=== PATIENT | female | born 1970 | race Asian ===

== ENCOUNTER 2017-01-04 07:19 | Observation (INO) | payer BC, OTHER ==
--- NOTE | 2017-01-04 07:54 | PDOC ---
History of Present Illness - General History Source: Patient Exam Limitations: No Limitations - History of Present Illness Initial Comments: 01/04/17 08:01 The patient is a 46-year-old woman, accompanied by family, with a significant past medical history of hypertension and metastatic breast Ca (s.p left lumpectomy and port-a-cath placement) who was sent to the emergency department by her Oncologist, Dr. Rudd, for rapid initiation of chemotherapy and port-a- cath placement today. As per patient, she reports a two day history of a mild intermittent non- productive cough. She denies any associated symptoms of fever, chills, generalized weakness, chest pain, lightheadedness, dizziness, shortness of breath, abdominal pain, nausea, vomiting, diarrhea. Allergies: No Known Drug Allergies. Past Surgical History: Left Lumpectomy. Port-A-Cath Placement. Social History: No tobacco, ETOH and recreational drug use. Primary Care Physician: Dr. Mynor Fischer [phone] Oncologist: Dr. Blaire Diggs [phone] <Esther Carr - Last Filed: 01/04/17 09:29> - General History Source: Patient Exam Limitations: No Limitations <Eveline Scott - Last Filed: 01/05/17 07:16> - General Chief Complaint: Revisit,Radiology Variance Stated Complaint: SENT BY PCP Time Seen by Provider: 01/04/17 07:38 Past History <Esther Carr - Last Filed: 01/04/17 09:29> - Past Medical History Anemia: No Asthma: No Cancer: Yes (LT BREAST) Cardiac Disorders: No CVA: No COPD: No CHF: No Dementia: No Diabetes: Yes GI Disorders: No Disorders: No HTN: Yes Hypercholesterolemia: No Liver Disease: No Seizures: No Thyroid Disease: No - Surgical History Abdominal Surgery: No Appendectomy: No Cardiac Surgery: No Cholecystectomy: No Lung Surgery: No Neurologic Surgery: No Orthopedic Surgery: No - Psycho/Social/Smoking Cessation Hx Anxiety: No Suicidal Ideation: No Smoking History: Never smoked Have you smoked in the past 12 months: No Hx Alcohol Use: No Drug/Substance Use Hx: No Substance Use Type: None Hx Substance Use Treatment: No <Eveline Scott - Last Filed: 01/05/17 07:16> - Past Medical History Allergies/Adverse Reactions: Allergies Allergy/AdvReac Type Severity Reaction Status Date / Time No Known Drug Allergies Allergy Verified 01/04/17 07:33 Home Medications: Ambulatory Orders Atorvastatin Ca [Lipitor] 10 mg PO HS 01/04/17 Glipizide [Glipizide Xl] 2.5 mg PO BID 01/04/17 Losartan Potassium [Cozaar -] 25 mg PO DAILY 01/04/17 Sitagliptin Phosphate [Januvia] 100 mg PO DAILY 01/04/17 Review of Systems - Review of Systems Able to Perform ROS?: Yes Comments:: 01/04/17 08:01 GENERAL/CONSTITUTIONAL: No: fever, chills, weakness, loss of appetite. HEAD, EYES, EARS, NOSE AND THROAT: No: change in vision, ear pain, discharge, sore throat, throat swelling. CARDIOVASCULAR: No: chest pain, lightheadedness, palpitations, syncope RESPIRATORY: Yes: Cough. No: shortness of breath, wheezing, hemoptysis, stridor. GASTROINTESTINAL: No: nausea, vomiting, abdominal cramping, diarrhea, rectal bleeding, constipation. GENITOURINARY: No: dysuria, hematuria, frequency, urgency, flank pain. MUSCULOSKELETAL: No: back pain, neck pain, joint pain, muscle swelling or pain SKIN AND BREASTS: No: lesions, pallor, rash or easy bruising. NEUROLOGIC: No: headache, vertigo, paresthesias, weakness ENDOCRINE: No: unexplained weight gain or loss HEMATOLOGIC/LYMPHATIC: Yes: Metastatic breast Ca. No: anemia, easy bleeding, swelling nodes <Esther Carr - Last Filed: 01/04/17 09:29> *Physical Exam - Vital Signs Last Vital Signs Temp Pulse Resp BP Pulse Ox 98.6 F 101 H 19 121/76 96 01/04/17 07:33 01/04/17 07:33 01/04/17 07:33 01/04/17 07:33 01/04/17 07:33 - Physical Exam Comments: 01/04/17 08:02 GENERAL: The patient is in no acute distress. HEAD: Normal with no signs of trauma. EYES: PERRLA, EOMI, sclera anicteric, conjunctiva clear. ENT: Ears normal, nares patent, oropharynx clear without exudates. Moist mucous membranes. NECK: Normal range of motion, supple without lymphadenopathy, JVD, or masses. CHEST: There is a well healed surgical scar at the right anterior chest. LUNGS: Breath sounds equal, clear to auscultation bilaterally. No wheezes, and no crackles. HEART:Regular rate and rhythm, normal S1 and S2 without murmur, rub or gallop. ABDOMEN: Soft, nontender, normoactive bowel sounds. No guarding, no rebound. EXTREMITIES: Normal range of motion, no edema. No clubbing or cyanosis. No erythema, or tenderness. NEUROLOGICAL: Cranial nerves II through XII grossly intact. Normal speech. No focal neurological deficits. MUSCULOSKELETAL: Back non-tender to palpation, no CVA tenderness SKIN: Warm, Dry, normal turgor, no rashes or lesions noted. <Esther Carr - Last Filed: 01/04/17 09:29> - Vital Signs Last Vital Signs Temp Pulse Resp BP Pulse Ox 98.6 F 101 H 19 121/76 96 01/04/17 07:33 01/04/17 07:33 01/04/17 07:33 01/04/17 07:33 01/04/17 07:33 <Eveline Scott - Last Filed: 01/05/17 07:16> Heart Score/ECG Review #1 ECG reviewed & interpreted by me at: 08:32 General ECG Interpretation: Sinus Rhythm, Normal Rate, Normal Intervals, No acute ischemic changes <Eveline Scott - Last Filed: 01/05/17 07:16> ED Treatment Course - LABORATORY CBC & Chemistry Diagram: 01/04/17 08:04 01/04/17 08:04 - RADIOLOGY Radiograph Interpretation: 01/04/17 09:29 EXAM: RAD/CHEST X-RAY PORTABLE IMPRESSION: Prior study is dated June 27, 2015. There is marked elevation of the right hemidiaphragm with atelectasis at the right base. Left lung field appears clear. Cardiac silhouette is within normal limits. Mediastinum appears slightly prominent which may be due to some rotation <Esther Carr - Last Filed: 01/04/17 09:29> - LABORATORY CBC & Chemistry Diagram: 01/04/17 08:04 01/04/17 08:04 - RADIOLOGY Radiology Studies Ordered: Category Date Time Status CHEST X-RAY PORTABLE* [RAD] Stat Radiology 01/04/17 07:34 Ordered <Eveline Scott - Last Filed: 01/05/17 07:16> Medical Decision Making - Medical Decision Making 01/04/17 08:11 MicroBlogged Hospitalist. Immediate response by Nurse Practitioner, Millie Cox. Case was discussed. Accepts case. <Esther Carr - Last Filed: 01/04/17 09:29> - Medical Decision Making 01/04/17 07:53 A portion of this note was documented by scribe services under my direction. I have reviewed the details of the note, within reason, and agree with the documentation with the following case summary and management plan written by me. Nursing documentation reviewed and incorporated into medical decision making 01/04/17 08:21 This is a 46-year-old female with a history of metastatic breast cancer who was sent to the emergency department to be pretty admitted for Port-A-Cath and rapid initiation of chemotherapy. Currently patient's only complaints are intermittent nonproductive cough. No fever, no chills. No chest or abdominal pain. Exam benign Case reviewed with surgical PA. Patient is to be NPO for Port-A-Cath placement this morning. Dr. Rudd called in this morning to state patient will be initiated on chemotherapy Case reviewed with Dr. Howard. Patient is admitted to the hospitalist service Labs sent <Eveline Scott - Last Filed: 01/05/17 07:16> *DC/Admit/Observation/Transfer - Attestations Scribe Attestion: 01/04/17 08:02 Documentation prepared by Esther Carr, acting as medical dermatologist for Eveline Scott MD. <Esther Carr - Last Filed: 01/04/17 09:29> - Discharge Dispostion Admit: Yes <Eveline Scott - Last Filed: 01/05/17 07:16> Diagnosis at time of Disposition: Breast cancer metastasized to multiple sites Qualifiers: Laterality: unspecified laterality Qualified Code(s): C50.919 - Malignant neoplasm of unspecified site of unspecified female breast - Discharge Dispostion Condition at time of disposition: Stable - Referrals
[2017-01-04 08:16] LABS: BASOPHIL 0.5 % (0-2.0); EOSINOPHIL 11.3 % (0-4.5); MCH 28.5 pg (25.7-33.7); MCHC 33.1 g/dl (32.0-36.0); MEAN PLT VOLUME 6.6 fl (7.5-11.1); NEUTROPHILS 55.9 % (42.8-82.8); PLATELET COUNT 316 K/MM3 (134-434); RDW 14.4 % (11.6-15.6); WHITE BLOOD COUNT 6.1 K/mm3 (4.0-10.0)
[2017-01-04 08:26] LABS: INR 1.12 (0.82-1.09); PROTHROMBIN TIME (PATIENT) 12.4 SEC (9.98-11.88)
[2017-01-04 08:38] LABS: ALBUMIN 3.8 g/dl (3.4-5.0); ALK PHOS 88 U/L (45-117); ANION GAP 9 (8-16); BILIRUBIN,TOTAL 0.6 mg/dL (0.2-1.0); CALCIUM 8.7 mg/dL (8.5-10.1); CO2 28 mmol/L (21-32); CREATININE 0.7 mg/dL (0.55-1.02); GLUCOSE,RANDOM 120 mg/dL (74-106); SGOT/AST 31 U/L (15-37); SGPT/ALT 15 U/L (12-78); TOT PROT 7.3 g/dl (6.4-8.2)
[2017-01-04] MEDS ORDERED: LIDOCAINE HCL 1%, 10 MG/ML (20ML VIAL) ONE (08:38)
[2017-01-04] MEDS ORDERED: HEPARIN NA (PORCINE) 5,000 UNITS/ML 1ML VIAL ONE (08:38)
[2017-01-04] MEDS ORDERED: MIDAZOLAM HCL 2 MG/2 ML SINGLE DOSE VIAL ONE ×2 (09:18→09:22)
[2017-01-04] MEDS ORDERED: ceFAZolin SODIUM 1 GM VIAL ONE (09:19)
[2017-01-04] MEDS ORDERED: ceFAZolin SODIUM 1 GM VIAL IVPB ONE (09:20)
[2017-01-04] MEDS ORDERED: LIDOCAINE HCL 1%, 10 MG/ML (20ML VIAL) IJ ONE ×2 (09:24)
--- NOTE | 2017-01-04 09:29 | HP ---
CHIEF COMPLAINT: Needs chemotherapy PCP: Dr. Lowe Oncologist: Dr. Rudd HISTORY OF PRESENT ILLNESS: This is a 46 year old female with a history of breast ca (dx in [place], then followed here: s/p lumpectomy, chemotherapy, and RTX 2 years ago complicated by ESBL PNA). She subsequently had a normal mammogram in July, and was being evaluated every 3 months. This month, she developed cough and cold symptoms and was noted to have lymphadenopathy on exam. PET scan then revealed widely metastatic disease; biospy confirmed triple negative breast ca. She is here for initiation of gemcitabine and carboplatin. She is s/p port-a-cath insertion today. Recent Travel: None PAST MEDICAL HISTORY: HTN, HLD, NIDDM Social History: Primary language is Malayalam Smoking: Alcohol: Drugs: Family History: Allergies No Known Drug Allergies Allergy (Verified 01/04/17 07:33) HOME MEDICATIONS: Home Medications Medication Instructions Recorded Entecavir 0.5 mg PO DAILY 06/16/15 Omeprazole 40 mg PO DAILY 06/16/15 Ondansetron HCl [Zofran] 8 mg PO BID PRN 07/21/15 Dexamethasone 20 mg PO ASDIR 08/05/15 Amlodipine Besylate 10 mg PO DAILY 08/18/15 REVIEW OF SYSTEMS CONSTITUTIONAL: Absent: fever, chills, diaphoresis, generalized weakness, malaise, loss of appetite, weight change HEENT: Absent: rhinorrhea, nasal congestion, throat pain, throat swelling, difficulty swallowing, mouth swelling, ear pain, eye pain, visual changes CARDIOVASCULAR: Absent: chest pain, syncope, palpitations, irregular heart rate, lightheadedness , peripheral edema RESPIRATORY: Absent: cough, shortness of breath, dyspnea with exertion, orthopnea, wheezing, stridor, hemoptysis GASTROINTESTINAL: Absent: abdominal pain, abdominal distension, nausea, vomiting, diarrhea, constipation, melena, hematochezia GENITOURINARY: Absent: dysuria, frequency, urgency, hesitancy, hematuria, flank pain, genital pain MUSCULOSKELETAL: Absent: myalgia, arthralgia, joint swelling, back pain, neck pain SKIN: Absent: rash, itching, pallor HEMATOLOGIC/IMMUNOLOGIC: Absent: easy bleeding, easy bruising, lymphadenopathy, frequent infections ENDOCRINE: Absent: unexplained weight gain, unexplained weight loss, heat intolerance, cold intolerance NEUROLOGIC: Absent: headache, focal weakness or paresthesias, dizziness, unsteady gait, seizure, mental status changes, bladder or bowel incontinence PSYCHIATRIC: Absent: anxiety, depression, suicidal or homicidal ideation, hallucinations. PHYSICAL EXAMINATION GENERAL: Awake, alert, and fully oriented, in no acute distress. HEAD: Normal with no signs of trauma. EYES: Pupils equal, round and reactive to light, extraocular movements intact, sclera anicteric, conjunctiva clear. No lid lag. EARS, NOSE, THROAT: Ears normal, nares patent, oropharynx clear without exudates. Moist mucous membranes. NECK: Normal range of motion, supple without lymphadenopathy, JVD, or masses. LUNGS: Breath sounds equal, clear to auscultation bilaterally. No wheezes, and no crackles. No accessory muscle use. Right chest port-a-cath dressing clean and dry. HEART: Regular rate and rhythm, normal S1 and S2 without murmur, rub or gallop. ABDOMEN: Soft, nontender, not distended, normoactive bowel sounds, no guarding, no rebound, no masses. No hepatomegaly or splenomegaly. MUSCULOSKELETAL: Normal range of motion at all joints. No bony deformities or tenderness. No CVA tenderness. UPPER EXTREMITIES: 2+ pulses, warm, well-perfused. No cyanosis. No clubbing. Cap refill <2 seconds. No peripheral edema. LOWER EXTREMITIES: 2+ pulses, warm, well-perfused. No calf tenderness. No peripheral edema. NEUROLOGICAL: Cranial nerves II-XII intact. Normal speech. Normal gait. PSYCHIATRIC: Cooperative. Good eye contact. Appropriate mood and affect. SKIN: Warm, dry, normal turgor, no rashes or lesions noted. ASSESSMENT/PLAN: 46 year old female placed in observation for initiation of chemotherapy. Problem List - Problem (1) Breast cancer metastasized to multiple sites Assessment/Plan: -Initiation of gemcitabine and carboplatin -Zofran and compazine as needed for nausea -IVF -Neulasta tomorrow prior to dc Code(s): C50.919 - MALIGNANT NEOPLASM OF UNSP SITE OF UNSPECIFIED FEMALE BREAST Qualifiers: Laterality: unspecified laterality Qualified Code(s): C50.919 - Malignant neoplasm of unspecified site of unspecified female breast (2) Chemotherapy management, encounter for Assessment/Plan: -Oncology following Code(s): Z51.11 - ENCOUNTER FOR ANTINEOPLASTIC CHEMOTHERAPY (3) Encounter for insertion of venous access port Assessment/Plan: -S/p port-a-cath insertion, uneventful Code(s): Z45.2 - ENCOUNTER FOR ADJUSTMENT AND MANAGEMENT OF VAD (4) Hypertension Assessment/Plan: -At goal -Continue home Cozaar Code(s): I10 - ESSENTIAL (PRIMARY) HYPERTENSION (5) Diabetes Assessment/Plan: -Hold oral hypoglycemics while inpatient -ISS -FSACHS -Diabetic diet Code(s): E11.9 - TYPE 2 DIABETES MELLITUS WITHOUT COMPLICATIONS (6) DVT prophylaxis Code(s): SVG1988 - Visit type - Emergency Visit Emergency Visit: Yes ED Registration Date: 01/04/17 Care time: The patient presented to the Emergency Department on the above date and was hospitalized for further evaluation of their emergent condition. - New Patient This patient is new to me today: Yes Date on this admission: 01/12/17 - Critical Care Critical Care patient: No
[2017-01-04] MEDS ORDERED: ONDANSETRON 4 MG/2 ML VIAL IVPB PRN (09:44)
[2017-01-04] MEDS ORDERED: ACETAMINOPHEN 325 MG TABLET (FP) PO PRN (09:44)
[2017-01-04] MEDS ORDERED: SODIUM CHLORIDE 1,000 ML IV SCH ×2 (09:45→20:00)
[2017-01-04] MEDS ORDERED: oxyCODONE HCL 5 MG TABLET PO PRN (09:47)
[2017-01-04] MEDS ORDERED: ASPIRIN 81 MG CHEWABLE TABLETS PO SCH (10:00)
--- NOTE | 2017-01-04 10:08 | OP ---
Operative Note - Note: Operative Date: 01/04/17 Pre-Operative Diagnosis: Breast cancer with mets Operation: Insertion of portacath Post-Operative Diagnosis: Same as Pre-op Surgeon: Kirill Ryan Anesthesia: Fractional Estimated Blood Loss (mls): 10 Operative Report Dictated: Yes
[2017-01-04] MEDS ORDERED: LACTATED RINGERS SOLUTION 1,000 ML IV SCH (10:15)
[2017-01-04] MEDS ORDERED: ONDANSETRON 4 MG/2 ML VIAL IVPUSH PRN (10:15)
[2017-01-04] MEDS ORDERED: ONDANSETRON 4 MG/2 ML VIAL ONE (11:53)
[2017-01-04] MEDS ORDERED: PROCHLORPERAZINE MALEATE 5 MG TABLET PO PRN (12:53)
[2017-01-04] MEDS ORDERED: SODIUM CHLORIDE 250 ML IV ONE ×2 (13:30→15:30)
[2017-01-04] MEDS: LOSARTAN POTASSIUM 25 MG TABLET PO SCH (13:43)
[2017-01-04] MEDS: INSULIN SLIDING SCALE (NOVOLOG) 1 VIAL SQ SCH ×3 (13:44→21:56)
[2017-01-04] MEDS ORDERED: DEXAMETHASONE INJECTION 10 MG, ONDANSETRON INJECTION 12 MG in SODIUM CHLORIDE 100 ML IVPB ONE (14:00)
[2017-01-04 14:25] VITALS: BMI 28.3
[2017-01-04] MEDS ORDERED: GEMCITABINE HCL IV ONE (14:30)
[2017-01-04] MEDS ORDERED: SODIUM CHLORIDE IV ONE (14:30)
[2017-01-04] MEDS ORDERED: CARBOPLATIN IVPB ONE (15:00)
[2017-01-04] MEDS ORDERED: SODIUM CHLORIDE IVPB ONE (15:00)
--- NOTE | 2017-01-04 15:02 | CONSULT ---
Consult - text type - Consultation Consultation Note: The patient is a 46-year-old woman, accompanied by family, with a significant past medical history of DM<hypertension and metastatic breast Ca (s.p left lumpectomy and port-a-cath placement) Cough is improving. She denies any associated symptoms of fever, chills, generalized weakness, chest pain, lightheadedness, dizziness, shortness of breath, abdominal pain, nausea, vomiting, diarrhea. Allergies: No Known Drug Allergies. Past Surgical History: Left Lumpectomy. Port-A-Cath Placement. Social History: No tobacco, ETOH and recreational drug use. - Past Medical History Cancer: Yes (LT BREAST) DM HTN: Yes - Psycho/Social/Smoking Cessation Hx nonsmoker - Past Medical History Allergies/Adverse Reactions: Allergies Allergy/AdvReac Type Severity Reaction Status Date / Time No Known Drug Allergies Allergy Verified 01/04/17 07:33 Home Medications: Ambulatory Orders Entecavir 0.5 mg PO DAILY 06/16/15 Omeprazole 40 mg PO DAILY 06/16/15 Ondansetron HCl [Zofran] 8 mg PO BID PRN 07/21/15 Dexamethasone 20 mg PO ASDIR 08/05/15 Amlodipine Besylate 10 mg PO DAILY 08/18/15 - Vital Signs Last Vital Signs Temp Pulse Resp BP Pulse Ox 98.6 F 101 H 19 121/76 96 01/04/17 07:33 01/04/17 07:33 01/04/17 07:33 01/04/17 07:33 01/04/17 07:33 HEENT: MICHELLE, EOM Intact Oropharynx: No thrush, No mucositis Neck: Supple Nodes: supraclavicular adenopathy Cor: RSR, No murmurs, No gallops Lungs: Clear to P&A Abd: Soft, Normal bowel sounds, No organomegaly Abnormal Lab Results 01/04/17 01/04/17 08:04 08:04 MPV 6.6 L Eosinophils % 11.3 H D Random Glucose 120 H D Current Medications Acetaminophen (Tylenol -) 650 mg PO Q4H PRN PRN Reason: FEVER OR PAIN Atorvastatin Calcium (Lipitor -) 10 mg PO HS JAIR Last Admin: 01/04/17 21:55 Dose: 10 mg Enoxaparin Sodium (Lovenox -) 40 mg SQ DAILY JAIR Sodium Chloride (Normal Saline -) 1,000 mls @ 42 mls/hr IV ASDIR JAIR Last Admin: 01/04/17 20:05 Dose: 42 mls/hr Insulin Aspart (Novolog Vial Sliding Scale -) 1 vial SQ ACHS JAIR PRN Reason: Protocol Last Admin: 01/04/17 21:56 Dose: 6 units Losartan Potassium (Cozaar -) 25 mg PO DAILY JAIR Last Admin: 01/04/17 13:43 Dose: 25 mg Oxycodone HCl (Roxicodone -) 5 mg PO Q6H PRN PRN Reason: PAIN Prochlorperazine Maleate (Compazine -) 10 mg PO Q6H PRN PRN Reason: NAUSEA AND/OR VOMITING Last Admin: 01/04/17 13:41 Dose: 10 mg A/P 46 y/o female with h/o DM, HT, h/o stage IIA triple negative breast cancer in 2014, s/p lumpectomy/dose dense chemotherapy with AC and taxol /RT she now comes in with recurrent metastatic breast cancer with widely metastatic disease / lymphangitic spread to the lung/rt. supraclavicular node, ipsilateral breast recurrence,adrenal mass/rt. femur will check X ray both femurs discuussed side effects of gem/carbo in great detail including flu like symptoms /sepsis/vital organ damage/bleeding she understands risks/benefits and is willing to proceed check X ray both femurs dscussed with family at bed side ID consult --?/ pneumovax. IF indicated will give ads out patient neupogen prior to discharge
--- NOTE | 2017-01-04 16:34 | EKG ---
Test Reason : Blood Pressure : / mmHG Vent. Rate : 094 BPM Atrial Rate : 094 BPM P-R Int : 128 ms QRS Dur : 072 ms QT Int : 362 ms P-R-T Axes : 049 034 017 degrees QTc Int : 452 ms NORMAL SINUS RHYTHM NORMAL ECG WHEN COMPARED WITH ECG OF 16-JUN-2015 19:24, NO SIGNIFICANT CHANGE WAS FOUND Confirmed by MD SAMANTHA, TOSHIA ([id number]) on 01/04/2017 4:33:52 PM Referred By: Confirmed By:TOSHIA SINGH MD
[2017-01-04] MEDS ORDERED: INSULIN (NOVOLOG) ASPART 100 UNITS/ML 10ML VIAL ONE (19:39)
[2017-01-04] MEDS ORDERED: ATORVASTATIN CA 10 MG TABLET (FP) PO SCH (22:00)
[2017-01-05] MEDS: INSULIN SLIDING SCALE (NOVOLOG) 1 VIAL SQ SCH ×3 (06:05→17:28)
[2017-01-05 07:19] LABS: BASOPHIL 0.1 % (0-2.0); MCH 28.5 pg (25.7-33.7); MCHC 33.2 g/dl (32.0-36.0); MEAN CELL VOLUME 85.9 fl (80-96); MEAN PLT VOLUME 7.1 fl (7.5-11.1); NEUTROPHILS 89.5 % (42.8-82.8); PLATELET COUNT 288 K/MM3 (134-434); RDW 14.2 % (11.6-15.6); WHITE BLOOD COUNT 8.4 K/mm3 (4.0-10.0)
[2017-01-05 07:47] LABS: ALK PHOS 71 U/L (45-117); ANION GAP 6 (8-16); BILIRUBIN,TOTAL 0.6 mg/dL (0.2-1.0); CALCIUM 8.6 mg/dL (8.5-10.1); CO2 28 mmol/L (21-32); CREATININE 0.6 mg/dL (0.55-1.02); GLUCOSE,RANDOM 155 mg/dL (74-106); MAGNESIUM 2.3 mg/dL (1.8-2.4); PHOSPHOROUS 2.8 mg/dL (2.5-4.9); SGOT/AST 22 U/L (15-37); SGPT/ALT 12 U/L (12-78); TOT PROT 6.3 g/dl (6.4-8.2)
--- NOTE | 2017-01-05 09:48 | PN ---
Progress Note (short form) - Note Progress Note: Vascular surgery Pt seen and examined. Port site is clean. Using port. No issues. Cont present care. Kirill Ryan DO
[2017-01-05] MEDS ORDERED: ENOXAPARIN NA (PORCINE) 40 MG/0.4 ML DISP.SYRIN SQ SCH (10:00)
[2017-01-05] MEDS ORDERED: PT OWN MED DRAWER 7, Y5N ONE (11:05)
[2017-01-05] MEDS: LOSARTAN POTASSIUM 25 MG TABLET PO SCH (11:20)
[2017-01-05] MEDS ORDERED: INSULIN (NOVOLOG) ASPART 100 UNITS/ML 10ML VIAL ONE (11:27)
--- NOTE | 2017-01-05 11:41 | OP ---
DATE OF OPERATION: 01/04/2017 PREOPERATIVE DIAGNOSIS: Breast cancer with metastasis. POSTOPERATIVE DIAGNOSIS: Breast cancer with metastasis. PROCEDURE: Insertion of Port-A-Cath. SURGEON: Kirill Deluca DO ANESTHESIA: Fractional. BLOOD LOSS: 10 mL. DESCRIPTION OF PROCEDURE: The patient is a 46-year-old female with breast cancer with metastasis who needs initiation of chemotherapy. She came into the ER today for Port-A-Cath insertion. Patient was consented for the procedure, understanding all risks, benefits, and alternatives, then brought into the operating room. Once in the operating suite, patient was laid on the operating table in supine manner, and the area of the right neck and chest was prepped in sterile surgical manner. Under ultrasound guidance, we visualized the right internal jugular vein and 10 mL of 0.5% was injected there. We then took our Micropuncture needle and punctured the right internal jugular vein, and our Micropuncture wire was inserted under fluoroscopy. Micropuncture sheath was then inserted. We then went ahead and went below the clavicle and below the last scar for her Port-A-Cath which she had a couple of years ago and injected 15 mL of lidocaine 1%. We then, using a 15-blade, made a 7-cm incision. Bovie electrocautery was then used to control hemostasis, and we were able to get down through all the subcutaneous tissue using a vein retractor. We were able to create a pocket for our Port-A-Cath. We then went ahead and tunneled our Port-A-Cath up to the puncture site. We then went ahead and placed our breakaway sheath over the guidewire into the vein under fluoroscopy. Inner cannula and guidewire were removed. Catheter was then placed in the sheath and the sheath was broken away. The catheter was placed inside the vein. Prior to placing the catheter into the vein, the catheter was cut to size using fluoroscopy. Once the catheter was placed inside the SVC, it was found to be outside the right atrium. We then took a Xavier needle and used heparinized saline and we were able to draw back on the Port-A-Cath and there was good flow. Heparinized saline was injected and 2000 units of IV heparin was injected. At this point we took 3-0 silk and we attached the catheter to the subcutaneous tissue. We then used 3-0 Vicryl and the subcutaneous tissue was approximated in an interrupted manner, and the skin was closed with 4-0 Biosyn in subcuticular running fashion. One simple stitch was also placed at the puncture site. Area was wet and dried. Two Steri-Strips were placed across the incision of the Port-A-Cath. We then took an access needle and accessed the Port-A-Cath, jay back on the Port-A-Cath, and there was good drawback, and heparinized saline was used to inject into the Port-A-Cath. Tegaderms, 4 x 4's were placed. Patient tolerated the procedure with no complications. Patient transferred to the PACU in stable condition where chest x-ray will be obtained. KIRILL DELUCA DO [id number]
--- NOTE | 2017-01-05 15:32 | PN ---
Progress Note (short form) - Note Progress Note: PAtient seen end examined Feels well Last Vital Signs Temp Pulse Resp BP Pulse Ox 98.2 F 92 H 20 129/76 96 01/05/17 14:40 01/05/17 14:40 01/05/17 14:40 01/05/17 14:40 01/05/17 05:00 HEENT: MICHELLE, EOM Intact Oropharynx: No thrush, No mucositis Neck: Supple Cor: RSR, No murmurs, No gallops Lungs: Clear to P&A Abd: Soft, Normal bowel sounds, No organomegaly Ext:No significant edema Abnormal Lab Results 01/05/17 01/05/17 06:00 06:00 Hgb 10.5 L D Hct 31.7 L MPV 7.1 L Neutrophils % 89.5 H D Lymphocytes % 7.9 L D Monocytes % 2.5 L Anion Gap 6 L Random Glucose 155 H D Total Protein 6.3 L Albumin 3.0 L D Current Medications Acetaminophen (Tylenol -) 650 mg PO Q4H PRN PRN Reason: FEVER OR PAIN Atorvastatin Calcium (Lipitor -) 10 mg PO HS [facility] Last Admin: 01/04/17 21:55 Dose: 10 mg Enoxaparin Sodium (Lovenox -) 40 mg SQ DAILY [facility] Last Admin: 01/05/17 11:20 Dose: 40 mg Entecavir (Baraclude -) 0.5 mg PO DAILY [facility] Sodium Chloride (Normal Saline -) 1,000 mls @ 42 mls/hr IV ASDIR [facility] Last Admin: 01/04/17 20:05 Dose: 42 mls/hr Insulin Aspart (Novolog Vial Sliding Scale -) 1 vial SQ ACHS [facility] PRN Reason: Protocol Last Admin: 01/05/17 11:20 Dose: 4 units Losartan Potassium (Cozaar -) 25 mg PO DAILY [facility] Last Admin: 01/05/17 11:20 Dose: 25 mg Oxycodone HCl (Roxicodone -) 5 mg PO Q6H PRN PRN Reason: PAIN Prochlorperazine Maleate (Compazine -) 10 mg PO Q6H PRN PRN Reason: NAUSEA AND/OR VOMITING Last Admin: 01/04/17 13:41 Dose: 10 mg Tbo-Filgrastim (Granix -) 300 mcg SQ ONCE ONE Stop: 01/05/17 15:25 A/P 46 y/o patient with recurrent, metastatic breast cancer , triple negative On gemzar/carboplatin Tolerating well will restart entecavir d/c fluids XRay both femurs show no e/o lytic lesions d/c home on protonix/compazine/ zofran granix prior to discharge f/u on sat in the office
--- NOTE | 2017-01-05 15:48 | DS ---
Physical Exam: SUBJECTIVE: Patient seen and examined. States she feels well, she has a port a cath placed yesterday for continued chemo infusions as an outpatient. OBJECTIVE: Vital Signs Period Temp Pulse Resp BP Sys/Winter Pulse Ox Last 24 Hr 97.7 F-98.3 F 92-108 16-20 116-155/72-94 96-96 PHYSICAL EXAM GENERAL: The patient is awake, alert, and fully oriented, in no acute distress. HEAD: Normal with no signs of trauma. EYES: PERRL, extraocular movements intact, sclera anicteric, conjunctiva clear. ENT: Ears normal, nares patent, oropharynx clear without exudates, moist mucous membranes. NECK: Trachea midline, full range of motion, supple. LUNGS: Breath sounds equal, clear to auscultation bilaterally HEART: Regular rate and rhythm ABDOMEN: Soft, nontender, nondistended, normoactive bowel sounds, no guarding, no rebound, no hepatosplenomegaly, no masses. EXTREMITIES: 2+ pulses, warm, well-perfused, no edema. NEUROLOGICAL: Normal speech, gait not observed. PSYCH: Normal mood, normal affect. SKIN: Warm, dry, normal turgor, no rashes or lesions noted. LABS Laboratory Results - last 24 hr 01/04/17 01/05/17 01/05/17 21:53 06:00 06:00 WBC 8.4 D RBC 3.70 Hgb 10.5 L D Hct 31.7 L MCV 85.9 MCHC 33.2 RDW 14.2 Plt Count 288 MPV 7.1 L Neutrophils % 89.5 H D Lymphocytes % 7.9 L D Monocytes % 2.5 L Eosinophils % 0.0 D Basophils % 0.1 Sodium 139 Potassium 4.3 Chloride 105 Carbon Dioxide 28 Anion Gap 6 L BUN 14 D Creatinine 0.6 Creat Clearance w eGFR > 60 POC Glucometer 264 Random Glucose 155 H D Calcium 8.6 Phosphorus 2.8 Magnesium 2.3 D Total Bilirubin 0.6 AST 22 D ALT 12 Alkaline Phosphatase 71 Total Protein 6.3 L Albumin 3.0 L D 01/05/17 01/05/17 06:03 11:18 WBC RBC Hgb Hct MCV MCHC RDW Plt Count MPV Neutrophils % Lymphocytes % Monocytes % Eosinophils % Basophils % Sodium Potassium Chloride Carbon Dioxide Anion Gap BUN Creatinine Creat Clearance w eGFR POC Glucometer 178 248 Random Glucose Calcium Phosphorus Magnesium Total Bilirubin AST ALT Alkaline Phosphatase Total Protein Albumin HOSPITAL COURSE: Date of Admission:01/04/17 Date of Discharge: 01/05/17 The patient is a 46-year-old woman with a significant past medical history of hypertension and metastatic breast Ca (s.p left lumpectomy and port-a-cath placement) who was sent to the emergency department by her Oncologist for rapid initiation of chemotherapy and port-a-cath placement today. Hematology/Oncology Assessment/Plan: Malignant neoplasm of the breast/triple negative s/p chemotherapy (gemzar/carboplatin) to continue to receive chemo as outpatient s/p port a cath Will order Protonix, Companzine, Zofran to continue as outpt s/p chemo Cardiology: Hypertension - chronic Assessment/Plan: controlled on current regimen. : UTI - acute Assesment/Plan: Urine cultures with group d strep 10,000-20,000 she is asymptomatic, vitals stable, monitor for now Disposition: To follow with oncology as outpatient for continued chemotherapy. Full Code. Minutes to complete discharge: 45 Discharge Summary Reason For Visit: CARCINOMA OF BREAST METASTIC TO [facility] Current Active Problems Breast cancer metastasized to multiple sites (Acute) Chemotherapy management, encounter for (Acute) DVT prophylaxis (Acute) Encounter for insertion of venous access port (Acute) Hypertension (Acute) Condition: Stable - Instructions Diet, Activity, Other Instructions: Please report any worsening nausea vomiting to your PCP or oncologist. New Prescriptions: Protonix 40mg daily Companzine 10mg q 8 as needed for nausea/vomiting Zofran 8mg q 12 hours as needed for nausea/vomiting Referrals: Aaliyah Lowe MD [Primary Care Provider] - Blaire Diggs MD [Staff Physician] - - Home Medications Comprehensive Discharge Medication List: Ambulatory Orders Atorvastatin Ca [Lipitor] 10 mg PO HS 01/04/17 Glipizide [Glipizide Xl] 2.5 mg PO BID 01/04/17 Losartan Potassium [Cozaar -] 25 mg PO DAILY 01/04/17 Sitagliptin Phosphate [Januvia] 100 mg PO DAILY 01/04/17 This patient is new to me today: Yes Date on this admission: 01/05/17 Emergency Visit: Yes ED Registration Date: 01/04/17 Care time: The patient presented to the Emergency Department on the above date and was hospitalized for further evaluation of their emergent condition. Critical Care patient: No - Discharge Referral Referred to [facility] No
[2017-01-05] MEDS ORDERED: TBO-FILGRASTIM 300 MCG/0.5 ML DISP.SYRINGE SQ ONE (16:00)
[2017-01-05] MEDS ORDERED: ONDANSETRON 4 MG TABLET PO ONE (16:44)
[2017-01-05 17:43] VITALS: BP 138/75; PULSE 97; TEMP 98.4
[2017-01-05 19:09] LABS: URINE APPEARANCE CLEAR; URINE BILIRUBIN NEGATIVE (NEGATIVE); URINE COLOR STRAW; URINE GLUCOSE (UA) NEGATIVE (NEGATIVE); URINE KETONE NEGATIVE (NEGATIVE); URINE LEUK ESTERASE NEGATIVE (NEGATIVE); URINE NITRITE NEGATIVE (NEGATIVE); URINE PROTEIN NEGATIVE (NEGATIVE); URINE UROBILINOGEN NEGATIVE E.U./dl (0.2-1.0)
[2017-01-05 19:12] LABS: URINE BLOOD 1+ (NEGATIVE)
[2017-01-06] MEDS ORDERED: ENTECAVIR 0.5 MG TABLET PO SCH (10:00)
== END 2017-01-05 18:54 | disposition home or self-care (01) ==
LOC: JER 07:19 → INTOOBSV 08:24 → JERBED 08:24 → UNDOADMOB 08:24 → J7W 12:15 → JERBED 12:15 → J7W 17:58
PROVIDERS: ADMIT Internal Medicine; ATTEND Nurse Practitioner Family
PROC: 02H633Z Insertion of Infusion Device into Right Atrium, Percutaneous Approach (ICD-10-PCS; 2017-01-04)
PROC: B214YZZ Fluoroscopy of Right Heart using Other Contrast (ICD-10-PCS; 2017-01-04)
PROC: 0JH60XZ Insertion of Tunneled Vascular Access Device into Chest Subcutaneous Tissue and Fascia, Open Approach (ICD-10-PCS; principal; 2017-01-04 11:30)
DX: C50.919 Malignant neoplasm of unspecified site of unspecified female breast (principal); C78.01 Secondary malignant neoplasm of right lung; C77.0 Secondary and unspecified malignant neoplasm of lymph nodes of head, face and neck; C79.52 Secondary malignant neoplasm of bone marrow; I10 Essential (primary) hypertension; E78.5 Hyperlipidemia, unspecified
CPT/HCPCS: 36415; 71010-TC; 73552-TC-LT; 73552-TC-RT; 76000-TC; 80053; 81003; 81015; 83735; 84100; 84703; 85025; 85610; 86850; 86900; 86901; 87040; 87086; 87186; 93005; 93010; 94760; 96413; 96415; 96417; 99285-25; G0378; J1442; J1644

== ENCOUNTER 2017-01-11 08:36 | Day surgery (SDC) | payer BC, OTHER ==
[~2017-01-11 08:36] MED LIST: DEXAMETHASONE IVPB ONE; GEMCITABINE HCL IV ONE; ONDANSETRON IVPB ONE; SODIUM CHLORIDE 250 ML IV ONE; SODIUM CHLORIDE IV ONE; SODIUM CHLORIDE IVPB ONE
[2017-01-11] MEDS ORDERED: SODIUM CHLORIDE IV ONE (09:00)
[2017-01-11] MEDS ORDERED: CARBOPLATIN IV ONE (09:00)
[2017-01-11] MEDS ORDERED: SODIUM CHLORIDE 250 ML IV ONE (09:30)
[2017-01-11 10:16] LABS: BASOPHIL 0.4 % (0-2.0); EOSINOPHIL 7.6 % (0-4.5); MCH 28.4 pg (25.7-33.7); MCHC 33.5 g/dl (32.0-36.0); MEAN CELL VOLUME 84.8 fl (80-96); MEAN PLT VOLUME 6.5 fl (7.5-11.1); NEUTROPHILS 52.7 % (42.8-82.8); PLATELET COUNT 221 K/MM3 (134-434); RDW 13.9 % (11.6-15.6); WHITE BLOOD COUNT 3.6 K/mm3 (4.0-10.0)
[2017-01-11 10:33] LABS: ALBUMIN 3.7 g/dl (3.4-5.0); ANION GAP 7 (8-16); BILIRUBIN,TOTAL 0.6 mg/dL (0.2-1.0); CALCIUM 9.1 mg/dL (8.5-10.1); CO2 28 mmol/L (21-32); CREATININE 0.7 mg/dL (0.55-1.02); GLUCOSE,RANDOM 161 mg/dL (74-106); MAGNESIUM 2.1 mg/dL (1.8-2.4); SGOT/AST 92 U/L (15-37); SGPT/ALT 107 U/L (12-78); TOT PROT 7.2 g/dl (6.4-8.2)
[2017-01-11 10:36] LABS: ALK PHOS 83 U/L (45-117)
--- NOTE | 2017-01-11 11:19 | PN ---
Progress Note (short form) - Note Progress Note: Patient seen and examined Admitted for chemotherapy Triple negative breast cancer on carboplatinum, gemzar. ROS No headaches, diplopia, epistaxis, dysphagia, chest pains, SOB, dyspnea, palpitations, nausea, emesis, ,dysuria, hematuria, back or bone pains BP-133/87 Pulse--92 RR18 Afebrile HEENT: MICHELLE, EOM Intact Oropharynx: No thrush, No mucositis Neck: Supple Nodes: Without adenopathy Breasts: left breast - s/p surgery Cor: RSR, No murmurs, No gallops Lungs: Clear to P&A Abd: Soft, Normal bowel sounds, No organomegaly Ext:No significant edema Skin: No rashes, Integument intact CBC, BMP 01/11/17 09:50 01/11/17 09:50 Impression: Triple negative breast ca Leukopenia Plan: Carbo/gemzar protocol Ja post therapy.
[2017-01-11] MEDS ORDERED: PORTA CATH FLUSH 10 ML IVPUSH ONE (12:30)
[2017-01-11 14:19] VITALS: BP 124/84; PULSE 87; TEMP 97.8
== END 2017-01-11 14:21 | disposition home or self-care (01) ==
LOC: JONCCHEMO 08:36 → J7W 08:36 → JONCCHEMO 14:21
PROVIDERS: ATTEND Internal Medicine Hematology & Oncology
DX: Z51.11 Encounter for antineoplastic chemotherapy (principal); C50.919 Malignant neoplasm of unspecified site of unspecified female breast
CPT/HCPCS: 36415; 80053; 83735; 84134; 85025; 96361; 96367; 96413; 96415; 96417

== ENCOUNTER 2017-01-12 13:41 | Day surgery (SDC) | payer BC, OTHER ==
[~2017-01-12 13:41] MED LIST changes: -DEXAMETHASONE IVPB ONE; -GEMCITABINE HCL IV ONE; -ONDANSETRON IVPB ONE; -SODIUM CHLORIDE 250 ML IV ONE; -SODIUM CHLORIDE IV ONE; -SODIUM CHLORIDE IVPB ONE; +TBO-FILGRASTIM 480 MCG/0.8 ML DISP.SYRIN SQ ONE
[2017-01-12 14:10] VITALS: BP 126/88; PULSE 95; TEMP 97.3
== END 2017-01-12 14:15 | disposition home or self-care (01) ==
LOC: JONCCHEMO 13:41 → J7W 13:42 → JONCCHEMO 14:15
PROVIDERS: ATTEND Internal Medicine Hematology & Oncology
PROC: 3E013GC Introduction of Other Therapeutic Substance into Subcutaneous Tissue, Percutaneous Approach (ICD-10-PCS; principal; 2017-01-12)
DX: Z12.11 Encounter for screening for malignant neoplasm of colon (principal); C50.919 Malignant neoplasm of unspecified site of unspecified female breast; D72.819 Decreased white blood cell count, unspecified
CPT/HCPCS: 96372; J1442

== ENCOUNTER 2017-01-26 20:53 | Inpatient (IN) | payer BC, OTHER ==
[2017-01-26 21:01] VITALS: BMI 26.2
[2017-01-26 22:02] LABS: MCH 29.1 pg (25.7-33.7); MCHC 33.5 g/dl (32.0-36.0); MEAN CELL VOLUME 86.8 fl (80-96); MEAN PLT VOLUME 6.6 fl (7.5-11.1); PLATELET COUNT 317 K/MM3 (134-434); RDW 14.5 % (11.6-15.6); WHITE BLOOD COUNT 8.4 K/mm3 (4.0-10.0)
[2017-01-26 22:15] LABS: URINE APPEARANCE CLEAR; URINE BILIRUBIN NEGATIVE (NEGATIVE); URINE COLOR COLORLESS; URINE GLUCOSE (UA) NEGATIVE (NEGATIVE); URINE KETONE NEGATIVE (NEGATIVE); URINE LEUK ESTERASE NEGATIVE (NEGATIVE); URINE NITRITE NEGATIVE (NEGATIVE); URINE PROTEIN NEGATIVE (NEGATIVE); URINE UROBILINOGEN NEGATIVE E.U./dl (0.2-1.0)
--- NOTE | 2017-01-26 22:17 | PDOC ---
History of Present Illness - General History Source: Patient Exam Limitations: No Limitations - History of Present Illness Initial Comments: 01/26/17 22:20 The patient is a 46-year-old female BIB family with a significant past medical history of HTN and metastatic breast cancer (s/p left lumpectomy, Port-A-Cath placement), and presents to the emergency department with shortness of breath at 6:30 pm tonight. The patient reports that the shortness of breath is worsened when she is lying down, and she was at rest when it started. She reports an associated non-productive cough. The patient denies chest pain, headache and dizziness. The patient denies fever , chills, nausea, vomit, diarrhea and constipation. The patient denies dysuria, frequency, urgency and hematuria. Allergies: NKDA Past Surgical History: Left lumpectomy, Port-A-Cath placement Social History: No toxic habits. PCP: Dr. Lowe Oncologist: Dr. Rudd <Rae Arshad - Last Filed: 01/26/17 22:20> <Chidi Cortez - Last Filed: 01/27/17 00:23> - General Chief Complaint: Shortness of Breath Stated Complaint: SOB Past History <Rae Arshad - Last Filed: 01/26/17 22:20> - Past Medical History Anemia: No Asthma: No Cancer: Yes (LT BREAST) Cardiac Disorders: No CVA: No COPD: No CHF: No Dementia: No Diabetes: Yes GI Disorders: No Disorders: No HTN: Yes Hypercholesterolemia: No Liver Disease: No Seizures: No Thyroid Disease: No - Surgical History Abdominal Surgery: No Appendectomy: No Cardiac Surgery: No Cholecystectomy: No Lung Surgery: No Neurologic Surgery: No Orthopedic Surgery: No - Psycho/Social/Smoking Cessation Hx Anxiety: No Suicidal Ideation: No Smoking History: Never smoked Have you smoked in the past 12 months: No Hx Alcohol Use: No Drug/Substance Use Hx: No Substance Use Type: None Hx Substance Use Treatment: No <Chidi Cortez - Last Filed: 01/27/17 00:23> - Past Medical History Allergies/Adverse Reactions: Allergies Allergy/AdvReac Type Severity Reaction Status Date / Time No Known Drug Allergies Allergy Verified 01/26/17 21:01 Home Medications: Ambulatory Orders Atorvastatin Ca [Lipitor] 10 mg PO HS 01/04/17 Glipizide [Glipizide Xl] 2.5 mg PO BID 01/04/17 Losartan Potassium [Cozaar -] 25 mg PO DAILY 01/04/17 Sitagliptin Phosphate [Januvia] 100 mg PO DAILY 01/04/17 Aspirin [ASA -] 81 mg PO DAILY tab.chew 01/05/17 Ondansetron [Ondansetron Odt] 8 mg PO Q12H PRN #60 tab.rapdis 01/05/17 Pantoprazole Sodium [Protonix] 40 mg PO DAILY #30 tablet. 01/05/17 Prochlorperazine Maleate [Compazine -] 10 mg PO Q8H PRN #60 tablet 01/05/17 Review of Systems - Review of Systems Able to Perform ROS?: Yes Comments:: 01/26/17 22:20 GENERAL/CONSTITUTIONAL: No fever or chills. No weakness. HEAD, EYES, EARS, NOSE AND THROAT: No change in vision. No ear pain or discharge. No sore throat. CARDIOVASCULAR: (+) Shortness of breath. No chest pain. RESPIRATORY: (+) Cough. No wheezing, or hemoptysis. GASTROINTESTINAL: No nausea, vomiting, diarrhea or constipation. GENITOURINARY: No dysuria, frequency, or change in urination. MUSCULOSKELETAL: No joint or muscle swelling or pain. No neck or back pain. SKIN: No rash NEUROLOGIC: No headache, vertigo, loss of consciousness, or change in strength/ sensation. ENDOCRINE: No increased thirst. No abnormal weight change. HEMATOLOGIC/LYMPHATIC: No anemia, easy bleeding, or history of blood clots. ALLERGIC/IMMUNOLOGIC: No hives or skin allergy. <Rae Arshad - Last Filed: 01/26/17 22:20> *Physical Exam - Vital Signs Last Vital Signs Temp Pulse Resp BP Pulse Ox 98.2 F 114 H 20 145/82 96 01/26/17 20:57 01/26/17 20:57 01/26/17 20:57 01/26/17 20:57 01/26/17 20:57 - Physical Exam Comments: 01/26/17 22:21 GENERAL: Awake, alert, and fully oriented, in no acute distress HEAD: No signs of trauma EYES: PERRLA, EOMI, sclera anicteric, conjunctiva clear ENT: Auricles normal inspection, hearing grossly normal, nares patent, oropharynx clear without exudates. Moist mucosa NECK: Normal ROM, supple, no lymphadenopathy, JVD, or masses LUNGS: (+) Slight decrease on the right base. No wheezes, and no crackles HEART: (+) Slight effusion of the pericardium. No obvious dilation on the right ventricle. No obvious involvement on the left ventricle. Regular rate and rhythm , normal S1 and S2, no murmurs, rubs or gallops ABDOMEN: Soft, nontender, normoactive bowel sounds. No guarding, no rebound. No masses EXTREMITIES: Normal range of motion, no edema. No clubbing or cyanosis. No cords, erythema, or tenderness NEUROLOGICAL: Cranial nerves II through XII grossly intact. Normal speech, normal gait SKIN: Warm, Dry, normal turgor, no rashes or lesions noted. <Rae Arshad - Last Filed: 01/26/17 22:20> - Vital Signs Last Vital Signs Temp Pulse Resp BP Pulse Ox 98.2 F 114 H 20 145/82 96 01/26/17 20:57 01/26/17 20:57 01/26/17 20:57 01/26/17 20:57 01/26/17 20:57 <Chidi Cortez - Last Filed: 01/27/17 00:23> Heart Score/ECG Review - ECG Impressions Comment:: 01/26/17 22:21 Sinus tachycardia 107 bpm. nl axis in coupl. RBBB +LVH +LAtrial hypert. Nonspecific T wave abnormality Without altarnans Without change <Rae Arshad - Last Filed: 01/26/17 22:20> ED Treatment Course - LABORATORY CBC & Chemistry Diagram: 01/26/17 21:50 01/26/17 21:50 - ADDITIONAL ORDERS Additional order review: 01/26/17 21:50 RBC 3.60 MCV 86.8 MCHC 33.5 RDW 14.5 MPV 6.6 L Neutrophils % Y Lymphocytes % Y <Rae Arshad - Last Filed: 01/26/17 22:20> - LABORATORY CBC & Chemistry Diagram: 01/26/17 21:50 01/26/17 21:50 - ADDITIONAL ORDERS Additional order review: 01/26/17 21:50 RBC 3.60 MCV 86.8 MCHC 33.5 RDW 14.5 MPV 6.6 L Neutrophils % Y Lymphocytes % Y - RADIOLOGY Radiology Studies Ordered: Category Date Time Status CHEST CTA [CT] Stat CT Scan 01/26/17 21:27 Ordered Radiograph Interpretation: 01/27/17 00:20 No obvious CTA evidence of PE; there are multiple consolidations likely of the RIGHT lung; there is a small pleural effusion. There is no pneumothorax. <Chidi Cortez - Last Filed: 01/27/17 00:23> Medical Decision Making - Medical Decision Making 01/27/17 00:13 This is a 46yo F with widespread metastatic breast cancer who had been noted to have dyspnea and tachycardia this evening. She appears clinically well and comfortable on NC. Her SpO2 remains over 95 as well. She has a CTA chest with no evidence of PE and there is suggestion of multiple possible consolidation, which is likely superimposed on mets. She is given vancomycin, zosyn; lactate is negative and there is no significant leukocytosis noted. There are no other findings of significance, including negative troponin and reassuring EKG. I have discussed the case with Dr. Rudd and Mynor; will endorse to the hospitalist at this time. <Chidi Cortez - Last Filed: 01/27/17 00:23> *DC/Admit/Observation/Transfer - Attestations Scribe Attestion: 01/26/17 22:21 Documentation prepared by Rae Arshad, acting as medical aide for Chidi Cortez MD. <Rae Arshad - Last Filed: 01/26/17 22:20> - Discharge Dispostion Admit: Yes Decision to Admit order Date/Time: 01/27/17 00:23 - Attestations Physician Attestion: 01/27/17 00:23 I, Dr. Chidi Cortez MD, attest that this document has been prepared under my direction and personally reviewed by me in its entirety. I further attest, that it accurately reflects all work, treatment, procedures and medical decision -making performed by me. <Chidi Cortez - Last Filed: 01/27/17 00:23> Diagnosis at time of Disposition: Pleural effusion, Lung consolidation, Tachycardia Dyspnea Qualifiers: Dyspnea type: shortness of breath Qualified Code(s): R06.02 - Shortness of breath Anemia Qualifiers: Anemia type: other cause Other causes of anemia: antineoplastic chemotherapy Qualified Code(s): D64.81 - Anemia due to antineoplastic chemotherapy - Discharge Dispostion Condition at time of disposition: Guarded - Referrals Referrals: Aaliyah Lowe MD [Primary Care Provider] -
[2017-01-26 22:27] LABS: INR 1.27 (0.82-1.09)
[2017-01-26 22:34] LABS: URINE BLOOD 1+ (NEGATIVE)
[2017-01-26 22:35] LABS: URINE MUCUS RARE; URINE RBC <1 /hpf (0-3); URINE WBC <1 /hpf (3-5)
[2017-01-26 22:39] LABS: ALBUMIN 3.9 g/dl (3.4-5.0); ANION GAP 10 (8-16); BILIRUBIN,TOTAL 0.4 mg/dL (0.2-1.0); CALCIUM 9.1 mg/dL (8.5-10.1); CO2 27 mmol/L (21-32); CREATININE 0.8 mg/dL (0.55-1.02); GLUCOSE,RANDOM 123 mg/dL (74-106); MAGNESIUM 1.8 mg/dL (1.8-2.4); PHOSPHOROUS 3.6 mg/dL (2.5-4.9); SGOT/AST 48 U/L (15-37); SGPT/ALT 33 U/L (12-78); TOT PROT 7.3 g/dl (6.4-8.2)
[2017-01-26 22:40] LABS: ALK PHOS 93 U/L (45-117); TROPONIN I < 0.02 ng/ml (0.00-0.05)
[2017-01-26 22:53] LABS: METAMYELOCYTE 1 % (0-2)
[2017-01-26 22:54] LABS: PLATELET ESTIMATE ADEQUATE (NORMAL)
[2017-01-27] MEDS ORDERED: cefTAZidime PENTAHYDRATE 1 GM/50ML PRE-DOCKED (RESTRICTED TO ID) IVPB ONE (00:06)
[2017-01-27] MEDS ORDERED: VANCOMYCIN 1,000 MG in DEXTROSE 5%-WATER - 250 ML IVPB ONE (00:09)
[2017-01-27] MEDS ORDERED: PIPERACILLIN/TAZOB 3.375 GM/50 ML PRE-DOCKED IVPB ONE ×2 (00:11→06:00)
[2017-01-27] MEDS ORDERED: PIPERACILLIN/TAZOB 3.375 GM 50 ML IVPB ONE (00:15)
--- NOTE | 2017-01-27 00:25 | PN ---
<Scott Hernandezke - Last Filed: 01/27/17 00:40> Teaching Attending Note ATTENDING PHYSICIAN STATEMENT I saw and evaluated the patient. I reviewed the resident's note and discussed the case with the resident. I agree with the resident's findings and plan as documented. SUBJECTIVE: The patient is a 46-year-old female accompanied by family with a significant past medical history of HTN, diabetes, and metastatic triple negative breast cancer (s/p left lumpectomy, Port-A-Cath placement), currently carboplatin/ gemzar , who presented to the emergency department with shortness of breath since 6:30 pm last night with associated non productive cough. The patient reported that her shortness of breath is worsened when she is lying down, and noted she was at rest when it started. She reported an associated non- productive cough. The patient denies chest pain, headache and dizziness. The patient denies fever , chills, nausea, vomit, diarrhea and constipation. The patient denies dysuria, frequency, urgency and hematuria. OBJECTIVE: Vital Signs: Last Vital Signs Temp Pulse Resp BP Pulse Ox 98.2 F 114 H 20 145/82 96 01/26/17 20:57 01/26/17 20:57 01/26/17 20:57 01/26/17 20:57 01/26/17 20:57 Physical Exam: GEN: NAD HEENT: NCAT, PERRL CARD: RRR, S1 S2 RESP: CTAB ABD: NT, BWS x4 EXT: - CCE Labs: CBCD WBC 8.4 K/mm3 (4.0-10.0) D 01/26/17 21:50 RBC 3.60 M/mm3 (3.60-5.2) 01/26/17 21:50 Hgb 10.4 GM/dL (10.7-15.3) L 01/26/17 21:50 Hct 31.2 % (32.4-45.2) L 01/26/17 21:50 MCV 86.8 fl (80-96) 01/26/17 21:50 MCHC 33.5 g/dl (32.0-36.0) 01/26/17 21:50 RDW 14.5 % (11.6-15.6) 01/26/17 21:50 Plt Count 317 K/MM3 (134-434) D 01/26/17 21:50 MPV 6.6 fl (7.5-11.1) L 01/26/17 21:50 CMP Sodium 138 mmol/L (136-145) 01/26/17 21:50 Potassium 4.0 mmol/L (3.5-5.1) 01/26/17 21:50 Chloride 101 mmol/L (98-107) 01/26/17 21:50 Carbon Dioxide 27 mmol/L (21-32) 01/26/17 21:50 Anion Gap 10 (8-16) 01/26/17 21:50 BUN 12 mg/dL (7-18) 01/26/17 21:50 Creatinine 0.8 mg/dL (0.55-1.02) 01/26/17 21:50 Creat Clearance w eGFR > 60 (>60) 01/26/17 21:50 Calcium 9.1 mg/dL (8.5-10.1) 01/26/17 21:50 Total Bilirubin 0.4 mg/dL (0.2-1.0) D 01/26/17 21:50 AST 48 U/L (15-37) H D 01/26/17 21:50 ALT 33 U/L (12-78) D 01/26/17 21:50 Alkaline Phosphatase 93 U/L (45-117) 01/26/17 21:50 Total Protein 7.3 g/dl (6.4-8.2) 01/26/17 21:50 Albumin 3.9 g/dl (3.4-5.0) 01/26/17 21:50 Imagin. ECG IMPRESSION: Sinus tach 107, RBBB, LBH 2. EXAM: CT angiogram of the chest INDICATION: Shortness of breath COMPARISON: none FINDINGS: Moderate mediastinal and bilateral hilar adenopathy is likely secondary to neoplasm and there is a right sided Mediport catheter, which suggests the patient is receiving chemotherapy as well as a left medial chest wall mass extending from the anterior mediastinum into the peripheral soft tissues. There is no PE or dissection. Heart size is normal. The trachea and bronchi are patent. There is a minimal right pleural effusion. No pericardial effusion. Multifocal right lung consolidations indicate atelectasis, pneumonia and/or neoplasm. A small medial left upper lobe nodule is suspicious for metastasis.. No fractures identified. Bilateral adrenal thickening could be metastases or adenomas may be followed up with MRI as clinically warranted. Multiple scattered subcutaneous nodules could represent metastases. IMPRESSION: Evidence of neoplasm, as indicated by mediastinal and hilar adenopathy, left chest wall lesion, multiple subcutaneous nodules and bilateral adrenal masses. Multiple right lung consolidations could be secondary to pneumonia, atelectasis and/or neoplasm. Left upper lobe nodule is suspicious for metastasis. Minimal right pleural effusion. THIS DOCUMENT HAS BEEN ELECTRONICALLY SIGNED Johnathon Reynolds MD ASSESSMENT AND PLAN: 46-year-old female with past medical history of HTN, diabetes, and metastatic breast cancer who presented with shortness of breath. Being admitted for pneumonia 1. Pneumonia- hcap -Continue Vancomycin -Continue Zosyn -Blood Cultures -ID consult -Repeat lactic acid -IVF elza 2. [place] BC -Oncology consult 3. Diabetes -RAISS -Finger sticks Q4 -Diabetic diet 4. HTN -Continue home medications 5. DVT PPX -Lovenox 40 mg QD Admit to med tele. Documentation prepared by Max Hernandez, acting as medical assistant secretary for Dr. Geni Kennedy MD. <Chidi Cortez - Last Filed: 01/27/17 00:48> Teaching Attending Note ATTENDING PHYSICIAN STATEMENT I saw and evaluated the patient. I reviewed the resident's note and discussed the case with the resident. I agree with the resident's findings and plan as documented. SUBJECTIVE: OBJECTIVE: ASSESSMENT AND PLAN: <Geni Kennedy - Last Filed: 01/27/17 01:29> Teaching Attending Note Name of Resident: Marcelino Ryan Physical Exam: Vital Signs Period Temp Pulse Resp BP Sys/Winter Pulse Ox Last 24 Hr 98.2 F 114 20 145/82 96 GEN: No acute distress, AAoX3 HEENT: NCAT, PERRL CARD: Stach S1, S2 RESP: Mildly decreased BS @ bases ABD: BSX4, Non- Tender Ext: - C/C/E Of Note: Last chemo was 01/11
[2017-01-27] MEDS ORDERED: VANCOMYCIN 1 GRAM (PRE-DOCKED) 250 ML IVPB ONE (01:43)
[2017-01-27] MEDS ORDERED: ONDANSETRON *ODT* 4 MG TABLET SL PRN (01:46)
[2017-01-27] MEDS ORDERED: ONDANSETRON 8 MG TABLET (FP) PO PRN (01:52)
--- NOTE | 2017-01-27 01:52 | HP ---
CHIEF COMPLAINT: SOB PCP: Dr. Lowe; Dr. Rudd (oncologist) HISTORY OF PRESENT ILLNESS: 46 y/o F w/PMH of DM, HTN, HLD, Breast Ca (triple negative, s/p L lumpectomy, port-a-cath placement recently) presents to ER with SOB since approximately 6pm this evening. SOB was worse when flat. Denies any CP, SOB, N/V/F/C, light- headedness, palpitations, diarrhea, constipation, dysuria. Pt has a dry cough for the last month. Pt has also had decreased appetite since starting chemo. Currently pt feels better, is able to lay flat again, and only feels like she has minimal SOB. Last chemo January 11. ER course was notable for: (1) Chest CTA, CXR (2) Vanco, Zosyn, Ceftazidime (3) PAST MEDICAL HISTORY: DM, HTN, HLD, Breast Ca (triple negative) PAST SURGICAL HISTORY: L lumpectomy Social History: Smoking: denies Alcohol: denies Drugs: denies Family History: Grandmother: tongue ca; Aunt: Breast Ca Allergies No Known Drug Allergies Allergy (Verified 01/26/17 21:01) HOME MEDICATIONS: Home Medications Medication Instructions Recorded Atorvastatin Ca [Lipitor] 10 mg PO HS 01/04/17 Glipizide [Glipizide Xl] 2.5 mg PO BID 01/04/17 Losartan Potassium [Cozaar -] 25 mg PO DAILY 01/04/17 Sitagliptin Phosphate [Januvia] 100 mg PO DAILY 01/04/17 Aspirin [ASA -] 81 mg PO DAILY tab.chew 01/05/17 Ondansetron [Ondansetron Odt] 8 mg PO Q12H PRN #60 tab.rapdis 01/05/17 Pantoprazole Sodium [Protonix] 40 mg PO DAILY #30 tablet. 01/05/17 Prochlorperazine Maleate 10 mg PO Q8H PRN #60 tablet 01/05/17 [Compazine -] REVIEW OF SYSTEMS CONSTITUTIONAL: Absent: fever, chills, diaphoresis, generalized weakness, malaise, loss of appetite, weight change HEENT: Absent: rhinorrhea, nasal congestion, throat pain, throat swelling, difficulty swallowing, mouth swelling, ear pain, eye pain, visual changes CARDIOVASCULAR: Absent: chest pain, syncope, palpitations, irregular heart rate, lightheadedness , peripheral edema RESPIRATORY: cough, sob Absent: dyspnea with exertion, orthopnea, wheezing, stridor, hemoptysis GASTROINTESTINAL: Absent: abdominal pain, abdominal distension, nausea, vomiting, diarrhea, constipation, melena, hematochezia GENITOURINARY: Absent: dysuria, frequency, urgency, hesitancy, hematuria, flank pain, genital pain MUSCULOSKELETAL: Absent: myalgia, arthralgia, joint swelling, back pain, neck pain SKIN: Absent: rash, itching, pallor HEMATOLOGIC/IMMUNOLOGIC: Absent: easy bleeding, easy bruising, lymphadenopathy, frequent infections ENDOCRINE: Absent: unexplained weight gain, unexplained weight loss, heat intolerance, cold intolerance NEUROLOGIC: Absent: headache, focal weakness or paresthesias, dizziness, unsteady gait, seizure, mental status changes, bladder or bowel incontinence PSYCHIATRIC: Absent: anxiety, depression, suicidal or homicidal ideation, hallucinations. PHYSICAL EXAMINATION GENERAL: Awake, alert, and fully oriented, in no acute distress. HEAD: Normal with no signs of trauma. EYES: extraocular movements intact, sclera anicteric, conjunctiva clear. EARS, NOSE, THROAT: Ears normal, nares patent, oropharynx clear without exudates. Moist mucous membranes. NECK: Normal range of motion. Hard, non-tender supraclavicular lymph node on R. LUNGS: Decreased breath sounds at R base. HEART: Tachycardic, normal S1 and S2 without murmur, rub or gallop. ABDOMEN: Soft, nontender, not distended, normoactive bowel sounds, no guarding, no rebound, no masses. No hepatomegaly or splenomegaly. MUSCULOSKELETAL: Normal range of motion at all joints. No bony deformities or tenderness. No CVA tenderness. LOWER EXTREMITIES: 2+ pulses, warm, well-perfused. No calf tenderness. No peripheral edema. NEUROLOGICAL: Normal speech. Normal gait. PSYCHIATRIC: Cooperative. Good eye contact. Appropriate mood and affect. SKIN: Warm, dry, normal turgor, no rashes or lesions noted, normal capillary refill. Port-a-cath in R chest wall, some redness around access point. CBCD WBC 8.4 K/mm3 (4.0-10.0) D 01/26/17 21:50 RBC 3.60 M/mm3 (3.60-5.2) 01/26/17 21:50 Hgb 10.4 GM/dL (10.7-15.3) L 01/26/17 21:50 Hct 31.2 % (32.4-45.2) L 01/26/17 21:50 MCV 86.8 fl (80-96) 01/26/17 21:50 MCHC 33.5 g/dl (32.0-36.0) 01/26/17 21:50 RDW 14.5 % (11.6-15.6) 01/26/17 21:50 Plt Count 317 K/MM3 (134-434) D 01/26/17 21:50 MPV 6.6 fl (7.5-11.1) L 01/26/17 21:50 CMP Sodium 138 mmol/L (136-145) 01/26/17 21:50 Potassium 4.0 mmol/L (3.5-5.1) 01/26/17 21:50 Chloride 101 mmol/L (98-107) 01/26/17 21:50 Carbon Dioxide 27 mmol/L (21-32) 01/26/17 21:50 Anion Gap 10 (8-16) 01/26/17 21:50 BUN 12 mg/dL (7-18) 01/26/17 21:50 Creatinine 0.8 mg/dL (0.55-1.02) 01/26/17 21:50 Creat Clearance w eGFR > 60 (>60) 01/26/17 21:50 Random Glucose 123 mg/dL (74-106) H D 01/26/17 21:50 Calcium 9.1 mg/dL (8.5-10.1) 01/26/17 21:50 Total Bilirubin 0.4 mg/dL (0.2-1.0) D 01/26/17 21:50 AST 48 U/L (15-37) H D 01/26/17 21:50 ALT 33 U/L (12-78) D 01/26/17 21:50 Alkaline Phosphatase 93 U/L (45-117) 01/26/17 21:50 Total Protein 7.3 g/dl (6.4-8.2) 01/26/17 21:50 Albumin 3.9 g/dl (3.4-5.0) 01/26/17 21:50 CARDIAC ENZYMES Creatine Kinase 85 IU/L (26-192) 01/26/17 21:50 Troponin I < 0.02 ng/ml (0.00-0.05) 01/26/17 21:50 Urine Test Results Urine Color Colorless 01/26/17 22:05 Urine Appearance Clear 01/26/17 22:05 Urine pH 5.0 (5.0-8.0) 01/26/17 22:05 Ur Specific [place] 1.003 (1.001-1.035) 01/26/17 22:05 Urine Protein Negative (NEGATIVE) 01/26/17 22:05 Urine Glucose (UA) Negative (NEGATIVE) 01/26/17 22:05 Urine Ketones Negative (NEGATIVE) 01/26/17 22:05 Urine Blood 1+ (NEGATIVE) H 01/26/17 22:05 Urine Nitrite Negative (NEGATIVE) 01/26/17 22:05 Urine Bilirubin Negative (NEGATIVE) 01/26/17 22:05 Ur Leukocyte Esterase Negative (NEGATIVE) 01/26/17 22:05 Urine RBC <1 /hpf (0-3) 01/26/17 22:05 Urine WBC <1 /hpf (3-5) 01/26/17 22:05 Ur Epithelial Cells Rare /hpf (FEW) 01/26/17 22:05 Urine Mucus Rare 01/26/17 22:05 Imaging: Chest CTA 01/27/17 - Moderate mediastinal and bilateral hilar adenopathy is likely secondary to neoplasm and there is a right sided Mediport catheter, which suggests the patient is receiving chemotherapy as well as a left medial chest wall mass extending from the anterior mediastinum into the peripheral soft tissues. There is no PE or dissection. Heart size is normal. The trachea and bronchi are patent. There is a minimal right pleural effusion. No pericardial effusion. Multifocal right lung consolidations indicate atelectasis , pneumonia and/or neoplasm. A small medial left upper lobe nodule is suspicious for metastasis.. No fractures identified. Bilateral adrenal thickening could be metastases or adenomas may be followed up with MRI as clinically warranted. Multiple scattered subcutaneous nodules could represent metastases. IMPRESSION: Evidence of neoplasm, as indicated by mediastinal and hilar adenopathy, left chest wall lesion, multiple subcutaneous nodules and bilateral adrenal masses. Multiple right lung consolidations could be secondary to pneumonia, atelectasis and/or neoplasm. Left upper lobe nodule is suspicious for metastasis. Minimal right pleural effusion. ASSESSMENT/PLAN: 46 y/o F w/PMH of DM, HTN, HLD, Breast Ca (triple negative, s/p L lumpectomy, port-a-cath placement recently) presents with SOB since earlier this evening. Admitted for pna. -SOB secondary to hcap most likely (was recently hospitalized) -recently had chemo on 01/11/17, may not be mounting WBC count; tachy -received vanco/zosyn/ceftazidime -c/w vanco/zosyn -ID consulted (Dr. Boss) -monitor lactic acid (currently wnl), f/u BCx -Breast Ca -Oncology consulted (Dr. Bedolla) -zofran 8 mg po q12h prn -DM -will hold home meds -ISS, BGMs q4h -HTN -c/w losartan 25 po qd -CAD -c/w ASA 81 mg po qd -HLD -c/w atorvastatin 10 mg po qhs -DVT ppx -lovenox 40mg qd -FEN -NS @ 75 ml/hr -Electrolytes wnl -Diabetic diet -Dispo: -Admit to non-cardiac tele Problem List - Problem (1) Anemia Code(s): D64.9 - ANEMIA, UNSPECIFIED Qualifiers: Anemia type: other cause Other causes of anemia: antineoplastic chemotherapy Qualified Code(s): D64.81 - Anemia due to antineoplastic chemotherapy (2) Dyspnea Code(s): R06.00 - DYSPNEA, UNSPECIFIED Qualifiers: Dyspnea type: shortness of breath Qualified Code(s): R06.02 - Shortness of breath (3) Lung consolidation Code(s): J18.1 - LOBAR PNEUMONIA, UNSPECIFIED ORGANISM (4) Pleural effusion Code(s): J90 - PLEURAL EFFUSION, NOT ELSEWHERE CLASSIFIED (5) Tachycardia Code(s): R00.0 - TACHYCARDIA, UNSPECIFIED (6) Breast cancer metastasized to multiple sites Code(s): C50.919 - MALIGNANT NEOPLASM OF UNSP SITE OF UNSPECIFIED FEMALE BREAST Qualifiers: Laterality: unspecified laterality Qualified Code(s): C50.919 - Malignant neoplasm of unspecified site of unspecified female breast (7) DVT prophylaxis Code(s): LRR6481 - (8) Hypertension Code(s): I10 - ESSENTIAL (PRIMARY) HYPERTENSION Visit type - Emergency Visit Emergency Visit: Yes ED Registration Date: 01/27/17 Care time: The patient presented to the Emergency Department on the above date and was hospitalized for further evaluation of their emergent condition. - New Patient This patient is new to me today: Yes Date on this admission: 01/29/17 - Critical Care Critical Care patient: No
[2017-01-27] MEDS: SODIUM CHLORIDE 1,000 ML IV SCH ×2 (04:19→22:30)
[2017-01-27] MEDS: INSULIN SLIDING SCALE (NOVOLOG) 1 VIAL SQ SCH ×4 (06:23→22:30)
[2017-01-27] MEDS ORDERED: PIPERACILLIN/TAZOB 4.5 GM/100 ML PRE-DOCKED IVPB STA (07:21)
[2017-01-27] MEDS ORDERED: guaiFENesin/D-METHORPHAN HB 10 ML UNIT-DOSE CUPS PO PRN (08:05)
--- NOTE | 2017-01-27 08:05 | PN ---
Progress Note, Physician - Current Medication List Current Medications: Active Medications Aspirin (Asa -) 81 mg PO DAILY [facility] Atorvastatin Calcium (Lipitor -) 10 mg PO HS [facility] Enoxaparin Sodium (Lovenox -) 40 mg SQ DAILY [facility] Sodium Chloride (Normal Saline -) 1,000 mls @ 75 mls/hr IV ASDIR [facility] Last Admin: 01/27/17 04:19 Dose: 75 mls/hr Insulin Aspart (Novolog Vial Sliding Scale -) 1 vial SQ ACHS JAIR PRN Reason: Protocol Last Admin: 01/27/17 06:23 Dose: Not Given Losartan Potassium (Cozaar -) 25 mg PO DAILY [facility] Ondansetron HCl (Zofran -) 8 mg PO Q12H PRN PRN Reason: NAUSEA Pantoprazole Sodium (Protonix -) 40 mg PO DAILY [facility] Piperacillin Sod/Tazobactam Sod (Zosyn 4.5gm Ivpb (Pre-Docked)) 4.5 gm IVPB ONCE STA Stop: 01/27/17 07:22 - Objective Vital Signs: Vital Signs Temperature 98.6 F 01/27/17 06:00 Pulse Rate 100 H 01/27/17 06:00 Respiratory Rate 01/27/17 06:00 Blood Pressure 130/68 01/27/17 06:00 O2 Sat by Pulse Oximetry (%) 96 01/27/17 04:31 Constitutional: Yes: Well Nourished, No Distress, Calm Eyes: Yes: WNL, Conjunctiva Clear HENT: Yes: WNL, Atraumatic, Normocephalic Neck: Yes: WNL, Supple, Trachea Midline Cardiovascular: Yes: WNL, Regular Rate and Rhythm Respiratory: Yes: Diminished (right lower lung zone), Other (chemo-port in place ) Gastrointestinal: Yes: WNL, Normal Bowel Sounds Musculoskeletal: Yes: WNL Extremities: Yes: WNL Edema: No Integumentary: Yes: WNL Neurological: Yes: WNL, Alert, Oriented ...Motor Strength: WNL Psychiatric: Yes: WNL Labs: INR, PTT INR 1.27 (0.82-1.09) H 01/26/17 21:50 Impression/Plan Impression/Plan: 46 y/o F w/PMH of DM, HTN, HLD, Breast Ca (triple negative, s/p L lumpectomy, port-a-cath placement recently) admitted for community acquired pneumonia -RML consolidation seen on CT; follow up radiology reading -given single doses of vanc/zosyn last night -stat dose zosyn now as it has been 8 hours since last dose -follow up ID consult for abx approval -follow up cultures Visit type - Emergency Visit Emergency Visit: Yes ED Registration Date: 01/27/17 Care time: The patient presented to the Emergency Department on the above date and was hospitalized for further evaluation of their emergent condition. - New Patient This patient is new to me today: Yes Date on this admission: 01/27/17 - Critical Care Critical Care patient: No
[2017-01-27 08:08] LABS: MCH 29.3 pg (25.7-33.7); MCHC 33.9 g/dl (32.0-36.0); MEAN CELL VOLUME 86.4 fl (80-96); MEAN PLT VOLUME 6.7 fl (7.5-11.1); PLATELET COUNT 295 K/MM3 (134-434); RDW 14.7 % (11.6-15.6); WHITE BLOOD COUNT 6.1 K/mm3 (4.0-10.0)
[2017-01-27 08:38] LABS: ALBUMIN 3.5 g/dl (3.4-5.0); ANION GAP 10 (8-16); CALCIUM 8.5 mg/dL (8.5-10.1); CO2 27 mmol/L (21-32); GLUCOSE,RANDOM 143 mg/dL (74-106)
[2017-01-27 08:42] LABS: ALK PHOS 78 U/L (45-117); BILIRUBIN,TOTAL 0.5 mg/dL (0.2-1.0); CREATININE 0.6 mg/dL (0.55-1.02); SGOT/AST 40 U/L (15-37); SGPT/ALT 26 U/L (12-78); TOT PROT 6.4 g/dl (6.4-8.2)
--- NOTE | 2017-01-27 09:07 | CONSULT ---
Consult Consult Specialty:: Oncology- hematology Referred by:: Dr. Pond Reason for Consultation:: Triple negative breast ca - s/p lumpectomy, RT , dose dense chemotherapy with adriamycin, cytoxan and taxol. Developed recurrence in ipsilateral breast, adrenals, lung with lymphangitic disease, mediastinum, and supraclavicular nodes. Enters now with SOB and pulmonary infiltrate - History Source History Provided By: Patient, Medical Record Limitations to Obtaining History: Language Barrier - Past Medical History Pulmonary: Yes: Other (lymphangitic disease, mediastinal involvement and chest wall involvement) Hepatobiliary: Yes: Other (on entecavir for liver protection for hepatitis B) Renal/: Yes: UTI ...LMP: 01/11/17 ...: No Endocrine: Yes: Diabetes Mellitus, Other Additional Medical History: Denies TB/Hepatitis/ gout/cardiac/respiratory/liver /renal problems - Alcohol/Substance Use Hx Alcohol Use: No - Smoking History Smoking history: Never smoked Have you smoked in the past 12 months: No - Social History Usual Living Arrangement: With Spouse Home Medications - Allergies Allergies/Adverse Reactions: Allergies Allergy/AdvReac Type Severity Reaction Status Date / Time No Known Drug Allergies Allergy Verified 01/26/17 21:01 - Home Medications Home Medications: Ambulatory Orders Atorvastatin Ca [Lipitor] 10 mg PO HS 01/04/17 Glipizide [Glipizide Xl] 2.5 mg PO BID 01/04/17 Losartan Potassium [Cozaar -] 25 mg PO DAILY 01/04/17 Sitagliptin Phosphate [Januvia] 100 mg PO DAILY 01/04/17 Aspirin [ASA -] 81 mg PO DAILY tab.chew 01/05/17 Ondansetron [Ondansetron Odt] 8 mg PO Q12H PRN #60 tab.rapdis 01/05/17 Pantoprazole Sodium [Protonix] 40 mg PO DAILY #30 tablet. 01/05/17 Prochlorperazine Maleate [Compazine -] 10 mg PO Q8H PRN #60 tablet 01/05/17 Home Medications (free text): entecavir 0.5 mg p.o. daily Family Disease History - Family Disease History Family Disease History: Diabetes: Father, Mother Review of Systems - Review of Systems Constitutional: reports: Loss of Appetite, Malaise, Weakness. denies: Fever Eyes: denies: Blurred Vision, Double Vision HENT: denies: Difficult Swallowing, Throat Pain Neck: reports: Lumps Cardiovascular: reports: Shortness of Breath. denies: Chest Pain Respiratory: reports: SOB, SOB on Exertion. denies: Exercise Intolerance Gastrointestinal: reports: Nausea Genitourinary: denies: Dysuria, Flank Pain, Frequency Breasts: reports: See HPI Musculoskeletal: denies: Back Pain, Extremity Pain Integumentary: denies: Bruising, Eczema, Erythema Neurological: reports: No Symptoms Endocrine: reports: No Symptoms Hematology/Lymphatic: reports: Swollen Glands. denies: Easily Bruised, Excessive Bleeding Psychiatric: reports: No Symptoms Physical Exam Vital Signs: Vital Signs Temperature 98.6 F 01/27/17 06:00 Pulse Rate 100 H 01/27/17 06:00 Respiratory Rate 01/27/17 06:00 Blood Pressure 130/68 01/27/17 06:00 O2 Sat by Pulse Oximetry (%) 96 01/27/17 04:31 Constitutional: Yes: Mild Distress Eyes: Yes: PERRL. No: Diplopia, Ptosis, Sclera Icterus, Tearing, Other HENT: Yes: Atraumatic, Normocephalic. No: Epistaxis, Thrush, Tonsillar Exudate Neck: Yes: Supple, Lymphadenopathy, Other (right supraclavicular node). No: Tenderness Cardiovascular: Yes: Regular Rate and Rhythm, Other (wound dehiscence lateral aspect port). No: Bruit, Murmur Respiratory: Yes: Diminished, Other (decreased breath sounds RLL) Gastrointestinal: Yes: Normal Bowel Sounds, Soft. No: Hepatomegaly, Splenomegaly Renal/: No: CVA Tenderness - Left, CVA Tenderness - Right Breast(s): Yes: Left, Other (scar in the 10:00 to 11:00 axis with thickening and nodularity) Wound/Incision: Yes: Other (lateral aspect of port) Neurological: Yes: WNL ...Motor Strength: WNL Psychiatric: Yes: WNL Labs: CBC, BMP 01/27/17 06:00 01/27/17 06:00 Imaging - Results X-ray: Report Reviewed, Image Reviewed Cat Scan: Report Reviewed, Image Reviewed Problem List - Problems (1) Lung consolidation Assessment/Plan: RLL consolidation with mediastinal adenopathy, PET suggestive of lymphangitic disease. Tumor vs. infectious etiology. For now I.D. and antibiotic therapy. Code(s): J18.1 - LOBAR PNEUMONIA, UNSPECIFIED ORGANISM (2) Breast cancer metastasized to multiple sites Assessment/Plan: Triple negative breast ca --s/p lumpectomy, RT, adriamcycin, cytoxan and taxol in modified dose dense schedule. Now with recurrence in supraclavicular nodes on right, mediastinum, lungs, ipsilateral breast, possible lymphangitic disease, and adrenals. Begun on carboplatinum, gemzar last administered on 01/11. To hold chemotherapy while infection is being addressed. Code(s): C50.919 - MALIGNANT NEOPLASM OF UNSP SITE OF UNSPECIFIED FEMALE BREAST Qualifiers: Laterality: unspecified laterality Qualified Code(s): C50.919 - Malignant neoplasm of unspecified site of unspecified female breast (3) DVT prophylaxis Code(s): GEC1975 - (4) Tachycardia Assessment/Plan: Likely reactive to pulmonary problem. Will need future ECHO if persistent. Code(s): R00.0 - TACHYCARDIA, UNSPECIFIED (5) Diabetes Code(s): E11.9 - TYPE 2 DIABETES MELLITUS WITHOUT COMPLICATIONS (6) Wound dehiscence Assessment/Plan: Lateral port with suture dehiscence. Would get wound team to assess and have Dr. Capellan assess in A>M> In interim local care with cleaning and bacitracin. Code(s): T81.30XA - DISRUPTION OF WOUND, UNSPECIFIED, INITIAL ENCOUNTER (7) Hepatitis Assessment/Plan: Prior hepatitis B exposure. Resume entecavir 0.5 mg daily. Code(s): K75.9 - INFLAMMATORY LIVER DISEASE, UNSPECIFIED
[2017-01-27] MEDS ORDERED: ACETAMINOPHEN 325 MG TABLET (FP) PO PRN (09:14)
[2017-01-27] MEDS: ONDANSETRON 4 MG/2 ML VIAL IVPB PRN (10:35)
[2017-01-27] MEDS: LOSARTAN POTASSIUM 25 MG TABLET PO SCH (11:22)
[2017-01-27] MEDS: PANTOPRAZOLE 40 MG TABLET (FP) PO SCH (11:22)
[2017-01-27] MEDS: ASPIRIN 81 MG CHEWABLE TABLETS PO SCH (11:22)
[2017-01-27] MEDS: ENTECAVIR 0.5 MG TABLET PO SCH (11:23)
[2017-01-27] MEDS: BACITRACIN 30 GM TUBE TOPICAL OINTMENT TP SCH ×2 (11:24→22:30)
[2017-01-27] MEDS: ENOXAPARIN NA (PORCINE) 40 MG/0.4 ML DISP.SYRIN SQ SCH (11:24)
--- NOTE | 2017-01-27 11:33 | EKG ---
Test Reason : Blood Pressure : / mmHG Vent. Rate : 107 BPM Atrial Rate : 107 BPM P-R Int : 114 ms QRS Dur : 072 ms QT Int : 332 ms P-R-T Axes : 037 023 007 degrees QTc Int : 443 ms SINUS TACHYCARDIA OTHERWISE NORMAL ECG WHEN COMPARED WITH ECG OF 04-JAN-2017 07:47, NO SIGNIFICANT CHANGE WAS FOUND Confirmed by MORRIS OCAMPO MD ([id number]) on 01/27/2017 11:33:01 AM Referred By: Confirmed By:MORRIS OCAMPO MD
[2017-01-27] MEDS ORDERED: PIPERACILLIN/TAZOB 4.5 GM/100 ML PRE-DOCKED IVPB ONE (14:00)
[2017-01-27] MEDS ORDERED: VANCOMYCIN 1 GRAM (PRE-DOCKED) 1,000 MG/250 ML BAG IVPB ONE (14:35)
--- NOTE | 2017-01-27 15:18 | PN ---
Progress Note (short form) - Note Progress Note: ID Consult dictated 46 y/o female with widely metastatic breast ca admitted with dyspnea/ dry cough. CT chest metastatic disease/ consolidation Probable post-obstructive pneumonia Possible port infection Possible non-neutropenic sepsis Metastatic breast ca Pending c/s empiric zosyn/ vancomycin
--- NOTE | 2017-01-27 16:20 | CONS ---
DATE OF CONSULTATION: 01/27/2017 The patient is a 46-year-old female with widely metastatic breast cancer evaluated for probable postobstructive pneumonia. She was admitted to the hospital on January 26, 2017, with increasing shortness of breath and nonproductive cough. CT angiogram of the chest was negative for pulmonary embolism. She was, however, noted to have many pulmonary nodules consistent with metastases as well as lung consolidation. Cultures were obtained and she was empirically treated with Zosyn and vancomycin. She was noted to have some bogginess around the port site in the right chest. The port was placed approximately a month ago. She complains of shortness of breath, especially when lying flat; cough, which is not productive of sputum. PAST MEDICAL HISTORY: Positive for infiltrative ductal breast cancer diagnosed in November 2014. She underwent a lumpectomy, radiation therapy, and chemotherapy for triple-negative disease. She has since had a recurrence with evidence of widespread metastases. Past medical history also positive for hypertension and urinary tract infection, ESBL. No known allergies. MEDICATIONS: Zofran, Tylenol, Cozaar, Zosyn, vancomycin, Lovenox, Lipitor, entecavir, Protonix, aspirin. SOCIAL HISTORY: She lives at home with family members. Nonsmoker, nondrinker. LABORATORY DATA: White count 6.1 with 54% neutrophils. Creatinine 0.6. Urinalysis with less than [address] scan of the chest shows multiple pulmonary nodules scattered throughout both lobes, suspicious for metastatic disease; areas of atelectasis within the right middle and lower lobes; extensive confluent lymphadenopathy in the mediastinum and bilateral hilar chains; anterior mediastinal mass. PHYSICAL EXAMINATION: General: She is awake and alert. She is not acute dyspneic or toxic-appearing. Vital Signs: Temperature 97.8, blood pressure 117/78, pulse 99 and regular, respirations 20/min. HEENT: Sclerae anicteric. Port Site: There appears some slight wound dehiscence at the lateral aspect of the surgical wound. No expressible pus or erythema. Heart Sounds: S1, S2. Lungs: Rhonchi bilaterally. Abdomen: Soft and nontender. Extremities: Negative for edema. IMPRESSION: A 46-year-old female with widely metastatic breast cancer admitted with dyspnea and dry cough. CT scan shows metastatic disease and lung consolidation. 1. Probable postobstructive pneumonia. 2. Possible port infection. 3. Possible nonneutropenic sepsis. 4. Metastatic breast cancer. Pending sepsis workup, empiric antibiotic coverage with Zosyn and vancomycin and obtain sputum culture, urine legionella, and pneumococcal antigens. OVERALL PROGNOSIS: Poor. Case discussed with family members present at the time of the examination. Thank you for the kind referral. ANNETTE PRICE M.D. [id number]
[2017-01-27] MEDS: guaiFENesin/CODEINE 10 ML UNIT-DOSE CUPS PO PRN (17:36)
[2017-01-27] MEDS: PIPERACILLIN/TAZOB 3.375 GM 50 ML IVPB SCH (17:37)
[2017-01-27] MEDS: VANCOMYCIN 1 GRAM (PRE-DOCKED) 250 ML IVPB SCH (17:37)
[2017-01-27 18:34] LABS: METAMYELOCYTE 1 % (0-2)
[2017-01-27 18:35] LABS: PLATELET ESTIMATE ADEQUATE (NORMAL)
[2017-01-27] MEDS: ATORVASTATIN CA 10 MG TABLET (FP) PO SCH (22:29)
[2017-01-28] MEDS: SODIUM CHLORIDE 1,000 ML IV SCH (02:31)
[2017-01-28] MEDS: PIPERACILLIN/TAZOB 3.375 GM 50 ML IVPB SCH ×3 (02:35→18:11)
[2017-01-28] MEDS: VANCOMYCIN 1 GRAM (PRE-DOCKED) 250 ML IVPB SCH ×2 (05:30→16:20)
[2017-01-28] MEDS: INSULIN SLIDING SCALE (NOVOLOG) 1 VIAL SQ SCH ×4 (06:08→22:39)
[2017-01-28 07:43] LABS: MCH 28.6 pg (25.7-33.7); MCHC 32.9 g/dl (32.0-36.0); MEAN PLT VOLUME 6.6 fl (7.5-11.1); PLATELET COUNT 316 K/MM3 (134-434); RDW 14.2 % (11.6-15.6)
[2017-01-28] MEDS ORDERED: PT OWN MED DRAWER 7, Y5N ONE (09:16)
[2017-01-28] MEDS: ASPIRIN 81 MG CHEWABLE TABLETS PO SCH (09:30)
[2017-01-28] MEDS: LOSARTAN POTASSIUM 25 MG TABLET PO SCH (09:30)
[2017-01-28] MEDS: PANTOPRAZOLE 40 MG TABLET (FP) PO SCH (09:30)
[2017-01-28] MEDS: BACITRACIN 30 GM TUBE TOPICAL OINTMENT TP SCH ×2 (09:31→22:38)
[2017-01-28] MEDS: ENOXAPARIN NA (PORCINE) 40 MG/0.4 ML DISP.SYRIN SQ SCH (09:31)
[2017-01-28] MEDS: ENTECAVIR 0.5 MG TABLET PO SCH (09:32)
--- NOTE | 2017-01-28 10:09 | PN ---
Physical Exam: SUBJECTIVE: Patient seen and examined, no new complaints, denies fever, chills, sob, chest pain. OBJECTIVE: Vital Signs Period Temp Pulse Resp BP Sys/Winter Pulse Ox Last 24 Hr 98.1 F-98.8 F 88-102 20-20 100-132/61-88 94 GENERAL: The patient is awake, alert, and fully oriented, in no acute distress. HEAD: Normal with no signs of trauma. EYES: PERRL, extraocular movements intact, sclera anicteric, conjunctiva clear. No ptosis. ENT: Ears normal, nares patent, oropharynx clear without exudates, moist mucous membranes. NECK: Trachea midline, full range of motion, supple. LUNGS: decreased Breath sounds equal, clear to auscultation bilaterally, no wheezes, no crackles, no accessory muscle use. HEART: Regular rate and rhythm, S1, S2 without murmur, rub or gallop. ABDOMEN: Soft, nontender, nondistended, normoactive bowel sounds, no guarding, no rebound, no hepatosplenomegaly, no masses. EXTREMITIES: 2+ pulses, warm, well-perfused, no edema. NEUROLOGICAL: Cranial nerves II through XII grossly intact. Normal speech, gait not observed. PSYCH: Normal mood, normal affect. SKIN: Warm, dry, normal turgor, no rashes or lesions noted Laboratory Results - last 24 hr 01/27/17 01/27/17 01/27/17 06:00 11:50 17:25 WBC RBC Hgb Hct MCV MCHC RDW Plt Count MPV Neutrophils % 43.0 D Lymphocytes % 17.0 Monocytes % 25.0 H Eosinophils % 5.0 H D Basophils % 1.0 Band Neutrophils 3.0 Metamyelocytes 1 Myelocytes 5 H D Differential Comment Manual diff done Platelet Estimate Adequate Morphology Comment Slide scanned POC Glucometer 126 133 01/27/17 01/28/17 01/28/17 22:29 05:35 06:07 WBC 5.0 RBC 3.19 L Hgb 9.1 L Hct 27.8 L MCV 87.0 MCHC 32.9 RDW 14.2 Plt Count 316 MPV 6.6 L Neutrophils % Y Lymphocytes % Y Monocytes % Eosinophils % Basophils % Band Neutrophils Metamyelocytes Myelocytes Differential Comment Platelet Estimate Morphology Comment POC Glucometer 110 138 Active Medications Generic Name Dose Route Start Last Admin Trade Name Freq PRN Reason Stop Dose Admin Acetaminophen 650 mg 01/27/17 09:14 Tylenol - PO Q6H PRN FEVER OR PAIN Aspirin 81 mg 01/27/17 10:00 01/28/17 09:30 Asa - PO 81 mg DAILY JAIR Administration Atorvastatin Calcium 10 mg 01/27/17 22:00 01/27/17 22:29 Lipitor - PO 10 mg HS JAIR Administration Bacitracin 1 applic 01/27/17 10:00 01/28/17 09:31 Bacitracin - TP 1 applic BID JAIR Administration Enoxaparin Sodium 40 mg 01/27/17 10:00 01/28/17 09:31 Lovenox - SQ 40 mg DAILY JAIR Administration Entecavir 0.5 mg 01/27/17 10:00 01/28/17 09:32 Baraclude - PO 0.5 mg DAILY JAIR Administration Guaifenesin/Codeine Phosphate 10 ml 01/27/17 14:33 01/27/17 17:36 Robitussin Ac - PO 10 ml Q8H PRN Administration COUGH Piperacillin Sod/Tazobactam Sod 50 mls @ 100 mls/hr 01/27/17 18:00 01/28/17 09: 30 Zosyn 3.375gm Ivpb (Pre-Docked) IVPB 100 mls/hr Q8H-IV JAIR Administration Protocol Vancomycin HCl 250 mls @ 200 mls/hr 01/27/17 16:00 01/28/17 05:30 Vancomycin (Pre-Docked) IVPB 200 mls/hr BID@0400,1600 JAIR Administration Insulin Aspart 1 vial 01/27/17 07:00 01/28/17 06:08 Novolog Vial Sliding Scale - SQ Not Given ACHS JAIR Protocol Losartan Potassium 25 mg 01/27/17 10:00 01/28/17 09:30 Cozaar - PO 25 mg DAILY JAIR Administration Ondansetron HCl 8 mg 01/27/17 09:05 Zofran - PO Q12H PRN NAUSEA Ondansetron HCl 8 mg 01/27/17 09:27 01/27/17 10:35 Zofran Injection IVPB 8 mg Q8H PRN Administration NAUSEA Pantoprazole Sodium 40 mg 01/27/17 10:00 01/28/17 09:30 Protonix - PO 40 mg DAILY JAIR Administration ASSESSMENT/PLAN: This is a 46y female PMHx of HTN , DM with metastatic triple negative breast cancer (s/p left lumpectomy, Port-A-Cath placement), presents with non productivecough and shortness of breath x 1 day. Radiation therapy adriamycin, cytoxn and taxol. Last chemotherapy was January 11. Last chemotherapy was January 11, carboplatinum. gemzar. Patient see's Dr. Bedolla /Blaire. 1. Cough/dyspnea secondary to post obstructive pneumonia vs tumor mahogany -CXR/CT scan reviewed; showing RLL consolidation with with mediastinal adenopathy. -PET scan suggestive of lymphangitic disease -Antibiotic per ID; cont vanc/zosyn -Guaifenesin/Codeine Phosphate -inhaled bronchodilators -incentive spirometry -appreciate pulm 2. Breast CA with mediastinal adenopathy -PET -hold chemo as per HEM/ONC for now 3. Diabetes Mellitus type II: -Insulin SS -monitor BGM 4. Prior hx of hepatitis: -entecavir 0.5mg daily 5. Wound : -Bacitracin FEN: FLuids: po Electrolytes: wnl Diet diabetic VTE prophylaxis: lovenox Disposition: iv antibiotic Visit type - Emergency Visit Emergency Visit: Yes ED Registration Date: 01/27/17 Care time: The patient presented to the Emergency Department on the above date and was hospitalized for further evaluation of their emergent condition. - New Patient This patient is new to me today: Yes Date on this admission: 01/28/17 - Critical Care Critical Care patient: No
[2017-01-28 10:32] LABS: METAMYELOCYTE 1 % (0-2)
[2017-01-28 10:33] LABS: POLYCHROMASIA 1+
--- NOTE | 2017-01-28 10:52 | PN ---
Progress Note, Physician - Current Medication List Current Medications: Active Medications Acetaminophen (Tylenol -) 650 mg PO Q6H PRN PRN Reason: FEVER OR PAIN Aspirin (Asa -) 81 mg PO DAILY [facility] Last Admin: 01/28/17 09:30 Dose: 81 mg Atorvastatin Calcium (Lipitor -) 10 mg PO HS [facility] Last Admin: 01/27/17 22:29 Dose: 10 mg Bacitracin (Bacitracin -) 1 applic TP BID [facility] Last Admin: 01/28/17 09:31 Dose: 1 applic Enoxaparin Sodium (Lovenox -) 40 mg SQ DAILY [facility] Last Admin: 01/28/17 09:31 Dose: 40 mg Entecavir (Baraclude -) 0.5 mg PO DAILY [facility] Last Admin: 01/28/17 09:32 Dose: 0.5 mg Guaifenesin/Codeine Phosphate (Robitussin Ac -) 10 ml PO Q8H PRN PRN Reason: COUGH Last Admin: 01/27/17 17:36 Dose: 10 ml Piperacillin Sod/Tazobactam Sod (Zosyn 3.375gm Ivpb (Pre-Docked)) 50 mls @ 100 mls/hr IVPB Q8H-IV JAIR PRN Reason: Protocol Last Admin: 01/28/17 09:30 Dose: 100 mls/hr Vancomycin HCl (Vancomycin (Pre-Docked)) 250 mls @ 200 mls/hr IVPB BID@0400, 1600 [facility] Last Admin: 01/28/17 05:30 Dose: 200 mls/hr Insulin Aspart (Novolog Vial Sliding Scale -) 1 vial SQ ACHS [facility] PRN Reason: Protocol Last Admin: 01/28/17 06:08 Dose: Not Given Losartan Potassium (Cozaar -) 25 mg PO DAILY [facility] Last Admin: 01/28/17 09:30 Dose: 25 mg Ondansetron HCl (Zofran -) 8 mg PO Q12H PRN PRN Reason: NAUSEA Ondansetron HCl (Zofran Injection) 8 mg IVPB Q8H PRN PRN Reason: NAUSEA Last Admin: 01/27/17 10:35 Dose: 8 mg Pantoprazole Sodium (Protonix -) 40 mg PO DAILY [facility] Last Admin: 01/28/17 09:30 Dose: 40 mg - Objective Vital Signs: Vital Signs Temperature 98.8 F 01/28/17 06:00 Pulse Rate 102 H 01/28/17 06:00 Respiratory Rate 20 01/28/17 06:00 Blood Pressure 127/88 01/28/17 06:00 O2 Sat by Pulse Oximetry (%) 94 L 01/27/17 21:00 Constitutional: Yes: Well Nourished, No Distress, Calm Eyes: Yes: WNL, Conjunctiva Clear HENT: Yes: WNL, Atraumatic, Normocephalic Neck: Yes: WNL, Supple, Trachea Midline Cardiovascular: Yes: WNL, Regular Rate and Rhythm Respiratory: Yes: Diminished (right middle lobe area) Gastrointestinal: Yes: WNL, Normal Bowel Sounds Musculoskeletal: Yes: WNL Extremities: Yes: WNL Edema: No Integumentary: Yes: WNL Neurological: Yes: WNL, Alert, Oriented ...Motor Strength: WNL Psychiatric: Yes: WNL Labs: CBC, BMP 01/28/17 05:35 01/27/17 06:00 INR, PTT INR 1.27 (0.82-1.09) H 01/26/17 21:50 Impression/Plan Impression/Plan: 46 y/o F w/PMH of DM, HTN, HLD, Breast Ca (triple negative, s/p L lumpectomy, port-a-cath placement recently) admitted for community acquired pneumonia -RML consolidation seen on CT -ID consult for abx approval greatly appreciated -cultures negative -cont vanc/zosyn Visit type - Emergency Visit Emergency Visit: Yes ED Registration Date: 01/27/17 Care time: The patient presented to the Emergency Department on the above date and was hospitalized for further evaluation of their emergent condition. - New Patient This patient is new to me today: No - Critical Care Critical Care patient: No
[2017-01-28] MEDS: ONDANSETRON 4 MG TABLET PO PRN (11:54)
[2017-01-28] MEDS: guaiFENesin/CODEINE 10 ML UNIT-DOSE CUPS PO PRN ×2 (11:54→22:38)
--- NOTE | 2017-01-28 11:59 | PN ---
Progress Note, Physician History of Present Illness: Awake, alert Reports dry cough No c/o chest pain/ dyspnea No c/o fever/ chills Breathing comfortably on room air - Current Medication List Current Medications: Active Medications Acetaminophen (Tylenol -) 650 mg PO Q6H PRN PRN Reason: FEVER OR PAIN Aspirin (Asa -) 81 mg PO DAILY [facility] Last Admin: 01/28/17 09:30 Dose: 81 mg Atorvastatin Calcium (Lipitor -) 10 mg PO HS [facility] Last Admin: 01/27/17 22:29 Dose: 10 mg Bacitracin (Bacitracin -) 1 applic TP BID [facility] Last Admin: 01/28/17 09:31 Dose: 1 applic Enoxaparin Sodium (Lovenox -) 40 mg SQ DAILY [facility] Last Admin: 01/28/17 09:31 Dose: 40 mg Entecavir (Baraclude -) 0.5 mg PO DAILY [facility] Last Admin: 01/28/17 09:32 Dose: 0.5 mg Guaifenesin/Codeine Phosphate (Robitussin Ac -) 10 ml PO Q8H PRN PRN Reason: COUGH Last Admin: 01/27/17 17:36 Dose: 10 ml Piperacillin Sod/Tazobactam Sod (Zosyn 3.375gm Ivpb (Pre-Docked)) 50 mls @ 100 mls/hr IVPB Q8H-IV JAIR PRN Reason: Protocol Last Admin: 01/28/17 09:30 Dose: 100 mls/hr Vancomycin HCl (Vancomycin (Pre-Docked)) 250 mls @ 200 mls/hr IVPB BID@0400, 1600 [facility] Last Admin: 01/28/17 05:30 Dose: 200 mls/hr Insulin Aspart (Novolog Vial Sliding Scale -) 1 vial SQ ACHS [facility] PRN Reason: Protocol Last Admin: 01/28/17 06:08 Dose: Not Given Losartan Potassium (Cozaar -) 25 mg PO DAILY [facility] Last Admin: 01/28/17 09:30 Dose: 25 mg Ondansetron HCl (Zofran -) 8 mg PO Q12H PRN PRN Reason: NAUSEA Ondansetron HCl (Zofran Injection) 8 mg IVPB Q8H PRN PRN Reason: NAUSEA Last Admin: 01/27/17 10:35 Dose: 8 mg Pantoprazole Sodium (Protonix -) 40 mg PO DAILY [facility] Last Admin: 01/28/17 09:30 Dose: 40 mg - Objective Vital Signs: Vital Signs Temperature 98.8 F 01/28/17 06:00 Pulse Rate 102 H 01/28/17 06:00 Respiratory Rate 20 01/28/17 06:00 Blood Pressure 127/88 01/28/17 06:00 O2 Sat by Pulse Oximetry (%) 94 L 01/27/17 21:00 Constitutional: Yes: No Distress Eyes: Yes: Conjunctiva Clear Cardiovascular: Yes: Regular Rate and Rhythm, S1, S2 Respiratory: Yes: Rhonchi Gastrointestinal: Yes: Normal Bowel Sounds, Soft. No: Tenderness Edema: No Integumentary: Yes: Other (port site R chest with small area dehiscence no erythema or expressible pus) Labs: CBC, BMP 01/28/17 05:35 01/27/17 06:00 INR, PTT INR 1.27 (0.82-1.09) H 01/26/17 21:50 Assessment/Plan Probable post-obstructive pneumonia Metastatic breast ca Await c/s Continue empiric zosyn/vancomycin
--- NOTE | 2017-01-28 17:39 | PN ---
Progress Note (short form) - Note Progress Note: PULMONARY CONSULTATION DICTATED 01/28/17 IMP DYSPNEA ?ATELECTASIS,?POST-OBSTRUCTIVE PNEUMONIA ? LYMPHANGITIC SPREAD COUGH METASTATIC BREAST CA ANEMIA HTN DM PLAN O2 ANTIBIOTICS A PER ID INHALED BRONCHODILATORS ANTI-TUSSIVES INCENTIVE SPIROMETRY MONITOR H+H CHEMO PER ONCOLOGY DR OSEGUERA Problem List - Problems (1) Anemia Code(s): D64.9 - ANEMIA, UNSPECIFIED Qualifiers: Anemia type: other cause Other causes of anemia: antineoplastic chemotherapy Qualified Code(s): D64.81 - Anemia due to antineoplastic chemotherapy (2) Dyspnea Code(s): R06.00 - DYSPNEA, UNSPECIFIED Qualifiers: Dyspnea type: shortness of breath Qualified Code(s): R06.02 - Shortness of breath (3) Lung consolidation Code(s): J18.1 - LOBAR PNEUMONIA, UNSPECIFIED ORGANISM (4) Pleural effusion Code(s): J90 - PLEURAL EFFUSION, NOT ELSEWHERE CLASSIFIED (5) Breast cancer metastasized to multiple sites Code(s): C50.919 - MALIGNANT NEOPLASM OF UNSP SITE OF UNSPECIFIED FEMALE BREAST Qualifiers: Laterality: unspecified laterality Qualified Code(s): C50.919 - Malignant neoplasm of unspecified site of unspecified female breast (6) DVT prophylaxis Code(s): BYN3608 - (7) Diabetes Code(s): E11.9 - TYPE 2 DIABETES MELLITUS WITHOUT COMPLICATIONS (8) Hypertension Code(s): I10 - ESSENTIAL (PRIMARY) HYPERTENSION
--- NOTE | 2017-01-28 18:24 | PN ---
Progress Note (short form) - Note Progress Note: PAtient seen and examined Feelw better. Still with cough but some improvement Last Vital Signs Temp Pulse Resp BP Pulse Ox 98.5 F 102 H 19 130/95 97 01/28/17 18:00 01/28/17 18:00 01/28/17 18:00 01/28/17 18:00 01/28/17 09:00 Cor: RSR, No murmurs, No gallops Lungs: Clear to P&A Abd: Soft, Normal bowel sounds, No organomegaly Ext:No significant edema Skin: No rashes, Integument intact Abnormal Lab Results 01/27/17 01/28/17 01/28/17 06:00 05:35 14:30 RBC 3.19 L Hgb 9.1 L Hct 27.8 L MPV 6.6 L Neutrophils % 32.0 L D Monocytes % 25.0 H 21.0 H Eosinophils % 5.0 H D Myelocytes 5 H D Vancomycin Trough 16.663 H* Current Medications Acetaminophen (Tylenol -) 650 mg PO Q6H PRN PRN Reason: FEVER OR PAIN Aspirin (Asa -) 81 mg PO DAILY [facility] Last Admin: 01/28/17 09:30 Dose: 81 mg Atorvastatin Calcium (Lipitor -) 10 mg PO HS [facility] Last Admin: 01/27/17 22:29 Dose: 10 mg Bacitracin (Bacitracin -) 1 applic TP BID [facility] Last Admin: 01/28/17 09:31 Dose: 1 applic Enoxaparin Sodium (Lovenox -) 40 mg SQ DAILY [facility] Last Admin: 01/28/17 09:31 Dose: 40 mg Entecavir (Baraclude -) 0.5 mg PO DAILY [facility] Last Admin: 01/28/17 09:32 Dose: 0.5 mg Guaifenesin/Codeine Phosphate (Robitussin Ac -) 10 ml PO Q8H PRN PRN Reason: COUGH Last Admin: 01/28/17 11:54 Dose: 10 ml Piperacillin Sod/Tazobactam Sod (Zosyn 3.375gm Ivpb (Pre-Docked)) 50 mls @ 100 mls/hr IVPB Q8H-IV JAIR PRN Reason: Protocol Last Admin: 01/28/17 18:11 Dose: 100 mls/hr Vancomycin HCl (Vancomycin (Pre-Docked)) 250 mls @ 200 mls/hr IVPB BID@0400, 1600 [facility] Last Admin: 01/28/17 16:20 Dose: 200 mls/hr Sodium Chloride (Normal Saline -) 250 mls @ 500 mls/hr IV ONCE ONE Stop: 01/29/17 08:29 Dexamethasone Sodium Phosphate 10 mg/ Ondansetron HCl 12 mg/Sodium Chloride 107 mls @ 214 mls/hr IVPB ONCE ONE Stop: 01/29/17 08:29 Gemcitabine HCl 1,000 mg/Gemcitabine HCl 560 mg/ Sodium Chloride 250 mls @ 500 mls/hr IV ONCE ONE Stop: 01/29/17 08:59 Carboplatin 230 mg/ Sodium (Chloride) 273 mls @ 273 mls/hr IV ONCE ONE Stop: 01/29/17 09:59 Sodium Chloride (Normal Saline -) 250 mls @ 500 mls/hr IV ONCE ONE Stop: 01/29/17 10:29 Insulin Aspart (Novolog Vial Sliding Scale -) 1 vial SQ ACHS JAIR PRN Reason: Protocol Last Admin: 01/28/17 18:04 Dose: Not Given Losartan Potassium (Cozaar -) 25 mg PO DAILY [facility] Last Admin: 01/28/17 09:30 Dose: 25 mg Ondansetron HCl (Zofran -) 8 mg PO Q12H PRN PRN Reason: NAUSEA Last Admin: 01/28/17 11:54 Dose: 8 mg Ondansetron HCl (Zofran Injection) 8 mg IVPB Q8H PRN PRN Reason: NAUSEA Last Admin: 01/27/17 10:35 Dose: 8 mg Pantoprazole Sodium (Protonix -) 40 mg PO DAILY [facility] Last Admin: 01/28/17 09:30 Dose: 40 mg A/P 46 y/o patient with metastatic breast cancer, due for C2 gem/carbo , comes in with shortness of breath PAtient with multiple lung nodules, RML atelectasis Started on empiric vanco/zosyn Cultures negative Discussed with ID team Plan on C2 gem/carbo in am gentle hydration Port blood cx neg. Skin break down over port--bacitracin
[2017-01-28] MEDS ORDERED: INSULIN (NOVOLOG) ASPART 100 UNITS/ML 10ML VIAL ONE (21:41)
[2017-01-28] MEDS: ATORVASTATIN CA 10 MG TABLET (FP) PO SCH (22:39)
[2017-01-29] MEDS: PIPERACILLIN/TAZOB 3.375 GM 50 ML IVPB SCH (01:52)
[2017-01-29] MEDS: VANCOMYCIN 1 GRAM (PRE-DOCKED) 250 ML IVPB SCH (03:03)
[2017-01-29] MEDS: INSULIN SLIDING SCALE (NOVOLOG) 1 VIAL SQ SCH ×4 (06:38→23:32)
[2017-01-29] MEDS ORDERED: SODIUM CHLORIDE 250 ML IV ONE ×2 (08:00→10:00)
[2017-01-29] MEDS ORDERED: DEXAMETHASONE INJECTION 10 MG, ONDANSETRON INJECTION 12 MG in SODIUM CHLORIDE 100 ML IVPB ONE (08:00)
[2017-01-29 08:21] LABS: CALCIUM 8.7 mg/dL (8.5-10.1); CREATININE 1.3 mg/dL (0.55-1.02)
[2017-01-29] MEDS ORDERED: GEMCITABINE HCL IV ONE (08:30)
[2017-01-29] MEDS ORDERED: SODIUM CHLORIDE IV ONE ×2 (08:30→09:00)
[2017-01-29 08:33] LABS: MCH 29.1 pg (25.7-33.7); MCHC 33.5 g/dl (32.0-36.0); MEAN CELL VOLUME 86.7 fl (80-96); MEAN PLT VOLUME 6.8 fl (7.5-11.1); PLATELET COUNT 360 K/MM3 (134-434); RDW 14.7 % (11.6-15.6); WHITE BLOOD COUNT 5.2 K/mm3 (4.0-10.0)
[2017-01-29] MEDS ORDERED: SODIUM CHLORIDE 1,000 ML IV SCH (09:00)
[2017-01-29] MEDS ORDERED: CARBOPLATIN IV ONE (09:00)
[2017-01-29] MEDS ORDERED: PT OWN MED DRAWER 7, Y5N ONE (09:57)
[2017-01-29] MEDS ORDERED: PIPERACILLIN/TAZOB 2.25 GM 50 ML IVPB ONE (10:00)
[2017-01-29] MEDS: ASPIRIN 81 MG CHEWABLE TABLETS PO SCH (10:41)
[2017-01-29] MEDS: PANTOPRAZOLE 40 MG TABLET (FP) PO SCH (10:41)
[2017-01-29] MEDS: ENOXAPARIN NA (PORCINE) 40 MG/0.4 ML DISP.SYRIN SQ SCH (10:41)
[2017-01-29] MEDS: ENTECAVIR 0.5 MG TABLET PO SCH (10:42)
[2017-01-29 12:53] LABS: URINE CREATININE < 13.0 mg/dL
[2017-01-29 13:00] LABS: METAMYELOCYTE 2 % (0-2); PLATELET ESTIMATE ADEQUATE (NORMAL)
--- NOTE | 2017-01-29 13:07 | PN ---
Progress Note, Physician History of Present Illness: Awake, alert No acute distress No c/o chest pain/ dyspnea No c/o cough/ sputum No fever/ chills Afebrile WBC 5.7 Vanco trough noted - Current Medication List Current Medications: Active Medications Acetaminophen (Tylenol -) 650 mg PO Q6H PRN PRN Reason: FEVER OR PAIN Aspirin (Asa -) 81 mg PO DAILY [facility] Last Admin: 01/29/17 10:41 Dose: 81 mg Atorvastatin Calcium (Lipitor -) 10 mg PO HS [facility] Last Admin: 01/28/17 22:39 Dose: 10 mg Bacitracin (Bacitracin -) 1 applic TP BID [facility] Last Admin: 01/28/17 22:38 Dose: 1 applic Enoxaparin Sodium (Lovenox -) 40 mg SQ DAILY [facility] Last Admin: 01/29/17 10:41 Dose: 40 mg Entecavir (Baraclude -) 0.5 mg PO DAILY [facility] Last Admin: 01/29/17 10:42 Dose: 0.5 mg Guaifenesin/Codeine Phosphate (Robitussin Ac -) 10 ml PO Q8H PRN PRN Reason: COUGH Last Admin: 01/28/17 22:38 Dose: 10 ml Piperacillin Sod/Tazobactam Sod (Zosyn 2.25gm Ivpb (Pre-Docked)) 50 mls @ 100 mls/hr IVPB BID [facility] PRN Reason: Protocol Sodium Chloride (Normal Saline -) 1,000 mls @ 100 mls/hr IV ASDIR [facility] Insulin Aspart (Novolog Vial Sliding Scale -) 1 vial SQ ACHS [facility] PRN Reason: Protocol Last Admin: 01/29/17 12:09 Dose: Not Given Ondansetron HCl (Zofran -) 8 mg PO Q12H PRN PRN Reason: NAUSEA Last Admin: 01/28/17 11:54 Dose: 8 mg Ondansetron HCl (Zofran Injection) 8 mg IVPB Q8H PRN PRN Reason: NAUSEA Last Admin: 01/27/17 10:35 Dose: 8 mg Pantoprazole Sodium (Protonix -) 40 mg PO DAILY [facility] Last Admin: 01/29/17 10:41 Dose: 40 mg - Objective Vital Signs: Vital Signs Temperature 97.4 F L 01/29/17 10:00 Pulse Rate 95 H 01/29/17 10:00 Respiratory Rate 18 01/29/17 10:00 Blood Pressure 134/87 01/29/17 10:00 O2 Sat by Pulse Oximetry (%) 95 01/29/17 09:00 Constitutional: Yes: No Distress Cardiovascular: Yes: Regular Rate and Rhythm, S1, S2 Respiratory: Yes: Rhonchi Gastrointestinal: Yes: Normal Bowel Sounds, Soft. No: Tenderness Integumentary: Yes: Other (port site no erythema + small surgical wound dehiscence) Labs: CBC, BMP 01/29/17 06:00 01/29/17 06:00 INR, PTT INR 1.27 (0.82-1.09) H 01/26/17 21:50 Assessment/Plan Probable post-obstructive pneumonia Possible atelectasis v. lymphangitic tumor spread Metastatic breast ca Blood c/s (-) Continue empiric zosyn D/C vancomycin
--- NOTE | 2017-01-29 14:19 | CONSULT ---
Consult - text type - Consultation Consultation Note: Renal Consult for JENNA This is a 46 year old woman with PMhx of Breast Ca s/p lumpectomy and chemo, Hypertension who presented with SOB and admitted for PNA and developed JENNA with BUN/Cr of 5/1.3. BUN/Cr trend as follows: Laboratory Tests 01/26/17 01/27/17 01/29/17 21:50 06:00 06:00 BUN 12 9 D 5 L D Creatinine 0.8 0.6 D 1.3 H D Pt denies any change in urine output. Denies any flank pain, hematuria, or dark urine. S/p contrast exposure on admission (CTA). No NSIAD given. Pt has been on Vanco and Zosyn. Currently getting Enevavir. Denies any chest or abd pain. No N/ V/D. SOB is improved. PMhx: as above Allergies; NKDA Family Hx: NC Social Hx: No T/A/D ROS: as per HPI, all other pertinent ros negative Home Meds: Home Medications Medication Instructions Recorded Atorvastatin Ca [Lipitor] 10 mg PO HS 01/04/17 Glipizide [Glipizide Xl] 2.5 mg PO BID 01/04/17 Losartan Potassium [Cozaar -] 25 mg PO DAILY 01/04/17 Sitagliptin Phosphate [Januvia] 100 mg PO DAILY 01/04/17 Aspirin [ASA -] 81 mg PO DAILY tab.chew 01/05/17 Ondansetron [Ondansetron Odt] 8 mg PO Q12H PRN #60 tab.rapdis 01/05/17 Pantoprazole Sodium [Protonix] 40 mg PO DAILY #30 tablet. 01/05/17 Prochlorperazine Maleate 10 mg PO Q8H PRN #60 tablet 01/05/17 [Compazine -] Vital Signs Temperature 98.1 F 01/29/17 13:41 Pulse Rate 102 H 01/29/17 13:41 Respiratory Rate 20 01/29/17 13:41 Blood Pressure 139/66 01/29/17 13:41 O2 Sat by Pulse Oximetry (%) 95 01/29/17 09:00 Intake & Output 01/26/17 01/27/17 01/28/17 01/29/17 23:59 23:59 23:59 23:59 Intake Total 1350 1930 1000 Balance 1350 1930 1000 Weight 134 lb 134 lb Gen: NAD, awake and alert HEENT: NC/AT, MMM, No JVD CVS: RRR, No M/R Lungs: Dec BS throughout the lung newman, no rales Abd: soft NT/ND Ext: No edema, clubbing or cyanosis : no bladder distension Neuro: No focal defects CBC, BMP 01/29/17 06:00 01/29/17 06:00 Laboratory Tests 01/26/17 01/29/17 22:05 10:15 Urine Protein Negative Urine Blood 1+ H U Random Total Protein < 5 L Urine Creatinine < 13.0 Current Medications Acetaminophen (Tylenol -) 650 mg PO Q6H PRN PRN Reason: FEVER OR PAIN Aspirin (Asa -) 81 mg PO DAILY [facility] Last Admin: 01/29/17 10:41 Dose: 81 mg Atorvastatin Calcium (Lipitor -) 10 mg PO HS [facility] Last Admin: 01/28/17 22:39 Dose: 10 mg Bacitracin (Bacitracin -) 1 applic TP BID [facility] Last Admin: 01/28/17 22:38 Dose: 1 applic Enoxaparin Sodium (Lovenox -) 40 mg SQ DAILY [facility] Last Admin: 01/29/17 10:41 Dose: 40 mg Entecavir (Baraclude -) 0.5 mg PO DAILY [facility] Last Admin: 01/29/17 10:42 Dose: 0.5 mg Guaifenesin/Codeine Phosphate (Robitussin Ac -) 10 ml PO Q8H PRN PRN Reason: COUGH Last Admin: 01/28/17 22:38 Dose: 10 ml Piperacillin Sod/Tazobactam Sod (Zosyn 2.25gm Ivpb (Pre-Docked)) 50 mls @ 100 mls/hr IVPB BID [facility] PRN Reason: Protocol Sodium Chloride (Normal Saline -) 1,000 mls @ 100 mls/hr IV ASDIR [facility] Insulin Aspart (Novolog Vial Sliding Scale -) 1 vial SQ ACHS [facility] PRN Reason: Protocol Last Admin: 01/29/17 12:09 Dose: Not Given Ondansetron HCl (Zofran -) 8 mg PO Q12H PRN PRN Reason: NAUSEA Last Admin: 01/28/17 11:54 Dose: 8 mg Ondansetron HCl (Zofran Injection) 8 mg IVPB Q8H PRN PRN Reason: NAUSEA Last Admin: 01/27/17 10:35 Dose: 8 mg Pantoprazole Sodium (Protonix -) 40 mg PO DAILY [facility] Last Admin: 01/29/17 10:41 Dose: 40 mg A/P 46 year old woman with PMhx of Breast Ca s/p lumpectomy and chemo, Hypertension who presented with SOB and admitted for PNA and developed JENNA with BUN/Cr of 5/ 1.3 #Acute Renal Failure Differential includes ATN from contrast nephropathy + ARB vs AIN vs. pre-renal azotemia in setting of PNA Check Urine for FeNa, UPCR, Urine Eios Renal US to access kidney size and structure D/c Losartan Agree with trial of isotonic saline STrict I and O Dose all med for Cr Cl less then 40 Avoid SEBASTIÁN/ARB, NSAIDs, further IV contrast at this time #Pneumonia Continue Abx as per ID Dose Vanco by levels #Breast Ca Management as per Oncology #Hypertension Monitor BP off Losartan If BP elevated can try trial of Amldopine Goal BP < 140/90 Thank you Will follow Abdi Van DO
--- NOTE | 2017-01-29 14:42 | CONS ---
DATE OF CONSULTATION: 01/28/2017 REFERRING PHYSICIAN: The patient is a 46-year-old female, past medical history of advanced metastatic breast carcinoma initially diagnosed in 2014, treated with RT, chemotherapy, and left lumpectomy. History of pneumonia and her first course of chemotherapy, diabetes mellitus, hypertension, nonsmoker. Admitted to [facility], [place] secondary to increasing shortness of breath and nonproductive cough. Patient on admission had a CTA of the chest which revealed consolidation in the right lung field as well as pulmonary nodules as well as extensive mediastinal adenopathy and a chest wall mass in the left upper lobe of the chest. Patient was admitted. On admission, she was felt to have possible pneumonia. She was placed on empiric Zosyn and vancomycin. Patient states that her cough started approximately 2 months ago. She states an increase in severity when lying down as well as when going out in colder temperatures. She denies any bronchospasm, denies any chest pain, nausea, vomiting, diaphoresis. Denies any fevers or chills. PAST MEDICAL HISTORY: 1. Again includes metastatic breast carcinoma, infiltrating ductal breast CA diagnosed in November 2014 status post lumpectomy, radiation and chemotherapy with triple-negative disease with extensive metastases. 2. Diabetes. 3. Hypertension. REVIEW OF SYSTEMS: Positive for dyspnea. Positive cough. No chest pain. No palpitations. No fevers, weight loss, night sweats. No hemoptysis. CURRENT MEDICATIONS: Include Zofran, Decadron, Tylenol, Cozaar, piperacillin, vancomycin, bacitracin, Lovenox, carboplatin, gemcitabine, codeine, insulin, Baraclude, aspirin, and Protonix. PHYSICAL EXAMINATION: General: The patient is a well-developed, well-nourished female. Awake, alert , in no acute distress. Vital signs: She is afebrile. Blood pressure is 130/87, O2 saturation is 97% on room air, respiratory rate is 20. HEENT: Exam is normocephalic, atraumatic. Neck: Supple. Heart: Regular with S1, S2. Chest: Clear. Abdomen: Soft. Bowel sounds positive. Extremities: No cyanosis or edema. LABORATORIES: WBC is 5, hemoglobin 9.1, hematocrit 27.8 with a platelet count of 316,000. INR is 1.27. BUN is 9, creatinine 0.6. Chest CT again reveals no evidence of PE with atelectasis right middle or lower lobe, small right pleural effusion, extensive mediastinal hilar adenopathy, multiple subcutaneous nodules, bilateral adrenal masses, and multiple pulmonary nodules and there is an area of chest wall invasion in the left upper chest. anterior mediastinal mass extending into the chest wall . IMPRESSION: 1. Advanced metastatic breast carcinoma. 2. Dyspnea secondary to possible atelectasis. Cannot exclude possible post-obstructive pneumonia. Rule out possible lymphangitic spread. 3. Hypertension. 4. Diabetes. 5. Anemia. PLAN: Inhaled bronchodilators, supplemental O2. Monitor hemoglobin and hematocrit. Antibiotics as per Infectious Disease. Antitussives. KELLY OSEGUERA M.D. [id number] MTDD
--- NOTE | 2017-01-29 14:42 | PN ---
Addendum entered and electronically signed by Minnie Sanz RES 01/29/17 15 :24: JENNA: urine studies pending; kidney US pending; IV hydration; hold chemotherapy Original Note: Physical Exam: SUBJECTIVE: Patient seen and examined, still with cough, no sputum production, afebrile. Rise in Cr this am. No new complaints. Denies fay,sob,cp,abdominal pain ,, dysuria. OBJECTIVE: Vital Signs Period Temp Pulse Resp BP Sys/Winter Pulse Ox Last 24 Hr 97.4 F-98.8 F 93-107 18-20 118-139/66-95 95-96 GENERAL: The patient is awake, alert, and fully oriented, in no acute distress. LUNGS: Breath sounds equal, clear to auscultation bilaterally, no wheezes, no crackles, no accessory muscle use. HEART: Regular rate and rhythm, S1, S2 without murmur, rub or gallop. ABDOMEN: Soft, nontender, nondistended, normoactive bowel sounds, no guarding, no rebound, no hepatosplenomegaly, no masses. EXTREMITIES: 2+ pulses, warm, well-perfused, no edema. NEUROLOGICAL: Cranial nerves II through XII grossly intact. Normal speech, gait not observed. PSYCH: Normal mood, normal affect. SKIN: Warm, dry, normal turgor, no rashes or lesions noted Laboratory Results - last 24 hr 01/28/17 01/28/17 01/28/17 14:30 15:55 22:37 WBC RBC Hgb Hct MCV MCHC RDW Plt Count MPV Neutrophils % Lymphocytes % Monocytes % Eosinophils % Metamyelocytes Myelocytes Differential Comment Platelet Estimate Sodium Potassium Chloride Carbon Dioxide Anion Gap BUN Creatinine POC Glucometer 172 129 Random Glucose Calcium U Random Total Protein Urine Creatinine Vancomycin Trough 16.663 H* 01/29/17 01/29/17 01/29/17 06:00 06:00 06:38 WBC 5.2 RBC 3.38 L Hgb 9.8 L Hct 29.3 L MCV 86.7 MCHC 33.5 RDW 14.7 Plt Count 360 MPV 6.8 L Neutrophils % 29.0 L Lymphocytes % 29.0 D Monocytes % 34.0 H Eosinophils % 3.0 Metamyelocytes 2 D Myelocytes 3 H D Differential Comment Manual diff done Platelet Estimate Adequate Sodium 143 Potassium 3.8 Chloride 108 H Carbon Dioxide 25 Anion Gap 10 BUN 5 L D Creatinine 1.3 H D POC Glucometer 122 Random Glucose 135 H Calcium 8.7 U Random Total Protein Urine Creatinine Vancomycin Trough 01/29/17 01/29/17 01/29/17 10:15 10:15 10:15 WBC RBC Hgb Hct MCV MCHC RDW Plt Count MPV Neutrophils % Lymphocytes % Monocytes % Eosinophils % Metamyelocytes Myelocytes Differential Comment Platelet Estimate Sodium Potassium Chloride Carbon Dioxide Anion Gap BUN Creatinine POC Glucometer Random Glucose Calcium U Random Total Protein Cancelled < 5 L Urine Creatinine < 13.0 Cancelled Vancomycin Trough 01/29/17 12:03 WBC RBC Hgb Hct MCV MCHC RDW Plt Count MPV Neutrophils % Lymphocytes % Monocytes % Eosinophils % Metamyelocytes Myelocytes Differential Comment Platelet Estimate Sodium Potassium Chloride Carbon Dioxide Anion Gap BUN Creatinine POC Glucometer 132 Random Glucose Calcium U Random Total Protein Urine Creatinine Vancomycin Trough Active Medications Generic Name Dose Route Start Last Admin Trade Name Freq PRN Reason Stop Dose Admin Acetaminophen 650 mg 01/27/17 09:14 Tylenol - PO Q6H PRN FEVER OR PAIN Aspirin 81 mg 01/27/17 10:00 01/29/17 10:41 Asa - PO 81 mg DAILY JAIR Administration Atorvastatin Calcium 10 mg 01/27/17 22:00 01/28/17 22:39 Lipitor - PO 10 mg HS JAIR Administration Bacitracin 1 applic 01/27/17 10:00 01/28/17 22:38 Bacitracin - TP 1 applic BID JAIR Administration Enoxaparin Sodium 40 mg 01/27/17 10:00 01/29/17 10:41 Lovenox - SQ 40 mg DAILY JAIR Administration Entecavir 0.5 mg 01/27/17 10:00 01/29/17 10:42 Baraclude - PO 0.5 mg DAILY JAIR Administration Guaifenesin/Codeine Phosphate 10 ml 01/27/17 14:33 01/28/17 22:38 Robitussin Ac - PO 10 ml Q8H PRN Administration COUGH Piperacillin Sod/Tazobactam Sod 50 mls @ 100 mls/hr 01/29/17 22:00 Zosyn 2.25gm Ivpb (Pre-Docked) IVPB BID [facility] Protocol Sodium Chloride 1,000 mls @ 100 mls/hr 01/29/17 09:00 Normal Saline - IV ASDIR JAIR Insulin Aspart 1 vial 01/27/17 07:00 01/29/17 12:09 Novolog Vial Sliding Scale - SQ Not Given ACHS [facility] Protocol Ondansetron HCl 8 mg 01/27/17 09:05 01/28/17 11:54 Zofran - PO 8 mg Q12H PRN Administration NAUSEA Ondansetron HCl 8 mg 01/27/17 09:27 01/27/17 10:35 Zofran Injection IVPB 8 mg Q8H PRN Administration NAUSEA Pantoprazole Sodium 40 mg 01/27/17 10:00 01/29/17 10:41 Protonix - PO 40 mg DAILY [facility] Administration ASSESSMENT/PLAN: This is a 46y female PMHx of HTN , DM with metastatic triple negative breast cancer (s/p left lumpectomy, Port-A-Cath placement), presents with non productivecough and shortness of breath x 1 day. Radiation therapy adriamycin, cytoxn and taxol. Last chemotherapy was January 11. Last chemotherapy was January 11, carboplatinum. gemzar. Patient see's Dr. Bedolla /Blaire. 1. Cough/dyspnea secondary to post obstructive pneumonia vs tumor mahogany: -CXR/CT scan reviewed; showing RLL consolidation with with mediastinal adenopathy -port culture negative; d/c vancomycin today; continue zosyn (day 3) -Guaifenesin prn cough -incentive spirometry -appreciate pulm 2. Breast CA with mediastinal adenopathy -PET -hold chemo carbo/gem for now due to elevated Cr; discussed with Dr. Bedolla and pharmacy; this mixture is good for 48hrs; if Cr decreased with hydration, can give 3. Diabetes Mellitus type II: -Insulin SS -monitor BGM 4. Prior hx of hepatitis: -entecavir 0.5mg daily 5. Wound : -Bacitracin FEN: FLuids: po Electrolytes: wnl Diet diabetic VTE prophylaxis: lovenox Disposition: iv antibiotic Problem List - Problems (1) Anemia Code(s): D64.9 - ANEMIA, UNSPECIFIED Qualifiers: Anemia type: other cause Other causes of anemia: antineoplastic chemotherapy Qualified Code(s): D64.81 - Anemia due to antineoplastic chemotherapy (2) Dyspnea Code(s): R06.00 - DYSPNEA, UNSPECIFIED Qualifiers: Dyspnea type: shortness of breath Qualified Code(s): R06.02 - Shortness of breath (3) Lung consolidation Code(s): J18.1 - LOBAR PNEUMONIA, UNSPECIFIED ORGANISM (4) Tachycardia Code(s): R00.0 - TACHYCARDIA, UNSPECIFIED (5) Wound dehiscence Code(s): T81.30XA - DISRUPTION OF WOUND, UNSPECIFIED, INITIAL ENCOUNTER (6) Breast cancer metastasized to multiple sites Code(s): C50.919 - MALIGNANT NEOPLASM OF UNSP SITE OF UNSPECIFIED FEMALE BREAST Qualifiers: Laterality: unspecified laterality Qualified Code(s): C50.919 - Malignant neoplasm of unspecified site of unspecified female breast Visit type - Emergency Visit Emergency Visit: Yes ED Registration Date: 01/27/17 Care time: The patient presented to the Emergency Department on the above date and was hospitalized for further evaluation of their emergent condition. - New Patient This patient is new to me today: No - Critical Care Critical Care patient: No
--- NOTE | 2017-01-29 15:41 | PN ---
Teaching Attending Note Name of Resident: Minnie Sanz ATTENDING PHYSICIAN STATEMENT I saw and evaluated the patient. I reviewed the resident's note and discussed the case with the resident. I agree with the resident's findings and plan as documented. SUBJECTIVE:continues to have non-productive cough but states its improved since admission. unaware if she is urinating less. denies CP, SOB,fever, chills, N/V/C /D, hematuria, urinary frequency, dysuria OBJECTIVE: Last Vital Signs Temp Pulse Resp BP Pulse Ox 98.1 F 102 H 20 139/66 95 01/29/17 13:41 01/29/17 13:41 01/29/17 13:41 01/29/17 13:41 01/29/17 09:00 General NAD CV S1 S2 RRR no murmur/rub/gallop Lungs CTA B/L no wheeznig/rales/rhonchi Extremities no pedal edema ASSESSMENT AND PLAN: 46yo F with PMH DM, HTN, and recently diagnosed breast ca s/p lumpectomy and chemo presented to the ER and was admitted for further evaluation of their emergent condition 1. HCAP- RML infilatrate. was on Vanco/Zosyn but vanco d/c today by ID. will cont to monitor. afebrile and no leukocytosis but may not mount white count due to immunocompromised 2. JENNA- dehydration (tachycardia with insenible fluid losses from infection) vs contrast induced. with the former being less likely. check urine lytes, renal u/ s. fluid challenge. Nephro consulted. agree with holding ARB at this time. avoid nephrotoxic agents. monitor UOP 3. HTN- controlled. monitor now that losartan is being held. 4. DM- controlled. iss, hold oral agents 5. breast ca- plan was for chemo today. would hold at this time in setting of jenna. oncology on board 6. DVT ppx- lovenox
[2017-01-29] MEDS: BACITRACIN 30 GM TUBE TOPICAL OINTMENT TP SCH ×2 (15:44→23:31)
--- NOTE | 2017-01-29 16:41 | PN ---
Progress Note (short form) - Note Progress Note: Patient seen and examined. No specific complaints. No significant SOB or dyspnea. No chest pains. Increase in creatinine--?? contrast , ?? decreased intake /??other Chemotherapy being held Last Vital Signs Temp Pulse Resp BP Pulse Ox 98.1 F 102 H 20 139/66 95 01/29/17 13:41 01/29/17 13:41 01/29/17 13:41 01/29/17 13:41 01/29/17 09:00 HEENT: MICHELLE, EOM Intact Oropharynx: No thrush, No mucositis Neck: Supple Nodes: right sc node -mildly tender Cor: RSR, No murmurs, No gallops Lungs: scattered rales Abd: Soft, Normal bowel sounds, No organomegaly Ext:No significant edema Skin: No rashes, Integument intact CBC, BMP 01/29/17 06:00 Abnormal Lab Results 01/29/17 01/29/17 01/29/17 06:00 06:00 10:15 RBC 3.38 L Hgb 9.8 L Hct 29.3 L MPV 6.8 L Neutrophils % 29.0 L Monocytes % 34.0 H Myelocytes 3 H D Chloride 108 H BUN 5 L D Creatinine 1.3 H D Random Glucose 135 H U Random Total Protein < 5 L Current Medications Generic Name Dose Route Start Last Admin Trade Name Freq PRN Reason Stop Dose Admin Acetaminophen 650 mg 01/27/17 09:14 Tylenol - PO Q6H PRN FEVER OR PAIN Aspirin 81 mg 01/27/17 10:00 01/29/17 10:41 Asa - PO 81 mg DAILY JAIR Administration Atorvastatin Calcium 10 mg 01/27/17 22:00 01/28/17 22:39 Lipitor - PO 10 mg HS JAIR Administration Bacitracin 1 applic 01/27/17 10:00 01/29/17 15:44 Bacitracin - TP 1 applic BID JAIR Administration Enoxaparin Sodium 40 mg 01/27/17 10:00 01/29/17 10:41 Lovenox - SQ 40 mg DAILY JAIR Administration Entecavir 0.5 mg 01/27/17 10:00 01/29/17 10:42 Baraclude - PO 0.5 mg DAILY JAIR Administration Guaifenesin/Codeine Phosphate 10 ml 01/27/17 14:33 01/28/17 22:38 Robitussin Ac - PO 10 ml Q8H PRN Administration COUGH Piperacillin Sod/Tazobactam Sod 50 mls @ 100 mls/hr 01/29/17 22:00 Zosyn 2.25gm Ivpb (Pre-Docked) IVPB BID [facility] Protocol Sodium Chloride 1,000 mls @ 100 mls/hr 01/29/17 09:00 01/29/17 10:00 Normal Saline - IV 100 mls/hr ASDIR JAIR Administration Insulin Aspart 1 vial 01/27/17 07:00 01/29/17 12:09 Novolog Vial Sliding Scale - SQ Not Given ACHS [facility] Protocol Ondansetron HCl 8 mg 01/27/17 09:05 01/28/17 11:54 Zofran - PO 8 mg Q12H PRN Administration NAUSEA Ondansetron HCl 8 mg 01/27/17 09:27 01/27/17 10:35 Zofran Injection IVPB 8 mg Q8H PRN Administration NAUSEA Pantoprazole Sodium 40 mg 01/27/17 10:00 01/29/17 10:41 Protonix - PO 40 mg DAILY JAIR Administration Impression: Metastatic breast ca-lung, judy, skeletal mets, Triple negative breast ca s/p 2 cycles of Carbo/ gemzar Due for next cycle, but being held in view of azotemia. Anemia secondary to chemotherapy Pneumonia- vancomycin -d/brandie zosyn continuing. Plan: Reassess in A.M. Monitor chemistries. Hopefully for chemotherapy in A.M. Problem List - Problems (1) Lung consolidation Code(s): J18.1 - LOBAR PNEUMONIA, UNSPECIFIED ORGANISM (2) Breast cancer metastasized to multiple sites Code(s): C50.919 - MALIGNANT NEOPLASM OF UNSP SITE OF UNSPECIFIED FEMALE BREAST Qualifiers: Laterality: unspecified laterality Qualified Code(s): C50.919 - Malignant neoplasm of unspecified site of unspecified female breast (3) DVT prophylaxis Code(s): ODL7606 - (4) Tachycardia Code(s): R00.0 - TACHYCARDIA, UNSPECIFIED (5) Diabetes Code(s): E11.9 - TYPE 2 DIABETES MELLITUS WITHOUT COMPLICATIONS (6) Wound dehiscence Code(s): T81.30XA - DISRUPTION OF WOUND, UNSPECIFIED, INITIAL ENCOUNTER (7) Hepatitis Code(s): K75.9 - INFLAMMATORY LIVER DISEASE, UNSPECIFIED
[2017-01-29 17:04] LABS: ALBUMIN 3.4 g/dl (3.4-5.0); BILIRUBIN,TOTAL 0.6 mg/dL (0.2-1.0); CALCIUM 8.4 mg/dL (8.5-10.1); CREATININE 1.5 mg/dL (0.55-1.02); TOT PROT 6.7 g/dl (6.4-8.2)
[2017-01-29] MEDS: SODIUM CHLORIDE 1,000 ML IV SCH (21:00)
[2017-01-29] MEDS: ATORVASTATIN CA 10 MG TABLET (FP) PO SCH (23:31)
[2017-01-29] MEDS: guaiFENesin/CODEINE 10 ML UNIT-DOSE CUPS PO PRN (23:32)
[2017-01-30] MEDS: SODIUM CHLORIDE 1,000 ML IV SCH (05:47)
[2017-01-30] MEDS: INSULIN SLIDING SCALE (NOVOLOG) 1 VIAL SQ SCH ×4 (06:01→21:14)
[2017-01-30] MEDS ORDERED: PIPERACILLIN/TAZOB 2.25 GM/50 ML PRE-DOCKED BAG IVPB ONE (08:15)
[2017-01-30 08:22] LABS: MAGNESIUM 1.9 mg/dL (1.8-2.4); PHOSPHOROUS 3.3 mg/dL (2.5-4.9)
[2017-01-30] MEDS ORDERED: PT OWN MED DRAWER 7, Y5N ONE (09:37)
[2017-01-30] MEDS: BACITRACIN 30 GM TUBE TOPICAL OINTMENT TP SCH ×2 (10:00→21:13)
[2017-01-30 10:23] LABS: MCH 28.9 pg (25.7-33.7); MCHC 33.2 g/dl (32.0-36.0); MEAN CELL VOLUME 87.1 fl (80-96); MEAN PLT VOLUME 6.6 fl (7.5-11.1); PLATELET COUNT 318 K/MM3 (134-434); RDW 14.7 % (11.6-15.6); WHITE BLOOD COUNT 4.5 K/mm3 (4.0-10.0)
[2017-01-30] MEDS: PANTOPRAZOLE 40 MG TABLET (FP) PO SCH (10:27)
[2017-01-30] MEDS: ENTECAVIR 0.5 MG TABLET PO SCH (10:27)
[2017-01-30] MEDS: ASPIRIN 81 MG CHEWABLE TABLETS PO SCH (10:27)
[2017-01-30] MEDS: ENOXAPARIN NA (PORCINE) 40 MG/0.4 ML DISP.SYRIN SQ SCH (10:35)
[2017-01-30] MEDS: ONDANSETRON 4 MG TABLET PO PRN (11:40)
[2017-01-30 11:58] LABS: ALBUMIN 3.1 g/dl (3.4-5.0); CALCIUM 8.3 mg/dL (8.5-10.1)
[2017-01-30 12:00] LABS: BILIRUBIN,TOTAL 0.5 mg/dL (0.2-1.0); CREATININE 1.3 mg/dL (0.55-1.02); TOT PROT 6.3 g/dl (6.4-8.2)
--- NOTE | 2017-01-30 12:03 | PN ---
Progress Note, Physician History of Present Illness: Seated in bed No c/o chest pain/ dyspnea Occasional dry cough + loose stool yesterday - Current Medication List Current Medications: Active Medications Acetaminophen (Tylenol -) 650 mg PO Q6H PRN PRN Reason: FEVER OR PAIN Aspirin (Asa -) 81 mg PO DAILY [facility] Last Admin: 01/30/17 10:27 Dose: 81 mg Atorvastatin Calcium (Lipitor -) 10 mg PO HS [facility] Last Admin: 01/29/17 23:31 Dose: 10 mg Bacitracin (Bacitracin -) 1 applic TP BID [facility] Last Admin: 01/30/17 10:00 Dose: 1 applic Enoxaparin Sodium (Lovenox -) 40 mg SQ DAILY [facility] Last Admin: 01/30/17 10:35 Dose: 40 mg Entecavir (Baraclude -) 0.5 mg PO DAILY [facility] Last Admin: 01/30/17 10:27 Dose: 0.5 mg Guaifenesin/Codeine Phosphate (Robitussin Ac -) 10 ml PO Q8H PRN PRN Reason: COUGH Last Admin: 01/29/17 23:32 Dose: 10 ml Piperacillin Sod/Tazobactam Sod (Zosyn 2.25gm Ivpb (Pre-Docked)) 50 mls @ 100 mls/hr IVPB BID [facility] PRN Reason: Protocol Sodium Chloride (Normal Saline -) 1,000 mls @ 125 mls/hr IV ASDIR [facility] Last Admin: 01/30/17 05:47 Dose: 125 mls/hr Insulin Aspart (Novolog Vial Sliding Scale -) 1 vial SQ ACHS [facility] PRN Reason: Protocol Last Admin: 01/30/17 11:38 Dose: Not Given Ondansetron HCl (Zofran -) 8 mg PO Q12H PRN PRN Reason: NAUSEA Last Admin: 01/30/17 11:40 Dose: 8 mg Ondansetron HCl (Zofran Injection) 8 mg IVPB Q8H PRN PRN Reason: NAUSEA Last Admin: 01/27/17 10:35 Dose: 8 mg Pantoprazole Sodium (Protonix -) 40 mg PO DAILY [facility] Last Admin: 01/30/17 10:27 Dose: 40 mg - Objective Vital Signs: Vital Signs Temperature 98.2 F 01/30/17 06:00 Pulse Rate 97 H 01/30/17 06:00 Respiratory Rate 18 03/22/17 06:00 Blood Pressure 140/88 01/30/17 06:00 O2 Sat by Pulse Oximetry (%) 95 01/29/17 20:17 Constitutional: Yes: No Distress Eyes: Yes: Conjunctiva Clear Cardiovascular: Yes: Regular Rate and Rhythm, S1, S2 Respiratory: Yes: Diminished Gastrointestinal: Yes: Normal Bowel Sounds, Soft. No: Tenderness Labs: CBC, BMP 01/30/17 07:15 01/30/17 07:15 INR, PTT INR 1.27 (0.82-1.09) H 01/26/17 21:50 Assessment/Plan Probable post-obstructive pneumonia Possible atelectasis v. lymphangitic tumor spread Metastatic breast ca Blood c/s (-) Continue empiric zosyn
[2017-01-30 12:54] LABS: METAMYELOCYTE 2 % (0-2); OVALOCYTES FEW; POLYCHROMASIA 1+; TEAR DROP CELLS FEW
[2017-01-30 13:42] LABS: URINE APPEARANCE CLEAR; URINE BILIRUBIN NEGATIVE (NEGATIVE); URINE COLOR COLORLESS; URINE GLUCOSE (UA) NEGATIVE (NEGATIVE); URINE KETONE NEGATIVE (NEGATIVE); URINE LEUK ESTERASE NEGATIVE (NEGATIVE); URINE NITRITE NEGATIVE (NEGATIVE); URINE PROTEIN NEGATIVE (NEGATIVE); URINE UROBILINOGEN NEGATIVE E.U./dl (0.2-1.0)
[2017-01-30] MEDS: SODIUM BICARBONATE 650 MG TABLET PO SCH (13:53)
[2017-01-30] MEDS: SODIUM CHLORIDE 0.45% 1,000 ML IV SCH (13:53)
[2017-01-30] MEDS: amLODIPine BESYLATE 10 MG TABLET (FP) PO SCH (13:53)
[2017-01-30 14:46] LABS: URINE BLOOD 1+ (NEGATIVE)
[2017-01-30 14:52] LABS: URINE MUCUS RARE; URINE RBC 1 /hpf (0-3); URINE WBC <1 /hpf (3-5)
--- NOTE | 2017-01-30 15:01 | PN ---
Progress Note (short form) - Note Progress Note: PAtient seen and examined Feels well. right neck swelling Last Vital Signs Temp Pulse Resp BP Pulse Ox 98 F 99 H 20 152/102 97 01/30/17 13:47 01/30/17 13:47 01/30/17 13:47 01/30/17 13:47 01/30/17 09:00 Cor: RSR, No murmurs, No gallops Lungs: Clear to P&A Abd: Soft, Normal bowel sounds, No organomegaly Ext:No significant edema Abnormal Lab Results 01/29/17 01/30/17 01/30/17 14:10 06:00 07:15 RBC 2.88 L Hgb 8.3 L D Hct 25.1 L MPV 6.6 L Neutrophils % 35.0 L D Monocytes % 29.0 H Nucleated RBCs 1 H Potassium 3.4 L Chloride 109 H 112 H Carbon Dioxide 20 L 19 L BUN 6 L Creatinine 1.5 H 1.3 H Random Glucose 157 H 116 H D Calcium 8.4 L 8.3 L AST Total Protein 6.3 L Albumin 3.1 L Urine Blood 01/30/17 01/30/17 13:00 14:10 RBC Hgb Hct MPV Neutrophils % Monocytes % Nucleated RBCs Potassium 3.4 L Chloride 109 H Carbon Dioxide BUN 6 L Creatinine 1.3 H Random Glucose 165 H D Calcium AST 40 H Total Protein Albumin Urine Blood 1+ H Home Medication List Medication Instructions Recorded Confirmed Type Atorvastatin Ca [Lipitor] 10 mg PO HS 01/04/17 01/04/17 History Glipizide [Glipizide Xl] 2.5 mg PO BID 01/04/17 01/04/17 History Losartan Potassium [Cozaar -] 25 mg PO DAILY 01/04/17 01/04/17 History Sitagliptin Phosphate [Januvia] 100 mg PO DAILY 01/04/17 01/04/17 History Active Medications Generic Name Dose Route Start Last Admin Trade Name Freq PRN Reason Stop Dose Admin Acetaminophen 650 mg 01/27/17 09:14 Tylenol - PO Q6H PRN FEVER OR PAIN Amlodipine Besylate 10 mg 01/30/17 13:15 01/30/17 13:53 Norvasc - PO 10 mg DAILY JAIR Administration Aspirin 81 mg 01/27/17 10:00 01/30/17 10:27 Asa - PO 81 mg DAILY JAIR Administration Atorvastatin Calcium 10 mg 01/27/17 22:00 01/29/17 23:31 Lipitor - PO 10 mg HS JAIR Administration Bacitracin 1 applic 01/27/17 10:00 01/30/17 10:00 Bacitracin - TP 1 applic BID JAIR Administration Enoxaparin Sodium 40 mg 01/27/17 10:00 01/30/17 10:35 Lovenox - SQ 40 mg DAILY JAIR Administration Entecavir 0.5 mg 01/27/17 10:00 01/30/17 10:27 Baraclude - PO 0.5 mg DAILY JAIR Administration Guaifenesin/Codeine Phosphate 10 ml 01/27/17 14:33 01/29/17 23:32 Robitussin Ac - PO 10 ml Q8H PRN Administration COUGH Sodium Chloride 1,000 mls @ 60 mls/hr 01/30/17 13:15 01/30/17 13:53 1/2 Normal Saline IV 60 mls/hr ASDIR JAIR Administration Insulin Aspart 1 vial 01/27/17 07:00 01/30/17 11:38 Novolog Vial Sliding Scale - SQ Not Given ACHS [facility] Protocol Ondansetron HCl 8 mg 01/27/17 09:05 01/30/17 11:40 Zofran - PO 8 mg Q12H PRN Administration NAUSEA Ondansetron HCl 8 mg 01/27/17 09:27 01/27/17 10:35 Zofran Injection IVPB 8 mg Q8H PRN Administration NAUSEA Pantoprazole Sodium 40 mg 01/27/17 10:00 01/30/17 10:27 Protonix - PO 40 mg DAILY [facility] Administration Piperacillin Sod/Tazobactam Sod 3.375 gm 01/30/17 18:00 Zosyn 3.375gm Ivpb (Pre-Docked) IVPB Q8H-IV JAIR Sodium Bicarbonate 650 mg 01/30/17 13:00 01/30/17 13:53 Sodium Bicarbonate - PO 650 mg DAILY JAIR Administration A/P 46 y/o patient with metastatic breast cancer, due for C2 gem/carbo , comes in with shortness of breath PAtient with multiple lung nodules, RML atelectasis Started on empiric vanco/zosyn with improvement Cultures negative Developed renal failure --post contrast Creatinine stabilized to consider C2 gem/carbo when creatinine improves further diarrhea --check stool for c. diff discussed with at bed side
--- NOTE | 2017-01-30 15:02 | PN ---
Progress Note (short form) - Note Progress Note: Renal followup for JENNA Pt seen and examined at the bedside no acute complaints no sob or chest pain cough is improving and non-productive good urine output Vital Signs Temperature 98 F 01/30/17 13:47 Pulse Rate 99 H 01/30/17 13:47 Respiratory Rate 20 01/30/17 13:47 Blood Pressure 152/102 01/30/17 13:47 O2 Sat by Pulse Oximetry (%) 97 01/30/17 09:00 Gen: NAD, awake and alert CVS: RRR, No M/R Lungs: Dec BS Abd: soft NT/ND Ext: No edema, clubbing or cyanosis CBC, BMP 01/30/17 07:15 Laboratory Tests 01/30/17 06:00 Sodium 144 Potassium 3.6 Chloride 112 H Carbon Dioxide 19 L Anion Gap 13 BUN 6 L Creatinine 1.3 H Creat Clearance w eGFR 43.72 Calcium 8.3 L Albumin 3.1 L Current Medications Acetaminophen (Tylenol -) 650 mg PO Q6H PRN PRN Reason: FEVER OR PAIN Amlodipine Besylate (Norvasc -) 10 mg PO DAILY [facility] Last Admin: 01/30/17 13:53 Dose: 10 mg Aspirin (Asa -) 81 mg PO DAILY [facility] Last Admin: 01/30/17 10:27 Dose: 81 mg Atorvastatin Calcium (Lipitor -) 10 mg PO HS [facility] Last Admin: 01/29/17 23:31 Dose: 10 mg Bacitracin (Bacitracin -) 1 applic TP BID [facility] Last Admin: 01/30/17 10:00 Dose: 1 applic Enoxaparin Sodium (Lovenox -) 40 mg SQ DAILY [facility] Last Admin: 01/30/17 10:35 Dose: 40 mg Entecavir (Baraclude -) 0.5 mg PO DAILY [facility] Last Admin: 01/30/17 10:27 Dose: 0.5 mg Guaifenesin/Codeine Phosphate (Robitussin Ac -) 10 ml PO Q8H PRN PRN Reason: COUGH Last Admin: 01/29/17 23:32 Dose: 10 ml Sodium Chloride (1/2 Normal Saline) 1,000 mls @ 60 mls/hr IV ASDIR [facility] Last Admin: 01/30/17 13:53 Dose: 60 mls/hr Insulin Aspart (Novolog Vial Sliding Scale -) 1 vial SQ ACHS [facility] PRN Reason: Protocol Last Admin: 01/30/17 11:38 Dose: Not Given Ondansetron HCl (Zofran -) 8 mg PO Q12H PRN PRN Reason: NAUSEA Last Admin: 01/30/17 11:40 Dose: 8 mg Ondansetron HCl (Zofran Injection) 8 mg IVPB Q8H PRN PRN Reason: NAUSEA Last Admin: 01/27/17 10:35 Dose: 8 mg Pantoprazole Sodium (Protonix -) 40 mg PO DAILY [facility] Last Admin: 01/30/17 10:27 Dose: 40 mg Piperacillin Sod/Tazobactam Sod (Zosyn 3.375gm Ivpb (Pre-Docked)) 3.375 gm IVPB Q8H-IV JAIR Sodium Bicarbonate (Sodium Bicarbonate -) 650 mg PO DAILY [facility] Last Admin: 01/30/17 13:53 Dose: 650 mg A/P 46 year old woman with PMhx of Breast Ca s/p lumpectomy and chemo, Hypertension who presented with SOB and admitted for PNA and developed JENNA with BUN/Cr of 5/ 1.3 #Acute Renal Failure Differential includes ATN from contrast nephropathy + ARB vs AIN vs. pre-renal azotemia in setting of PNA Urine studies showed FeNa of 1.6 which is indeterminate, UA showed no Protein and NO WBC so less likely AIN Change IVF to 1/2 NS as pt is hypertensive Continue to hold ARB for now #Pneumonia Continue Abx as per ID Dose Vanco by levels #Breast Ca Management as per Oncology holding chemo for now as per oncology #Hypertension BP is above goal off Losartan Change IVF to 1/2 NS Start Amlodipine 10mg Daily can resume ARB once renal function improves to baseline Abdi Van DO
[2017-01-30 15:16] LABS: ALBUMIN 3.4 g/dl (3.4-5.0); CALCIUM 8.5 mg/dL (8.5-10.1); CREATININE 1.3 mg/dL (0.55-1.02)
[2017-01-30 15:17] LABS: BILIRUBIN,TOTAL 0.7 mg/dL (0.2-1.0); TOT PROT 6.9 g/dl (6.4-8.2)
--- NOTE | 2017-01-30 17:24 | PN ---
Physical Exam: SUBJECTIVE: Patient seen and examined still, still with elevated Cr. 1.3. + diarrhea , no fever, chills. OBJECTIVE: Vital Signs Period Temp Pulse Resp BP Sys/Winter Pulse Ox Last 24 Hr 97.3 F-99.2 F 97-101 18-20 138-152/80-102 95-97 GENERAL: The patient is awake, alert, and fully oriented, in no acute distress. HEAD: Normal with no signs of trauma. EYES: PERRL, extraocular movements intact, sclera anicteric, conjunctiva clear. No ptosis. ENT: Ears normal, nares patent, oropharynx clear without exudates, moist mucous membranes. NECK: Trachea midline, full range of motion, supple. LUNGS: Breath sounds equal, clear to auscultation bilaterally, no wheezes, no crackles, no accessory muscle use. HEART: Regular rate and rhythm, S1, S2 without murmur, rub or gallop. ABDOMEN: Soft, nontender, nondistended, normoactive bowel sounds, no guarding, no rebound, no hepatosplenomegaly, no masses. EXTREMITIES: 2+ pulses, warm, well-perfused, no edema. NEUROLOGICAL: Cranial nerves II through XII grossly intact. Normal speech, gait not observed. PSYCH: Normal mood, normal affect. SKIN: Warm, dry, normal turgor, no rashes or lesions noted, rigth anterior chest [id number] open wound from chemo prt, clean dry intact Laboratory Results - last 24 hr 01/29/17 01/29/17 01/29/17 16:51 20:30 20:30 WBC RBC Hgb Hct MCV MCHC RDW Plt Count MPV Neutrophils % Lymphocytes % Monocytes % Eosinophils % Metamyelocytes Myelocytes Nucleated RBCs Polychromasia Macrocytosis Tear Drop Cells Ovalocytes Morphology Comment Sodium Potassium Chloride Carbon Dioxide Anion Gap BUN Creatinine Creat Clearance w eGFR POC Glucometer 166 Random Glucose Calcium Phosphorus Magnesium Total Bilirubin AST ALT Alkaline Phosphatase Total Protein Albumin Urine Color Urine Appearance Urine pH Ur Specific [place] Urine Protein Urine Glucose (UA) Urine Ketones Urine Blood Urine Nitrite Urine Bilirubin Urine Urobilinogen Ur Leukocyte Esterase Urine RBC Urine WBC Ur Epithelial Cells Urine Mucus Ur Random Sodium 33 Urine Creatinine 21.2 01/30/17 01/30/17 01/30/17 05:43 06:00 07:15 WBC 4.5 RBC 2.88 L Hgb 8.3 L D Hct 25.1 L MCV 87.1 MCHC 33.2 RDW 14.7 Plt Count 318 MPV 6.6 L Neutrophils % 35.0 L D Lymphocytes % 30.0 Monocytes % 29.0 H Eosinophils % 2.0 Metamyelocytes 2 Myelocytes 2 D Nucleated RBCs 1 H Polychromasia 1+ Macrocytosis 1+ Tear Drop Cells Few Ovalocytes Few Morphology Comment Slide scanned Sodium 144 Potassium 3.6 Chloride 112 H Carbon Dioxide 19 L Anion Gap 13 BUN 6 L Creatinine 1.3 H Creat Clearance w eGFR 43.72 POC Glucometer 119 Random Glucose 116 H D Calcium 8.3 L Phosphorus 3.3 Magnesium 1.9 Total Bilirubin 0.5 AST 36 ALT 20 Alkaline Phosphatase 62 Total Protein 6.3 L Albumin 3.1 L Urine Color Urine Appearance Urine pH Ur Specific [place] Urine Protein Urine Glucose (UA) Urine Ketones Urine Blood Urine Nitrite Urine Bilirubin Urine Urobilinogen Ur Leukocyte Esterase Urine RBC Urine WBC Ur Epithelial Cells Urine Mucus Ur Random Sodium Urine Creatinine 01/30/17 01/30/17 01/30/17 07:15 11:34 13:00 WBC RBC Hgb Hct MCV MCHC RDW Plt Count MPV Neutrophils % Lymphocytes % Monocytes % Eosinophils % Metamyelocytes Myelocytes Nucleated RBCs Polychromasia Macrocytosis Tear Drop Cells Ovalocytes Morphology Comment Sodium Cancelled Potassium Cancelled Chloride Cancelled Carbon Dioxide Cancelled Anion Gap Cancelled BUN Cancelled Creatinine Cancelled Creat Clearance w eGFR Cancelled POC Glucometer 128 Random Glucose Cancelled Calcium Cancelled Phosphorus Magnesium Total Bilirubin Cancelled AST Cancelled ALT Cancelled Alkaline Phosphatase Cancelled Total Protein Cancelled Albumin Cancelled Urine Color Colorless Urine Appearance Clear Urine pH 5.0 Ur Specific [place] 1.006 Urine Protein Negative Urine Glucose (UA) Negative Urine Ketones Negative Urine Blood 1+ H Urine Nitrite Negative Urine Bilirubin Negative Urine Urobilinogen Negative Ur Leukocyte Esterase Negative Urine RBC 1 Urine WBC <1 Ur Epithelial Cells Rare Urine Mucus Rare Ur Random Sodium Urine Creatinine 01/30/17 14:10 WBC RBC Hgb Hct MCV MCHC RDW Plt Count MPV Neutrophils % Lymphocytes % Monocytes % Eosinophils % Metamyelocytes Myelocytes Nucleated RBCs Polychromasia Macrocytosis Tear Drop Cells Ovalocytes Morphology Comment Sodium 143 Potassium 3.4 L Chloride 109 H Carbon Dioxide 22 Anion Gap 12 BUN 6 L Creatinine 1.3 H Creat Clearance w eGFR 43.72 POC Glucometer Random Glucose 165 H D Calcium 8.5 Phosphorus Magnesium Total Bilirubin 0.7 D AST 40 H ALT 21 Alkaline Phosphatase 67 Total Protein 6.9 Albumin 3.4 Urine Color Urine Appearance Urine pH Ur Specific [place] Urine Protein Urine Glucose (UA) Urine Ketones Urine Blood Urine Nitrite Urine Bilirubin Urine Urobilinogen Ur Leukocyte Esterase Urine RBC Urine WBC Ur Epithelial Cells Urine Mucus Ur Random Sodium Urine Creatinine Active Medications Generic Name Dose Route Start Last Admin Trade Name Freq PRN Reason Stop Dose Admin Acetaminophen 650 mg 01/27/17 09:14 Tylenol - PO Q6H PRN FEVER OR PAIN Amlodipine Besylate 10 mg 01/30/17 13:15 01/30/17 13:53 Norvasc - PO 10 mg DAILY JAIR Administration Aspirin 81 mg 01/27/17 10:00 01/30/17 10:27 Asa - PO 81 mg DAILY JAIR Administration Atorvastatin Calcium 10 mg 01/27/17 22:00 01/29/17 23:31 Lipitor - PO 10 mg HS JAIR Administration Bacitracin 1 applic 01/27/17 10:00 01/30/17 10:00 Bacitracin - TP 1 applic BID JAIR Administration Enoxaparin Sodium 40 mg 01/27/17 10:00 01/30/17 10:35 Lovenox - SQ 40 mg DAILY JAIR Administration Entecavir 0.5 mg 01/27/17 10:00 01/30/17 10:27 Baraclude - PO 0.5 mg DAILY JAIR Administration Guaifenesin/Codeine Phosphate 10 ml 01/27/17 14:33 01/29/17 23:32 Robitussin Ac - PO 10 ml Q8H PRN Administration COUGH Sodium Chloride 1,000 mls @ 60 mls/hr 01/30/17 13:15 01/30/17 13:53 1/2 Normal Saline IV 60 mls/hr ASDIR JAIR Administration Insulin Aspart 1 vial 01/27/17 07:00 01/30/17 17:10 Novolog Vial Sliding Scale - SQ Not Given ACHS [facility] Protocol Ondansetron HCl 8 mg 01/27/17 09:05 01/30/17 11:40 Zofran - PO 8 mg Q12H PRN Administration NAUSEA Ondansetron HCl 8 mg 01/27/17 09:27 01/27/17 10:35 Zofran Injection IVPB 8 mg Q8H PRN Administration NAUSEA Pantoprazole Sodium 40 mg 01/27/17 10:00 01/30/17 10:27 Protonix - PO 40 mg DAILY JAIR Administration Piperacillin Sod/Tazobactam Sod 3.375 gm 01/30/17 18:00 Zosyn 3.375gm Ivpb (Pre-Docked) IVPB Q8H-IV JAIR Sodium Bicarbonate 650 mg 01/30/17 13:00 01/30/17 13:53 Sodium Bicarbonate - PO 650 mg DAILY JAIR Administration ASSESSMENT/PLAN: This is a 46y female PMHx of HTN , DM with metastatic triple negative breast cancer (s/p left lumpectomy, Port-A-Cath placement), presents with non productivecough and shortness of breath x 1 day. Radiation therapy adriamycin, cytoxn and taxol. Last chemotherapy was January 11. Last chemotherapy was January 11, carboplatinum. gemzar. Patient see's Dr. Bedolla /Bla[place]. 1. Cough/dyspnea secondary to post obstructive pneumonia vs tumor mahogany: -CXR/CT scan reviewed; showing RLL consolidation with with mediastinal adenopathy -port culture negative; d/c vancomycin today; continue zosyn (day 3) -Guaifenesin prn cough -incentive spirometry -appreciate pulm 2. Breast CA with mediastinal adenopathy -PET -hold chemo carbo/gem for now due to elevated Cr; discussed with Dr. Bedolla and pharmacy; this mixture is good for 48hrs; if Cr decreased with hydration, can give 3. Diabetes Mellitus type II: -Insulin SS -monitor BGM 4. Prior hx of hepatitis: -entecavir 0.5mg daily 5. Wound :clean -Bacitracin 6.JENNA secondary to IV contrast: -gentle hydration; trend cr FEN: FLuids: 1/2NS Electrolytes: wnl Diet diabetic VTE prophylaxis: lovenox Disposition: iv antibiotic Problem List - Problems (1) Anemia Code(s): D64.9 - ANEMIA, UNSPECIFIED Qualifiers: Anemia type: other cause Other causes of anemia: antineoplastic chemotherapy Qualified Code(s): D64.81 - Anemia due to antineoplastic chemotherapy (2) Dyspnea Code(s): R06.00 - DYSPNEA, UNSPECIFIED Qualifiers: Dyspnea type: shortness of breath Qualified Code(s): R06.02 - Shortness of breath (3) Lung consolidation Code(s): J18.1 - LOBAR PNEUMONIA, UNSPECIFIED ORGANISM (4) Tachycardia Code(s): R00.0 - TACHYCARDIA, UNSPECIFIED (5) Wound dehiscence Code(s): T81.30XA - DISRUPTION OF WOUND, UNSPECIFIED, INITIAL ENCOUNTER (6) Breast cancer metastasized to multiple sites Code(s): C50.919 - MALIGNANT NEOPLASM OF UNSP SITE OF UNSPECIFIED FEMALE BREAST Qualifiers: Laterality: unspecified laterality Qualified Code(s): C50.919 - Malignant neoplasm of unspecified site of unspecified female breast Visit type - Emergency Visit Emergency Visit: Yes ED Registration Date: 01/27/17 Care time: The patient presented to the Emergency Department on the above date and was hospitalized for further evaluation of their emergent condition. - New Patient This patient is new to me today: No - Critical Care Critical Care patient: No
[2017-01-30] MEDS: PIPERACILLIN/TAZOB 3.375 GM/50 ML PRE-DOCKED IVPB SCH (17:29)
[2017-01-30] MEDS ORDERED: POTASSIUM CHLORIDE 40 MEQ/30 ML UNIT DOSE CUP PO ONE (18:00)
--- NOTE | 2017-01-30 18:31 | PN ---
Teaching Attending Note Name of Resident: Minnie Sanz ATTENDING PHYSICIAN STATEMENT I saw and evaluated the patient. I reviewed the resident's note and discussed the case with the resident. I agree with the resident's findings and plan as documented. SUBJECTIVE:c/o loose stools that started yesterday. continues to have non productive cough. denies CP, SOB, fever, chills OBJECTIVE: Last Vital Signs Temp Pulse Resp BP Pulse Ox 98 F 99 H 20 152/102 97 01/30/17 13:47 01/30/17 13:47 01/30/17 13:47 01/30/17 13:47 01/30/17 09:00 General NAD Lungs CTA B/L no wheeznig/rales/rhonchi abdomen soft NT/ND ASSESSMENT AND PLAN: 46yo F with PMH DM, HTN, and recently diagnosed breast ca s/p lumpectomy and chemo presented to the ER and was admitted for further evaluation of their emergent condition 1. HCAP- RML infilatrate. on Zosyn which is dosed for CxCl. day 4. ID on board. 2. JENNA- ATN vs medication induced. now stable and trending down. renal u/s shows mild hydronephrosis, UA done showing no infection, no hematuria and no symptoms. no sign of infection dehydration (tachycardia with insenible fluid losses from infection) vs contrast induced. with the former being less likely. check urine lytes, renal u/s. fluid challenge. Nephro consulted. agree with holding ARB at this time. avoid nephrotoxic agents. monitor UOP 3. HTN- uncontrolled. started on norvasc. will re-start losartan once kidney function improves 4. DM- controlled. iss, hold oral agents 5. breast ca-continue to hold chemo. oncology on board 6. DVT ppx- lovenox
[2017-01-30] MEDS ORDERED: INSULIN (NOVOLOG) ASPART 100 UNITS/ML 10ML VIAL ONE (21:00)
[2017-01-30] MEDS: ATORVASTATIN CA 10 MG TABLET (FP) PO SCH (21:14)
[2017-01-30] MEDS: ONDANSETRON 4 MG/2 ML VIAL IVPB PRN (21:17)
[2017-01-30] MEDS ORDERED: PIPERACILLIN/TAZOB 2.25 GM 50 ML IVPB SCH (22:00)
[2017-01-30] MEDS: guaiFENesin/CODEINE 10 ML UNIT-DOSE CUPS PO PRN (23:12)
[2017-01-31] MEDS: PIPERACILLIN/TAZOB 3.375 GM/50 ML PRE-DOCKED IVPB SCH ×3 (01:18→18:55)
[2017-01-31] MEDS: INSULIN SLIDING SCALE (NOVOLOG) 1 VIAL SQ SCH ×4 (06:24→22:10)
[2017-01-31] MEDS: SODIUM CHLORIDE 0.45% 1,000 ML IV SCH ×3 (06:37→22:07)
[2017-01-31 07:20] LABS: MCH 28.9 pg (25.7-33.7); MCHC 33.4 g/dl (32.0-36.0); MEAN CELL VOLUME 86.5 fl (80-96); MEAN PLT VOLUME 6.4 fl (7.5-11.1); PLATELET COUNT 345 K/MM3 (134-434); WHITE BLOOD COUNT 6.9 K/mm3 (4.0-10.0)
[2017-01-31 07:45] LABS: ALBUMIN 3.1 g/dl (3.4-5.0); BILIRUBIN,TOTAL 0.7 mg/dL (0.2-1.0); CALCIUM 8.5 mg/dL (8.5-10.1); CREATININE 1.3 mg/dL (0.55-1.02); MAGNESIUM 1.9 mg/dL (1.8-2.4); PHOSPHOROUS 3.1 mg/dL (2.5-4.9); TOT PROT 6.2 g/dl (6.4-8.2)
[2017-01-31] MEDS ORDERED: PT OWN MED DRAWER 7, Y5N ONE ×2 (09:26→18:16)
[2017-01-31] MEDS: PANTOPRAZOLE 40 MG TABLET (FP) PO SCH (09:34)
[2017-01-31] MEDS: ENOXAPARIN NA (PORCINE) 40 MG/0.4 ML DISP.SYRIN SQ SCH (09:34)
[2017-01-31] MEDS: amLODIPine BESYLATE 10 MG TABLET (FP) PO SCH (09:34)
[2017-01-31] MEDS: ASPIRIN 81 MG CHEWABLE TABLETS PO SCH (09:34)
[2017-01-31] MEDS: SODIUM BICARBONATE 650 MG TABLET PO SCH (09:34)
[2017-01-31] MEDS: ENTECAVIR 0.5 MG TABLET PO SCH (09:34)
[2017-01-31 09:44] LABS: PLATELET ESTIMATE ADEQUATE (NORMAL)
[2017-01-31] MEDS: ONDANSETRON 4 MG TABLET PO PRN (09:55)
[2017-01-31] MEDS: BACITRACIN 30 GM TUBE TOPICAL OINTMENT TP SCH ×2 (10:50→22:09)
[2017-01-31] MEDS ORDERED: INSULIN (NOVOLOG) ASPART 100 UNITS/ML 10ML VIAL ONE (11:09)
--- NOTE | 2017-01-31 12:22 | PN ---
Progress Note (short form) - Note Progress Note: Renal followup for JENNA Pt seen and examined at the bedside has Nausea and vomiting x 2 yesterday and diarrhea x 1 no chest pain or sob no abd pain or cramping unable to tolerate food yesterday Vital Signs Temperature 98.1 F 01/31/17 06:00 Pulse Rate 105 H 01/31/17 06:00 Respiratory Rate 20 01/31/17 06:00 Blood Pressure 149/92 01/31/17 06:00 O2 Sat by Pulse Oximetry (%) 96 01/30/17 20:35 Gen: NAD, awake and alert CVS: RRR, No M/R Lungs: Dec BS Abd: soft NT/ND Ext: No edema, clubbing or cyanosis CBC, BMP 01/31/17 06:00 01/31/17 06:00 Current Medications Acetaminophen (Tylenol -) 650 mg PO Q6H PRN PRN Reason: FEVER OR PAIN Last Admin: 01/31/17 09:32 Dose: 650 mg Amlodipine Besylate (Norvasc -) 10 mg PO DAILY [facility] Last Admin: 01/31/17 09:34 Dose: 10 mg Aspirin (Asa -) 81 mg PO DAILY [facility] Last Admin: 01/31/17 09:34 Dose: 81 mg Atorvastatin Calcium (Lipitor -) 10 mg PO HS [facility] Last Admin: 01/30/17 21:14 Dose: 10 mg Bacitracin (Bacitracin -) 1 applic TP BID [facility] Last Admin: 01/30/17 21:13 Dose: 1 applic Enoxaparin Sodium (Lovenox -) 40 mg SQ DAILY [facility] Last Admin: 01/31/17 09:34 Dose: 40 mg Entecavir (Baraclude -) 0.5 mg PO DAILY [facility] Last Admin: 01/31/17 09:34 Dose: 0.5 mg Guaifenesin/Codeine Phosphate (Robitussin Ac -) 10 ml PO Q8H PRN PRN Reason: COUGH Last Admin: 01/30/17 23:12 Dose: 10 ml Sodium Chloride (1/2 Normal Saline) 1,000 mls @ 60 mls/hr IV ASDIR [facility] Last Admin: 01/31/17 06:37 Dose: 60 mls/hr Insulin Aspart (Novolog Vial Sliding Scale -) 1 vial SQ ACHS [facility] PRN Reason: Protocol Last Admin: 01/31/17 11:42 Dose: 4 unit Ondansetron HCl (Zofran -) 8 mg PO Q12H PRN PRN Reason: NAUSEA Last Admin: 01/31/17 09:55 Dose: 8 mg Ondansetron HCl (Zofran Injection) 8 mg IVPB Q8H PRN PRN Reason: NAUSEA Last Admin: 01/30/17 21:17 Dose: 8 mg Pantoprazole Sodium (Protonix -) 40 mg PO DAILY JAIR Last Admin: 01/31/17 09:34 Dose: 40 mg Piperacillin Sod/Tazobactam Sod (Zosyn 3.375gm Ivpb (Pre-Docked)) 3.375 gm IVPB Q8H-IV JAIR Last Admin: 01/31/17 09:32 Dose: 3.375 gm Sodium Bicarbonate (Sodium Bicarbonate -) 650 mg PO DAILY JAIR Last Admin: 01/31/17 09:34 Dose: 650 mg A/P 46 year old woman with PMhx of Breast Ca s/p lumpectomy and chemo, Hypertension who presented with SOB and admitted for PNA and developed JENNA with BUN/Cr of 5/ 1.3 #Acute Renal Failure secondary to contrast nephropathy +/- normotensive ATN with ARB Renal US showed mild right hydronephrosis, ? significance of hydro as pt does not have stones or discrete mass given pt has normal kidney function on presentation this is less likely to contribute to JENNA if renal function does not improve to baseline can consider Renal Scan with Lasix to determine if hydronephrosis is functional Continue hypotonic IVF for now as pt has N/V Trend BUN/Cr continue Sodium Bicarb #Nausea/Vomiting Etiology? continue Zofran IV Abdi Van DO
--- NOTE | 2017-01-31 12:49 | PN ---
Progress Note (short form) - Note Progress Note: PAtient seen and examined HAd nausea/vomiting/diarrhea Last Vital Signs Temp Pulse Resp BP Pulse Ox 98.4 F 103 H 20 151/97 96 01/31/17 10:00 01/31/17 10:00 01/31/17 10:00 01/31/17 10:00 01/30/17 20:35 Cor: RSR, No murmurs, No gallops Lungs: Clear to P&A Abd: Soft, Normal bowel sounds, No organomegaly Ext:No significant edema Abnormal Lab Results 01/30/17 01/30/17 01/30/17 07:15 13:00 14:10 RBC Hgb Hct MPV Neutrophils % 35.0 L D Monocytes % 29.0 H Nucleated RBCs 1 H Potassium 3.4 L Chloride 109 H BUN 6 L Creatinine 1.3 H Random Glucose 165 H D AST 40 H Total Protein Albumin Urine Blood 1+ H 01/31/17 01/31/17 06:00 06:00 RBC 2.94 L Hgb 8.5 L Hct 25.4 L MPV 6.4 L Neutrophils % Monocytes % 12.0 H Nucleated RBCs Potassium Chloride 108 H BUN 6 L Creatinine 1.3 H Random Glucose 144 H AST Total Protein 6.2 L Albumin 3.1 L Urine Blood Active Medications Generic Name Dose Route Start Last Admin Trade Name Freq PRN Reason Stop Dose Admin Acetaminophen 650 mg 01/27/17 09:14 01/31/17 09:32 Tylenol - PO 650 mg Q6H PRN Administration FEVER OR PAIN Amlodipine Besylate 10 mg 01/30/17 13:15 01/31/17 09:34 Norvasc - PO 10 mg DAILY JAIR Administration Aspirin 81 mg 01/27/17 10:00 01/31/17 09:34 Asa - PO 81 mg DAILY JAIR Administration Atorvastatin Calcium 10 mg 01/27/17 22:00 01/30/17 21:14 Lipitor - PO 10 mg HS JAIR Administration Bacitracin 1 applic 01/27/17 10:00 01/30/17 21:13 Bacitracin - TP 1 applic BID JAIR Administration Enoxaparin Sodium 40 mg 01/27/17 10:00 01/31/17 09:34 Lovenox - SQ 40 mg DAILY JAIR Administration Entecavir 0.5 mg 01/27/17 10:00 01/31/17 09:34 Baraclude - PO 0.5 mg DAILY JAIR Administration Guaifenesin/Codeine Phosphate 10 ml 01/27/17 14:33 01/30/17 23:12 Robitussin Ac - PO 10 ml Q8H PRN Administration COUGH Sodium Chloride 1,000 mls @ 60 mls/hr 01/30/17 13:15 01/31/17 06:37 1/2 Normal Saline IV 60 mls/hr ASDIR JAIR Administration Insulin Aspart 1 vial 01/27/17 07:00 01/31/17 11:42 Novolog Vial Sliding Scale - SQ 4 unit ACHS JAIR Administration Protocol Ondansetron HCl 8 mg 01/27/17 09:05 01/31/17 09:55 Zofran - PO 8 mg Q12H PRN Administration NAUSEA Ondansetron HCl 8 mg 01/27/17 09:27 01/30/17 21:17 Zofran Injection IVPB 8 mg Q8H PRN Administration NAUSEA Pantoprazole Sodium 40 mg 01/27/17 10:00 01/31/17 09:34 Protonix - PO 40 mg DAILY JAIR Administration Piperacillin Sod/Tazobactam Sod 3.375 gm 01/30/17 18:00 01/31/17 09:32 Zosyn 3.375gm Ivpb (Pre-Docked) IVPB 3.375 gm Q8H-IV JAIR Administration Sodium Bicarbonate 650 mg 01/30/17 13:00 01/31/17 09:34 Sodium Bicarbonate - PO 650 mg DAILY JAIR Administration A/P 46 y/o patient with metastatic breast cancer, due for C2 gem/carbo , comes in with shortness of breath PAtient with multiple lung nodules, RML atelectasis Started on empiric vanco/zosyn with improvement Cultures negative Developed renal failure --post contrast Creatinine stabilized to consider C2 gem tomorrow hold carbo until creatinine improves further diarrhea -- f/u stool for c. diff nausea --due to glucerna
--- NOTE | 2017-01-31 14:35 | PN ---
Physical Exam: SUBJECTIVE: Patient seen and examined, nausea and vomiting last night, patient related to glucerna. 1x diarrhea. Does admits to black stool at times. Denies chest pain, shortness of breath, dysuria. Cough improved. OBJECTIVE: Vital Signs Period Temp Pulse Resp BP Sys/Winter Pulse Ox Last 24 Hr 97.8 F-99.2 F 95-113 18-20 138-152/80-98 96-97 GENERAL: The patient is awake, alert, and fully oriented, in no acute distress. HEAD: Normal with no signs of trauma. EYES: PERRL, extraocular movements intact, sclera anicteric, conjunctiva clear. No ptosis. ENT: Ears normal, nares patent, oropharynx clear without exudates, moist mucous membranes. NECK: Trachea midline, full range of motion, supple. LUNGS: decreased breath sounds equal, clear to auscultation bilaterally, no wheezes, no crackles, no accessory muscle use. HEART: Regular rate and rhythm, S1, S2 without murmur, rub or gallop. ABDOMEN: Soft, nontender, nondistended, normoactive bowel sounds, no guarding, no rebound, no hepatosplenomegaly, no masses. EXTREMITIES: 2+ pulses, warm, well-perfused, no edema. NEUROLOGICAL: Cranial nerves II through XII grossly intact. Normal speech, gait not observed. PSYCH: Normal mood, normal affect. SKIN: Warm, dry, normal turgor, chemo prt right chest wound, clean dry. Laboratory Results - last 24 hr 01/30/17 01/30/17 01/30/17 13:00 14:10 17:09 WBC RBC Hgb Hct MCV MCHC RDW Plt Count MPV Neutrophils % Lymphocytes % Monocytes % Eosinophils % Basophils % Band Neutrophils Myelocytes Differential Comment Platelet Estimate Sodium 143 Potassium 3.4 L Chloride 109 H Carbon Dioxide 22 Anion Gap 12 BUN 6 L Creatinine 1.3 H Creat Clearance w eGFR 43.72 POC Glucometer 113 Random Glucose 165 H D Calcium 8.5 Phosphorus Magnesium Total Bilirubin 0.7 D AST 40 H ALT 21 Alkaline Phosphatase 67 Total Protein 6.9 Albumin 3.4 Urine Color Colorless Urine Appearance Clear Urine pH 5.0 Ur Specific Motley 1.006 Urine Protein Negative Urine Glucose (UA) Negative Urine Ketones Negative Urine Blood 1+ H Urine Nitrite Negative Urine Bilirubin Negative Urine Urobilinogen Negative Ur Leukocyte Esterase Negative Urine RBC 1 Urine WBC <1 Ur Epithelial Cells Rare Urine Mucus Rare 01/30/17 01/31/17 01/31/17 20:52 06:00 06:00 WBC 6.9 D RBC 2.94 L Hgb 8.5 L Hct 25.4 L MCV 86.5 MCHC 33.4 RDW 15.0 Plt Count 345 MPV 6.4 L Neutrophils % 65.0 D Lymphocytes % 18.0 D Monocytes % 12.0 H Eosinophils % 2.0 Basophils % 1.0 Band Neutrophils 1.0 D Myelocytes 1 D Differential Comment Manual diff done Platelet Estimate Adequate Sodium 141 Potassium 3.7 Chloride 108 H Carbon Dioxide 23 Anion Gap 10 BUN 6 L Creatinine 1.3 H Creat Clearance w eGFR 43.72 POC Glucometer 165 Random Glucose 144 H Calcium 8.5 Phosphorus 3.1 Magnesium 1.9 Total Bilirubin 0.7 AST 35 ALT 16 D Alkaline Phosphatase 58 Total Protein 6.2 L Albumin 3.1 L Urine Color Urine Appearance Urine pH Ur Specific Mot[place] Urine Protein Urine Glucose (UA) Urine Ketones Urine Blood Urine Nitrite Urine Bilirubin Urine Urobilinogen Ur Leukocyte Esterase Urine RBC Urine WBC Ur Epithelial Cells Urine Mucus 01/31/17 06:04 WBC RBC Hgb Hct MCV MCHC RDW Plt Count MPV Neutrophils % Lymphocytes % Monocytes % Eosinophils % Basophils % Band Neutrophils Myelocytes Differential Comment Platelet Estimate Sodium Potassium Chloride Carbon Dioxide Anion Gap BUN Creatinine Creat Clearance w eGFR POC Glucometer 147 Random Glucose Calcium Phosphorus Magnesium Total Bilirubin AST ALT Alkaline Phosphatase Total Protein Albumin Urine Color Urine Appearance Urine pH Ur Specific [place] Urine Protein Urine Glucose (UA) Urine Ketones Urine Blood Urine Nitrite Urine Bilirubin Urine Urobilinogen Ur Leukocyte Esterase Urine RBC Urine WBC Ur Epithelial Cells Urine Mucus Active Medications Generic Name Dose Route Start Last Admin Trade Name Arthurq PRN Reason Stop Dose Admin Acetaminophen 650 mg 01/27/17 09:14 01/31/17 09:32 Tylenol - PO 650 mg Q6H PRN Administration FEVER OR PAIN Amlodipine Besylate 10 mg 01/30/17 13:15 01/31/17 09:34 Norvasc - PO 10 mg DAILY JAIR Administration Aspirin 81 mg 01/27/17 10:00 01/31/17 09:34 Asa - PO 81 mg DAILY JAIR Administration Atorvastatin Calcium 10 mg 01/27/17 22:00 01/30/17 21:14 Lipitor - PO 10 mg HS JAIR Administration Bacitracin 1 applic 01/27/17 10:00 01/31/17 10:50 Bacitracin - TP 1 applic BID JAIR Administration Enoxaparin Sodium 40 mg 01/27/17 10:00 01/31/17 09:34 Lovenox - SQ 40 mg DAILY JAIR Administration Entecavir 0.5 mg 01/27/17 10:00 01/31/17 09:34 Baraclude - PO 0.5 mg DAILY JAIR Administration Guaifenesin/Codeine Phosphate 10 ml 01/27/17 14:33 01/30/17 23:12 Robitussin Ac - PO 10 ml Q8H PRN Administration COUGH Sodium Chloride 1,000 mls @ 60 mls/hr 01/30/17 13:15 01/31/17 06:37 1/2 Normal Saline IV 60 mls/hr ASDIR JAIR Administration Insulin Aspart 1 vial 01/27/17 07:00 01/31/17 11:42 Novolog Vial Sliding Scale - SQ 4 unit ACHS JAIR Administration Protocol Ondansetron HCl 8 mg 01/27/17 09:05 01/31/17 09:55 Zofran - PO 8 mg Q12H PRN Administration NAUSEA Ondansetron HCl 8 mg 01/27/17 09:27 01/30/17 21:17 Zofran Injection IVPB 8 mg Q8H PRN Administration NAUSEA Pantoprazole Sodium 40 mg 01/27/17 10:00 01/31/17 09:34 Protonix - PO 40 mg DAILY JAIR Administration Piperacillin Sod/Tazobactam Sod 3.375 gm 01/30/17 18:00 01/31/17 09:32 Zosyn 3.375gm Ivpb (Pre-Docked) IVPB 3.375 gm Q8H-IV JAIR Administration Sodium Bicarbonate 650 mg 01/30/17 13:00 01/31/17 09:34 Sodium Bicarbonate - PO 650 mg DAILY JAIR Administration ASSESSMENT/PLAN: This is a 46y female PMHx of HTN , DM with metastatic triple negative breast cancer (s/p left lumpectomy, Port-A-Cath placement), presents with non productivecough and shortness of breath x 1 day. Radiation therapy adriamycin, cytoxn and taxol. Last chemotherapy was January 11. Last chemotherapy was January 11, carboplatinum. gemzar. Due for next chem; held due to elevated Cr s/p IV contrast. 1. Cough/dyspnea secondary to post obstructive pneumonia vs tumor mahogany: -CXR/CT scan reviewed; showing RLL consolidation with with mediastinal adenopathy -port culture negative; continue zosyn (day 4) -Guaifenesin prn cough -incentive spirometry -appreciate pulm 2. Breast CA with mediastinal adenopathy -PET -chemo held due to elevated Cr; as per heme/onc; may be able to give gem due to no nephrotoxicity 3. Diabetes Mellitus type II: -Insulin SS -monitor BGM 4. Prior hx of hepatitis: -entecavir 0.5mg daily 5. Wound : -Bacitracin 6. JENNA secondary to IV contrast -Cr stable 1.3; may take 7 days to normalize; -gentle hydration 1/2 NS 60mls/hr to prevent further nephrotoxic injury from dehydration FEN: FLuids: 1/2 NS Electrolytes: wnl Diet diabetic VTE prophylaxis: lovenox Disposition: iv antibiotic/chemo Problem List - Problems (1) Anemia Code(s): D64.9 - ANEMIA, UNSPECIFIED Qualifiers: Anemia type: other cause Other causes of anemia: antineoplastic chemotherapy Qualified Code(s): D64.81 - Anemia due to antineoplastic chemotherapy (2) Dyspnea Code(s): R06.00 - DYSPNEA, UNSPECIFIED Qualifiers: Dyspnea type: shortness of breath Qualified Code(s): R06.02 - Shortness of breath (3) Lung consolidation Code(s): J18.1 - LOBAR PNEUMONIA, UNSPECIFIED ORGANISM (4) Tachycardia Code(s): R00.0 - TACHYCARDIA, UNSPECIFIED (5) Wound dehiscence Code(s): T81.30XA - DISRUPTION OF WOUND, UNSPECIFIED, INITIAL ENCOUNTER (6) Breast cancer metastasized to multiple sites Code(s): C50.919 - MALIGNANT NEOPLASM OF UNSP SITE OF UNSPECIFIED FEMALE BREAST Qualifiers: Laterality: unspecified laterality Qualified Code(s): C50.919 - Malignant neoplasm of unspecified site of unspecified female breast (7) JENNA (acute kidney injury) Code(s): N17.9 - ACUTE KIDNEY FAILURE, UNSPECIFIED Visit type - Emergency Visit Emergency Visit: Yes ED Registration Date: 01/27/17 Care time: The patient presented to the Emergency Department on the above date and was hospitalized for further evaluation of their emergent condition. - New Patient This patient is new to me today: No - Critical Care Critical Care patient: No
--- NOTE | 2017-01-31 15:34 | PN ---
Progress Note, Physician History of Present Illness: Occasional dry cough No c/o dyspnea/ chest pain No fever/chills reports one loose BM earlier today - Current Medication List Current Medications: Active Medications Acetaminophen (Tylenol -) 650 mg PO Q6H PRN PRN Reason: FEVER OR PAIN Last Admin: 01/31/17 09:32 Dose: 650 mg Amlodipine Besylate (Norvasc -) 10 mg PO DAILY [facility] Last Admin: 01/31/17 09:34 Dose: 10 mg Aspirin (Asa -) 81 mg PO DAILY [facility] Last Admin: 01/31/17 09:34 Dose: 81 mg Atorvastatin Calcium (Lipitor -) 10 mg PO HS [facility] Last Admin: 01/30/17 21:14 Dose: 10 mg Bacitracin (Bacitracin -) 1 applic TP BID [facility] Last Admin: 01/31/17 10:50 Dose: 1 applic Enoxaparin Sodium (Lovenox -) 40 mg SQ DAILY [facility] Last Admin: 01/31/17 09:34 Dose: 40 mg Entecavir (Baraclude -) 0.5 mg PO DAILY [facility] Last Admin: 01/31/17 09:34 Dose: 0.5 mg Guaifenesin/Codeine Phosphate (Robitussin Ac -) 10 ml PO Q8H PRN PRN Reason: COUGH Last Admin: 01/30/17 23:12 Dose: 10 ml Sodium Chloride (1/2 Normal Saline) 1,000 mls @ 60 mls/hr IV ASDIR [facility] Last Admin: 01/31/17 06:37 Dose: 60 mls/hr Insulin Aspart (Novolog Vial Sliding Scale -) 1 vial SQ ACHS [facility] PRN Reason: Protocol Last Admin: 01/31/17 11:42 Dose: 4 unit Ondansetron HCl (Zofran -) 8 mg PO Q12H PRN PRN Reason: NAUSEA Last Admin: 01/31/17 09:55 Dose: 8 mg Ondansetron HCl (Zofran Injection) 8 mg IVPB Q8H PRN PRN Reason: NAUSEA Last Admin: 01/30/17 21:17 Dose: 8 mg Pantoprazole Sodium (Protonix -) 40 mg PO DAILY [facility] Last Admin: 01/31/17 09:34 Dose: 40 mg Piperacillin Sod/Tazobactam Sod (Zosyn 3.375gm Ivpb (Pre-Docked)) 3.375 gm IVPB Q8H-IV JAIR Last Admin: 01/31/17 09:32 Dose: 3.375 gm Sodium Bicarbonate (Sodium Bicarbonate -) 650 mg PO DAILY JAIR Last Admin: 01/31/17 09:34 Dose: 650 mg - Objective Vital Signs: Vital Signs Temperature 97.8 F 01/31/17 13:59 Pulse Rate 113 H 01/31/17 13:59 Respiratory Rate 20 01/31/17 13:59 Blood Pressure 149/96 01/31/17 13:59 O2 Sat by Pulse Oximetry (%) 97 01/31/17 09:00 Constitutional: Yes: No Distress Cardiovascular: Yes: Regular Rate and Rhythm, S1, S2 Respiratory: Yes: Diminished Gastrointestinal: Yes: Normal Bowel Sounds, Soft. No: Tenderness Edema: No Labs: CBC, BMP 01/31/17 06:00 01/31/17 06:00 INR, PTT INR 1.27 (0.82-1.09) H 01/26/17 21:50 Assessment/Plan Probable post-obstructive pneumonia Possible atelectasis v. lymphangitic tumor spread Metastatic breast ca Possible antibiotic-induced diarrhea Continue empiric zosyn Check stool C difficile
--- NOTE | 2017-01-31 17:37 | PN ---
Teaching Attending Note Name of Resident: Minnie Sanz ATTENDING PHYSICIAN STATEMENT I saw and evaluated the patient. I reviewed the resident's note and discussed the case with the resident. I agree with the resident's findings and plan as documented. SUBJECTIVE:vomiting x2 this morning, 1 episode of loose stool negative for BRBPR or melena. able to tolerate diet. good UOP. denies CP, SOB,fever, chills, N/V/C/D OBJECTIVE: Last Vital Signs Temp Pulse Resp BP Pulse Ox 97.8 F 113 H 20 149/96 97 01/31/17 13:59 01/31/17 13:59 01/31/17 13:59 01/31/17 13:59 01/31/17 09:00 General NAD Lungs CTA B/L no wheeznig/rales/rhonchi abdomen soft NT/ND ASSESSMENT AND PLAN: 46yo F with PMH DM, HTN, and recently diagnosed breast ca s/p lumpectomy and chemo presented to the ER and was admitted for further evaluation of their emergent condition 1. HCAP- RML infilatrate. on Zosyn which is dosed for CxCl. day 5. ID on board. 2. Diarrhea- possible antibiotic induced. cdiff negative. afebrile no leukocytosis. will start lactobacillus. monitor. 3. JENNA- ATN vs medication induced. now stablized. on hypotonic IVF due to nausea and diarrhea. will leave for now. on bicarb. Nephro consulted. agree with holding ARB at this time. avoid nephrotoxic agents. monitor UOP 4. Acute normocytic anemia- no acute bleeding. never had colonoscopy. check iron studies. repeat CBC in evening. txn for hgb <7 5. HTN- improved. cont norvasc. switch to losartan once renal function improves 6. DM- controlled. iss, hold oral agents 7. breast ca-possible chemo tomorrow. 8. DVT ppx- hold lovenox in setting of acute anemia
[2017-01-31 18:06] LABS: MCH 29.5 pg (25.7-33.7); MCHC 34.4 g/dl (32.0-36.0); MEAN CELL VOLUME 85.5 fl (80-96); MEAN PLT VOLUME 6.6 fl (7.5-11.1); PLATELET COUNT 433 K/MM3 (134-434); RDW 15.3 % (11.6-15.6)
[2017-01-31] MEDS: LACTOBACILLUS ACIDOPHILUS 1 EACH TAB (FP) PO SCH (18:26)
[2017-01-31] MEDS: ONDANSETRON 4 MG/2 ML VIAL IVPB PRN (18:38)
[2017-01-31] MEDS: ATORVASTATIN CA 10 MG TABLET (FP) PO SCH (22:05)
[2017-01-31] MEDS: guaiFENesin/CODEINE 10 ML UNIT-DOSE CUPS PO PRN (22:06)
[2017-02-01] MEDS: PIPERACILLIN/TAZOB 3.375 GM/50 ML PRE-DOCKED IVPB SCH ×2 (01:10→11:05)
[2017-02-01] MEDS: INSULIN SLIDING SCALE (NOVOLOG) 1 VIAL SQ SCH ×4 (06:21→21:15)
[2017-02-01 06:49] LABS: MCHC 33.8 g/dl (32.0-36.0); MEAN CELL VOLUME 85.7 fl (80-96); MEAN PLT VOLUME 6.4 fl (7.5-11.1); PLATELET COUNT 376 K/MM3 (134-434); RDW 15.3 % (11.6-15.6); WHITE BLOOD COUNT 8.8 K/mm3 (4.0-10.0)
[2017-02-01 06:58] LABS: ALBUMIN 3.2 g/dl (3.4-5.0); CALCIUM 8.5 mg/dL (8.5-10.1); CREATININE 1.2 mg/dL (0.55-1.02); MAGNESIUM 1.9 mg/dL (1.8-2.4); PHOSPHOROUS 3.4 mg/dL (2.5-4.9)
[2017-02-01 06:59] LABS: TOT PROT 6.6 g/dl (6.4-8.2)
[2017-02-01 09:53] LABS: HYPOCHROMIA 1+; METAMYELOCYTE 1 % (0-2); MICROCYTOSIS 1+; PLATELET ESTIMATE ADEQUATE (NORMAL); POLYCHROMASIA 1+
[2017-02-01] MEDS: BACITRACIN 30 GM TUBE TOPICAL OINTMENT TP SCH ×2 (10:00→21:10)
[2017-02-01] MEDS: guaiFENesin/CODEINE 10 ML UNIT-DOSE CUPS PO PRN ×2 (11:04→21:10)
[2017-02-01] MEDS: LACTOBACILLUS ACIDOPHILUS 1 EACH TAB (FP) PO SCH (11:05)
[2017-02-01] MEDS: ENTECAVIR 0.5 MG TABLET PO SCH (11:05)
[2017-02-01] MEDS: PANTOPRAZOLE 40 MG TABLET (FP) PO SCH (11:05)
[2017-02-01] MEDS: amLODIPine BESYLATE 10 MG TABLET (FP) PO SCH (11:05)
[2017-02-01] MEDS: SODIUM BICARBONATE 650 MG TABLET PO SCH (11:05)
[2017-02-01] MEDS: ASPIRIN 81 MG CHEWABLE TABLETS PO SCH (11:05)
[2017-02-01] MEDS: ONDANSETRON 4 MG/2 ML VIAL IVPB PRN (11:14)
--- NOTE | 2017-02-01 11:35 | PN ---
Progress Note (short form) - Note Progress Note: Consult dictated Metastatic breast CA PNA HTN Recent ARF, taken off losartan Sinus tach in setting PNA, diarrhea REC: Start Toprol XL for HTN and tachycardia Echo to rule out pericardial effusion and assess right sided pressure Abx as per ID/
[2017-02-01] MEDS: METOPROLOL SUCCINATE 25 MG TAB.SR.24H (FP) PO SCH (12:00)
--- NOTE | 2017-02-01 12:06 | PN ---
Progress Note (short form) - Note Progress Note: PAtient seen and examined No specific complaints Some cough Last Vital Signs Temp Pulse Resp BP Pulse Ox 98.4 F 118 H 18 150/96 97 02/01/17 09:38 02/01/17 09:38 02/01/17 09:38 02/01/17 09:38 01/31/17 20:42 Cor: RSR, No murmurs, No gallops Lungs: Clear to P&A Abd: Soft, Normal bowel sounds, No organomegaly Ext:No significant edema Abnormal Lab Results 01/31/17 02/01/17 02/01/17 17:00 05:00 05:00 RBC 3.09 L 3.13 L Hgb 9.1 L 9.1 L Hct 26.4 L 26.8 L MPV 6.6 L 6.4 L Monocytes % 11.0 H Eosinophils % 6.0 H D Creatinine 1.2 H Random Glucose 133 H AST 42 H Albumin 3.2 L Active Medications Generic Name Dose Route Start Last Admin Trade Name Freq PRN Reason Stop Dose Admin Acetaminophen 650 mg 01/27/17 09:14 01/31/17 09:32 Tylenol - PO 650 mg Q6H PRN Administration FEVER OR PAIN Amlodipine Besylate 10 mg 01/30/17 13:15 02/01/17 11:05 Norvasc - PO 10 mg DAILY JAIR Administration Aspirin 81 mg 01/27/17 10:00 02/01/17 11:05 Asa - PO 81 mg DAILY JAIR Administration Atorvastatin Calcium 10 mg 01/27/17 22:00 01/31/17 22:05 Lipitor - PO 10 mg HS JAIR Administration Bacitracin 1 applic 01/27/17 10:00 01/31/17 22:09 Bacitracin - TP 1 applic BID JAIR Administration Entecavir 0.5 mg 01/27/17 10:00 02/01/17 11:05 Baraclude - PO 0.5 mg DAILY JAIR Administration Guaifenesin/Codeine Phosphate 10 ml 01/27/17 14:33 02/01/17 11:04 Robitussin Ac - PO 10 ml Q8H PRN Administration COUGH Sodium Chloride 1,000 mls @ 60 mls/hr 01/30/17 13:15 01/31/17 22:07 1/2 Normal Saline IV 60 mls/hr ASDIR JAIR Administration Insulin Aspart 1 vial 01/27/17 07:00 02/01/17 06:21 Novolog Vial Sliding Scale - SQ Not Given ACHS [facility] Protocol Lactobacillus Acidophilus 1 tab 01/31/17 17:30 02/01/17 11:05 Bacid - PO 1 tab DAILY JAIR Administration Metoprolol Succinate 25 mg 02/01/17 12:00 Toprol Xl - PO DAILY JAIR Ondansetron HCl 8 mg 01/27/17 09:27 02/01/17 11:14 Zofran Injection IVPB 8 mg Q8H PRN Administration NAUSEA Pantoprazole Sodium 40 mg 01/27/17 10:00 02/01/17 11:05 Protonix - PO 40 mg DAILY JAIR Administration Piperacillin Sod/Tazobactam Sod 3.375 gm 01/30/17 18:00 02/01/17 11:05 Zosyn 3.375gm Ivpb (Pre-Docked) IVPB 3.375 gm Q8H-IV JAIR Administration Sodium Bicarbonate 650 mg 01/30/17 13:00 02/01/17 11:05 Sodium Bicarbonate - PO 650 mg DAILY JARI Administration A/P 46 y/o patient with metastatic breast cancer, due for C2 gem/carbo , comes in with shortness of breath PAtient with multiple lung nodules, RML atelectasis Started on empiric vanco/zosyn with improvement Cultures negative Developed renal failure --post contrast Creatinine stabilized will schedule C2 gemzar today. Cr cl --66ml/min. diarrhea -- resolved. c.diff neg. discussed with patient/family
[2017-02-01] MEDS ORDERED: DEXAMETHASONE INJECTION 12 MG, ONDANSETRON INJECTION 8 MG in SODIUM CHLORIDE 100 ML IVPB ONE (13:00)
--- NOTE | 2017-02-01 13:13 | PN ---
Teaching Attending Note Name of Resident: Minnie Sanz ATTENDING PHYSICIAN STATEMENT I saw and evaluated the patient. I reviewed the resident's note and discussed the case with the resident. I agree with the resident's findings and plan as documented. SUBJECTIVE:clinically improved. 1 loose BM in the evening. continues to have non productive cough. denies Cp, SOB, fever, chills, N/V/C/D OBJECTIVE: Last Vital Signs Temp Pulse Resp BP Pulse Ox 98.4 F 118 H 18 150/96 97 02/01/17 09:38 02/01/17 09:38 02/01/17 09:38 02/01/17 09:38 01/31/17 20:42 General NAD Lungs CTA B/L no wheeznig/rales/rhonchi abdomen soft NT/ND ASSESSMENT AND PLAN: 46yo F with PMH DM, HTN, and recently diagnosed breast ca s/p lumpectomy and chemo presented to the ER and was admitted for further evaluation of their emergent condition 1. HCAP- RML infilatrate. on Zosyn day6. speak with ID about duration. ID on board. 2. Diarrhea- possible antibiotic induced. cdiff negative. afebrile no leukocytosis. will start lactobacillus. improved 3. JENNA- ATN vs medication induced. slowly trending down. will d/c IVF. avoid nephrotoxic agents. monitor UOP 4. Acute normocytic anemia- no acute bleeding. Hgb stable. will start iron supplementation. txn for hgb <7 5. HTN- improved but above goal. will re-start losartan tomorrow pending improved kidney function. 6. DM- controlled. iss, hold oral agents 7. breast ca-will receive chemo dose today. symptomatic support 8. DVT ppx- hold lovenox in setting of acute anemia 9. d/c planning tomorrow if continues to improve
--- NOTE | 2017-02-01 13:14 | PN ---
Progress Note (short form) - Note Progress Note: Renal followup for JENNA Pt seen and examined at the bedside continues to have some nausea no sob or chest pain for chemo today good urine output on IVF Vital Signs Temperature 98.4 F 02/01/17 09:38 Pulse Rate 118 H 02/01/17 09:38 Respiratory Rate 18 02/01/17 09:38 Blood Pressure 150/96 02/01/17 09:38 O2 Sat by Pulse Oximetry (%) 97 01/31/17 20:42 Intake & Output 01/29/17 01/30/17 01/31/17 02/01/17 23:59 23:59 23:59 23:59 Intake Total 1000 2200 1250 1010 Output Total 400 2500 2250 700 Balance 600 -300 -1000 310 Weight 136 lb Gen: NAD, awake and alert CVS: RRR, No M/R Lungs: Dec BS Abd: soft NT/ND Ext: No edema, clubbing or cyanosis CBC, BMP 02/01/17 05:00 02/01/17 05:00 Current Medications Acetaminophen (Tylenol -) 650 mg PO Q6H PRN PRN Reason: FEVER OR PAIN Last Admin: 01/31/17 09:32 Dose: 650 mg Amlodipine Besylate (Norvasc -) 10 mg PO DAILY [facility] Last Admin: 02/01/17 11:05 Dose: 10 mg Aspirin (Asa -) 81 mg PO DAILY [facility] Last Admin: 02/01/17 11:05 Dose: 81 mg Atorvastatin Calcium (Lipitor -) 10 mg PO HS [facility] Last Admin: 01/31/17 22:05 Dose: 10 mg Bacitracin (Bacitracin -) 1 applic TP BID [facility] Last Admin: 01/31/17 22:09 Dose: 1 applic Entecavir (Baraclude -) 0.5 mg PO DAILY [facility] Last Admin: 02/01/17 11:05 Dose: 0.5 mg Guaifenesin/Codeine Phosphate (Robitussin Ac -) 10 ml PO Q8H PRN PRN Reason: COUGH Last Admin: 02/01/17 11:04 Dose: 10 ml Sodium Chloride (1/2 Normal Saline) 1,000 mls @ 60 mls/hr IV ASDIR [facility] Last Admin: 01/31/17 22:07 Dose: 60 mls/hr Dexamethasone Sodium Phosphate 12 mg/ Ondansetron HCl 8 mg/Sodium Chloride 107 mls @ 214 mls/hr IVPB ONCE ONE Stop: 02/01/17 13:29 Gemcitabine HCl 1,500 mg/ (Sodium Chloride) 250 mls @ 500 mls/hr IV ONCE ONE Stop: 02/01/17 13:59 Insulin Aspart (Novolog Vial Sliding Scale -) 1 vial SQ ACHS JAIR PRN Reason: Protocol Last Admin: 02/01/17 06:21 Dose: Not Given Lactobacillus Acidophilus (Bacid -) 1 tab PO DAILY [facility] Last Admin: 02/01/17 11:05 Dose: 1 tab Metoprolol Succinate (Toprol Xl -) 25 mg PO DAILY [facility] Ondansetron HCl (Zofran Injection) 8 mg IVPB Q8H PRN PRN Reason: NAUSEA Last Admin: 02/01/17 11:14 Dose: 8 mg Pantoprazole Sodium (Protonix -) 40 mg PO DAILY [facility] Last Admin: 02/01/17 11:05 Dose: 40 mg Piperacillin Sod/Tazobactam Sod (Zosyn 3.375gm Ivpb (Pre-Docked)) 3.375 gm IVPB Q8H-IV [facility] Last Admin: 02/01/17 11:05 Dose: 3.375 gm Sodium Bicarbonate (Sodium Bicarbonate -) 650 mg PO DAILY [facility] Last Admin: 02/01/17 11:05 Dose: 650 mg A/P 46 year old woman with PMhx of Breast Ca s/p lumpectomy and chemo, Hypertension who presented with SOB and admitted for PNA and developed JENNA with BUN/Cr of 5/ 1.3 #Acute Renal Failure secondary to contrast nephropathy +/- normotensive ATN with ARB Renal function slowly improving good urine output continue to tend BUN/Cr daily avoid nsaids, karina/arb repeat Renal US/Renal scan as outpatient for assessment of hydronephrosis #Metastatic breast Ca continue management per oncology #Hypertension Continue Amlodpine Metoprolol added as per Cardiology Abdi Van DO
[2017-02-01] MEDS ORDERED: GEMCITABINE HCL IV ONE (13:30)
[2017-02-01] MEDS ORDERED: SODIUM CHLORIDE IV ONE (13:30)
--- NOTE | 2017-02-01 13:31 | CONS ---
DATE OF CONSULTATION: 02/01/2017 REQUESTING PHYSICIAN: Dr. Rudd REASON FOR CONSULTATION: Hypertension and sinus tachycardia. HISTORY: The patient is a 46-year-old female with metastatic breast cancer, diabetes, and hypertension admitted since the 26 of January with pneumonia, diarrhea, developed acute renal insufficiency after IV contrast and was taken off her usual losartan dose. She was noted to be persistently hypertensive with some sinus tachycardia, and we were consulted for assistance with choice of agent to replace losartan. The patient denies palpitations or chest pain. She is chronically short of breath over the last week to 2 weeks worse recently with this pneumonia. He denies lower extremity edema. PAST MEDICAL HISTORY: Includes metastatic breast cancer, diabetes, hypertension. ALLERGIES: She has no known drug allergies. MEDICATIONS: Include Tylenol 650 q.6 p.r.n., amlodipine 10 mg daily, aspirin 81 mg daily, atorvastatin 10 mg daily, Robitussin-AC p.r.n., insulin sliding scale, Toprol XL 25 daily started today, Zofran p.r.n., Protonix 40 daily, Zosyn. FAMILY HISTORY: Noncontributory. SOCIAL HISTORY: Nonsmoker. PHYSICAL EXAMINATION: Vital Signs: Temperature 98.4, pulse 118, blood pressure 150/96, O2 saturation 97 on room air. HEENT: Anicteric. Heart: S1, S2 regular. No murmurs. Chest: Decreased breath sounds on the right. Abdomen: Soft and nontender. Extremities: No edema. DIAGNOSTIC DATA: CTA chest performed on January 26, 2017 showed no evidence of PE , atelectasis/infiltrate right middle and lower lobe with small right pleural effusion, multiple pulmonary nodules suspicious for metastatic disease with extensive mediastinal and bilateral hilar adenopathy as well as multiple subcutaneous nodules also suspicious for metastatic disease and bilateral adrenal masses also suspicious for metastatic disease. Her EKG showed sinus tachycardia with incomplete right bundle branch block. LABORATORIES: White count 8.8, hematocrit 26.8, platelets 376, INR 1.27. Sodium 142, potassium 3.6, creatinine 1.2. Toxicity showed vancomycin trough of 16.6. ASSESSMENT: 1. Metastatic breast cancer. 2. Pneumonia. 3. Acute renal injury. 4. Hypertension. 5. Sinus tachycardia in the setting of pneumonia and diarrhea. PLAN: 1. Start Toprol XL 25 mg daily for both hypertension and sinus tachycardia. 2. Echocardiogram to rule out pericardial effusion and assess pulmonary pressures. 3. CTA chest on this admission was negative for pulmonary embolism. Thank you for the consultation. ANNETTE LOWRY M.D. [id number] MTDD
[2017-02-01] MEDS: SODIUM CHLORIDE 0.45% 1,000 ML IV SCH (13:50)
--- NOTE | 2017-02-01 14:00 | PN ---
Addendum entered and electronically signed by Minnie Sanz RES 02/01/17 14 :11: Echo results: small pericardial effusion < 1cm; LVSF normal; right ventricle normal; mild tricuspid regurgitations; too little to assess for RVSP -recommended f/u echo in 48 to 72 hrs as per cardio Original Note: Physical Exam: SUBJECTIVE: Patient seen and examined on episode of diarrhea last night, color black. Still with cough. Denies chest pain, sob, palpations, leg swelling, fever , chills, n, v OBJECTIVE: Vital Signs Period Temp Pulse Resp BP Sys/Winter Pulse Ox Last 24 Hr 97.8 F-99.2 F 110-118 18-20 131-150/87-98 97 GENERAL: The patient is awake, alert, and fully oriented, in no acute distress. HEAD: Normal with no signs of trauma. NECK: Trachea midline, full range of motion, supple. LUNGS: Breath sounds b/l, clear to auscultation bilaterally, no wheezes, no crackles, no accessory muscle use. HEART: tchycardic and regular rhythm, S1, S2 without murmur, rub or gallop. ABDOMEN: Soft, nontender, nondistended, normoactive bowel sounds, no guarding, no rebound, no hepatosplenomegaly, no masses. EXTREMITIES: 2+ pulses, warm, well-perfused, no edema. NEUROLOGICAL: Cranial nerves II through XII grossly intact. Normal speech, gait not observed. PSYCH: Normal mood, normal affect. SKIN: Warm, dry, normal turgor, no rashes or; anterior right chest wall with 1x1cm incision from chemo port; clean dry intact. Laboratory Results - last 24 hr 01/31/17 01/31/17 01/31/17 11:37 16:47 17:00 WBC 8.0 RBC 3.09 L Hgb 9.1 L Hct 26.4 L MCV 85.5 MCHC 34.4 RDW 15.3 Plt Count 433 D MPV 6.6 L Neutrophils % Lymphocytes % Monocytes % Eosinophils % Band Neutrophils Metamyelocytes Myelocytes Platelet Estimate Platelet Comment Polychromasia Hypochromic-Microcytic Microcytosis Sodium Potassium Chloride Carbon Dioxide Anion Gap BUN Creatinine Creat Clearance w eGFR POC Glucometer 202 129 Random Glucose Calcium Phosphorus Magnesium Total Bilirubin AST ALT Alkaline Phosphatase Total Protein Albumin 0302/01/17 02/01/17 22:05 05:00 05:00 WBC 8.8 RBC 3.13 L Hgb 9.1 L Hct 26.8 L MCV 85.7 MCHC 33.8 RDW 15.3 Plt Count 376 MPV 6.4 L Neutrophils % 68.0 Lymphocytes % 11.0 D Monocytes % 11.0 H Eosinophils % 6.0 H D Band Neutrophils 2.0 D Metamyelocytes 1 D Myelocytes 1 Platelet Estimate Adequate Platelet Comment No clumping noted Polychromasia 1+ Hypochromic-Microcytic 1+ Microcytosis 1+ Sodium 142 Potassium 3.6 Chloride 105 Carbon Dioxide 23 Anion Gap 14 BUN 7 Creatinine 1.2 H Creat Clearance w eGFR 47.95 POC Glucometer 131 Random Glucose 133 H Calcium 8.5 Phosphorus 3.4 Magnesium 1.9 Total Bilirubin 1.0 D AST 42 H ALT 14 Alkaline Phosphatase 65 Total Protein 6.6 Albumin 3.2 L 02/01/17 06:21 WBC RBC Hgb Hct MCV MCHC RDW Plt Count MPV Neutrophils % Lymphocytes % Monocytes % Eosinophils % Band Neutrophils Metamyelocytes Myelocytes Platelet Estimate Platelet Comment Polychromasia Hypochromic-Microcytic Microcytosis Sodium Potassium Chloride Carbon Dioxide Anion Gap BUN Creatinine Creat Clearance w eGFR POC Glucometer 142 Random Glucose Calcium Phosphorus Magnesium Total Bilirubin AST ALT Alkaline Phosphatase Total Protein Albumin Active Medications Generic Name Dose Route Start Last Admin Trade Name Freq PRN Reason Stop Dose Admin Acetaminophen 650 mg 01/27/17 09:14 01/31/17 09:32 Tylenol - PO 650 mg Q6H PRN Administration FEVER OR PAIN Amlodipine Besylate 10 mg 01/30/17 13:15 02/01/17 11:05 Norvasc - PO 10 mg DAILY JAIR Administration Aspirin 81 mg 01/27/17 10:00 02/01/17 11:05 Asa - PO 81 mg DAILY JAIR Administration Atorvastatin Calcium 10 mg 01/27/17 22:00 01/31/17 22:05 Lipitor - PO 10 mg HS AJIR Administration Bacitracin 1 applic 01/27/17 10:00 01/31/17 22:09 Bacitracin - TP 1 applic BID JAIR Administration Entecavir 0.5 mg 01/27/17 10:00 02/01/17 11:05 Baraclude - PO 0.5 mg DAILY JAIR Administration Guaifenesin/Codeine Phosphate 10 ml 01/27/17 14:33 02/01/17 11:04 Robitussin Ac - PO 10 ml Q8H PRN Administration COUGH Sodium Chloride 1,000 mls @ 60 mls/hr 01/30/17 13:15 01/31/17 22:07 1/2 Normal Saline IV 60 mls/hr ASDIR JAIR Administration Gemcitabine HCl 1,500 mg/ 250 mls @ 500 mls/hr 02/01/17 13:30 Sodium Chloride IV 02/01/17 13:59 ONCE ONE Insulin Aspart 1 vial 01/27/17 07:00 02/01/17 06:21 Novolog Vial Sliding Scale - SQ Not Given ACHS JAIR Protocol Lactobacillus Acidophilus 1 tab 01/31/17 17:30 02/01/17 11:05 Bacid - PO 1 tab DAILY JAIR Administration Metoprolol Succinate 25 mg 02/01/17 12:00 Toprol Xl - PO DAILY JAIR Ondansetron HCl 8 mg 01/27/17 09:27 02/01/17 11:14 Zofran Injection IVPB 8 mg Q8H PRN Administration NAUSEA Pantoprazole Sodium 40 mg 01/27/17 10:00 02/01/17 11:05 Protonix - PO 40 mg DAILY JAIR Administration Piperacillin Sod/Tazobactam Sod 3.375 gm 01/30/17 18:00 02/01/17 11:05 Zosyn 3.375gm Ivpb (Pre-Docked) IVPB 3.375 gm Q8H-IV JAIR Administration Sodium Bicarbonate 650 mg 01/30/17 13:00 02/01/17 11:05 Sodium Bicarbonate - PO 650 mg DAILY JAIR Administration ASSESSMENT/PLAN: This is a 46y female PMHx of HTN , DM with metastatic triple negative breast cancer (s/p left lumpectomy, Port-A-Cath placement), presented with non productive cough and shortness of breath x 1 day. Radiation therapy adriamycin, cytoxn and taxol. Last chemotherapy was January 11, carboplatinum. gemzar. Due for next chem; held due to elevated Cr s/p IV contrast. # Cough/dyspnea secondary to post obstructive pneumonia vs tumor mahogany: -CXR/CT scan reviewed; showing RLL consolidation with with mediastinal adenopathy -port culture negative; continue zosyn (day 6) -Guaifenesin prn cough -incentive spirometry -appreciate pulm #Tachycardia and hypertension s/p being taking off her bp medications duet o renal injury: -HR tmax 118; BP systolic max 150 -seen by cardio; rec toprolol xl 25mg po daily #Breast CA with mediastinal adenopathy -PET -chemo held due to elevated Cr; -start gemzar today dut to improved renal function; CrCl 66/mls/min; hold carboplatinum for now #Diabetes Mellitus type II: -Insulin SS 4 Units total given yesterday -monitor BGM #Prior hx of hepatitis: -entecavir 0.5mg daily #Wound :clean intact; no puss -Bacitracin #JENNA secondary to IV contrast: improving -Cr 1.3->1.2 today may take 7 days to normalize; -gentle hydration 1/2 NS 60mls/hr to prevent further nephrotoxic injury from dehydration FEN: FLuids: po in take due not want to overload Electrolytes: wnl Diet diabetic VTE prophylaxis: lovenox Disposition: iv antibiotic/chemo Problem List - Problems (1) Anemia Code(s): D64.9 - ANEMIA, UNSPECIFIED Qualifiers: Anemia type: other cause Other causes of anemia: antineoplastic chemotherapy Qualified Code(s): D64.81 - Anemia due to antineoplastic chemotherapy (2) Dyspnea Code(s): R06.00 - DYSPNEA, UNSPECIFIED Qualifiers: Dyspnea type: shortness of breath Qualified Code(s): R06.02 - Shortness of breath (3) Lung consolidation Code(s): J18.1 - LOBAR PNEUMONIA, UNSPECIFIED ORGANISM (4) Tachycardia Code(s): R00.0 - TACHYCARDIA, UNSPECIFIED (5) Wound dehiscence Code(s): T81.30XA - DISRUPTION OF WOUND, UNSPECIFIED, INITIAL ENCOUNTER (6) Breast cancer metastasized to multiple sites Code(s): C50.919 - MALIGNANT NEOPLASM OF UNSP SITE OF UNSPECIFIED FEMALE BREAST Qualifiers: Laterality: unspecified laterality Qualified Code(s): C50.919 - Malignant neoplasm of unspecified site of unspecified female breast (7) JENNA (acute kidney injury) Code(s): N17.9 - ACUTE KIDNEY FAILURE, UNSPECIFIED Visit type - Emergency Visit Emergency Visit: Yes ED Registration Date: 01/27/17 Care time: The patient presented to the Emergency Department on the above date and was hospitalized for further evaluation of their emergent condition. - New Patient This patient is new to me today: No - Critical Care Critical Care patient: No
--- NOTE | 2017-02-01 16:13 | PN ---
Progress Note, Physician History of Present Illness: No c/o dyspnea Occasional dry cough No fever No diarrhea today - Current Medication List Current Medications: Active Medications Acetaminophen (Tylenol -) 650 mg PO Q6H PRN PRN Reason: FEVER OR PAIN Last Admin: 01/31/17 09:32 Dose: 650 mg Amlodipine Besylate (Norvasc -) 10 mg PO DAILY [facility] Last Admin: 02/01/17 11:05 Dose: 10 mg Aspirin (Asa -) 81 mg PO DAILY [facility] Last Admin: 02/01/17 11:05 Dose: 81 mg Atorvastatin Calcium (Lipitor -) 10 mg PO HS [facility] Last Admin: 01/31/17 22:05 Dose: 10 mg Bacitracin (Bacitracin -) 1 applic TP BID [facility] Last Admin: 02/01/17 10:00 Dose: 1 applic Enoxaparin Sodium (Lovenox -) 40 mg SQ DAILY [facility] Entecavir (Baraclude -) 0.5 mg PO DAILY [facility] Last Admin: 02/01/17 11:05 Dose: 0.5 mg Insulin Aspart (Novolog Vial Sliding Scale -) 1 vial SQ ACHS [facility] PRN Reason: Protocol Last Admin: 02/01/17 12:00 Dose: 4 unit Lactobacillus Acidophilus (Bacid -) 1 tab PO DAILY [facility] Last Admin: 02/01/17 11:05 Dose: 1 tab Metoprolol Succinate (Toprol Xl -) 25 mg PO DAILY [facility] Last Admin: 02/01/17 12:00 Dose: 25 mg Ondansetron HCl (Zofran Injection) 8 mg IVPB Q8H PRN PRN Reason: NAUSEA Last Admin: 02/01/17 11:14 Dose: 8 mg Pantoprazole Sodium (Protonix -) 40 mg PO DAILY [facility] Last Admin: 02/01/17 11:05 Dose: 40 mg Piperacillin Sod/Tazobactam Sod (Zosyn 3.375gm Ivpb (Pre-Docked)) 3.375 gm IVPB Q8H-IV [facility] Last Admin: 02/01/17 11:05 Dose: 3.375 gm Sodium Bicarbonate (Sodium Bicarbonate -) 650 mg PO DAILY [facility] Last Admin: 02/01/17 11:05 Dose: 650 mg - Objective Vital Signs: Vital Signs Temperature 98.0 F 02/01/17 14:21 Pulse Rate 119 H 02/01/17 14:21 Respiratory Rate 20 02/01/17 14:21 Blood Pressure 126/78 02/01/17 14:21 O2 Sat by Pulse Oximetry (%) 97 02/01/17 09:00 Constitutional: Yes: No Distress Eyes: Yes: Conjunctiva Clear Cardiovascular: Yes: Regular Rate and Rhythm, S1, S2 Respiratory: Yes: Diminished Gastrointestinal: Yes: Normal Bowel Sounds, Soft. No: Tenderness Edema: No Labs: CBC, BMP 02/01/17 05:00 02/01/17 05:00 INR, PTT INR 1.27 (0.82-1.09) H 01/26/17 21:50 Assessment/Plan Probable post-obstructive pneumonia Possible atelectasis v. lymphangitic tumor spread Metastatic breast ca Possible antibiotic-induced diarrhea D/C zosyn Start ceftin 500mg po bid
[2017-02-01] MEDS: ATORVASTATIN CA 10 MG TABLET (FP) PO SCH (21:10)
[2017-02-01] MEDS: CEFUROXIME AXETIL 500 MG TABLET PO SCH (21:10)
[2017-02-02 06:06] LABS: SERUM IRON 28 ug/dL (27-159); TOTAL IRON BINDING CAPACITY 235 ug/dL (250-450); UIBC 207 ug/dL (131-425)
[2017-02-02] MEDS: INSULIN SLIDING SCALE (NOVOLOG) 1 VIAL SQ SCH ×2 (06:41→11:04)
[2017-02-02 07:10] LABS: MCH 28.3 pg (25.7-33.7); MEAN CELL VOLUME 85.7 fl (80-96); MEAN PLT VOLUME 6.4 fl (7.5-11.1); PLATELET COUNT 401 K/MM3 (134-434); RDW 15.5 % (11.6-15.6)
[2017-02-02 07:36] LABS: ALBUMIN 3.2 g/dl (3.4-5.0); BILIRUBIN,TOTAL 0.8 mg/dL (0.2-1.0); CALCIUM 8.5 mg/dL (8.5-10.1); CREATININE 1.2 mg/dL (0.55-1.02); MAGNESIUM 2.1 mg/dL (1.8-2.4); PHOSPHOROUS 3.7 mg/dL (2.5-4.9); TOT PROT 6.9 g/dl (6.4-8.2)
[2017-02-02 08:01] LABS: WHITE BLOOD COUNT 10.6 K/mm3 (4.0-10.0)
[2017-02-02] MEDS ORDERED: PT OWN MED DRAWER 7, Y5N ONE (09:15)
[2017-02-02] MEDS: METOPROLOL SUCCINATE 25 MG TAB.SR.24H (FP) PO SCH (09:31)
[2017-02-02] MEDS: PANTOPRAZOLE 40 MG TABLET (FP) PO SCH (09:31)
[2017-02-02] MEDS: guaiFENesin/CODEINE 10 ML UNIT-DOSE CUPS PO PRN (09:31)
[2017-02-02] MEDS: ASPIRIN 81 MG CHEWABLE TABLETS PO SCH (09:31)
[2017-02-02] MEDS: amLODIPine BESYLATE 10 MG TABLET (FP) PO SCH (09:32)
[2017-02-02] MEDS: LACTOBACILLUS ACIDOPHILUS 1 EACH TAB (FP) PO SCH (09:32)
[2017-02-02] MEDS: SODIUM BICARBONATE 650 MG TABLET PO SCH (09:32)
[2017-02-02] MEDS: ENTECAVIR 0.5 MG TABLET PO SCH (09:32)
[2017-02-02] MEDS: CEFUROXIME AXETIL 500 MG TABLET PO SCH (09:32)
[2017-02-02] MEDS ORDERED: ENOXAPARIN NA (PORCINE) 40 MG/0.4 ML DISP.SYRIN SQ SCH (10:00)
[2017-02-02] MEDS: BACITRACIN 30 GM TUBE TOPICAL OINTMENT TP SCH (10:54)
--- NOTE | 2017-02-02 10:55 | PN ---
Progress Note, Physician History of Present Illness: Awake, alert No complaints No c/o chest pain/ dyspnea/ cough No diarrhea Afebrile - Current Medication List Current Medications: Active Medications Acetaminophen (Tylenol -) 650 mg PO Q6H PRN PRN Reason: FEVER OR PAIN Last Admin: 01/31/17 09:32 Dose: 650 mg Amlodipine Besylate (Norvasc -) 10 mg PO DAILY [facility] Last Admin: 02/02/17 09:32 Dose: 10 mg Aspirin (Asa -) 81 mg PO DAILY [facility] Last Admin: 02/02/17 09:31 Dose: 81 mg Atorvastatin Calcium (Lipitor -) 10 mg PO HS [facility] Last Admin: 02/01/17 21:10 Dose: 10 mg Bacitracin (Bacitracin -) 1 applic TP BID [facility] Last Admin: 02/01/17 21:10 Dose: 1 applic Cefuroxime Axetil (Ceftin -) 500 mg PO BID [facility] Last Admin: 02/02/17 09:32 Dose: 500 mg Enoxaparin Sodium (Lovenox -) 40 mg SQ DAILY [facility] Last Admin: 02/02/17 09:32 Dose: 40 mg Entecavir (Baraclude -) 0.5 mg PO DAILY [facility] Last Admin: 02/02/17 09:32 Dose: 0.5 mg Guaifenesin/Codeine Phosphate (Robitussin Ac -) 10 ml PO Q8H PRN Last Admin: 02/02/17 09:31 Dose: 10 ml Insulin Aspart (Novolog Vial Sliding Scale -) 1 vial SQ ACHS [facility] PRN Reason: Protocol Last Admin: 02/02/17 06:41 Dose: 2 unit Lactobacillus Acidophilus (Bacid -) 1 tab PO DAILY [facility] Last Admin: 02/02/17 09:32 Dose: 1 tab Metoprolol Succinate (Toprol Xl -) 25 mg PO DAILY [facility] Last Admin: 02/02/17 09:31 Dose: 25 mg Ondansetron HCl (Zofran Injection) 8 mg IVPB Q8H PRN PRN Reason: NAUSEA Last Admin: 02/01/17 11:14 Dose: 8 mg Pantoprazole Sodium (Protonix -) 40 mg PO DAILY [facility] Last Admin: 02/02/17 09:31 Dose: 40 mg Sodium Bicarbonate (Sodium Bicarbonate -) 650 mg PO DAILY [facility] Last Admin: 02/02/17 09:32 Dose: 650 mg - Objective Vital Signs: Vital Signs Temperature 97.8 F 02/02/17 09:00 Pulse Rate 104 H 02/02/17 10:29 Respiratory Rate 20 02/02/17 09:00 Blood Pressure 132/86 02/02/17 09:00 O2 Sat by Pulse Oximetry (%) 94 L 02/02/17 10:29 Constitutional: Yes: No Distress Eyes: Yes: Conjunctiva Clear Cardiovascular: Yes: Regular Rate and Rhythm, S1, S2 Respiratory: Yes: Diminished Gastrointestinal: Yes: Normal Bowel Sounds, Soft. No: Tenderness Edema: No Labs: CBC, BMP 02/02/17 06:00 02/02/17 06:00 INR, PTT INR 1.27 (0.82-1.09) H 01/26/17 21:50 Assessment/Plan Probable post-obstructive pneumonia Possible atelectasis v. lymphangitic tumor spread Metastatic breast ca Possible antibiotic-induced diarrhea Continue ceftin 500mg po bid x 3d
--- NOTE | 2017-02-02 12:55 | PN ---
Progress Note (short form) - Note Progress Note: Renal followup for JENNA Pt seen and examined at the bedside no further Nausea no sob or chest pain off IVF Vital Signs Temperature 97.8 F 02/02/17 09:00 Pulse Rate 104 H 02/02/17 10:29 Respiratory Rate 20 02/02/17 09:00 Blood Pressure 132/86 02/02/17 09:00 O2 Sat by Pulse Oximetry (%) 94 L 02/02/17 10:29 Intake & Output 01/30/17 01/31/17 02/01/17 02/02/17 23:59 23:59 23:59 23:59 Intake Total 2200 1250 2197 Output Total 2500 2250 900 Balance -300 -1000 1297 Weight 136 lb 135 lb 2 oz Gen: NAD, awake and alert CVS: RRR, No M/R Lungs: Dec BS Abd: soft NT/ND Ext: No edema, clubbing or cyanosis CBC, BMP 02/02/17 06:00 02/02/17 06:00 Laboratory Tests 01/31/17 02/02/17 06:00 06:00 Calcium 8.5 8.5 Phosphorus 3.1 3.7 Magnesium 1.9 2.1 Albumin 3.2 L Current Medications Acetaminophen (Tylenol -) 650 mg PO Q6H PRN PRN Reason: FEVER OR PAIN Last Admin: 01/31/17 09:32 Dose: 650 mg Amlodipine Besylate (Norvasc -) 10 mg PO DAILY [facility] Last Admin: 02/02/17 09:32 Dose: 10 mg Aspirin (Asa -) 81 mg PO DAILY [facility] Last Admin: 02/02/17 09:31 Dose: 81 mg Atorvastatin Calcium (Lipitor -) 10 mg PO HS [facility] Last Admin: 02/01/17 21:10 Dose: 10 mg Bacitracin (Bacitracin -) 1 applic TP BID [facility] Last Admin: 02/02/17 10:54 Dose: Not Given Cefuroxime Axetil (Ceftin -) 500 mg PO BID [facility] Last Admin: 02/02/17 09:32 Dose: 500 mg Enoxaparin Sodium (Lovenox -) 40 mg SQ DAILY [facility] Last Admin: 02/02/17 09:32 Dose: 40 mg Entecavir (Baraclude -) 0.5 mg PO DAILY [facility] Last Admin: 02/02/17 09:32 Dose: 0.5 mg Guaifenesin/Codeine Phosphate (Robitussin Ac -) 10 ml PO Q8H PRN Last Admin: 02/02/17 09:31 Dose: 10 ml Sodium Chloride (Normal Saline -) 500 mls @ 125 mls/hr IV ASDIR ONE Stop: 02/02/17 17:59 Dexamethasone Sodium Phosphate 10 mg/ Ondansetron HCl 8 mg/Sodium Chloride 105 mls @ 210 mls/hr IVPB ONCE ONE Stop: 02/02/17 14:29 Carboplatin 150 mg/ Sodium (Chloride) 265 mls @ 530 mls/hr IV ONCE ONE Stop: 02/02/17 14:29 Insulin Aspart (Novolog Vial Sliding Scale -) 1 vial SQ ACHS JAIR PRN Reason: Protocol Last Admin: 02/02/17 11:04 Dose: 2 unit Lactobacillus Acidophilus (Bacid -) 1 tab PO DAILY [facility] Last Admin: 02/02/17 09:32 Dose: 1 tab Metoprolol Succinate (Toprol Xl -) 25 mg PO DAILY [facility] Last Admin: 02/02/17 09:31 Dose: 25 mg Ondansetron HCl (Zofran Injection) 8 mg IVPB Q8H PRN PRN Reason: NAUSEA Last Admin: 02/01/17 11:14 Dose: 8 mg Pantoprazole Sodium (Protonix -) 40 mg PO DAILY [facility] Last Admin: 02/02/17 09:31 Dose: 40 mg Sodium Bicarbonate (Sodium Bicarbonate -) 650 mg PO DAILY [facility] Last Admin: 02/02/17 09:32 Dose: 650 mg A/P 46 year old woman with PMhx of Breast Ca s/p lumpectomy and chemo, Hypertension who presented with SOB and admitted for PNA and developed JENNA with BUN/Cr of 5/ 1.3 #Acute Renal Failure secondary to contrast nephropathy +/- normotensive ATN with ARB Cr stable at 1.2 continue to trend daily avoid nsaids, karina/arb off fluids tolerating good diet #Metastatic breast Ca for Chemo as per Oncology Pre-hydration as needed #Hypertension BP improved Abdi Van DO
--- NOTE | 2017-02-02 13:26 | PN ---
Progress Note (short form) - Note Progress Note: PAtient seen and examined No specific complaints did ok Last Vital Signs Temp Pulse Resp BP Pulse Ox 97.8 F 104 H 20 132/86 94 L 02/02/17 09:00 02/02/17 10:29 02/02/17 09:00 02/02/17 09:00 02/02/17 10:29 Cor: RSR, No murmurs, No gallops Lungs: decreased Lt. base Abd: Soft, Normal bowel sounds, No organomegaly Ext:1+ edema Abnormal Lab Results 02/01/17 02/01/17 02/02/17 05:00 05:00 06:00 WBC 10.6 H RBC 3.26 L Hgb 9.2 L Hct 27.9 L MPV 6.4 L Retic Count Creatinine Random Glucose TIBC 235 L Iron Saturation 12 L Ferritin 497.873 H AST LD Total Albumin 02/02/17 02/02/17 06:00 06:00 WBC RBC Hgb Hct MPV Retic Count 4.15 H Creatinine 1.2 H Random Glucose 170 H D TIBC Iron Saturation Ferritin AST 47 H LD Total 755 H Albumin 3.2 L Active Medications Generic Name Dose Route Start Last Admin Trade Name Freq PRN Reason Stop Dose Admin Acetaminophen 650 mg 01/27/17 09:14 01/31/17 09:32 Tylenol - PO 650 mg Q6H PRN Administration FEVER OR PAIN Amlodipine Besylate 10 mg 01/30/17 13:15 02/02/17 09:32 Norvasc - PO 10 mg DAILY JAIR Administration Aspirin 81 mg 01/27/17 10:00 02/02/17 09:31 Asa - PO 81 mg DAILY JAIR Administration Atorvastatin Calcium 10 mg 01/27/17 22:00 02/01/17 21:10 Lipitor - PO 10 mg HS JAIR Administration Bacitracin 1 applic 01/27/17 10:00 02/02/17 10:54 Bacitracin - TP Not Given BID [facility] Cefuroxime Axetil 500 mg 02/01/17 22:00 02/02/17 09:32 Ceftin - PO 500 mg BID JAIR Administration Enoxaparin Sodium 40 mg 02/02/17 10:00 02/02/17 09:32 Lovenox - SQ 40 mg DAILY JAIR Administration Entecavir 0.5 mg 01/27/17 10:00 02/02/17 09:32 Baraclude - PO 0.5 mg DAILY JAIR Administration Guaifenesin/Codeine Phosphate 10 ml 02/01/17 19:55 02/02/17 09:31 Robitussin Ac - PO 10 ml Q8H PRN Administration Sodium Chloride 500 mls @ 125 mls/hr 02/02/17 14:00 Normal Saline - IV 02/02/17 17:59 ASDIR ONE Dexamethasone Sodium Phosphate 105 mls @ 210 mls/hr 02/02/17 14:00 10 mg/ Ondansetron HCl 8 mg/ IVPB 02/02/17 14:29 Sodium Chloride ONCE ONE Carboplatin 150 mg/ Sodium 265 mls @ 530 mls/hr 02/02/17 14:00 Chloride IV 02/02/17 14:29 ONCE ONE Insulin Aspart 1 vial 01/27/17 07:00 02/02/17 11:04 Novolog Vial Sliding Scale - SQ 2 unit ACHS JAIR Administration Protocol Lactobacillus Acidophilus 1 tab 01/31/17 17:30 02/02/17 09:32 Bacid - PO 1 tab DAILY JAIR Administration Metoprolol Succinate 25 mg 02/01/17 12:00 02/02/17 09:31 Toprol Xl - PO 25 mg DAILY JAIR Administration Ondansetron HCl 8 mg 01/27/17 09:27 02/01/17 11:14 Zofran Injection IVPB 8 mg Q8H PRN Administration NAUSEA Pantoprazole Sodium 40 mg 01/27/17 10:00 02/02/17 09:31 Protonix - PO 40 mg DAILY JAIR Administration Sodium Bicarbonate 650 mg 01/30/17 13:00 02/02/17 09:32 Sodium Bicarbonate - PO 650 mg DAILY JAIR Administration A/P 46 y/o patient with metastatic breast cancer, due for C2 gem/carbo , comes in with shortness of breath PAtient with multiple lung nodules, RML atelectasis Started on empiric vanco/zosyn with improvement. Now switched to ceftin Cultures negative Developed renal failure --post contrast Creatinine stabilized Got C2 gemzar yesterday. will schedule carbo today. Cr stabilized. Cr cl --66ml/min. diarrhea -- resolved. c.diff neg. discussed with patient/family called in scripts for metoprolol/amlodipine/ceftin/bacid/zofran to take baraclude every other day to f/u saturday for CBC check
[2017-02-02] MEDS: ONDANSETRON 4 MG/2 ML VIAL IVPB PRN (13:53)
[2017-02-02] MEDS ORDERED: CARBOPLATIN IV ONE (14:00)
[2017-02-02] MEDS ORDERED: SODIUM CHLORIDE IV ONE (14:00)
[2017-02-02] MEDS ORDERED: DEXAMETHASONE INJECTION 10 MG, ONDANSETRON INJECTION 8 MG in SODIUM CHLORIDE 100 ML IVPB ONE (14:00)
[2017-02-02] MEDS ORDERED: SODIUM CHLORIDE 500 ML IV ONE (14:00)
--- NOTE | 2017-02-02 14:36 | PN ---
Progress Note (short form) - Note Progress Note: currently asymptomatic. states cough has resolved. denies Cp, SOB, fever, chills , palpitaitons, N/V/C/D Pt requesting to go home and follow up with echo on Saturday. Current Medications Generic Name Dose Route Start Last Admin Trade Name Freq PRN Reason Stop Dose Admin Acetaminophen 650 mg 01/27/17 09:14 01/31/17 09:32 Tylenol - PO 650 mg Q6H PRN Administration FEVER OR PAIN Amlodipine Besylate 10 mg 01/30/17 13:15 02/02/17 09:32 Norvasc - PO 10 mg DAILY JAIR Administration Aspirin 81 mg 01/27/17 10:00 02/02/17 09:31 Asa - PO 81 mg DAILY JAIR Administration Atorvastatin Calcium 10 mg 01/27/17 22:00 02/01/17 21:10 Lipitor - PO 10 mg HS JAIR Administration Bacitracin 1 applic 01/27/17 10:00 02/02/17 10:54 Bacitracin - TP Not Given BID JAIR Cefuroxime Axetil 500 mg 02/01/17 22:00 02/02/17 09:32 Ceftin - PO 500 mg BID JAIR Administration Enoxaparin Sodium 40 mg 02/02/17 10:00 02/02/17 09:32 Lovenox - SQ 40 mg DAILY JAIR Administration Entecavir 0.5 mg 01/27/17 10:00 02/02/17 09:32 Baraclude - PO 0.5 mg DAILY JAIR Administration Guaifenesin/Codeine Phosphate 10 ml 02/01/17 19:55 02/02/17 09:31 Robitussin Ac - PO 10 ml Q8H PRN Administration Sodium Chloride 500 mls @ 125 mls/hr 02/02/17 14:00 Normal Saline - IV 02/02/17 17:59 ASDIR ONE Dexamethasone Sodium Phosphate 105 mls @ 210 mls/hr 02/02/17 14:00 10 mg/ Ondansetron HCl 8 mg/ IVPB 02/02/17 14:29 Sodium Chloride ONCE ONE Carboplatin 150 mg/ Sodium 265 mls @ 530 mls/hr 02/02/17 14:00 Chloride IV 02/02/17 14:29 ONCE ONE Insulin Aspart 1 vial 01/27/17 07:00 02/02/17 11:04 Novolog Vial Sliding Scale - SQ 2 unit ACHS JAIR Administration Protocol Lactobacillus Acidophilus 1 tab 01/31/17 17:30 02/02/17 09:32 Bacid - PO 1 tab DAILY JAIR Administration Metoprolol Succinate 25 mg 02/01/17 12:00 02/02/17 09:31 Toprol Xl - PO 25 mg DAILY JAIR Administration Ondansetron HCl 8 mg 01/27/17 09:27 02/02/17 13:53 Zofran Injection IVPB 8 mg Q8H PRN Administration NAUSEA Pantoprazole Sodium 40 mg 01/27/17 10:00 02/02/17 09:31 Protonix - PO 40 mg DAILY JAIR Administration Sodium Bicarbonate 650 mg 01/30/17 13:00 02/02/17 09:32 Sodium Bicarbonate - PO 650 mg DAILY JAIR Administration Last Vital Signs Temp Pulse Resp BP Pulse Ox 97.7 F 93 H 20 129/77 94 L 02/02/17 13:29 02/02/17 13:29 02/02/17 13:29 02/02/17 13:29 02/02/17 10:29 General NAD Lungs CTA B/L no wheeznig/rales/rhonchi abdomen soft NT/ND CBCD WBC 10.6 K/mm3 (4.0-10.0) H 02/02/17 06:00 RBC 3.26 M/mm3 (3.60-5.2) L 02/02/17 06:00 Hgb 9.2 GM/dL (10.7-15.3) L 02/02/17 06:00 Hct 27.9 % (32.4-45.2) L 02/02/17 06:00 MCV 85.7 fl (80-96) 02/02/17 06:00 MCHC 33.0 g/dl (32.0-36.0) 02/02/17 06:00 RDW 15.5 % (11.6-15.6) 02/02/17 06:00 Plt Count 401 K/MM3 (134-434) 02/02/17 06:00 MPV 6.4 fl (7.5-11.1) L 02/02/17 06:00 CMP Sodium 140 mmol/L (136-145) 02/02/17 06:00 Potassium 3.8 mmol/L (3.5-5.1) 02/02/17 06:00 Chloride 104 mmol/L (98-107) 02/02/17 06:00 Carbon Dioxide 25 mmol/L (21-32) 02/02/17 06:00 Anion Gap 11 (8-16) 02/02/17 06:00 BUN 15 mg/dL (7-18) D 02/02/17 06:00 Creatinine 1.2 mg/dL (0.55-1.02) H 02/02/17 06:00 Creat Clearance w eGFR 47.95 (>60) 02/02/17 06:00 Calcium 8.5 mg/dL (8.5-10.1) 02/02/17 06:00 Total Bilirubin 0.8 mg/dL (0.2-1.0) 02/02/17 06:00 AST 47 U/L (15-37) H 02/02/17 06:00 ALT 14 U/L (12-78) 02/02/17 06:00 Alkaline Phosphatase 66 U/L (45-117) 02/02/17 06:00 Total Protein 6.9 g/dl (6.4-8.2) 02/02/17 06:00 Albumin 3.2 g/dl (3.4-5.0) L 02/02/17 06:00 ASSESSMENT AND PLAN: 46yo F with PMH DM, HTN, and recently diagnosed breast ca s/p lumpectomy and chemo presented to the ER and was admitted for further evaluation of their emergent condition 1. HCAP- RML infilatrate. on Zosyn day6 and switched to ceftin today for additional 3 days. 2. Diarrhea- possible antibiotic induced. cdiff negative. afebrile no leukocytosis. cont lactobacillus while on abx. improved 3. JENNA- ATN vs medication induced. stable. will need to have kidney function repeated on Saturday/Saturday. avoid nephrotoxic agents. monitor UOP 4. Acute normocytic anemia- no acute bleeding. Hgb stable. will start iron supplementation. txn for hgb <7 5. HTN- improved. also started on toprol XL. echo done showing small pericardial effusion. cardio recommending repeat in 72Hours. pt persistent about returning home today. multiple attempts to contact cardio to requesting about repeating on saturday as outpatient given pt is hemodynamically stable. pt appears to be compliant and will follow up on saturday for repeat echo. recommend to re-start losartain when kidney function resolved. 6. DM- controlled. iss, hold oral agents 7. breast ca-will receive chemo dose today. symptomatic support 8. DVT ppx- lovenox 9. d/c home to follow up on saturday for repeat echo Visit type - Emergency Visit Emergency Visit: Yes ED Registration Date: 01/27/17 Care time: The patient presented to the Emergency Department on the above date and was hospitalized for further evaluation of their emergent condition. - New Patient This patient is new to me today: No - Critical Care Critical Care patient: No - Discharge Referral Referred to [facility] Med P.C.: No
[2017-02-02 17:19] VITALS: BP 122/73; PULSE 98; TEMP 97.8
--- NOTE | 2017-02-04 20:51 | DS ---
Physical Exam: SUBJECTIVE: Patient seen and examined, afebrile, still with cough, non productive, no N,V,D. Denies sob, chest pain, palpations. Wanting to go home. OBJECTIVE:No acute issues; antibiotic day 6 zosyn PHYSICAL EXAM GENERAL: The patient is awake, alert, and fully oriented, in no acute distress. HEAD: Normal with no signs of trauma. EYES: PERRL, extraocular movements intact, sclera anicteric, conjunctiva clear. ENT: Ears normal, nares patent, oropharynx clear without exudates, moist mucous membranes. NECK: Trachea midline, full range of motion, supple. LUNGS: Breath sounds equal, clear to auscultation bilaterally, no wheezes, no crackles, no accessory muscle use. HEART: Regular rate and rhythm, S1, S2 without murmur, rub or gallop. ABDOMEN: Soft, nontender, nondistended, normoactive bowel sounds, no guarding, no rebound, no hepatosplenomegaly, no masses. EXTREMITIES: 2+ pulses, warm, well-perfused, no edema. NEUROLOGICAL: Cranial nerves II through XII grossly intact. Normal speech, gait not observed. PSYCH: Normal mood, normal affect. SKIN: Warm, dry, normal turgor, no rashes or lesions noted. Right chest anterior mid clavicular region, wound dehiscence from chemo port, clean dry no signs of infections LABS CBC, BMP 02/02/17 06:00 02/02/17 06:00 Echo results: small pericardial effusion < 1cm; LVSF normal; right ventricle normal; mild tricuspid regurgitations; too little to assess for RVSP -recommended f/u echo in 48 to 72 hrs as per cardio HOSPITAL COURSE: Date of Admission:01/27/17 Date of Discharge: 02/04/17 This is a 46 year old woman with a past medical history of DM, HTN with metastatic triple negative breast cancer (s/p left lumpectomy, Port-A-Cath placement), presented with non productive cough and shortness of breath x 1 day. Radiation therapy adriamycin, cytoxn and taxol. Chemotherapy, carboplatinum, gemzar. Admitted for cough secondary to post obstructive pneumonia vs tumor mahogany. CXR/CT scan showing RLL consolidation with with mediastinal adenopathy. She was placed on zosyn x 6 days, sent home on ceftin for an additional 3 days. Cultures negative. During stay patient had multipkle episodes of diarrhea, c.diff negative. Improved with lactobacillus and time. She also had episode of acute kidney injury, most likely related to IV contrast induced nephropathy. Cr level did improve steadily. Chemotherapy gemzar was held due to its nephrotoxicity, carboplatinum was renal dosed vor CrCl of 66. Blood sugars were controlled. Patient had some episodes of tachycardia and hypertension, this was mostly related to holding her bp medication due to nephrotoxicity. She was seen by cardiology, started on toprol xl. Echo did show some minor <1cm pericardal effusion, should be followed up as outpatient for clearance of fluid with repeat echo. Minutes to complete discharge: 35 Discharge Summary Reason For Visit: LUNG CONSOLIDATION, ANEMIA,DYSPNEA Condition: Guarded - Instructions Diet, Activity, Other Instructions: Take antibiotics for an additional 2 days. (stop on Saturday) Stop taking lactobacillus once you complete the antibiotics You need to have a repeat echo done on Saturday to evaluate the fluid that is seen around your heart. It is very important that this is done. Follow up with your primary care doctor this week. You will need to have your kidney function checked. once it is normalized discuss with your doctor about re -starting your losartan. During this time hold it and take norvasc to control your blood pressure. Your iron levels were low and started on iron supplements. you will also need your iron studies to be repeated in 3 month. Follow up with your oncology on Saturday for your schedule chemotherapy. If your symptoms worsen return to the ER. Referrals: Aaliyah Lowe MD [Primary Care Provider] - Blaire Diggs MD [Staff Physician] - Disposition: HOME - Home Medications Comprehensive Discharge Medication List: Ambulatory Orders Atorvastatin Ca [Lipitor] 10 mg PO HS 01/04/17 Glipizide [Glipizide Xl] 2.5 mg PO BID 01/04/17 Sitagliptin Phosphate [Januvia] 100 mg PO DAILY 01/04/17 Aspirin [ASA -] 81 mg PO DAILY tab.chew 01/05/17 Ondansetron [Zofran *Odt*] 8 mg PO Q12H PRN #60 tab.rapdis 01/05/17 Pantoprazole Sodium [Protonix] 40 mg PO DAILY #30 tablet. 01/05/17 Prochlorperazine Maleate [Compazine -] 10 mg PO Q8H PRN #60 tablet 01/05/17 Amlodipine Besylate [Norvasc -] 10 mg PO DAILY tablet 02/02/17 Cefuroxime Axetil [Ceftin -] 500 mg PO BID #5 tablet 02/02/17 Echocardiogram 1 ea NR ONCE #1 02/02/17 Entecavir [Baraclude -] 0.5 mg PO Q48H #0 tablet 02/02/17 Ferrous Sulfate [Feosol] 325 mg PO BID #60 tablet 02/02/17 Lactobacillus Acidophilus [Bacid -] 1 tab PO DAILY tab 02/02/17 Metoprolol Succinate [Toprol XL -] 25 mg PO DAILY 02/02/17 Problem List - Problems (1) Anemia Code(s): D64.9 - ANEMIA, UNSPECIFIED Qualifiers: Anemia type: other cause Other causes of anemia: antineoplastic chemotherapy Qualified Code(s): D64.81 - Anemia due to antineoplastic chemotherapy (2) Dyspnea Code(s): R06.00 - DYSPNEA, UNSPECIFIED Qualifiers: Dyspnea type: shortness of breath Qualified Code(s): R06.02 - Shortness of breath (3) Lung consolidation Code(s): J18.1 - LOBAR PNEUMONIA, UNSPECIFIED ORGANISM (4) Tachycardia Code(s): R00.0 - TACHYCARDIA, UNSPECIFIED (5) Wound dehiscence Code(s): T81.30XA - DISRUPTION OF WOUND, UNSPECIFIED, INITIAL ENCOUNTER (6) Breast cancer metastasized to multiple sites Code(s): C50.919 - MALIGNANT NEOPLASM OF UNSP SITE OF UNSPECIFIED FEMALE BREAST Qualifiers: Laterality: unspecified laterality Qualified Code(s): C50.919 - Malignant neoplasm of unspecified site of unspecified female breast (7) JENNA (acute kidney injury) Code(s): N17.9 - ACUTE KIDNEY FAILURE, UNSPECIFIED This patient is new to me today: No Emergency Visit: Yes ED Registration Date: 01/27/17 Care time: The patient presented to the Emergency Department on the above date and was hospitalized for further evaluation of their emergent condition. Critical Care patient: No - Discharge Referral Referred to [facility] Med P.C.: No
== END 2017-02-02 17:30 | disposition home or self-care (01) | DRG 194 ==
LOC: JER 20:53 → JERBED 01-27 00:24 → J4W 01-27 03:43 → J7W 01-28 18:55
PROVIDERS: ADMIT Internal Medicine; ATTEND Internal Medicine
DX: J18.9 Pneumonia, unspecified organism (principal); J90 Pleural effusion, not elsewhere classified; C78.1 Secondary malignant neoplasm of mediastinum; C78.00 Secondary malignant neoplasm of unspecified lung; C79.70 Secondary malignant neoplasm of unspecified adrenal gland; C79.89 Secondary malignant neoplasm of other specified sites; T81.30XA Disruption of wound, unspecified, initial encounter; N17.9 Acute kidney failure, unspecified; N13.30 Unspecified hydronephrosis; I31.3 Pericardial effusion (noninflammatory); Y95 Nosocomial condition; I10 Essential (primary) hypertension; E11.9 Type 2 diabetes mellitus without complications; C50.912 Malignant neoplasm of unspecified site of left female breast; R59.0 Localized enlarged lymph nodes; E78.5 Hyperlipidemia, unspecified; I25.10 Atherosclerotic heart disease of native coronary artery without angina pectoris; R00.0 Tachycardia, unspecified; K75.9 Inflammatory liver disease, unspecified; Y83.8 Other surgical procedures as the cause of abnormal reaction of the patient, or of later complication, without mention of misadventure at the time of the procedure; D64.9 Anemia, unspecified; E86.0 Dehydration; D64.81 Anemia due to antineoplastic chemotherapy; T45.1X5A Adverse effect of antineoplastic and immunosuppressive drugs, initial encounter; R19.7 Diarrhea, unspecified; T50.8X5A Adverse effect of diagnostic agents, initial encounter; R11.2 Nausea with vomiting, unspecified; N14.1 Nephropathy induced by other drugs, medicaments and biological substances
CPT/HCPCS: 36415; 71010-TC; 71275-TC; 76775-TC; 80048; 80053; 81003; 81015; 82550; 82570; 82728; 83010; 83540; 83550; 83605; 83615; 83690; 83735; 83880; 84100; 84156; 84300; 84484; 84703; 85025; 85027; 85044; 85610; 86850; 86880; 86900; 86901; 87040; 87324; 87449; 93005; 93010; 93306-TC; 94010; 94761; 96413; 99283-25; G0480; J8540

== ENCOUNTER 2017-02-12 07:07 | Day surgery (SDC) | payer BC, OTHER ==
[~2017-02-12 07:07] MED LIST changes: +DEXAMETHASONE INJECTION 12 MG, ONDANSETRON INJECTION 8 MG in SODIUM CHLORIDE 100 ML IVPB ONE; +GEMCITABINE HCL IV ONE; +SODIUM CHLORIDE IV ONE; -TBO-FILGRASTIM 480 MCG/0.8 ML DISP.SYRIN SQ ONE
[2017-02-12] MEDS ORDERED: PALONOSETRON HCL 0.25 MG in SODIUM CHLORIDE 50 ML IVPB ONE (08:00)
[2017-02-12] MEDS ORDERED: SODIUM CHLORIDE 250 ML IV ONE (08:00)
[2017-02-12] MEDS ORDERED: DEXAMETHASONE INJECTION 10 MG in SODIUM CHLORIDE 50 ML IVPB ONE (08:00)
[2017-02-12] MEDS ORDERED: SODIUM CHLORIDE IV ONE ×2 (08:30→09:00)
[2017-02-12] MEDS ORDERED: GEMCITABINE HCL IV ONE (08:30)
[2017-02-12] MEDS ORDERED: CARBOPLATIN IV ONE (09:00)
[2017-02-12 10:05] LABS: MCH 28.9 pg (25.7-33.7); MCHC 34.3 g/dl (32.0-36.0); MEAN CELL VOLUME 84.1 fl (80-96); MEAN PLT VOLUME 7.5 fl (7.5-11.1); PLATELET COUNT 193 K/MM3 (134-434); RDW 16.6 % (11.6-15.6); WHITE BLOOD COUNT 7.3 K/mm3 (4.0-10.0)
[2017-02-12 10:58] LABS: ANISOCYTOSIS 1+; METAMYELOCYTE 1 % (0-2); PLATELET ESTIMATE ADEQUATE (NORMAL)
[2017-02-12 12:18] LABS: ALBUMIN 3.6 g/dl (3.4-5.0); BILIRUBIN,DIRECT 0.2 mg/dL (0.0-0.2); BILIRUBIN,TOTAL 0.9 mg/dL (0.2-1.0); CALCIUM 9.3 mg/dL (8.5-10.1); CREATININE 1.1 mg/dL (0.55-1.02); TOT PROT 7.3 g/dl (6.4-8.2)
[2017-02-12] MEDS ORDERED: SODIUM CHLORIDE 500 ML IV ONE (13:30)
[2017-02-12] MEDS ORDERED: SODIUM CHLORIDE IVPB ONE (14:00)
[2017-02-12] MEDS ORDERED: CARBOPLATIN IVPB ONE (14:00)
[2017-02-12] MEDS ORDERED: guaiFENesin/D-METHORPHAN HB 10 ML UNIT-DOSE CUPS PO PRN (14:13)
[2017-02-12 18:27] VITALS: TEMP 97.7
[2017-02-12] MEDS ORDERED: PORTA CATH FLUSH 10 ML IVPUSH ONE (18:27)
[2017-02-12 19:03] VITALS: BP 127/75; PULSE 110
== END 2017-02-12 19:19 | disposition home or self-care (01) ==
LOC: JONCCHEMO 07:07 → J7W 11:03 → JONCCHEMO 19:19
PROVIDERS: ATTEND Internal Medicine Hematology & Oncology
PROC: 3E04305 Introduction of Other Antineoplastic into Central Vein, Percutaneous Approach (ICD-10-PCS; principal; 2017-02-12)
PROC: 3E033GC Introduction of Other Therapeutic Substance into Peripheral Vein, Percutaneous Approach (ICD-10-PCS; 2017-02-12)
PROC: 3E0337Z Introduction of Electrolytic and Water Balance Substance into Peripheral Vein, Percutaneous Approach (ICD-10-PCS; 2017-02-12)
DX: Z51.11 Encounter for antineoplastic chemotherapy (principal); C50.312 Malignant neoplasm of lower-inner quadrant of left female breast; C78.00 Secondary malignant neoplasm of unspecified lung
CPT/HCPCS: 96361; 96367; 96375; 96413; 96417; J1100; J1200; J2469; J7030; J9045; J9201; 36415; 70490-TC; 71250-TC; 78306-TC; 80048; 80053; 80076; 85025; 96360; A9503

== ENCOUNTER 2017-02-15 13:18 | Inpatient (IN) | payer BC ==
[2017-02-15 13:52] VITALS: BMI 25.9
--- NOTE | 2017-02-15 15:01 | PDOC ---
History of Present Illness - General History Source: Patient, Family, Old Records Exam Limitations: No Limitations - History of Present Illness Initial Comments: 02/15/17 17:19 The patient is a 46 year old female, accompanied by family, with a past medical history HTN and metastatic breast cancer (s/p left lumpectomy, Port-A-Cath placement), who presents to the Emergency Department for further evaluation of shortness of breath and weakness since yesterday. The patient notes that her shortness of breath is exacerbated when lying down. The patient was treated for cancer and was in complete in remission 2 years ago. In December her cancer came back (triple negative) and has not been responding to chemotherapy. The patient noted that she recently finished her 4th(of 12) 2 week chemotherapy cycles each by a week of rest. The patient reported associated cough. <Max Hernandez - Last Filed: 02/15/17 17:19> <Hugh Han - Last Filed: 02/15/17 18:00> - General Chief Complaint: Shortness of Breath Stated Complaint: SHORTNESS OF BREATH Time Seen by Provider: 02/15/17 14:15 Past History <Max Hernandez - Last Filed: 02/15/17 17:19> - Past Medical History Anemia: No Asthma: No Cancer: Yes (LT BREAST) Cardiac Disorders: No CVA: No COPD: No CHF: No Dementia: No Diabetes: Yes GI Disorders: No Disorders: No HTN: Yes Hypercholesterolemia: No Liver Disease: No Seizures: No Thyroid Disease: No - Surgical History Abdominal Surgery: No Appendectomy: No Cardiac Surgery: No Cholecystectomy: No Lung Surgery: No Neurologic Surgery: No Orthopedic Surgery: No - Psycho/Social/Smoking Cessation Hx Anxiety: No Suicidal Ideation: No Smoking History: Never smoked Have you smoked in the past 12 months: No Hx Alcohol Use: No Drug/Substance Use Hx: No Substance Use Type: None Hx Substance Use Treatment: No <Hugh Han - Last Filed: 02/15/17 18:00> - Past Medical History Allergies/Adverse Reactions: Allergies Allergy/AdvReac Type Severity Reaction Status Date / Time No Known Drug Allergies Allergy Verified 01/26/17 21:01 Home Medications: Ambulatory Orders Atorvastatin Ca [Lipitor] 10 mg PO HS 01/04/17 Glipizide [Glipizide Xl] 2.5 mg PO BID 01/04/17 Sitagliptin Phosphate [Januvia] 100 mg PO DAILY 01/04/17 Aspirin [ASA -] 81 mg PO DAILY tab.chew 01/05/17 Ondansetron [Zofran *Odt*] 8 mg PO Q12H PRN #60 tab.rapdis 01/05/17 Pantoprazole Sodium [Protonix] 40 mg PO DAILY #30 tablet. 01/05/17 Prochlorperazine Maleate [Compazine -] 10 mg PO Q8H PRN #60 tablet 01/05/17 Amlodipine Besylate [Norvasc -] 10 mg PO DAILY tablet 02/02/17 Cefuroxime Axetil [Ceftin -] 500 mg PO BID #5 tablet 02/02/17 Echocardiogram 1 ea NR ONCE #1 02/02/17 Entecavir [Baraclude -] 0.5 mg PO Q48H #0 tablet 02/02/17 Ferrous Sulfate [Feosol] 325 mg PO BID #60 tablet 02/02/17 Lactobacillus Acidophilus [Bacid -] 1 tab PO DAILY tab 02/02/17 Metoprolol Succinate [Toprol XL -] 25 mg PO DAILY 02/02/17 Review of Systems - Review of Systems Able to Perform ROS?: Yes Comments:: 02/15/17 17:19 GENERAL/CONSTITUTIONAL: No fever or chills. No weakness. HEAD, EYES, EARS, NOSE AND THROAT: No change in vision. No ear pain or discharge. No sore throat. CARDIOVASCULAR: Yes Shortness of breath No chest pain. RESPIRATORY: Yes cough. No wheezing, or hemoptysis. GASTROINTESTINAL: No nausea, vomiting, diarrhea or constipation. GENITOURINARY: No dysuria, frequency, or change in urination. MUSCULOSKELETAL: No joint or muscle swelling or pain. No neck or back pain. SKIN: No rash NEUROLOGIC: No headache, vertigo, loss of consciousness, or change in strength/ sensation. ENDOCRINE: No increased thirst. No abnormal weight change. HEMATOLOGIC/LYMPHATIC: No anemia, easy bleeding, or history of blood clots. ALLERGIC/IMMUNOLOGIC: No hives or skin allergy. <Max Hernandez - Last Filed: 02/15/17 17:19> *Physical Exam - Vital Signs Last Vital Signs Temp Pulse Resp BP Pulse Ox 98.0 F 117 H 22 128/81 93 L 02/15/17 13:49 02/15/17 13:49 02/15/17 13:49 02/15/17 13:49 02/15/17 13:49 - Physical Exam Comments: 02/15/17 17:19 GENERAL: Awake, alert, and fully oriented, in no acute distress HEAD: No signs of trauma EYES: PERRLA, EOMI, sclera anicteric, conjunctiva clear ENT: Auricles normal inspection, hearing grossly normal, nares patent, oropharynx clear without exudates. Moist mucosa NECK: Normal ROM, supple, no lymphadenopathy, JVD, or masses LUNGS: Breath sounds equal, clear to auscultation bilaterally. No wheezes, and no crackles HEART: Regular rate and rhythm, normal S1 and S2, no murmurs, rubs or gallops ABDOMEN: Soft, nontender, normoactive bowel sounds. No guarding, no rebound. No masses EXTREMITIES: Normal range of motion, no edema. No clubbing or cyanosis. No cords, erythema, or tenderness NEUROLOGICAL: Cranial nerves II through XII grossly intact. Normal speech, normal gait SKIN: Warm, Dry, normal turgor, no rashes or lesions noted. <Max Hernandez - Last Filed: 02/15/17 17:19> - Vital Signs Last Vital Signs Temp Pulse Resp BP Pulse Ox 98.0 F 117 H 22 128/81 93 L 02/15/17 13:49 02/15/17 13:49 02/15/17 13:49 02/15/17 13:49 02/15/17 13:49 <Hugh Han - Last Filed: 02/15/17 18:00> Heart Score/ECG Review - ECG Impressions Comment:: 02/15/17 16:28 Sinus tachycardia. Nonspecific T wave abnormality. Abnormal ECG. <Max Hernandez - Last Filed: 02/15/17 17:19> ED Treatment Course - LABORATORY CBC & Chemistry Diagram: 02/15/17 16:02 02/15/17 16:02 - ADDITIONAL ORDERS Additional order review: 02/15/17 16:02 RBC 3.35 L MCV 84.8 MCHC 33.0 RDW 16.7 H MPV 6.9 L Neutrophils % Y Lymphocytes % Y <Max Hernandez - Last Filed: 02/15/17 17:19> - LABORATORY CBC & Chemistry Diagram: 02/15/17 16:02 02/15/17 16:02 <Hugh Han - Last Filed: 02/15/17 18:00> *DC/Admit/Observation/Transfer - Attestations Scribe Attestion: 02/15/17 17:20 Documentation prepared by Max Hernandez, acting as biomedical engineering internship for Hugh Han DO. <Max Hernandez - Last Filed: 02/15/17 17:19> - Discharge Dispostion Admit: Yes - Attestations Physician Attestion: 02/15/17 14:59 I, Dr. Hugh Han, attest that this document has been prepared under my direction and personally reviewed by me in its entirety. I further attest, that it accurately reflects all work, treatment, procedures and medical decision -making performed by me. <Hugh Han - Last Filed: 02/15/17 18:00> Diagnosis at time of Disposition: Dehydration, Air hunger, Hypoxia Breast cancer metastasized to multiple sites Qualifiers: Laterality: left Qualified Code(s): C50.912 - Malignant neoplasm of unspecified site of left female breast - Discharge Dispostion Condition at time of disposition: Improved - Referrals
[2017-02-15 16:13] LABS: MEAN CELL VOLUME 84.8 fl (80-96); MEAN PLT VOLUME 6.9 fl (7.5-11.1); PLATELET COUNT 276 K/MM3 (134-434); RDW 16.7 % (11.6-15.6); WHITE BLOOD COUNT 28.4 K/mm3 (4.0-10.0)
[2017-02-15 16:26] LABS: INR 1.23 (0.82-1.09); PROTHROMBIN TIME (PATIENT) 13.6 SEC (9.98-11.88)
[2017-02-15 16:40] LABS: ALLENS TEST POSITIVE; ART PUNCT SITE RIGHT RADIAL; ARTERIAL BLD GAS O2 SATURATION 96.6 % (90-98.9); ARTERIAL BLOOD GAS BASE EXCESS -0.1 meq/l (-2-2); ARTERIAL BLOOD GAS HCO3 23.3 meq/L (22-26); LPM/O2% 3L; PT. ON O2? YES; TYPE OF O2 NASAL
[2017-02-15 16:43] LABS: ARTERIAL BLOOD GAS pH 7.44 (7.35-7.45)
[2017-02-15 16:44] LABS: METHEMOGLOBIN 1.6 % (0.4-1.5)
[2017-02-15 16:53] LABS: ALBUMIN 3.5 g/dl (3.4-5.0); BILIRUBIN,TOTAL 0.7 mg/dL (0.2-1.0); CALCIUM 8.8 mg/dL (8.5-10.1); COCKROFT - GAULT 55.5305; CREATININE 1.1 mg/dL (0.55-1.02); TOT PROT 6.9 g/dl (6.4-8.2)
--- NOTE | 2017-02-15 18:32 | PN ---
Teaching Attending Note Name of Resident: Tae Caraballo ATTENDING PHYSICIAN STATEMENT I saw and evaluated the patient. I reviewed the resident's note and discussed the case with the resident. I agree with the resident's findings and plan as documented. SUBJECTIVE:46yo F c/o sudden onset of SOB that started this AM. assoc with non- productive cough. no fever, chills, night sweats, N/V/C/D. received chemo 3 days ago and neupogen yesterday OBJECTIVE: Last Vital Signs Temp Pulse Resp BP Pulse Ox 98.1 F 120 H 20 132/88 100 02/15/17 17:58 02/15/17 17:58 02/15/17 17:58 02/15/17 17:58 02/15/17 17:58 General NAD CV S1 S2 RRR no murmur/rub/gallop Lungs poor air entry, no wheezing or rales extremities no pedal edema ASSESSMENT AND PLAN: 46yo F with PMH HTN and metastatic breast ca s/p lumpectomy on chemo presented to the ER and was admitted for further evaluation of their emergent condition 1. Acute hypoxic respiratory failure- concern for progression of malignancy vs PE. will obtain CXR pending on that will consider CTA. give dose of lovenox now to protect as high risk for PE given cancer hx. currently saturating 94% on 3L. recently treated for PNA. completed course of abx at home. luekocytosis likely due to neupogen given yesterday. check influenza. had small peicardial effusion on last admission which echo was repeated and showed stable. pt is hemodynamically stable and shows no sign of tamponade. robitussin AC prn, nebs prn. supplemental oxygen to mantain spO2 >90% 2. HTN- controlled. cont home management 3. metastatic breast ca- likely progressing at this time. chemo per oncology 4. dvtppx- lovenox
--- NOTE | 2017-02-15 19:19 | HP ---
CHIEF COMPLAINT: Shortness of breath PCP: Dr Lowe HISTORY OF PRESENT ILLNESS: 46 year old female with PMH of DM, HTN, HLD, Breast Ca (triple negative, s/p L lumpectomy, port-a-cath) presents to the ED complaining of shortness of breath. The symptoms started this morning and has been worsening. The patient was at rest the dyspnea started. SOB increase when laying flat. Pt get more dyspneic on exertion. Pt also has a non productive cough, fatigue, nausea. Pt deneis fever, chills, dizziness, chest pain, palpitation, leg swelling, leg pain, dysuria, diarrhea, constipation. Patient just received chemotherapy on Saturday, cycle of 12 cycles. ER course was notable for: (1) CBC, CMP CMP, Blood culture, urine culture Recent Travel: none PAST MEDICAL HISTORY: DM, HTN, HLD, Breast Ca, Anemia, PAST SURGICAL HISTORY: s/p L lumpectomy, port-a-cath Social History: Smoking:none Alcohol:none Drugs: none Family History: Grandmother: tongue ca; Aunt: Breast Ca Allergies No Known Drug Allergies Allergy (Verified 01/26/17 21:01) HOME MEDICATIONS: Home Medications Medication Instructions Recorded Atorvastatin Ca [Lipitor] 10 mg PO HS 01/04/17 Glipizide [Glipizide Xl] 2.5 mg PO BID 01/04/17 Sitagliptin Phosphate [Januvia] 100 mg PO DAILY 01/04/17 Aspirin [ASA -] 81 mg PO DAILY tab.chew 01/05/17 Ondansetron [Zofran *Odt*] 8 mg PO Q12H PRN #60 tab.rapdis 01/05/17 Pantoprazole Sodium [Protonix] 40 mg PO DAILY #30 tablet. 01/05/17 Prochlorperazine Maleate 10 mg PO Q8H PRN #60 tablet 01/05/17 [Compazine -] Amlodipine Besylate [Norvasc -] 10 mg PO DAILY tablet 02/02/17 Cefuroxime Axetil [Ceftin -] 500 mg PO BID #5 tablet 02/02/17 Echocardiogram 1 ea NR ONCE #1 02/02/17 Entecavir [Baraclude -] 0.5 mg PO Q48H #0 tablet 03/25/17 Ferrous Sulfate [Feosol] 325 mg PO BID #60 tablet 02/02/17 Lactobacillus Acidophilus [Bacid -] 1 tab PO DAILY tab 02/02/17 Metoprolol Succinate [Toprol XL -] 25 mg PO DAILY 02/02/17 REVIEW OF SYSTEMS CONSTITUTIONAL: generalized weakness, malaise, loss of appetite, Absent: fever, chills, diaphoresis, weight change HEENT: Absent: rhinorrhea, nasal congestion, throat pain, throat swelling, difficulty swallowing, mouth swelling, ear pain, eye pain, visual changes CARDIOVASCULAR: Absent: chest pain, syncope, palpitations, irregular heart rate, lightheadedness , peripheral edema RESPIRATORY: cough, shortness of breath, dyspnea with exertion, orthopnea Absent: wheezing, stridor, hemoptysis GASTROINTESTINAL: Absent: abdominal pain, abdominal distension, nausea, vomiting, diarrhea, constipation, melena, hematochezia GENITOURINARY: Absent: dysuria, frequency, urgency, hesitancy, hematuria, flank pain, genital pain MUSCULOSKELETAL: Absent: myalgia, arthralgia, joint swelling, back pain, neck pain SKIN: Absent: rash, itching, pallor HEMATOLOGIC/IMMUNOLOGIC: Absent: easy bleeding, easy bruising, lymphadenopathy, frequent infections ENDOCRINE: Absent: unexplained weight gain, unexplained weight loss, heat intolerance, cold intolerance NEUROLOGIC: Absent: headache, focal weakness or paresthesias, dizziness, unsteady gait, seizure, mental status changes, bladder or bowel incontinence PSYCHIATRIC: Absent: anxiety, depression, suicidal or homicidal ideation, hallucinations. PHYSICAL EXAMINATION Vital Signs - 24 hr 02/15/17 17:58 Temperature 98.1 F Pulse Rate [ 120 H Right Radial] Respiratory 20 Rate Blood Pressure 132/88 [Right Arm] O2 Sat by Pulse 100 Oximetry (%) GENERAL: Awake, alert, and fully oriented, in no mild distress. HEAD: Normal with no signs of trauma. EYES: Pupils equal, round and reactive to light, extraocular movements intact, sclera anicteric, conjunctiva clear. No lid lag. EARS, NOSE, THROAT: Ears normal, nares patent, oropharynx clear without exudates. Moist mucous membranes. NECK: Normal range of motion, supple without lymphadenopathy, JVD, or masses. LUNGS: Right lung with diminished sound and poor air entry. left lower lung rales. No wheezes. No accessory muscle use. HEART: Regular rate and rhythm, normal S1 and S2 without murmur, rub or gallop. ABDOMEN: Soft, nontender, not distended, normoactive bowel sounds, no guarding, no rebound, no masses. No hepatomegaly or splenomegaly. MUSCULOSKELETAL: Normal range of motion at all joints. No bony deformities or tenderness. No CVA tenderness. UPPER EXTREMITIES: 2+ pulses, warm, well-perfused. No cyanosis. No clubbing. No peripheral edema. LOWER EXTREMITIES: 2+ pulses, warm, well-perfused. No calf tenderness. No peripheral edema. NEUROLOGICAL: Cranial nerves II-XII intact. Normal speech. gait not observed PSYCHIATRIC: Cooperative. Good eye contact. Appropriate mood and affect. SKIN: Warm, dry, normal turgor, no rashes or lesions noted, normal capillary refill. ASSESSMENT/PLAN: 6 year old female with PMH of DM, HTN, HLD, Breast Ca s/p chemotherapy on 02/12/17 , with recent admission for pneumonia presents to the ED complaining of shortness of breath and non productive cough. Acute hypoxic respiratory failure r/o Progression of cancer, PNA, Bronchitis, URI, less likely PE, Cardiac tamponade Per last CT chest on 02/12/17, Pt has b/l mediastinum lymphadenopathy, collapse of right lower and middle lobe, right effusion and pericardial effusion. Subcutaneous nodes Pt has cough, sob, leukocytosis CXR Rapid Influenza A/B Sputum culture Robutussin AC Duoneb PRN Will consider need for antibiotic if new infiltrates on CXR Will consider Need for CTA to r/o PE recent echo with pericardial effusion, no muffled heart sounds, no JVD, no s/s of cardiac tamponade Breast cancer Zofran PRN Consult Hem/Onc Dr Rudd Diabetes BGM AC HS novolog sliding scale hold home meds HTN resume antihypertensives CAD ASA HPLD lipitor Anemia Iron supplement DVT prophylaxis : lovenox 40mg SQ daily FEN Fluid: none Electroytes: no abnormalities Nutrition: Diabetic diet Disposition: admission to [facility] [place] Visit type - Emergency Visit Emergency Visit: Yes ED Registration Date: 02/15/17 Care time: The patient presented to the Emergency Department on the above date and was hospitalized for further evaluation of their emergent condition. - New Patient This patient is new to me today: Yes Date on this admission: 02/15/17 - Critical Care Critical Care patient: No
--- NOTE | 2017-02-15 19:59 | CONSULT ---
Consult - text type - Consultation Consultation Note: The patient is a 46 year old female, accompanied by family, with a past medical history HTN and metastatic breast cancer, triple negative, who presents to the Emergency Department for further evaluation of shortness of breath and weakness since yesterday. The patient notes that her shortness of breath is exacerbated when lying down. The patient was treated for cancer and was in complete in remission 2 years ago. C/o cough/SOB - Past Medical History Cancer: Yes (LT BREAST) Diabetes: Yes HTN: Yes Smoking History: Never smoked Allergies/Adverse Reactions: Allergies Allergy/AdvReac Type Severity Reaction Status Date / Time No Known Drug Allergies Allergy Verified 01/26/17 21:01 Home Medications: Ambulatory Orders Atorvastatin Ca [Lipitor] 10 mg PO HS 01/04/17 Glipizide [Glipizide Xl] 2.5 mg PO BID 01/04/17 Sitagliptin Phosphate [Januvia] 100 mg PO DAILY 01/04/17 Aspirin [ASA -] 81 mg PO DAILY tab.chew 01/05/17 Ondansetron [Zofran *Odt*] 8 mg PO Q12H PRN #60 tab.rapdis 01/05/17 Pantoprazole Sodium [Protonix] 40 mg PO DAILY #30 tablet. 01/05/17 Prochlorperazine Maleate [Compazine -] 10 mg PO Q8H PRN #60 tablet 01/05/17 Amlodipine Besylate [Norvasc -] 10 mg PO DAILY tablet 02/02/17 Cefuroxime Axetil [Ceftin -] 500 mg PO BID #5 tablet 02/02/17 Echocardiogram 1 ea NR ONCE #1 02/02/17 Entecavir [Baraclude -] 0.5 mg PO Q48H #0 tablet 02/02/17 Ferrous Sulfate [Feosol] 325 mg PO BID #60 tablet 02/02/17 Lactobacillus Acidophilus [Bacid -] 1 tab PO DAILY tab 02/02/17 Metoprolol Succinate [Toprol XL -] 25 mg PO DAILY 02/02/17 Current Medications Generic Name Dose Route Start Last Admin Trade Name Freq PRN Reason Stop Dose Admin Albuterol/Ipratropium 1 amp 02/15/17 19:39 Duoneb - NEB Q4H PRN SHORTNESS OF BREATH Amlodipine Besylate 10 mg 02/16/17 10:00 Norvasc - PO DAILY [facility] Aspirin 81 mg 02/16/17 10:00 Asa - PO DAILY [facility] Atorvastatin Calcium 10 mg 02/15/17 22:00 Lipitor - PO HS [facility] Enoxaparin Sodium 40 mg 02/16/17 10:00 Lovenox - SQ DAILY [facility] Entecavir 0.5 mg 02/15/17 18:30 Baraclude - PO Q2D@1000 [facility] Ferrous Sulfate 325 mg 02/15/17 22:00 Feosol - PO BID [facility] Guaifenesin/Codeine Phosphate 5 ml 02/15/17 18:44 Robitussin Ac - PO Q6H PRN COUGH Zoledronic Acid 3.3 mg/ Sodium 104.125 mls @ 100 mls/hr 02/15/17 19:52 Chloride IVPB 02/15/17 20:54 ONCE ONE Insulin Aspart 1 vial 02/15/17 22:00 Novolog Vial Sliding Scale - SQ ACHS [facility] Protocol Lactobacillus Acidophilus 1 tab 02/16/17 10:00 Bacid - PO DAILY [facility] Metoprolol Succinate 25 mg 02/16/17 10:00 Toprol Xl - PO DAILY [facility] Ondansetron HCl 4 mg 02/15/17 18:45 Zofran Injection IVPB Q4H PRN NAUSEA AND/OR VOMITING Pantoprazole Sodium 40 mg 02/16/17 10:00 Protonix - PO DAILY [facility] *Physical Exam Last Vital Signs Temp Pulse Resp BP Pulse Ox 98.8 F 110 H 20 134/90 98 02/15/17 18:30 02/15/17 18:30 02/15/17 18:30 02/15/17 18:30 02/15/17 18:30 HEENT: MICHELLE, EOM Intact Cor: RSR, No murmurs, No gallops Lungs: Clear to P&A Abd: Soft, Normal bowel sounds, No organomegaly Ext:No significant edema Abnormal Lab Results 02/15/17 02/15/17 02/15/17 16:02 16:02 16:02 WBC 28.4 H D RBC 3.35 L Hgb 9.4 L D Hct 28.4 L RDW 16.7 H MPV 6.9 L INR 1.23 H ABG pO2 at Pt Temp ABG O2 Content Methemoglobin Creatinine 1.1 H Random Glucose 133 H D AST 53 H 02/15/17 02/15/17 16:35 16:35 WBC RBC Hgb Hct RDW MPV INR ABG pO2 at Pt Temp 111.0 H ABG O2 Content 11.9 L Methemoglobin 1.6 H Creatinine Random Glucose AST A/P 46 y/o patient with metastatic triple negative breast cance [id number] gem/carbo, comes in with progressive disease, cough, SOB Home O2 eval Will arrange for Home O2 and nebulizer zometa for bone mets will need change in therapy --? moe as out patient
[2017-02-15] MEDS: FERROUS SO4 325 MG TABLET (FP) PO SCH (21:55)
[2017-02-15] MEDS: ATORVASTATIN CA 10 MG TABLET (FP) PO SCH (21:55)
[2017-02-15] MEDS: guaiFENesin/CODEINE 5 ML UNIT-DOSE CUPS PO PRN (21:55)
[2017-02-15] MEDS: INSULIN SLIDING SCALE (NOVOLOG) 1 VIAL SQ SCH (21:56)
[2017-02-15] MEDS ORDERED: ZOLEDRONIC ACID 3.5 MG in SODIUM CHLORIDE 100 ML IVPB ONE (22:00)
[2017-02-15] MEDS ORDERED: PATIENT'S OWN MEDICATION (NON-FORMULARY) (Ferrous Sulfate [Feosol] 325 MG) PO SCH (22:00)
[2017-02-15] MEDS: ALBUTEROL SO4 2.5/IPRATROPIUM 0.5 INH SOL 3 ML VIAL.NEB. NEB PRN (22:03)
[2017-02-15] MEDS: SODIUM CHLORIDE 1,000 ML IV SCH (23:35)
[2017-02-15] MEDS: ENTECAVIR 0.5 MG TABLET PO SCH (23:36)
[2017-02-15 23:47] LABS: URINE APPEARANCE CLEAR; URINE BILIRUBIN NEGATIVE (NEGATIVE); URINE COLOR LTYELLOW; URINE GLUCOSE (UA) NEGATIVE (NEGATIVE); URINE KETONE NEGATIVE (NEGATIVE); URINE LEUK ESTERASE NEGATIVE (NEGATIVE); URINE NITRITE NEGATIVE (NEGATIVE); URINE PROTEIN NEGATIVE (NEGATIVE); URINE UROBILINOGEN NEGATIVE E.U./dl (0.2-1.0)
[2017-02-15 23:52] LABS: URINE BLOOD 1+ (NEGATIVE)
[2017-02-15 23:53] LABS: URINE BACTERIA FEW /hpf (NONE SEEN); URINE MUCUS RARE; URINE RBC 3 /hpf (0-3); URINE WBC 8 /hpf (3-5)
[2017-02-16 00:12] LABS: ANISOCYTOSIS 1+; HYPOCHROMIA 1+; PLATELET COMMENT2 NO CLOTTING DETECTED; PLATELET ESTIMATE ADEQUATE (NORMAL)
[2017-02-16] MEDS: guaiFENesin/CODEINE 5 ML UNIT-DOSE CUPS PO PRN ×3 (06:58→23:07)
[2017-02-16] MEDS: INSULIN SLIDING SCALE (NOVOLOG) 1 VIAL SQ SCH ×4 (07:01→21:45)
[2017-02-16] MEDS: ALBUTEROL SO4 2.5/IPRATROPIUM 0.5 INH SOL 3 ML VIAL.NEB. NEB PRN ×2 (07:42→21:51)
[2017-02-16 08:02] LABS: MCH 27.8 pg (25.7-33.7); MCHC 32.9 g/dl (32.0-36.0); MEAN CELL VOLUME 84.6 fl (80-96); MEAN PLT VOLUME 6.9 fl (7.5-11.1); PLATELET COUNT 289 K/MM3 (134-434); RDW 16.5 % (11.6-15.6); WHITE BLOOD COUNT 19.8 K/mm3 (4.0-10.0)
[2017-02-16] MEDS: ONDANSETRON 4 MG/2 ML VIAL IVPB PRN ×2 (08:12→20:06)
[2017-02-16 08:28] LABS: CALCIUM 8.5 mg/dL (8.5-10.1); COCKROFT - GAULT 67.8725; CREATININE 0.9 mg/dL (0.55-1.02)
--- NOTE | 2017-02-16 10:15 | PN ---
Progress Note (short form) - Note Progress Note: states breathing has improved with oxygen. very dyspnic without the oxygen. denies CP, cough, hemoptysis, N/V/C/D Current Medications Generic Name Dose Route Start Last Admin Trade Name Freq PRN Reason Stop Dose Admin Albuterol/Ipratropium 1 amp 02/15/17 19:39 02/16/17 07:42 Duoneb - NEB 1 amp Q4H PRN Administration SHORTNESS OF BREATH Amlodipine Besylate 10 mg 02/16/17 10:00 Norvasc - PO DAILY [facility] Aspirin 81 mg 02/16/17 10:00 Asa - PO DAILY [facility] Atorvastatin Calcium 10 mg 02/15/17 22:00 02/15/17 21:55 Lipitor - PO 10 mg HS [facility] Administration Enoxaparin Sodium 40 mg 02/16/17 10:00 Lovenox - SQ DAILY [facility] Entecavir 0.5 mg 02/15/17 18:30 02/15/17 23:36 Baraclude - PO 0.5 mg Q2D@1000 [facility] Administration Ferrous Sulfate 325 mg 02/15/17 22:00 02/15/17 21:55 Feosol - PO 325 mg BID [facility] Administration Guaifenesin/Codeine Phosphate 5 ml 02/15/17 18:44 02/16/17 06:58 Robitussin Ac - PO 5 ml Q6H PRN Administration COUGH Sodium Chloride 1,000 mls @ 42 mls/hr 02/15/17 20:15 02/15/17 23:35 Normal Saline - IV 42 mls/hr ASDIR JAIR Administration Insulin Aspart 1 vial 02/15/17 22:00 02/16/17 07:01 Novolog Vial Sliding Scale - SQ Not Given ACHS [facility] Protocol Lactobacillus Acidophilus 1 tab 02/16/17 10:00 Bacid - PO DAILY [facility] Metoprolol Succinate 25 mg 02/16/17 10:00 Toprol Xl - PO DAILY [facility] Ondansetron HCl 4 mg 02/15/17 18:45 02/16/17 08:12 Zofran Injection IVPB 4 mg Q4H PRN Administration NAUSEA AND/OR VOMITING Pantoprazole Sodium 40 mg 02/16/17 10:00 Protonix - PO DAILY [facility] Last Vital Signs Temp Pulse Resp BP Pulse Ox 98.6 F 103 H 18 125/70 97 02/16/17 06:00 02/16/17 06:00 02/16/17 06:00 02/16/17 06:00 02/15/17 22:04 General NAD CV S1 S2 RRR no murmur/rub/gallop Lungs decreased breath sounds R base no wheezing. improved air entry extremities no pedal edema CBCD WBC 19.8 K/mm3 (4.0-10.0) H D 02/16/17 06:00 RBC 3.18 M/mm3 (3.60-5.2) L 02/16/17 06:00 Hgb 8.8 GM/dL (10.7-15.3) L 02/16/17 06:00 Hct 26.9 % (32.4-45.2) L 02/16/17 06:00 MCV 84.6 fl (80-96) 02/16/17 06:00 MCHC 32.9 g/dl (32.0-36.0) 02/16/17 06:00 RDW 16.5 % (11.6-15.6) H 02/16/17 06:00 Plt Count 289 K/MM3 (134-434) 02/16/17 06:00 MPV 6.9 fl (7.5-11.1) L 02/16/17 06:00 CMP Sodium 139 mmol/L (136-145) 02/16/17 06:00 Potassium 3.5 mmol/L (3.5-5.1) 02/16/17 06:00 Chloride 100 mmol/L (98-107) 02/16/17 06:00 Carbon Dioxide 27 mmol/L (21-32) 02/16/17 06:00 Anion Gap 12 (8-16) 02/16/17 06:00 BUN 12 mg/dL (7-18) 02/16/17 06:00 Creatinine 0.9 mg/dL (0.55-1.02) 02/16/17 06:00 Creat Clearance w eGFR 53.01 (>60) 02/15/17 16:02 Calcium 8.5 mg/dL (8.5-10.1) 02/16/17 06:00 Total Bilirubin 0.7 mg/dL (0.2-1.0) D 02/15/17 16:02 AST 53 U/L (15-37) H 02/15/17 16:02 ALT 26 U/L (12-78) 02/15/17 16:02 Alkaline Phosphatase 109 U/L (45-117) 02/15/17 16:02 Total Protein 6.9 g/dl (6.4-8.2) 02/15/17 16:02 Albumin 3.5 g/dl (3.4-5.0) 02/15/17 16:02 ASSESSMENT AND PLAN: 46yo F with PMH HTN and metastatic breast ca s/p lumpectomy on chemo presented to the ER and was admitted for further evaluation of their emergent condition 1. Acute hypoxic respiratory failure- clinically improved. CXR with R pleural effusion and possible infiltrate, will have ID comment on abx should be given in light of immunocompromised state. CTA to r/o PE. lasix 40mg IVP x1 for effusion, will need to consider therapeutic thoracentsis if remains SOB, will need home O2, desaturated to 87% on exertion requiring 2L NC to obtain spO2 >90% . robitussin AC prn, nebs prn. 2. JENNA- dehydration. resolved 3. Normocytic iron def anemia- Hgb stable. baseline Hgb 9.1. no signs of bleeding. will monitor 4. HTN- controlled. cont home management 5. metastatic breast ca- likely progressing at this time. chemo per oncology 6. dvt ppx- lovenox Visit type - Emergency Visit Emergency Visit: Yes ED Registration Date: 02/15/17 Care time: The patient presented to the Emergency Department on the above date and was hospitalized for further evaluation of their emergent condition. - New Patient This patient is new to me today: No - Critical Care Critical Care patient: No - Discharge Referral Referred to [facility] No
[2017-02-16] MEDS: ASPIRIN 81 MG CHEWABLE TABLETS PO SCH (10:36)
[2017-02-16] MEDS: FERROUS SO4 325 MG TABLET (FP) PO SCH ×2 (10:36→21:44)
[2017-02-16] MEDS: ENOXAPARIN NA (PORCINE) 40 MG/0.4 ML DISP.SYRIN SQ SCH (10:36)
[2017-02-16] MEDS: LACTOBACILLUS ACIDOPHILUS 1 EACH TAB (FP) PO SCH (10:36)
[2017-02-16] MEDS: METOPROLOL SUCCINATE 25 MG TAB.SR.24H (FP) PO SCH (10:37)
[2017-02-16] MEDS: PANTOPRAZOLE 40 MG TABLET (FP) PO SCH (10:37)
[2017-02-16] MEDS: amLODIPine BESYLATE 10 MG TABLET (FP) PO SCH (10:37)
[2017-02-16] MEDS ORDERED: FUROSEMIDE 40 MG/4 ML INJECTABLE VIAL IVPB ONE (11:00)
--- NOTE | 2017-02-16 12:11 | PN ---
Progress Note (short form) - Note Progress Note: ID Consult dictated Dyspnea secondary to extensive metastatic disease to lung and RML/RLL atelectasis Agree with repeat CT to R/O PE/ Worsening effusion Pt afebrile; Elevated WBC likey from Neupogen Observe off antibiotics
--- NOTE | 2017-02-16 12:37 | CONS ---
DATE OF CONSULTATION: DATE OF DICTATION: 02/16/2017 HISTORY OF PRESENT ILLNESS: The patient is a 46-year-old female with a history of widely metastatic breast cancer evaluated for leukocytosis. Please refer to my consultation note dated January 27, 2017. The patient presents with worsening dyspnea especially when lying flat. She was noted to have an elevated white blood cell count. Patient has widely metastatic breast CA with lung involvement. She has pulmonary metastases with right middle lobe and right lower lobe collapse likely secondary to atelectasis. In addition, she has a right pleural effusion. She denies any significant cough, sputum production. No complaints of fever or chills. She has no chest pain at the present time. Patient received chemotherapy approximately 4 days ago and had received Neupogen 2 days ago. PAST MEDICAL HISTORY: As above, significant for widely metastatic breast cancer. PAST SURGICAL HISTORY: Status post lumpectomy and port insertion. ALLERGIES: No known allergies. LABORATORY DATA: White count presently 19.8, hematocrit 26.9, platelet count 289. Creatinine 0.9. CT scan of the chest performed 4 days ago showed bilateral hilar and mediastinal adenopathy, superior mediastinal soft tissue mass eroding into the sternum, lung metastases with collapse of the right middle lobe and right lower lobe, right pleural effusion. PHYSICAL EXAMINATION: General: She is awake and alert. She is slightly short of breath at rest on nasal cannula. Vital signs: Temperature 98.6, blood pressure 125/70, pulse 103 and regular, respirations 18 per minute. HEENT: Sclerae anicteric. Port site no erythema or tenderness. Heart: Heart sounds S1, S2. Lungs: Diminished breath sounds bilaterally Abdomen: Soft and nontender. Extremities: Negative for edema. IMPRESSION: Dyspnea secondary to extensive metastatic disease to the lung and right middle lobe/right lower lobe atelectasis. Agree with repeating the CT scan to rule out pulmonary embolism or worsening effusion. Patient is afebrile. White blood cell count elevation likely secondary to Neupogen. Observe off antibiotic therapy. I would consider diagnostic/therapeutic thoracentesis if pleural fluid pleural effusion enlarged. Will follow. Thank you for the kind referral. ANNETTE PRICE M.D. ROBE/[id number]
--- NOTE | 2017-02-16 16:22 | EKG ---
Test Reason : Blood Pressure : / mmHG Vent. Rate : 116 BPM Atrial Rate : 116 BPM P-R Int : 130 ms QRS Dur : 072 ms QT Int : 324 ms P-R-T Axes : 033 027 027 degrees QTc Int : 450 ms SINUS TACHYCARDIA NONSPECIFIC T WAVE ABNORMALITY ABNORMAL ECG WHEN COMPARED WITH ECG OF 26-JAN-2017 21:41, NO SIGNIFICANT CHANGE WAS FOUND Confirmed by BRENNAN PATEL MD ([id number]) on 02/16/2017 4:21:42 PM Referred By: Confirmed By:BRENNAN PATEL MD
[2017-02-16] MEDS: SODIUM CHLORIDE 1,000 ML IV SCH (21:44)
[2017-02-16] MEDS: ATORVASTATIN CA 10 MG TABLET (FP) PO SCH (21:44)
[2017-02-17] MEDS: SODIUM CHLORIDE 1,000 ML IV SCH ×2 (04:01→21:28)
[2017-02-17] MEDS: INSULIN SLIDING SCALE (NOVOLOG) 1 VIAL SQ SCH ×4 (06:06→21:27)
[2017-02-17] MEDS: ONDANSETRON 4 MG/2 ML VIAL IVPB PRN (06:48)
[2017-02-17] MEDS: ALBUTEROL SO4 2.5/IPRATROPIUM 0.5 INH SOL 3 ML VIAL.NEB. NEB PRN ×3 (07:28→22:30)
[2017-02-17 07:45] LABS: BASOPHIL 0.3 % (0-2.0); EOSINOPHIL 0.2 % (0-4.5); MCH 28.6 pg (25.7-33.7); MCHC 33.9 g/dl (32.0-36.0); MEAN CELL VOLUME 84.5 fl (80-96); MEAN PLT VOLUME 6.9 fl (7.5-11.1); NEUTROPHILS 90.6 % (42.8-82.8); PLATELET COUNT 250 K/MM3 (134-434); RDW 16.6 % (11.6-15.6); WHITE BLOOD COUNT 6.3 K/mm3 (4.0-10.0)
[2017-02-17 08:08] LABS: CALCIUM 7.4 mg/dL (8.5-10.1); MAGNESIUM 1.6 mg/dL (1.8-2.4)
[2017-02-17 08:09] LABS: COCKROFT - GAULT 61.081
[2017-02-17] MEDS: ENOXAPARIN NA (PORCINE) 40 MG/0.4 ML DISP.SYRIN SQ SCH (10:33)
[2017-02-17] MEDS: guaiFENesin/CODEINE 5 ML UNIT-DOSE CUPS PO PRN ×2 (10:33→17:47)
[2017-02-17] MEDS ORDERED: PT OWN MED DRAWER 7, Y5N ONE (10:58)
--- NOTE | 2017-02-17 11:16 | PN ---
Progress Note (short form) - Note Progress Note: Hematology/Oncology Folow-up Note S: says her SOB is a little improved since admission. She is able to walk to the bathroom and the nurses station without SOB, She cannot lay down flat however and has to sleep propped up with 2-3 pillows. Last Vital Signs Temp Pulse Resp BP Pulse Ox 99 F 115 H 20 116/65 100 02/17/17 05:45 02/17/17 05:45 02/17/17 05:45 02/17/17 05:45 02/16/17 21:00 Physical exam aoX3, pleasant decreased breath sounds over right lung, left lung sounds wnl, S1S2 wnl soft abdomen No c/c/e CBC, BMP 02/17/17 06:00 02/17/17 06:00 Current Medications Generic Name Dose Route Start Last Admin Trade Name Freq PRN Reason Stop Dose Admin Albuterol/Ipratropium 1 amp 02/15/17 19:39 02/17/17 07:28 Duoneb - NEB 1 amp Q4H PRN Administration SHORTNESS OF BREATH Amlodipine Besylate 10 mg 02/16/17 10:00 02/16/17 10:37 Norvasc - PO 10 mg DAILY [facility] Administration Aspirin 81 mg 02/16/17 10:00 02/16/17 10:36 Asa - PO 81 mg DAILY [facility] Administration Atorvastatin Calcium 10 mg 02/15/17 22:00 02/16/17 21:44 Lipitor - PO 10 mg HS [facility] Administration Enoxaparin Sodium 40 mg 02/16/17 10:00 02/17/17 10:33 Lovenox - SQ 40 mg DAILY [facility] Administration Entecavir 0.5 mg 02/15/17 18:30 02/15/17 23:36 Baraclude - PO 0.5 mg Q2D@1000 [facility] Administration Ferrous Sulfate 325 mg 02/15/17 22:00 02/16/17 21:44 Feosol - PO 325 mg BID [facility] Administration Guaifenesin/Codeine Phosphate 5 ml 02/15/17 18:44 02/17/17 10:33 Robitussin Ac - PO 5 ml Q6H PRN Administration COUGH Sodium Chloride 1,000 mls @ 42 mls/hr 02/15/17 20:15 02/17/17 04:01 Normal Saline - IV 42 mls/hr ASDIR [facility] Administration Insulin Aspart 1 vial 02/15/17 22:00 02/17/17 06:06 Novolog Vial Sliding Scale - SQ Not Given ACHS [facility] Protocol Lactobacillus Acidophilus 1 tab 02/16/17 10:00 02/16/17 10:36 Bacid - PO 1 tab DAILY [facility] Administration Metoprolol Succinate 25 mg 02/16/17 10:00 02/16/17 10:37 Toprol Xl - PO 25 mg DAILY [facility] Administration Ondansetron HCl 4 mg 02/15/17 18:45 02/17/17 06:48 Zofran Injection IVPB 4 mg Q4H PRN Administration NAUSEA AND/OR VOMITING Pantoprazole Sodium 40 mg 02/16/17 10:00 02/16/17 10:37 Protonix - PO 40 mg DAILY [facility] Administration A/P : 46 y/o female with metastatic triple negative breast cancer s/p gem/carbo and now with progressive disease and SOB. -Chest x ray performed during this admission shows persistent right pleural effusion with infiltrate and atelectasis, recommend USG of the lungs to see if effusion can be tapped prior to d/c -she is awaiting home O2 set-up -will follow-up outpatient to discuss and initiate different chemotherapy, possibly navelbine -added metaclopramide prn for persistent nausea despite Zofran
[2017-02-17] MEDS ORDERED: METOPROLOL SUCCINATE 25 MG TAB.SR.24H (FP) PO ONE (11:43)
--- NOTE | 2017-02-17 11:43 | PN ---
Progress Note (short form) - Note Progress Note: dsypnea on exertion. denies CP, cough, hemoptysis, N/V/C/D Current Medications Generic Name Dose Route Start Last Admin Trade Name Freq PRN Reason Stop Dose Admin Albuterol/Ipratropium 1 amp 02/15/17 19:39 02/17/17 07:28 Duoneb - NEB 1 amp Q4H PRN Administration SHORTNESS OF BREATH Amlodipine Besylate 10 mg 02/16/17 10:00 02/16/17 10:37 Norvasc - PO 10 mg DAILY JAIR Administration Aspirin 81 mg 02/16/17 10:00 02/16/17 10:36 Asa - PO 81 mg DAILY JAIR Administration Atorvastatin Calcium 10 mg 02/15/17 22:00 02/16/17 21:44 Lipitor - PO 10 mg HS JAIR Administration Enoxaparin Sodium 40 mg 02/16/17 10:00 02/17/17 10:33 Lovenox - SQ 40 mg DAILY JAIR Administration Entecavir 0.5 mg 02/15/17 18:30 02/15/17 23:36 Baraclude - PO 0.5 mg Q2D@1000 JAIR Administration Ferrous Sulfate 325 mg 02/15/17 22:00 02/16/17 21:44 Feosol - PO 325 mg BID JAIR Administration Guaifenesin/Codeine Phosphate 5 ml 02/15/17 18:44 02/17/17 10:33 Robitussin Ac - PO 5 ml Q6H PRN Administration COUGH Sodium Chloride 1,000 mls @ 42 mls/hr 02/15/17 20:15 02/17/17 04:01 Normal Saline - IV 42 mls/hr ASDIR JAIR Administration Insulin Aspart 1 vial 02/15/17 22:00 02/17/17 06:06 Novolog Vial Sliding Scale - SQ Not Given ACHS JAIR Protocol Lactobacillus Acidophilus 1 tab 02/16/17 10:00 02/16/17 10:36 Bacid - PO 1 tab DAILY JAIR Administration Metoclopramide HCl 10 mg 02/17/17 11:22 Reglan - PO TIDAC PRN NAUSEA AND/OR VOMITING Metoprolol Succinate 25 mg 02/16/17 10:00 02/16/17 10:37 Toprol Xl - PO 25 mg DAILY JAIR Administration Ondansetron HCl 4 mg 02/15/17 18:45 02/17/17 06:48 Zofran Injection IVPB 4 mg Q4H PRN Administration NAUSEA AND/OR VOMITING Pantoprazole Sodium 40 mg 02/16/17 10:00 02/16/17 10:37 Protonix - PO 40 mg DAILY JAIR Administration Last Vital Signs Temp Pulse Resp BP Pulse Ox 99 F 115 H 20 116/65 100 02/17/17 05:45 02/17/17 05:45 02/17/17 05:45 02/17/17 05:45 02/16/17 21:00 General NAD CV S1 S2 RRR no murmur/rub/gallop Lungs decreased breath sounds R base no wheezing. improved air entry extremities no pedal edema CBCD WBC 6.3 K/mm3 (4.0-10.0) D 02/17/17 06:00 RBC 2.97 M/mm3 (3.60-5.2) L 02/17/17 06:00 Hgb 8.5 GM/dL (10.7-15.3) L 02/17/17 06:00 Hct 25.1 % (32.4-45.2) L 02/17/17 06:00 MCV 84.5 fl (80-96) 02/17/17 06:00 MCHC 33.9 g/dl (32.0-36.0) 02/17/17 06:00 RDW 16.6 % (11.6-15.6) H 02/17/17 06:00 Plt Count 250 K/MM3 (134-434) 02/17/17 06:00 MPV 6.9 fl (7.5-11.1) L 02/17/17 06:00 CMP Sodium 136 mmol/L (136-145) 02/17/17 06:00 Potassium 3.3 mmol/L (3.5-5.1) L 02/17/17 06:00 Chloride 95 mmol/L (98-107) L 02/17/17 06:00 Carbon Dioxide 29 mmol/L (21-32) 02/17/17 06:00 Anion Gap 12 (8-16) 02/17/17 06:00 BUN 9 mg/dL (7-18) D 02/17/17 06:00 Creatinine 1.0 mg/dL (0.55-1.02) 02/17/17 06:00 Creat Clearance w eGFR 53.01 (>60) 02/15/17 16:02 Calcium 7.4 mg/dL (8.5-10.1) L 02/17/17 06:00 Total Bilirubin 0.7 mg/dL (0.2-1.0) D 02/15/17 16:02 AST 53 U/L (15-37) H 02/15/17 16:02 ALT 26 U/L (12-78) 02/15/17 16:02 Alkaline Phosphatase 109 U/L (45-117) 02/15/17 16:02 Total Protein 6.9 g/dl (6.4-8.2) 02/15/17 16:02 Albumin 3.5 g/dl (3.4-5.0) 02/15/17 16:02 ASSESSMENT AND PLAN: 46yo F with PMH HTN and metastatic breast ca s/p lumpectomy on chemo presented to the ER and was admitted for further evaluation of their emergent condition 1. Acute hypoxic respiratory failure-Tm 100.4 unable to do CTA as oncology does not want have pt receiving contrast due to contrast induced nephropathy in the past. considered empirically treating however as we have alternate reason for hypoxia will not at this time. saturating 94% at rest. will give additional lasix 40mg IVP. repeat CXR in AM if effusion persists will consider therapeutic thoracentesis. ABx on hold per ID. will require home O2. robitussin AC prn, nebs prn. 2. JENNA- dehydration. resolved 3. Sinus tachycardia- evaluated by cardio last admission and started on metoprolol, will titrate up. 4. Normocytic iron def anemia- Hgb stable. baseline Hgb 9.1. no signs of bleeding. will monitor 5. HTN- controlled. cont home management 6. metastatic breast ca- likely progressing at this time. chemo per oncology 7. dvt ppx- lovenox Visit type - Emergency Visit Emergency Visit: Yes ED Registration Date: 02/15/17 Care time: The patient presented to the Emergency Department on the above date and was hospitalized for further evaluation of their emergent condition. - New Patient This patient is new to me today: No - Critical Care Critical Care patient: No - Discharge Referral Referred to [facility] Med P.C[facility] No
[2017-02-17] MEDS ORDERED: FUROSEMIDE 40 MG/4 ML INJECTABLE VIAL IVPB ONE (11:44)
[2017-02-17] MEDS: METOCLOPRAMIDE HCL 10 MG TABLET (FP) PO PRN ×2 (11:52→17:48)
[2017-02-17] MEDS ORDERED: INSULIN (NOVOLOG) ASPART 100 UNITS/ML 10ML VIAL ONE ×2 (12:02→21:19)
[2017-02-17] MEDS: METOPROLOL SUCCINATE 25 MG TAB.SR.24H (FP) PO SCH (12:07)
[2017-02-17] MEDS: PANTOPRAZOLE 40 MG TABLET (FP) PO SCH (12:08)
[2017-02-17] MEDS: amLODIPine BESYLATE 10 MG TABLET (FP) PO SCH (12:08)
[2017-02-17] MEDS: LACTOBACILLUS ACIDOPHILUS 1 EACH TAB (FP) PO SCH (12:08)
[2017-02-17] MEDS: FERROUS SO4 325 MG TABLET (FP) PO SCH ×2 (12:08→21:27)
[2017-02-17] MEDS: ASPIRIN 81 MG CHEWABLE TABLETS PO SCH (12:08)
[2017-02-17] MEDS: ENTECAVIR 0.5 MG TABLET PO SCH (12:08)
[2017-02-17] MEDS: ATORVASTATIN CA 10 MG TABLET (FP) PO SCH (21:27)
[2017-02-18] MEDS: SODIUM CHLORIDE 1,000 ML IV SCH (03:55)
[2017-02-18] MEDS: guaiFENesin/CODEINE 5 ML UNIT-DOSE CUPS PO PRN ×2 (03:55→23:18)
[2017-02-18] MEDS: INSULIN SLIDING SCALE (NOVOLOG) 1 VIAL SQ SCH ×4 (06:06→22:12)
[2017-02-18] MEDS: ASPIRIN 81 MG CHEWABLE TABLETS PO SCH (10:18)
[2017-02-18] MEDS: FERROUS SO4 325 MG TABLET (FP) PO SCH ×2 (10:18→22:05)
[2017-02-18] MEDS: ENOXAPARIN NA (PORCINE) 40 MG/0.4 ML DISP.SYRIN SQ SCH (10:18)
[2017-02-18] MEDS: amLODIPine BESYLATE 10 MG TABLET (FP) PO SCH (10:18)
[2017-02-18] MEDS: PANTOPRAZOLE 40 MG TABLET (FP) PO SCH (10:18)
[2017-02-18] MEDS: LACTOBACILLUS ACIDOPHILUS 1 EACH TAB (FP) PO SCH (10:18)
[2017-02-18] MEDS: METOPROLOL SUCCINATE 50 MG TAB.SR.24H (FP) PO SCH (10:18)
--- NOTE | 2017-02-18 11:26 | PN ---
Physical Exam: SUBJECTIVE: Patient seen and examined Pt si awake, alert and oriented Pt is stable on 2 liter nasal cannula no s/s of acute distress NO cough no fever or chills Mild nausea but no vomiting OBJECTIVE: Vital Signs Period Temp Pulse Resp BP Sys/Winter Pulse Ox Last 24 Hr 98.4 F-99.9 F 107-127 18-20 111-127/60-76 100 GENERAL: Awake, alert, and fully oriented, in no mild distress. HEAD: Normal with no signs of trauma.. LUNGS: Right lung with diminished sound and poor air entry. No wheezes. No accessory muscle use. HEART: Regular rate and rhythm, normal S1 and S2 without murmur, rub or gallop. ABDOMEN: Soft, nontender, not distended, normoactive bowel sounds, no guarding, no rebound, no masses. No hepatomegaly or splenomegaly. MUSCULOSKELETAL: Normal range of motion at all joints. No bony deformities or tenderness. No CVA tenderness. UPPER EXTREMITIES: 2+ pulses, warm, well-perfused. No cyanosis. No clubbing. No peripheral edema. LOWER EXTREMITIES: 2+ pulses, warm, well-perfused. No calf tenderness. No peripheral edema. NEUROLOGICAL: Normal speech. walk slowly otherwise normal gait PSYCHIATRIC: Cooperative. Good eye contact. Appropriate mood and affect. SKIN: Warm, dry, normal turgor, no rashes or lesions noted, normal capillary refill. Laboratory Results - last 24 hr 02/17/17 02/17/17 02/17/17 11:22 17:26 21:24 POC Glucometer 184 175 143 02/18/17 06:04 POC Glucometer 121 Active Medications Generic Name Dose Route Start Last Admin Trade Name Freq PRN Reason Stop Dose Admin Albuterol/Ipratropium 1 amp 02/15/17 19:39 02/17/17 22:30 Duoneb - NEB 1 amp Q4H PRN Administration SHORTNESS OF BREATH Amlodipine Besylate 10 mg 02/16/17 10:00 02/18/17 10:18 Norvasc - PO 10 mg DAILY JAIR Administration Aspirin 81 mg 02/16/17 10:00 02/18/17 10:18 Asa - PO 81 mg DAILY JAIR Administration Atorvastatin Calcium 10 mg 02/15/17 22:00 02/17/17 21:27 Lipitor - PO 10 mg HS JAIR Administration Enoxaparin Sodium 40 mg 02/16/17 10:00 02/18/17 10:18 Lovenox - SQ 40 mg DAILY JAIR Administration Entecavir 0.5 mg 02/15/17 18:30 02/17/17 12:08 Baraclude - PO 0.5 mg Q2D@1000 JAIR Administration Ferrous Sulfate 325 mg 02/15/17 22:00 02/18/17 10:18 Feosol - PO 325 mg BID JAIR Administration Guaifenesin/Codeine Phosphate 5 ml 02/15/17 18:44 02/18/17 03:55 Robitussin Ac - PO 5 ml Q6H PRN Administration COUGH Sodium Chloride 1,000 mls @ 42 mls/hr 02/15/17 20:15 02/18/17 03:55 Normal Saline - IV 42 mls/hr ASDIR JAIR Administration Insulin Aspart 1 vial 02/15/17 22:00 02/18/17 06:06 Novolog Vial Sliding Scale - SQ Not Given ACHS [facility] Protocol Lactobacillus Acidophilus 1 tab 02/16/17 10:00 02/18/17 10:18 Bacid - PO 1 tab DAILY JAIR Administration Magnesium Sulfate 2 gm 02/18/17 11:25 Magnesium Sulfate IVPB 02/18/17 11:26 ONCE ONE Metoclopramide HCl 10 mg 02/17/17 11:22 02/17/17 17:48 Reglan - PO 10 mg TIDAC PRN Administration NAUSEA AND/OR VOMITING Metoprolol Succinate 50 mg 02/17/17 11:44 02/18/17 10:18 Toprol Xl - PO 50 mg DAILY JAIR Administration Ondansetron HCl 4 mg 02/15/17 18:45 02/17/17 06:48 Zofran Injection IVPB 4 mg Q4H PRN Administration NAUSEA AND/OR VOMITING Pantoprazole Sodium 40 mg 02/16/17 10:00 02/18/17 10:18 Protonix - PO 40 mg DAILY JAIR Administration Potassium Chloride 40 meq 02/18/17 11:25 Potassium Chloride Oral Liquid PO 02/18/17 11:26 ONCE ONE ASSESSMENT/PLAN:
[2017-02-18] MEDS ORDERED: POTASSIUM CHLORIDE ORAL LIQUID 20 MEQ/15 ML PO ONE (11:40)
[2017-02-18] MEDS ORDERED: MAGNESIUM SULF 50% (8.12 MEQ/2 ML-1 GM VIAL) IVPB ONE (12:00)
--- NOTE | 2017-02-18 12:23 | PN ---
Teaching Attending Note Name of Resident: Tae Caraballo ATTENDING PHYSICIAN STATEMENT I saw and evaluated the patient. I reviewed the resident's note and discussed the case with the resident. I agree with the resident's findings and plan as documented. SUBJECTIVE:currently asymptomatic. states dyspnea has improved while wearing oxygen.denies CP,SOB,fever, chills, cough OBJECTIVE: Last Vital Signs Temp Pulse Resp BP Pulse Ox 98.6 F 108 H 20 127/76 100 02/18/17 05:52 02/18/17 05:52 02/18/17 02:02 02/18/17 05:52 02/17/17 21:00 General NAD Lungs decreased breath sounds R base. improved airation in the apices ASSESSMENT AND PLAN: 46yo F with PMH HTN and metastatic breast ca s/p lumpectomy on chemo presented to the ER and was admitted for further evaluation of their emergent condition 1. Acute hypoxic respiratory failure-afebrile. repeat CXR shows persistent R pleural effusion, no infiltrate. pt would likely benefit from therapeutic thoracentesis. however given pt improved clinically appearance will have thoracenetesis done as outpatient. notified Dr Prerin. instruct pt to hold aspirin and call IR department to schedule for saturday (needs 5 days off asa). will set up home O2. 2. JENNA- dehydration. resolved 3. Sinus tachycardia- improved. on metoprolol 75mg. 4. Normocytic iron def anemia- Hgb stable. baseline Hgb 9.1. no signs of bleeding. will monitor 5. HTN- controlled. cont home management 6. metastatic breast ca- likely progressing at this time. chemo per oncology 7. dvt ppx- lovenox 8. d/c home on home O2. will need to f/u with IR for therapeutic thoracentesis.
--- NOTE | 2017-02-18 14:28 | DS ---
[id number]YQGDqIFGVQSXwP7PeUSHTHBVQINKGSE7JZ QFWjBFUKe0mUOIJyRsXG NPCbLOiXRBGsUdqdoeRYWiDM2tLqNtsNRgxBA3NSKvNoskJbzP2SxLUqzbhJg7xXi5HriGA9/ RUe5SZD7lZZ64MTPeIzLnVTCiINApzYSEkD1D3RvC5RlDpKBGuWSC4TVH9BwSPhk4HKQgTKk/ mTa8JQQHLJGcKLEAYa2L0b4ZhBWUDkNvslX4Gq0qBW6trNEZ3ocUMxKP4GPBPSUYcrsqUtLNYWuoXGYB ByDtkepuiauAUHMBaMzxrIDxN4b /ZPBhQTiSR6iL4U24nE/JtSLlwaVVQOsVSdJxcdFwGz3iTWHPeSsgmKBcJjMkKLXLrUZDqg0/ 0A6mKU74X8lVChz2Qy5ACy0fg+KHSbMX8td7I6HIMe2jPMAS0tOHSQ8X7m+eR7/ E43JR65aYMrjwPINM8fFRk2QH5ZXlA8UKUXIGllvFmALXIQmCD6sMqPTN4WqzmZ2AjQRr7FGeiksiYtQ aoqjoe7jMHJ1dylNBjNuRMyCo /NjY392hhadXZbeluKgWqM9ZuhIDAU4nmrxg5LXLxekzzzDobsTQUrT2O1W1JnjOuIzlc8qwP6FIxGe+ Dc1w2TxF7MZHVL6rw95fDMTBmR706tabrBYJFj3rhLf/ ZurjdatlVXj7HsI6Lh8821gsAxxWdSU88iAufIeelEJ2lAjGEH55ADc82zttUB5uOpf+WIeJQ/ BGqmBSoPOyR/ZMjQX04jb9IcJnd0mr5YX+8Pe5SvyXIrpbPKwK/ a9zOLZ16susgPxqrKvGQcgWvCY4lcy6aa8VP8HwCleyOCAJxAj208iuuGZyuA/Lstjw+ 3iV9KqFS8fHlBjV/QAuZhDiGbPDDxnZCF9t3cMVY403rRr+2B5+L5HUGetDQTsSj/ yEv93dNs1gjZh7OUbxgOKogV6uwF+hyhIOT7t+D4X66ibqeNCE7JP5q8qbwCkWBc+ iWeN0vHvQO6VgqkRr/CbgOQdZAi/g5wawYq6Vun34JmLF3Zu1zAdsaAxtdmMcAPZwln7/ OrxMJMJchRSCT/49tG8Yvp0acvDA9IIEqecab6yiHZYmzOVPkmPAVCgjHzCYroWbaxuJQ6n/26BEo/ oy1Up1KrQfrwz2wuyu2O/hMSt/NRe4eCFFTSMsZZiScUoSV 02/19/17 19:00 Acute drop in Hgb Hgb 7.4 Transfuse one unit PRBC tonight Disposition: Discharge in morning Addendum entered and electronically signed by Tae Caraballo RES 02/19/17 11: 51: Pt failed her Pre and Post yesterday, therefore pt requires home O2. Pt was discharged yesterday but was unable to leave because they were unable to deliver her home oxygen. NO s/s of acute distress this morning Vital Signs Period Temp Pulse Resp BP Sys/Winter Pulse Ox Last 24 Hr 98.1 F-99.5 F 104-120 20-20 105-121/60-79 93-99 CBC, BMP 02/19/17 08:30 02/19/17 08:30 Drop in Hgb, WBC and Platelets Likely due to hemodilution Patient has been receiving IV fluid throughout the admission Stop Iv fluid Repeat CBC Hypokalemia Kcl 2.9 Will order 40Meq IV KCl once repeat BMP Hypocalcemia Ca 6.7, Albumin 3 Calcium corrected 7.5 1gm calcium gluconate IV repeat BMP, Mg Disposition: DC home in PM once electrolytes has been repleted . Original Note: Physical Exam: SUBJECTIVE: Patient seen and examined Pt is doing well No s/s of acute distress Pt is on room air with shortness of breath Pt is still weak but much better than when she was admitted OBJECTIVE: Vital Signs Period Temp Pulse Resp BP Sys/Winter Pulse Ox Last 24 Hr 98.2 F-99.9 F 107-127 18-20 113-127/71-76 100 PHYSICAL EXAM GENERAL: Awake, alert, and fully oriented, in no mild distress. HEAD: Normal with no signs of trauma.. LUNGS: Right mid and lower lung with diminished sound and poor air entry. No wheezes. No accessory muscle use. HEART: Regular rate and rhythm, normal S1 and S2 without murmur, rub or gallop. ABDOMEN: Soft, nontender, not distended, normoactive bowel sounds, no guarding, no rebound, no masses. No hepatomegaly or splenomegaly. MUSCULOSKELETAL: Normal range of motion at all joints. No bony deformities or tenderness. No CVA tenderness. UPPER EXTREMITIES: 2+ pulses, warm, well-perfused. No cyanosis. No clubbing. No peripheral edema. LOWER EXTREMITIES: 2+ pulses, warm, well-perfused. No calf tenderness. No peripheral edema. NEUROLOGICAL: Normal speech. walk slowly otherwise normal gait PSYCHIATRIC: Cooperative. Good eye contact. Appropriate mood and affect. SKIN: Warm, dry, normal turgor, no rashes or lesions noted, normal capillary refill. LABS Laboratory Results - last 24 hr 02/17/17 02/17/17 02/18/17 17:26 21:24 06:04 POC Glucometer 175 143 121 02/18/17 11:34 POC Glucometer 250 CBC, BMP 02/17/17 06:00 02/17/17 06:00 HOSPITAL COURSE: Date of Admission:02/15/17 46 year old female with PMH of DM, HTN, HLD, Breast Ca (triple negative, s/p L lumpectomy, port-a-cath) presents to the ED complaining of shortness of breath. The symptoms started this morning and has been worsening. The patient was at rest the dyspnea started. SOB increase when laying flat. Pt get more dyspneic on exertion. Pt also has a non productive cough, fatigue, nausea. Pt deneis fever, chills, dizziness, chest pain, palpitation, leg swelling, leg pain, dysuria, diarrhea, constipation. Patient just received chemotherapy on Saturday, 4th cycle of 12 cycles. ER course was notable for: (1) CBC, CMP, Blood culture, urine culture Pt is a 46 year old female with PMH as above and recent admission for pneumonia last month who received chemotherapy on 02/12/17 (with neupogen) who presented to the ED with Shortness of breath and on productive cough, leukocytosis. CXR was ordered which showed right pleural effusion. Pt was treated with oxygen, bronchodilators, antitussives, diuretics. Pt improved clinically but upon upon repeat pleural effusion persisted. Thoracentesis was considered but due to the patient being stable in no acute distress and pt being on aspirin, Dr Smith elected to do the procedure as outpatient instead. Pt is to call Dr Smith to set up appointment for thoracentesis for Saturday. Pt is to hold aspirin in the meantime. Pt will be discharged with a nebulizer and a wheelchair. Pt will did well on the Pre and Post with O2 sat above 92% at rest and ambulation on room, Pt walked 150ft, therefore does not qualify for home oxygen. However patient still has medical necessity for home oxygen. Patient has been tachycardia throughout the admission, pt metoprolol was increased from 25mg to 50mg Po daily. Blood pressure has been controlled throughout the admission, so no changes. Pt was hypokalemic potassium IV was given to replete potassium. Patient will need outpatient potassium cmp from her PCP/Hem/Onc. Pt blood sugar has been controlled during this admission. Pt is to resume Januvia and Glipizide upon discharge. PT has h/o CAD but will hold the aspirin until thoracentesis on 02/25/2017. Pt is to resume Lipitor. Pt has metastatic breast cancer and is to follow up with Dr Rudd within 5 days. Pt has microcytic anemia and is on iron supplement Feosol 325 mg PO BID. Pt is follow up with primary care physician Dr Lowe within 1 week. Date of Discharge: 02/18/17 Minutes to complete discharge: 45 <Tae Caraballo - Last Filed: 02/18/17 17:20> Physical Exam: pt re-assessed for home O2 and qualified on exertion. spO2 86% requiring 2L NC to mantain spO2 >90%. discharge delayed till following day so that home o2 could be set up for pt. family aware and agree with plan <AnitaMeggan - Last Filed: 02/24/17 09:37> Discharge Summary Reason For Visit: CARCINOMA OF BREAST METASTATIC TO MULTIPLE SITES Current Active Problems Air hunger (Acute) Dehydration (Acute) Hypoxia (Acute) Breast cancer metastasized to multiple sites (Chronic) - Home Medications Comprehensive Discharge Medication List: Ambulatory Orders Atorvastatin Ca [Lipitor] 10 mg PO HS 01/04/17 Glipizide [Glipizide Xl] 2.5 mg PO BID 01/04/17 Sitagliptin Phosphate [Januvia] 100 mg PO DAILY 01/04/17 Aspirin [ASA -] 81 mg PO DAILY tab.chew 01/05/17 Ondansetron [Zofran *Odt*] 8 mg PO Q12H PRN #60 tab.rapdis 01/05/17 Pantoprazole Sodium [Protonix] 40 mg PO DAILY #30 tablet.dr 01/05/17 Prochlorperazine Maleate [Compazine -] 10 mg PO Q8H PRN #60 tablet 01/05/17 Amlodipine Besylate [Norvasc -] 10 mg PO DAILY tablet 02/02/17 Cefuroxime Axetil [Ceftin -] 500 mg PO BID #5 tablet 02/02/17 Echocardiogram 1 ea NR ONCE #1 02/02/17 Entecavir [Baraclude -] 0.5 mg PO Q48H #0 tablet 02/02/17 Ferrous Sulfate [Feosol] 325 mg PO BID #60 tablet 02/02/17 Lactobacillus Acidophilus [Bacid -] 1 tab PO DAILY tab 02/02/17 Metoprolol Succinate [Toprol XL -] 25 mg PO DAILY 02/02/17 <Tae Caraballo - Last Filed: 02/18/17 17:20> Current Active Problems Air hunger (Acute) Dehydration (Acute) Hypoxia (Acute) Breast cancer metastasized to multiple sites (Chronic) - Home Medications Comprehensive Discharge Medication List: Ambulatory Orders Atorvastatin Ca [Lipitor] 10 mg PO HS 01/04/17 Glipizide [Glipizide Xl] 2.5 mg PO BID 01/04/17 Sitagliptin Phosphate [Januvia] 100 mg PO DAILY 01/04/17 Ondansetron [Zofran *Odt*] 8 mg PO Q12H PRN #60 tab.rapdis 01/05/17 Pantoprazole Sodium [Protonix] 40 mg PO DAILY #30 tablet. 01/05/17 Prochlorperazine Maleate [Compazine -] 10 mg PO Q8H PRN #60 tablet 01/05/17 Amlodipine Besylate [Norvasc -] 10 mg PO DAILY tablet 02/02/17 Entecavir [Baraclude -] 0.5 mg PO Q48H #0 tablet 02/02/17 Ferrous Sulfate [Feosol] 325 mg PO BID #60 tablet 02/02/17 Lactobacillus Acidophilus [Bacid -] 1 tab PO DAILY tab 02/02/17 Albuterol 2.5/Ipratropium 0.5 [Duoneb -] 1 amp NEB Q4H PRN #32 amp MDD 4 Docusate Sodium [Colace -] 100 mg PO BID #60 capsule 02/18/17 Guaifenesin AC [Robitussin AC -] 5 ml PO Q6H PRN #1 bottle MDD 4 02/18/17 Metoprolol Succinate [Toprol XL -] 50 mg PO DAILY #30 tab 02/18/17 Calcium Carbonate - 650 mg PO BID #28 tablet 02/19/17 Potassium Chloride [K-Dur -] 40 meq PO DAILY #28 tablet.er 02/19/17 <Meggan Howard - Last Filed: 02/24/17 09:37> Condition: Improved - Instructions Diet, Activity, Other Instructions: Discharge Home Resume Home diet resume home medication Start Colace Stool Softner 1 tablet twice per day Start taking calcium carbonate 1 table twice per day Start taking Potassium 1 tablet daily Will need to check blood as outpatient at your primary care physician office or at your strain technician/oncologist physician Follow up with Dr Rudd within 3-5 days Follow up with Primary care Physician within 1 week Follow up with Dr Smith On Saturday February 25, 2017 for a thoracentesis. Hold Aspirin prior to the throacentesis, may resume after the procedure You will discharge with a prescription for nebulizer, a prescription for a wheelchair and a prescription for oxygen which you can use as needed for shortness of breath and to keep you oxygen saturation at 90% or above. Referrals: Aaliyah Lowe MD [Primary Care Provider] - El Capellan MD [Staff Physician] - Blaire Diggs MD [Staff Physician] - Disposition: HOME This patient is new to me today: Yes Date on this admission: 02/18/17 Emergency Visit: Yes ED Registration Date: 02/15/17 Care time: The patient presented to the Emergency Department on the above date and was hospitalized for further evaluation of their emergent condition. Critical Care patient: No - Discharge Referral Referred to [facility] Med [facility] No <Tae Caraballo - Last Filed: 02/18/17 17:20>
[2017-02-18] MEDS: KCL 10 MEQ IVPB 100 ML IVPB SCH ×2 (15:44→16:56)
[2017-02-18] MEDS: ALBUTEROL SO4 2.5/IPRATROPIUM 0.5 INH SOL 3 ML VIAL.NEB. NEB PRN ×2 (19:39→23:28)
[2017-02-18] MEDS: ATORVASTATIN CA 10 MG TABLET (FP) PO SCH (22:05)
--- NOTE | 2017-02-18 22:11 | PN ---
Progress Note (short form) - Note Progress Note: PAtient seen and examined c/o fatigue/weakness AFVSS Cor: RSR, No murmurs, No gallops Lungs: decreased rt. lung Abd: Soft, Normal bowel sounds, No organomegaly Ext:No significant edema Skin: No rashes, Integument intact Labs reviewed Meds reviewed A/P 46 y/o patient with metastatic breast cancer -/-/- progressive disease on gem/carbo admitted with shortness of breath discussed with IR--will need to be off ASA prior to thoracentesis. stop asa will need home O2 discussed with primary team
[2017-02-19] MEDS: INSULIN SLIDING SCALE (NOVOLOG) 1 VIAL SQ SCH ×4 (06:11→22:18)
[2017-02-19] MEDS: guaiFENesin/CODEINE 5 ML UNIT-DOSE CUPS PO PRN ×3 (06:11→23:41)
[2017-02-19] MEDS ORDERED: INSULIN (NOVOLOG) ASPART 100 UNITS/ML 10ML VIAL ONE ×2 (06:29→18:56)
[2017-02-19] MEDS: ALBUTEROL SO4 2.5/IPRATROPIUM 0.5 INH SOL 3 ML VIAL.NEB. NEB PRN ×2 (07:09→11:16)
[2017-02-19] MEDS ORDERED: ZOLEDRONIC ACID 4 MG in SODIUM CHLORIDE 100 ML IVPB ONE (08:00)
[2017-02-19 09:11] LABS: MCH 27.8 pg (25.7-33.7); MCHC 33.4 g/dl (32.0-36.0); MEAN CELL VOLUME 83.3 fl (80-96); MEAN PLT VOLUME 6.2 fl (7.5-11.1); PLATELET COUNT 187 K/MM3 (134-434); RDW 15.8 % (11.6-15.6); WHITE BLOOD COUNT 2.4 K/mm3 (4.0-10.0)
[2017-02-19] MEDS ORDERED: PT OWN MED DRAWER 7, Y5N ONE (09:28)
[2017-02-19] MEDS: METOPROLOL SUCCINATE 50 MG TAB.SR.24H (FP) PO SCH (09:30)
[2017-02-19] MEDS: ENTECAVIR 0.5 MG TABLET PO SCH (09:30)
[2017-02-19] MEDS: amLODIPine BESYLATE 10 MG TABLET (FP) PO SCH (09:31)
[2017-02-19] MEDS: FERROUS SO4 325 MG TABLET (FP) PO SCH ×2 (09:31→22:17)
[2017-02-19] MEDS: ENOXAPARIN NA (PORCINE) 40 MG/0.4 ML DISP.SYRIN SQ SCH (09:31)
[2017-02-19] MEDS: LACTOBACILLUS ACIDOPHILUS 1 EACH TAB (FP) PO SCH (09:31)
[2017-02-19] MEDS: PANTOPRAZOLE 40 MG TABLET (FP) PO SCH (09:31)
[2017-02-19 09:32] LABS: ANION GAP 14 (8-16); BILIRUBIN,TOTAL 0.8 mg/dL (0.2-1.0); CO2 25 mmol/L (21-32); COCKROFT - GAULT 76.3555; CREATININE 0.8 mg/dL (0.55-1.02); GLUCOSE,RANDOM 148 mg/dL (74-106); SGOT/AST 75 U/L (15-37); SGPT/ALT 32 U/L (12-78); TOT PROT 6.4 g/dl (6.4-8.2)
[2017-02-19 09:33] LABS: ALK PHOS 85 U/L (45-117)
[2017-02-19 10:43] LABS: METAMYELOCYTE 1 % (0-2); PLATELET ESTIMATE ADEQUATE (NORMAL)
[2017-02-19 11:07] LABS: CALCIUM 6.7 mg/dL (8.5-10.1)
[2017-02-19] MEDS ORDERED: CALCIUM GLUCONATE 10% - 1,000 MG/10 ML VIAL IVPB ONE (12:00)
[2017-02-19] MEDS: KCL 10 MEQ IVPB 100 ML IVPB SCH ×6 (12:34→23:40)
[2017-02-19 13:02] LABS: MAGNESIUM 2.4 mg/dL (1.8-2.4)
--- NOTE | 2017-02-19 16:05 | PN ---
Teaching Attending Note Name of Resident: Tae Caraballo ATTENDING PHYSICIAN STATEMENT I saw and evaluated the patient. I reviewed the resident's note and discussed the case with the resident. I agree with the resident's findings and plan as documented. SUBJECTIVE: OBJECTIVE: Last Vital Signs Temp Pulse Resp BP Pulse Ox 97.5 F L 113 H 20 117/79 99 02/19/17 15:29 02/19/17 15:29 02/19/17 15:29 02/19/17 15:29 02/19/17 09:00 ASSESSMENT AND PLAN: 46yo F with PMH HTN and metastatic breast ca s/p lumpectomy on chemo presented to the ER and was admitted for further evaluation of their emergent condition 1. Acute hypoxic respiratory failure-afebrile. repeat CXR shows persistent R pleural effusion, no infiltrate. pt would likely benefit from therapeutic thoracentesis. however given pt improved clinically appearance will have thoracenetesis done as outpatient. notified Dr Perrin. instruct pt to hold aspirin and call IR department to schedule for saturday (needs 5 days off asa). will set up home O2. 2. JENNA- dehydration. resolved 3. Sinus tachycardia- improved. on metoprolol 75mg. 4. Normocytic iron def anemia- Hgb stable. baseline Hgb 9.1. no signs of bleeding. will monitor 5. HTN- controlled. cont home management 6. metastatic breast ca- likely progressing at this time. chemo per oncology 7. dvt ppx- lovenox 8. d/c home on home O2. will need to f/u with IR for therapeutic thoracentesis.
[2017-02-19 19:33] LABS: MCH 27.8 pg (25.7-33.7); MCHC 33.1 g/dl (32.0-36.0); MEAN CELL VOLUME 83.9 fl (80-96); MEAN PLT VOLUME 6.2 fl (7.5-11.1); PLATELET COUNT 183 K/MM3 (134-434); WHITE BLOOD COUNT 3.5 K/mm3 (4.0-10.0)
--- NOTE | 2017-02-19 19:44 | PN ---
Progress Note (short form) - Note Progress Note: Patient seen and examined Counts seem to be declining Will give granix Patient is anxious for home discharge and will follow up as out patient Last Vital Signs Temp Pulse Resp BP Pulse Ox 97.3 F L 108 H 20 112/74 99 02/19/17 18:00 02/19/17 18:00 02/19/17 18:00 02/19/17 18:00 02/19/17 09:00 HEENT: MICHELLE, EOM Intact Oropharynx: No thrush, No mucositis Cor: RSR, No murmurs, No gallops Lungs: decreased breath sounds bilaterally Abd: Soft, Normal bowel sounds, No organomegaly Ext:No significant edema Skin: No rashes, Integument intact Current Medications Generic Name Dose Route Start Last Admin Trade Name Freq PRN Reason Stop Dose Admin Albuterol/Ipratropium 1 amp 02/15/17 19:39 02/19/17 11:16 Duoneb - NEB 1 amp Q4H PRN Administration SHORTNESS OF BREATH Amlodipine Besylate 10 mg 02/16/17 10:00 02/19/17 09:31 Norvasc - PO 10 mg DAILY JAIR Administration Atorvastatin Calcium 10 mg 02/15/17 22:00 02/18/17 22:05 Lipitor - PO 10 mg HS JAIR Administration Enoxaparin Sodium 40 mg 02/16/17 10:00 02/19/17 09:31 Lovenox - SQ 40 mg DAILY JAIR Administration Entecavir 0.5 mg 02/15/17 18:30 02/19/17 09:30 Baraclude - PO 0.5 mg Q2D@1000 JAIR Administration Ferrous Sulfate 325 mg 02/15/17 22:00 02/19/17 09:31 Feosol - PO 325 mg BID JAIR Administration Guaifenesin/Codeine Phosphate 5 ml 02/18/17 22:34 02/19/17 15:43 Robitussin Ac - PO 5 ml Q6H PRN Administration Insulin Aspart 1 vial 02/15/17 22:00 02/19/17 18:35 Novolog Vial Sliding Scale - SQ 2 unit ACHS JAIR Administration Protocol Lactobacillus Acidophilus 1 tab 02/16/17 10:00 02/19/17 09:31 Bacid - PO 1 tab DAILY JAIR Administration Metoclopramide HCl 10 mg 02/17/17 11:22 02/17/17 17:48 Reglan - PO 10 mg TIDAC PRN Administration NAUSEA AND/OR VOMITING Metoprolol Succinate 50 mg 02/17/17 11:44 02/19/17 09:30 Toprol Xl - PO 50 mg DAILY JAIR Administration Ondansetron HCl 4 mg 02/15/17 18:45 02/17/17 06:48 Zofran Injection IVPB 4 mg Q4H PRN Administration NAUSEA AND/OR VOMITING Pantoprazole Sodium 40 mg 02/16/17 10:00 02/19/17 09:31 Protonix - PO 40 mg DAILY JAIR Administration Senna 2 tab 02/19/17 22:00 Senna - PO HS JAIR Impression: Triple negative breast ca S/p chemotherapy with carboplatinum and gemzar. Will need monitoring of CBC and out patient thoracentesis Will give granix prior to discharge.
[2017-02-19] MEDS ORDERED: TBO-FILGRASTIM 480 MCG/0.8 ML DISP.SYRIN SQ ONE (20:00)
[2017-02-19 20:02] LABS: CALCIUM 7.1 mg/dL (8.5-10.1); COCKROFT - GAULT 76.3555; CREATININE 0.8 mg/dL (0.55-1.02)
[2017-02-19] MEDS ORDERED: SENNOSIDES 8.6MG TABLET (FP) PO SCH (22:00)
[2017-02-19] MEDS: ATORVASTATIN CA 10 MG TABLET (FP) PO SCH (22:17)
[2017-02-20] MEDS: INSULIN SLIDING SCALE (NOVOLOG) 1 VIAL SQ SCH ×2 (06:33→12:08)
[2017-02-20] MEDS: ALBUTEROL SO4 2.5/IPRATROPIUM 0.5 INH SOL 3 ML VIAL.NEB. NEB PRN (06:35)
[2017-02-20 08:53] LABS: MCH 28.5 pg (25.7-33.7); MCHC 33.7 g/dl (32.0-36.0); MEAN CELL VOLUME 84.5 fl (80-96); MEAN PLT VOLUME 6.5 fl (7.5-11.1); PLATELET COUNT 170 K/MM3 (134-434); RDW 15.5 % (11.6-15.6); WHITE BLOOD COUNT 19.4 K/mm3 (4.0-10.0)
[2017-02-20 09:06] LABS: ALBUMIN 3.3 g/dl (3.4-5.0); ANION GAP 13 (8-16); CALCIUM 7.3 mg/dL (8.5-10.1); CO2 26 mmol/L (21-32); GLUCOSE,RANDOM 119 mg/dL (74-106); SGOT/AST 118 U/L (15-37); SGPT/ALT 47 U/L (12-78); TOT PROT 6.8 g/dl (6.4-8.2)
[2017-02-20 09:09] LABS: ALK PHOS 103 U/L (45-117); COCKROFT - GAULT 76.3555; CREATININE 0.8 mg/dL (0.55-1.02)
[2017-02-20] MEDS: guaiFENesin/CODEINE 5 ML UNIT-DOSE CUPS PO PRN (10:13)
[2017-02-20] MEDS: amLODIPine BESYLATE 10 MG TABLET (FP) PO SCH (10:14)
[2017-02-20] MEDS: METOPROLOL SUCCINATE 50 MG TAB.SR.24H (FP) PO SCH (10:14)
[2017-02-20] MEDS: LACTOBACILLUS ACIDOPHILUS 1 EACH TAB (FP) PO SCH (10:14)
[2017-02-20] MEDS: PANTOPRAZOLE 40 MG TABLET (FP) PO SCH (10:14)
[2017-02-20] MEDS: FERROUS SO4 325 MG TABLET (FP) PO SCH (10:14)
[2017-02-20] MEDS: ENOXAPARIN NA (PORCINE) 40 MG/0.4 ML DISP.SYRIN SQ SCH (10:15)
[2017-02-20 11:57] VITALS: BP 124/75; PULSE 116; TEMP 98.6
--- NOTE | 2017-02-20 15:01 | PN ---
Teaching Attending Note Name of Resident: Tae Caraballo ATTENDING PHYSICIAN STATEMENT I saw and evaluated the patient. I reviewed the resident's note and discussed the case with the resident. I agree with the resident's findings and plan as documented. SUBJECTIVE: OBJECTIVE: Vital Signs Period Temp Pulse Resp BP Sys/Winter Pulse Ox Last 24 Hr 97.3 F-98.6 F 99-116 20-20 102-124/57-79 95-98 ASSESSMENT AND PLAN:
== END 2017-02-20 13:28 | disposition home or self-care (01) | DRG 186 ==
LOC: JER 13:18 → JERBED 17:14 → OBSVTOIN 18:10 → J7W 18:22
PROVIDERS: ADMIT Internal Medicine; ATTEND Internal Medicine
PROC: 3E0F7GC Introduction of Other Therapeutic Substance into Respiratory Tract, Via Natural or Artificial Opening (ICD-10-PCS; 2017-02-15)
PROC: 30233N1 Transfusion of Nonautologous Red Blood Cells into Peripheral Vein, Percutaneous Approach (ICD-10-PCS; principal; 2017-02-20)
DX: J90 Pleural effusion, not elsewhere classified (principal); J96.01 Acute respiratory failure with hypoxia; C78.00 Secondary malignant neoplasm of unspecified lung; J98.11 Atelectasis; I31.3 Pericardial effusion (noninflammatory); N17.9 Acute kidney failure, unspecified; C50.912 Malignant neoplasm of unspecified site of left female breast; E86.0 Dehydration; I10 Essential (primary) hypertension; E11.9 Type 2 diabetes mellitus without complications; E78.5 Hyperlipidemia, unspecified; R00.0 Tachycardia, unspecified; D50.8 Other iron deficiency anemias
CPT/HCPCS: 36415; 36430; 36600; 71010-TC; 71020-TC; 80048; 80053; 81003; 81015; 82375; 82803; 83050; 83735; 85025; 85027; 85610; 86850; 86900; 86901; 86922; 87040; 87086; 87186; 87254; 87804; 93005; 93010; 94640; 94761; 97116-GP; 97162-PG; 99284-25; G0378; J1442; J3489; P9038; P9058

== ENCOUNTER 2017-02-26 12:12 | Day surgery (SDC) | payer BC ==
[2017-02-22 11:16] VITALS: BMI 26.3
[2017-02-26 15:11] VITALS: TEMP 98.2
[2017-02-26] MEDS ORDERED: oxyCODONE HCL 5 MG TABLET ONE (15:13)
[2017-02-26] MEDS ORDERED: ACETAMINOPHEN 325 MG TABLET (FP) ONE (15:14)
[2017-02-26 16:43] LABS: PLEURAL FLUID APPEARANCE CLEAR
[2017-02-26 16:44] LABS: PLEURAL FLUID COLOR XANTHO
[2017-02-26 16:49] LABS: GLUCOSE,PLEURAL FLUID 161.718; TOTAL PROTEIN,PLEURAL FLUID 3.934
[2017-02-26 17:34] VITALS: BP 130/96; PULSE 124
[2017-02-26 20:27] LABS: PLEURAL FLUID LYMPHOCYTES 25 %; PLEURAL FLUID NEUTROPHIL 13 %
[2017-02-27 04:45] LABS: PLEURAL FLUID SOURCE PLEURAL FLUID
--- NOTE | 2017-03-01 13:40 | PATH ---
Cytology Non-Gynecological Report Patient Name: TEJ BARRERA [facility]. Rec. #: [id number] /Age/Gender: 1970 (Age: 46) / F Account: [id number] Location: RADIOLOGY Taken: 02/26/2017 Received: 02/27/2017 Reported: 03/01/2017 Physicians: Yaneth Jiménez M.D. Specimen(s) Received A: RIGHT PLEURAL FLUID IN 50% ALCOHOL B: RIGHT PLEURAL FLUID FRESH Clinical History Metastatic breast cancer, pleural effusion Final Diagnosis A,B. PLEURAL FLUID, RIGHT, THORACENTESIS: SATISFACTORY FOR EVALUATION. POSITIVE FOR MALIGNANT CELLS. INVOLVEMENT BY POORLY DIFFERENTIATED ADENOCARCINOMA, CONSISTENT WITH MAMMARY ORIGIN (SEE COMMENT). Comment: Immunohistochemical stains performed and interpreted at [facility] on cell block B shows the following: the cells in the effusion are positive for CK7 immunostain, focally weakly reactive for BerEP4/LUIS immunostain and are negative for ER, KS, CK20 and TTF1 immunostains. Additional immunohistochemical stains performed on cell block B at [place], [place] ([id number]) and interpreted at [facility] show the cells in the effusion are strongly positive for MOC31 immunostain, focally positive for FAB-3 immunostain and are negative for Mammaglobin, GCDFP15, and Her2 immunostains; calretinin and WT1 highlight mesothelial cells. The cytomorphologic findings and the immunoprofile are consistent with involvement by adenocarcinoma of mammary origin. Results of Estrogen Receptor (ER) and Progesterone Receptor (KS) studies performed on cell block B at [facility] are as follows: ER (clone [id number] mouse monoclonal antibody by [employer]): 0% nuclear staining (Negative). KS (clone16 mouse monoclonal antibody by [employer]): 0% nuclear staining (Negative). Result of Her2 (IHC) performed on cell block B at [place], [place] ([id number]) is as follows: Her2 IHC (EP3 from [employer], formerly known as [id number], using [employer] Polymer Refine detection kit): 1+ (Negative) Positive and negative controls (internal if applicable) show appropriate results. Formalin fixation and cold ischemic times are within current ASCO/CAP recommendations for ER, KS and Her2 testing. Her2 IHC testing is not ASCO/CAP approved for cytology specimens; results should be interpreted with caution. Electronically Signed Satya Weeks M.D. Gross Description A. Received is a 50 cc of yellow fluid in 50% alcohol. One cytofunnel slide and one cell block are made. B. Received is 1000 cc of yellow fluid fresh. One cytofunnel slide and one cell block are made.
== END 2017-02-26 17:15 | disposition home or self-care (01) ==
LOC: JRADIR 12:12
PROVIDERS: ATTEND Internal Medicine Hematology & Oncology
PROC: 0W993ZZ Drainage of Right Pleural Cavity, Percutaneous Approach (ICD-10-PCS; principal; 2017-02-26)
PROC: BB4BZZZ Ultrasonography of Pleura (ICD-10-PCS; 2017-02-26)
DX: J90 Pleural effusion, not elsewhere classified (principal); C50.919 Malignant neoplasm of unspecified site of unspecified female breast
CPT/HCPCS: 71010-TC; 76942; 82042; 82150; 82945; 83615; 84157; 84478; 87070; 87075; 87102; 87116; 87205; 87206; 87210; 88108; 88305-TC; 88341-TC; 88342-TC; 89051

== ENCOUNTER 2017-02-28 07:12 | Day surgery (SDC) | payer BC ==
[2017-02-28] MEDS ORDERED: ONDANSETRON INJECTION 8 MG in SODIUM CHLORIDE 50 ML IVPB ONE (14:00)
[2017-02-28] MEDS ORDERED: SODIUM CHLORIDE 250 ML IV ONE (14:00)
[2017-02-28] MEDS ORDERED: DEXAMETHASONE INJECTION 8 MG in SODIUM CHLORIDE 50 ML IVPB ONE (14:00)
[2017-02-28 14:15] LABS: ANION GAP 15 (8-16); CALCIUM 8.9 mg/dL (8.5-10.1); CO2 22 mmol/L (21-32); COCKROFT - GAULT 75.65; CREATININE 0.8 mg/dL (0.55-1.02); GLUCOSE,RANDOM 181 mg/dL (74-106)
[2017-02-28] MEDS ORDERED: ALBUTEROL SO4 0.083% IH SOL 2.5 MG/3 ML VIAL.NEB. NEB PRN (14:19)
[2017-02-28 14:26] LABS: MCH 28.8 pg (25.7-33.7); MCHC 33.5 g/dl (32.0-36.0); MEAN PLT VOLUME 7.4 fl (7.5-11.1); PLATELET COUNT 237 K/MM3 (134-434); RDW 16.8 % (11.6-15.6); WHITE BLOOD COUNT 9.6 K/mm3 (4.0-10.0)
[2017-02-28 14:29] LABS: PLATELET ESTIMATE ADEQUATE (NORMAL)
[2017-02-28] MEDS ORDERED: guaiFENesin/D-METHORPHAN HB 10 ML UNIT-DOSE CUPS PO SCH (14:30)
[2017-02-28] MEDS ORDERED: SODIUM CHLORIDE 1,000 ML IV ONE (14:30)
[2017-02-28 15:01] LABS: ALBUMIN 2.9 g/dl (3.4-5.0); ALK PHOS 117 U/L (45-117); BILIRUBIN,TOTAL 0.9 mg/dL (0.2-1.0); SGOT/AST 94 U/L (15-37); SGPT/ALT 33 U/L (12-78); TOT PROT 7.1 g/dl (6.4-8.2)
[2017-02-28] MEDS ORDERED: [UNRECOGNIZED DRUG - OTHER] IV ONE (15:15)
[2017-02-28] MEDS ORDERED: SODIUM CHLORIDE 500 ML IV ONE (15:15)
[2017-02-28 18:28] VITALS: BP 118/74; PULSE 124; TEMP 98.3
== END 2017-02-28 18:49 | disposition home or self-care (01) ==
LOC: JONCCHEMO 07:12 → J7W 13:42 → JONCCHEMO 18:49
PROVIDERS: ATTEND Internal Medicine Hematology & Oncology
PROC: 3E033GC Introduction of Other Therapeutic Substance into Peripheral Vein, Percutaneous Approach (ICD-10-PCS; principal; 2017-02-28)
PROC: 3E0337Z Introduction of Electrolytic and Water Balance Substance into Peripheral Vein, Percutaneous Approach (ICD-10-PCS; 2017-02-28)
PROC: 3E0F7GC Introduction of Other Therapeutic Substance into Respiratory Tract, Via Natural or Artificial Opening (ICD-10-PCS; 2017-02-28)
DX: C50.011 Malignant neoplasm of nipple and areola, right female breast (principal); C78.00 Secondary malignant neoplasm of unspecified lung; D70.1 Agranulocytosis secondary to cancer chemotherapy
CPT/HCPCS: 94640; 96361; 96374; 96375; J1100; J2405; J7030; 36415; 71010-TC; 80053; 83735; 85027; 96360; 96367; J9179

== ENCOUNTER 2017-03-06 14:30 | Inpatient (IN) | payer BC ==
[2017-03-06 14:39] VITALS: BMI 26.3
--- NOTE | 2017-03-06 14:51 | PDOC ---
History of Present Illness - General Chief Complaint: Shortness of Breath Stated Complaint: Shortness of Breath Time Seen by Provider: 03/06/17 14:44 History Source: Patient, Family Exam Limitations: No Limitations - History of Present Illness Initial Comments: 03/06/17 15:18 46-year-old female with history of metastatic breast CA initially diagnosed 2 years ago, status post surgery/chemotherapy/radiation now with recurrence on chemotherapy, also with hypertension/diabetes/high cholesterol, known lung metastasis complicated by pleural effusion requiring thoracentesis last week by interventional radiology, now brought in by family with acute worsening of her shortness of breath since yesterday. Tachypneic at rest, barely able to exert herself, no fevers or chills, some right-sided lung congestion. Bilateral leg swelling worse over the last 4-5 days, but new to her. Started new chemotherapy regimen last week, no history of DVT or PE. Past History - Past Medical History Allergies/Adverse Reactions: Allergies Allergy/AdvReac Type Severity Reaction Status Date / Time No Known Drug Allergies Allergy Verified 03/06/17 14:36 Home Medications: Ambulatory Orders Ondansetron [Zofran *Odt*] 8 mg PO Q12H PRN #60 tab.rapdis 01/05/17 Pantoprazole Sodium [Protonix] 40 mg PO DAILY #30 tablet. 01/05/17 Prochlorperazine Maleate [Compazine -] 10 mg PO Q8H PRN #60 tablet 01/05/17 Amlodipine Besylate [Norvasc -] 10 mg PO DAILY tablet 02/02/17 Entecavir [Baraclude -] 0.5 mg PO Q48H #0 tablet 02/02/17 Ferrous Sulfate [Feosol] 325 mg PO BID #60 tablet 02/02/17 Lactobacillus Acidophilus [Bacid -] 1 tab PO DAILY tab 02/02/17 Albuterol 2.5/Ipratropium 0.5 [Duoneb -] 1 amp NEB Q4H PRN #32 amp MDD 4 Docusate Sodium [Colace -] 100 mg PO BID #60 capsule 02/18/17 Guaifenesin AC [Robitussin AC -] 5 ml PO Q6H PRN #1 bottle MDD 4 02/18/17 Metoprolol Succinate [Toprol XL -] 50 mg PO DAILY #30 tab 02/18/17 Calcium Carbonate - 650 mg PO BID #28 tablet 02/19/17 Potassium Chloride [K-Dur -] 40 meq PO DAILY #28 tablet.er 02/19/17 Anemia: No Asthma: No Cancer: Yes (LT BREAST) Cardiac Disorders: No CVA: No COPD: No CHF: No Dementia: No Diabetes: Yes GI Disorders: No Disorders: No HTN: Yes Hypercholesterolemia: No Liver Disease: No Seizures: No Thyroid Disease: No - Surgical History Abdominal Surgery: No Appendectomy: No Cardiac Surgery: No Cholecystectomy: No Lung Surgery: No Neurologic Surgery: No Orthopedic Surgery: No - Psycho/Social/Smoking Cessation Hx Anxiety: No Suicidal Ideation: No Smoking History: Never smoked Have you smoked in the past 12 months: No Information on smoking cessation initiated: No Hx Alcohol Use: No Drug/Substance Use Hx: No Substance Use Type: None Hx Substance Use Treatment: No Review of Systems - Review of Systems Constitutional: No: Chills, Fever Respiratory: Yes: Cough, Shortness of Breath Cardiac (ROS): Yes: Edema. No: Chest Pain ABD/GI: No: Diarrhea, Nausea, Vomiting Neurological: No: Headache, Tingling All Other Systems: Reviewed and Negative *Physical Exam - Vital Signs Last Vital Signs Temp Pulse Resp BP Pulse Ox 97.9 F 126 H 24 126/83 97 03/06/17 14:37 03/06/17 14:37 03/06/17 14:37 03/06/17 14:37 03/06/17 14:37 - Physical Exam Comments: 03/06/17 15:20 Tachypneic, tachycardic, O2 sat 97% on baseline 2 L. GENERAL: The patient is awake, alert, and fully oriented, in mild distress secondary to tachypnea, speaking 3-4 words at a time. HEAD: Normal with no signs of trauma. EYES: PERRL, EOMI, sclera anicteric, conjunctiva clear with no pallor. ENT: oropharynx clear without exudates. Moist mucous membranes. NECK: Normal range of motion, supple without lymphadenopathy, JVD, or masses. LUNGS: Decreased breath sounds on the right to the upper lung newman, left basilar crackles but otherwise clear on the left. HEART: Regular rate and rhythm, normal S1 and S2 without murmur or rub. ABDOMEN: Soft/nontender/nondistended. BS wnl. No guarding or rebound. No palpable masses. No hepatosplenomegaly. EXTREMITIES: Normal range of motion, nonpitting 2+ edema bilaterally to the knees. 2+ distal pulses. No tenderness. NEUROLOGICAL: Cranial nerves II through XII grossly intact. Normal speech, normal gait. PSYCH: Normal mood, normal affect. SKIN: Warm, Dry, no rashes or lesions noted. Right chest port Heart Score/ECG Review #1 ECG reviewed & interpreted by me at: 15:06 General ECG Interpretation: Sinus Rhythm (tachycardia at 115), Normal Intervals , No acute ischemic changes (? low voltage) ED Treatment Course - LABORATORY CBC & Chemistry Diagram: 03/06/17 15:10 03/06/17 15:10 Medical Decision Making - Critical Care Time Total Critical Care Time (minutes): 50 Critical Care Statement: The care of this patient involved high complexity decision making to prevent further life threatening deterioration of the patient 's condition and/or to evalute & treat vital organ system(s) failure or risk of failure. - Medical Decision Making 03/06/17 15:22 46-year-old female with known metastatic breast CA with lung metastases and recurring pleural effusions presents with worsening shortness of breath. Presentation could be consistent with recurrence of pleural effusion, PE given the new bilateral leg swelling, pericardial effusion given the low voltage on EKG. Placed on oxygen, comfortable at rest Labs, urinalysis EKG, chest x-ray. Will check CT chest with contrast, but apparently had acute renal injury from contrast in the past, so we'll discuss with Dr. Rudd. Check bilateral leg Dopplers to rule out DVT in the meantime Will require admission 03/06/17 15:50 moderate R pleural effusion on CXR. Discussed with Dr. Rudd in ED, would avoid contrast 2/2 h/o nephropathy. Will consult IR for repeat thoracentesis. Proceed with admission. 03/06/17 16:[address] Capellan, only had 500cc thoracentesis last week so ? whether this was source of patient's dyspnea, versus lungs mets v. PE? Chemistries wnl, trop/BNP normal, CBC pending. Will proceed with admission to [facility], admitting for Dr. Lowe. 03/06/17 17:09 Accepted for obs med/surg by Dr. Howard. *DC/Admit/Observation/Transfer Diagnosis at time of Disposition: Pleural effusion Breast cancer metastasized to multiple sites Qualifiers: Laterality: unspecified laterality Qualified Code(s): C50.919 - Malignant neoplasm of unspecified site of unspecified female breast Dyspnea Qualifiers: Dyspnea type: shortness of breath Qualified Code(s): R06.02 - Shortness of breath - Discharge Dispostion Condition at time of disposition: Guarded Admit: Yes - Referrals Referrals: Aailyah Lowe MD [Primary Care Provider] -
[2017-03-06 16:45] LABS: ANION GAP 16 (8-16); CALCIUM 8.7 mg/dL (8.5-10.1); CO2 22 mmol/L (21-32); CREATININE 0.9 mg/dL (0.55-1.02); GLUCOSE,RANDOM 219 mg/dL (74-106); SGPT/ALT 30 U/L (12-78)
[2017-03-06 16:49] LABS: ALK PHOS 113 U/L (45-117); BILIRUBIN,TOTAL 1.1 mg/dL (0.2-1.0); TOT PROT 6.7 g/dl (6.4-8.2); TROPONIN I < 0.02 ng/ml (0.00-0.05)
[2017-03-06 16:50] LABS: INR 1.59 (0.82-1.09); PROTHROMBIN TIME (PATIENT) 17.6 SEC (9.98-11.88)
[2017-03-06 16:52] LABS: MAGNESIUM 2.1 mg/dL (1.8-2.4); SGOT/AST 73 U/L (15-37)
[2017-03-06 17:00] LABS: BASOPHIL 0.5 % (0-2.0); EOSINOPHIL 0.1 % (0-4.5); MCH 28.3 pg (25.7-33.7); MCHC 32.7 g/dl (32.0-36.0); MEAN CELL VOLUME 86.6 fl (80-96); MEAN PLT VOLUME 7.7 fl (7.5-11.1); NEUTROPHILS 59.2 % (42.8-82.8); PLATELET COUNT 277 K/MM3 (134-434); RDW 16.9 % (11.6-15.6); WHITE BLOOD COUNT 4.2 K/mm3 (4.0-10.0)
--- NOTE | 2017-03-06 17:26 | HP ---
CHIEF COMPLAINT: "i cant breathe" PCP: Dr Mcdonald Onc: Dr Rudd HISTORY OF PRESENT ILLNESS: This is a 46 yo F with PMH of L breast CA (triple negative, dx 2 yrs ago intermediate stage s/p lumpectomy, radiation, chemo with carboplatinum/gemzar), that has since recurred and developed lung mets (dx dec 2016). She has a known R pleural effusion s/p thoracentesis last Sat and a R portocath. She has recent hx of contrast induced nephropathy that has since resolved and at baseline. She also has PMH of chemo induced HTN. HLD and DM. She recently underwent infusion of new chemotherapy agent Eribulin Mesylate last (common side effect peripheral edema, sob, cough, tachycardia, throat pain). She has developed new LE edema x 4 days, increased sob w/o hypoxia on 2L NC (on 2L at home), palpitations, dry cough, exercise intolerance and difficulty swallowing/throat pain x 1 week. She denies chest pain, calf pain, hemoptysis, h/a, incontinence. is proxy ER course was notable for: (1) labs (2)cxr ekg (3)onc consult Recent Travel: denies PAST MEDICAL HISTORY: as above PAST SURGICAL HISTORY: as above Social History: lives with Smoking: none Alcohol: none Drugs: none Family History: DM Allergies No Known Drug Allergies Allergy (Verified 03/06/17 14:36) HOME MEDICATIONS: Home Medications Medication Instructions Recorded Ondansetron [Zofran *Odt*] 8 mg PO Q12H PRN #60 tab.franciscodis 01/05/17 Pantoprazole Sodium [Protonix] 40 mg PO DAILY #30 tablet. 01/05/17 Prochlorperazine Maleate 10 mg PO Q8H PRN #60 tablet 01/05/17 [Compazine -] Amlodipine Besylate [Norvasc -] 10 mg PO DAILY tablet 02/02/17 Entecavir [Baraclude -] 0.5 mg PO Q48H #0 tablet 02/02/17 Ferrous Sulfate [Feosol] 325 mg PO BID #60 tablet 02/02/17 Lactobacillus Acidophilus [Bacid -] 1 tab PO DAILY tab 02/02/17 Albuterol 2.5/Ipratropium 0.5 1 amp NEB Q4H PRN #32 amp MDD 4 02/18/17 [Duoneb -] Docusate Sodium [Colace -] 100 mg PO BID #60 capsule 02/18/17 Guaifenesin AC [Robitussin AC -] 5 ml PO Q6H PRN #1 bottle MDD 4 02/18/17 Metoprolol Succinate [Toprol XL -] 50 mg PO DAILY #30 tab 02/18/17 Calcium Carbonate - 650 mg PO BID #28 tablet 02/19/17 Potassium Chloride [K-Dur -] 40 meq PO DAILY #28 tablet.er 02/19/17 REVIEW OF SYSTEMS CONSTITUTIONAL: Absent: fever, chills HEENT: Absent: rhinorrhea, nasal congestion, visual changes CARDIOVASCULAR: Absent: chest pain, syncope, irregular heart rate, RESPIRATORY: Absent: wheezing, stridor, hemoptysis GASTROINTESTINAL: Absent: abdominal pain, abdominal distension, diarrhea, constipation, melena, hematochezia GENITOURINARY: Absent: dysuria MUSCULOSKELETAL: Absent: myalgia, arthralgia SKIN: Absent: rash HEMATOLOGIC/IMMUNOLOGIC: Absent: easy bleeding, easy bruising ENDOCRINE: Absent: heat intolerance, cold intolerance NEUROLOGIC: Absent: headache, focal weakness or paresthesias PSYCHIATRIC: Absent: suicidal or homicidal ideation, hallucinations. PHYSICAL EXAMINATION Vital Signs - 24 hr 03/06/17 14:37 Temperature 97.9 F Pulse Rate 126 H Respiratory 24 Rate Blood Pressure 126/83 O2 Sat by Pulse 97 Oximetry (%) GENERAL: Awake, alert, and fully oriented, in no acute distress. HEAD: Normal with no signs of trauma. EYES: Pupils equal, round and reactive to light, extraocular movements intact, sclera anicteric, conjunctiva clear. No lid lag. EARS, NOSE, THROAT: oropharynx mildly erythematous. Moist mucous membranes. NECK: supple without JVD, or masses. LUNGS: absent breath sounds at R base up to mid lung, L base rales HEART: tachy, Regular rhythm, normal S1 and S2 ABDOMEN: Soft, nontender, not distended, normoactive bowel sounds MUSCULOSKELETAL: No CVA tenderness. UPPER EXTREMITIES: 2+ pulses, warm, well-perfused. No cyanosis. No clubbing. No peripheral edema. LOWER EXTREMITIES: 2+ pulses, warm, well-perfused. No calf tenderness. 1+ edema. NEUROLOGICAL: Cranial nerves II-XII grossly intact. Normal speech. PSYCHIATRIC: Cooperative. Good eye contact. Appropriate mood and affect. SKIN: Warm, dry Laboratory Results - last 24 hr 03/06/17 03/06/17 15:10 15:10 WBC 4.2 D RBC 3.68 Hgb 10.4 L Hct 31.9 L MCV 86.6 MCHC 32.7 RDW 16.9 H Plt Count 277 MPV 7.7 Neutrophils % 59.2 D Lymphocytes % 24.7 D Monocytes % 15.5 H D Eosinophils % 0.1 D Basophils % 0.5 D Sodium 134 L Potassium 5.0 Chloride 96 L Carbon Dioxide 22 Anion Gap 16 BUN 16 Creatinine 0.9 Creat Clearance w eGFR > 60 Random Glucose 219 H D Calcium 8.7 Magnesium 2.1 Total Bilirubin 1.1 H D AST 73 H D ALT 30 Alkaline Phosphatase 113 Creatine Kinase 157 D CK-MB (CK-2) 1.438 Troponin I < 0.02 B-Natriuretic Peptide 127.15 H Total Protein 6.7 Albumin 3.0 L ASSESSMENT/PLAN: This is a 46 yo F with PMH of L breast CA (triple negative, dx 2 yrs ago intermediate stage s/p lumpectomy, radiation, chemo with carboplatinum/gemzar) with lung mets (dx dec 2016), known R pleural effusion s/p thoracentesis last Sat, chemo induced HTN, HLD and DM and recent initiation of Eribulin chemo regimen on , who presents with LE edema and sob. CXR similar to study done before recent thoracentesis EKG unremarkable Recurrent malignant effusion in R lung -mildly elevated BNP 127 up from baseline of 16, rop negative, ekg unremarkable ; no evidence of cardiac involvement -progression of oncologic disease -IR consulted for US guided pigtail placement tomorrow -no hypoxia, continue 2L NC support -nebs Breast cancer with Lung mets -sob, le edema, dry cough are side effects of Eribulin -low suspicion for PE, will avoid CTA due to recent contrast induced nephropathy -Dr Rudd on case; chemo infusion tomorrow -continue robitussin, bacid, colace, vitamins -IV Zofran PRN -palliative and pastoral care consult -routine PT Dysphagia -possible side effect of Eribulin vs disease progression -swallow eval tomorrow -full liquid diet -PO lidocaine swish PRN Poor intake -add marinol 5 mg 30 min before meals or chemo (also for nausea, depression) -registered nurse surgical services HTN -norvac 10 Tachycardia -baseline tachy, cont toprol xl 50 d DM -BGM TIDAC -Siding scale FEN no ivf mild hyponatremia baseline full liquid diet PPI, erlin starting tomrrow after pigtail placed Dispo: adm med cecil Problem List - Problem (1) Air hunger Code(s): R09.89 - OTH SYMPTOMS AND SIGNS INVOLVING THE CIRC AND RESP SYSTEMS (2) Dyspnea Code(s): R06.00 - DYSPNEA, UNSPECIFIED Qualifiers: Dyspnea type: shortness of breath Qualified Code(s): R06.02 - Shortness of breath (3) Pleural effusion Code(s): J90 - PLEURAL EFFUSION, NOT ELSEWHERE CLASSIFIED (4) Breast cancer metastasized to multiple sites Code(s): C50.919 - MALIGNANT NEOPLASM OF UNSP SITE OF UNSPECIFIED FEMALE BREAST Qualifiers: Laterality: unspecified laterality Qualified Code(s): C50.919 - Malignant neoplasm of unspecified site of unspecified female breast (5) Anemia Code(s): D64.9 - ANEMIA, UNSPECIFIED Qualifiers: Anemia type: other cause Other causes of anemia: antineoplastic chemotherapy Qualified Code(s): D64.81 - Anemia due to antineoplastic chemotherapy (6) Lung consolidation Code(s): J18.1 - LOBAR PNEUMONIA, UNSPECIFIED ORGANISM (7) Tachycardia Code(s): R00.0 - TACHYCARDIA, UNSPECIFIED (8) Diabetes Code(s): E11.9 - TYPE 2 DIABETES MELLITUS WITHOUT COMPLICATIONS (9) Hypertension Code(s): I10 - ESSENTIAL (PRIMARY) HYPERTENSION (10) Dysphagia Code(s): R13.10 - DYSPHAGIA, UNSPECIFIED Visit type - Emergency Visit Emergency Visit: Yes ED Registration Date: 03/06/17 Care time: The patient presented to the Emergency Department on the above date and was hospitalized for further evaluation of their emergent condition. - New Patient This patient is new to me today: Yes Date on this admission: 03/06/17 - Critical Care Critical Care patient: No
[2017-03-06] MEDS ORDERED: ACETAMINOPHEN 325 MG TABLET (FP) PO PRN (18:31)
[2017-03-06] MEDS ORDERED: PROCHLORPERAZINE MALEATE 5 MG TABLET PO PRN (18:37)
[2017-03-06] MEDS ORDERED: PATIENT'S OWN MEDICATION (NON-FORMULARY) (Ondansetron [Zofran *Odt*] 8 MG) PO PRN (18:37)
[2017-03-06] MEDS ORDERED: ALBUTEROL SO4 2.5/IPRATROPIUM 0.5 INH SOL 3 ML VIAL.NEB. NEB PRN (18:37)
[2017-03-06] MEDS ORDERED: guaiFENesin/CODEINE 5 ML UNIT-DOSE CUPS PO PRN (18:37)
[2017-03-06] MEDS ORDERED: ONDANSETRON 4 MG/2 ML VIAL IVPUSH PRN (18:38)
[2017-03-06] MEDS ORDERED: LIDOCAINE VISCOUS 2% ORAL/TOP 20 ML UNIT-DOSE CUP MM PRN (18:42)
--- NOTE | 2017-03-06 18:44 | PN ---
Teaching Attending Note Name of Resident: Lelia Sheehan ATTENDING PHYSICIAN STATEMENT I saw and evaluated the patient. I reviewed the resident's note and discussed the case with the resident. I agree with the resident's findings and plan as documented. SUBJECTIVE:46yo F with progressive SOB thats been worsening over the past 2 days. received thoracentesis 02/26 with 500cc fluid removal. states she felt well after the procedure but has been progressively worsening over the past 2 days. requiring to use her oxygen even at rest (2L NC). assoc pedal edema that started during this time and dysphagia even to thickened liquids. started new chemotherapy recently. denies CP, palpitations, cough, hemoptysis, N/V/C/D OBJECTIVE: Last Vital Signs Temp Pulse Resp BP Pulse Ox 97.9 F 105 H 22 108/70 99 03/06/17 14:37 03/06/17 18:10 03/06/17 18:10 03/06/17 18:10 03/06/17 18:10 General lethargic CV S1 S2 tachycardic lungs decreased breath sounds mid R lung field to base. decreased breath sounds L base. dull to percussion Extremities 1+ non pitting edema limited to feet ASSESSMENT AND PLAN: 46yo F with metastatic breast cancer presented to the ER and was admitted for further evaluation 1. SOB- due to malignant pleural effusion- s/p thoracentesis last week + adenocarcinoma in the fluid. now presenting with re-accumulation. would likely benefit from pleurovac placement. IR consulted for placement. continue supplemental oxygen to maintain spO2 >90%. (currently saturating 97% on 2L). high risk factors for PE however there is explanation for SOB with large effusion seen on CXR. oncology does not want CTA done at this time as last time developed contrast induced nephropathy. LE doppler performed. would not order d- dimer as on chemo. low suspicion for infection at this time. 2. Pedal edema- likely side effect from chemotherapy. LE doppler negative for DVT. instructed to elevate the feet 3. Dysphagia- likely progression from disease. consult swallow therapist for evaluation and possible MBS 4. Sinus tachycardia- persistently tachycardic, likely exacerbated at this time due to SOB. evaluated by cardio last month. cont toprol. can titrate up to optimize control 5. DVT ppx-lovenox 6. poor overall prognosis. will consult palliative care at this time.
[2017-03-06] MEDS ORDERED: PT OWN MED DRAWER 7, Y5N ONE (21:12)
[2017-03-06] MEDS: CALCIUM CARBONATE 650 MG TABLET PO SCH (21:38)
[2017-03-06] MEDS: FERROUS SO4 325 MG TABLET (FP) PO SCH (21:38)
[2017-03-06] MEDS: DRONABINOL 5 MG CAPSULE PO SCH (21:38)
[2017-03-06] MEDS: DOCUSATE SODIUM 100 MG CAPSULE (FP) PO SCH (21:38)
[2017-03-06] MEDS: INSULIN SLIDING SCALE (NOVOLOG) 1 VIAL SQ SCH (21:40)
[2017-03-06] MEDS ORDERED: PATIENT'S OWN MEDICATION (NON-FORMULARY) (Ferrous Sulfate [Feosol] 325 MG) PO SCH (22:00)
--- NOTE | 2017-03-06 22:40 | CONSULT ---
Consult - text type - Consultation Consultation Note: Patient seen and examined well known to our service 46 y/o patient comes in with shortness of breat, difficulty swallowing, swollen legs. no fevers/chills. no abdominalpain /diarrhea Past History metastatic breast cancer lung mets htn dm PSH Lt. breast lumpectomy/RT Allergies/Adverse Reactions: Allergies Allergy/AdvReac Type Severity Reaction Status Date / Time No Known Allergies Allergy Verified 03/06/17 13:30 AFVSS Cor: RSR, No murmurs, No gallops Lungs: decreased rt. breath sounds Abd: Soft, Normal bowel sounds, No organomegaly Ext:No significant edema Abnormal Lab Results 03/06/17 03/06/17 03/06/17 15:10 15:10 15:10 Hgb 10.4 L Hct 31.9 L RDW 16.9 H Monocytes % 15.5 H D INR 1.59 H Sodium 134 L Chloride 96 L Random Glucose 219 H D Total Bilirubin 1.1 H D AST 73 H D B-Natriuretic Peptide 127.15 H Albumin 3.0 L Active Medications Acetaminophen (Tylenol -) 650 mg PO Q4H PRN PRN Reason: FEVER OR PAIN Albuterol/Ipratropium (Duoneb -) 1 amp NEB Q4H PRN PRN Reason: SHORTNESS OF BREATH Amlodipine Besylate (Norvasc -) 10 mg PO DAILY [facility] Calcium Carbonate (Calcium Carbonate -) 650 mg PO BID [facility] Last Admin: 03/06/17 21:38 Dose: 650 mg Docusate Sodium (Colace -) 100 mg PO BID [facility] Last Admin: 03/07/17 00:40 Dose: Not Given Dronabinol (Marinol -) 5 mg PO TID [facility] Last Admin: 03/07/17 06:02 Dose: Not Given Enoxaparin Sodium (Lovenox -) 40 mg SQ DAILY [facility] Entecavir (Baraclude -) 0.5 mg PO Q48H [facility] Ferrous Sulfate (Feosol -) 325 mg PO BID [facility] Last Admin: 03/06/17 21:38 Dose: 325 mg Guaifenesin/Codeine Phosphate (Robitussin Ac -) 5 ml PO Q6H PRN PRN Reason: COUGH Insulin Aspart (Novolog Vial Sliding Scale -) 1 vial SQ TIDAC [facility] PRN Reason: Protocol Last Admin: 03/07/17 06:44 Dose: Not Given Lactobacillus Acidophilus (Bacid -) 1 tab PO DAILY [facility] Lidocaine HCl (Xylocaine 2% Viscous Oral -) 20 ml MM Q6HPO PRN PRN Reason: ORAL PAIN/MOUTH SORES Metoprolol Succinate (Toprol Xl -) 50 mg PO DAILY [facility] Pantoprazole Sodium (Protonix -) 40 mg PO DAILY [facility] Potassium Chloride (K-Dur -) 40 meq PO DAILY [facility] Prochlorperazine Maleate (Compazine -) 10 mg PO Q8H PRN PRN Reason: NAUSEA AND/OR VOMITING A/P 46 y/opatient with metastatic breast cancer, progressive disease, triple negative. Recently started eribulin C1 D7 Due for D8 tomorrow will get pleurex catheter placed will discuss with IR calorie count speech swallow study
[2017-03-07] MEDS: DOCUSATE SODIUM 100 MG CAPSULE (FP) PO SCH ×6 (00:40→21:44)
[2017-03-07] MEDS: DRONABINOL 5 MG CAPSULE PO SCH ×4 (00:40→21:31)
[2017-03-07] MEDS: INSULIN SLIDING SCALE (NOVOLOG) 1 VIAL SQ SCH ×3 (06:44→17:45)
[2017-03-07] MEDS ORDERED: PHYTONADIONE 10 MG/1 ML AMP SQ ONE (07:31)
[2017-03-07 07:35] LABS: MCH 28.6 pg (25.7-33.7); MCHC 33.2 g/dl (32.0-36.0); MEAN CELL VOLUME 86.3 fl (80-96); MEAN PLT VOLUME 7.4 fl (7.5-11.1); PLATELET COUNT 250 K/MM3 (134-434); WHITE BLOOD COUNT 2.8 K/mm3 (4.0-10.0)
[2017-03-07 08:15] LABS: ALBUMIN 3.1 g/dl (3.4-5.0)
[2017-03-07 08:20] LABS: ALK PHOS 106 U/L (45-117); ANION GAP 13 (8-16); BILIRUBIN,TOTAL 1.1 mg/dL (0.2-1.0); CALCIUM 8.8 mg/dL (8.5-10.1); CO2 26 mmol/L (21-32); COCKROFT - GAULT 77.8345; CREATININE 0.8 mg/dL (0.55-1.02); GLUCOSE,RANDOM 157 mg/dL (74-106); PHOSPHOROUS 3.9 mg/dL (2.5-4.9); SGOT/AST 66 U/L (15-37); SGPT/ALT 28 U/L (12-78); TOT PROT 6.5 g/dl (6.4-8.2)
[2017-03-07] MEDS ORDERED: ONDANSETRON 4 MG/2 ML VIAL IVPUSH PRN (09:41)
[2017-03-07] MEDS ORDERED: ENTECAVIR 0.5 MG TABLET PO SCH (10:00)
[2017-03-07] MEDS ORDERED: DRONABINOL 5 MG CAPSULE PO SCH (10:00)
[2017-03-07] MEDS ORDERED: FERROUS SO4 325 MG TABLET (FP) PO SCH (10:00)
[2017-03-07] MEDS ORDERED: PT OWN MED DRAWER 7, Y5N ONE (10:30)
[2017-03-07] MEDS ORDERED: PHYTONADIONE 10 MG/1 ML AMP ONE (10:52)
--- NOTE | 2017-03-07 11:02 | CONSULT ---
Admitting History and Physical - Primary Care Physician PCP: Deacon Quinteros - Admission History of Present Illness: 46 yo F with PMH of L breast CA (triple negative, dx 2 yrs ago intermediate stage s/p lumpectomy, radiation, chemo with carboplatinum/gemzar), with lung mets. Pt was scheduled for out pt MBS today, but was admitted with SOB.Case reviewed last week with Dr. Rudd, before I had personally evaluated her swallowing, and I recommended nectar thick liquid as pt complained of choking while drinking. She has continued with nectar thick all week with improved tolerance. History Source: Patient, Family Member, Medical Record Limitations to Obtaining History: Language Barrier (hypophonia/dysphonia) - Past Medical History Pulmonary: Yes: Other (lymphangitic disease, mediastinal involvement and chest wall involvement) Hepatobiliary: Yes: Other (on entecavir for liver protection for hepatitis B) Renal/: Yes: UTI ...LMP: 01/11/17 ...: No Heme/Onc: Yes: Cancer (breast ca stage IIa) Endocrine: Yes: Diabetes Mellitus, Other - Smoking History Smoking history: Never smoked Have you smoked in the past 12 months: No - Alcohol/Substance Use Hx Alcohol Use: No History - Admission Reason For Visit: DYSPNEA;CARCINOMA OF BREAST METASTASIZE MULTI SITE - Diagnostics X-ray: Report Reviewed Other: Report Reviewed (Soft tissue neck 02/12/17) - General Mental Status: Alert and Oriented, Awake and Alert, Able to Follow Commands Attention: Intact Ability to Follow Directions: Excellent Head/Neck Control: WFL - Hearing Hearing: Normal Hearing Aide: No With Patient: No Speech Evaluation - Communication Primary Language: UNKNOWN Communication: Yes: Simple Responses Oral Expression Ability: Yes: Moderate Impairment, Severe Impairment - Speech Production Able to Make Needs Known: Yes: Moderately Impaired, Severely Impaired Intelligibility: Yes: Moderately Impaired, Severely Impaired - Speech Characteristics Voice Loudness: Hypophonia Voice Phonatory-based Quality: Yes: Breathy (occasional audible phonation. Unchanged by head rotation. Voice is severely dysphonic.Family reports onset 2 weeks ago. When questioned, swallowing difficulty may have started then, as well. Vocal cord dysfunction with dysphagia is suspected.) Speech Pattern: Impaired Speech Clarity: < 25% Nasal Resonance: Normal Articulation: Yes: Precise - Language/Auditory Comprehension Follows: Yes: 2 Stage Simple Commands - Language/Verbal Expression Functional Communication Status: Yes: WNL - Memory/Perception superintendent terminal Memory: Yes: WNL Short Term Memory: Yes: WNL - Swallow Evaluation/Bedside Assessment Current Nutritional Intake: Full Liquids Oral Secretions: Yes: WFL Dentition: Yes: Adequate Facial Symmetry at Rest: Symmetrical Facial Symmetry on Retraction: Symmetrical Facial Movement: Controlled Sensation: Normal Against Resistance Opening: Normal Against Resistance Closing: Normal Pucker Lips: Normal Lingual Movement: Normal Lingual Speed of Movement: Normal Lingual Movement Strgth Against Opposition: Normal Lingual Movement Characteristics: Normal Velopharyngeal Movement: Normal Laryngeal Movement: Able to Palpate Rate of Intake: WFL Bolus Size: WFL Labial Seal: WFL Chewing: WFL Oral Prep Time: WFL A-P Transit: WFL Pocketing: None Timing of Swallow: WFL Coughing/Throat Clear: No Change in Voice: No Recommendations - Speech Evaluation, Impression/Plan Impression: Voice is severely aphonic, adversely affecting intelligibility and functional communication. Family reports onset of aphonia 2 weeks ago. When questioned, swallowing difficulty may have started then, as well. Vocal cord dysfunction with dysphagia is suspected.r/o aspiration/stasis. - Dysphagia Impressions/Plan Swallowing Skills: Impaired Dysphagia Impressions: Ongoing Evaluation, Suspect Aspiration *Silent aspiration: cannot be R/O at bedside Dysphagia Treatment Plan: Small Bites, OOB for meals, OOB for 1 h. after meals Recommendations: ENT Consult (r/o vocal cord dysfunction/paresis/paralysis.), MBS w Esophagus - Recommendations Diet Consistency: Other (pt has reportedly tolerated oatmeal, applesauce, Glucerna unthickened, and thickened liquids at home. full liquid diet) Medication Administration: Crushed with applesauce Liquids: [place] Thick Supplement: Magic Cup, Glucerna (ok unthickened for now.n Requesting strawberry. )
[2017-03-07] MEDS: POTASSIUM CHLORIDE TABS 20 MEQ TABLET.ER (FP) PO SCH (11:27)
[2017-03-07] MEDS: FERROUS SO4 325 MG TABLET (FP) PO SCH ×3 (11:27→21:37)
[2017-03-07] MEDS: amLODIPine BESYLATE 10 MG TABLET (FP) PO SCH ×2 (11:36→11:43)
[2017-03-07] MEDS: PANTOPRAZOLE 40 MG TABLET (FP) PO SCH (11:36)
[2017-03-07] MEDS: LACTOBACILLUS ACIDOPHILUS 1 EACH TAB (FP) PO SCH ×2 (11:36→11:43)
[2017-03-07] MEDS: METOPROLOL SUCCINATE 50 MG TAB.SR.24H (FP) PO SCH (11:37)
[2017-03-07] MEDS: CALCIUM CARBONATE 650 MG TABLET PO SCH ×2 (11:41→21:32)
[2017-03-07 11:56] LABS: INR 1.54 (0.82-1.09); PROTHROMBIN TIME (PATIENT) 17.1 SEC (9.98-11.88)
[2017-03-07 11:58] LABS: ACTIVATED PTT 29.5 SECONDS (26.9-34.4)
--- NOTE | 2017-03-07 12:12 | PN ---
Progress Note (short form) - Note Progress Note: PAtient seen and examined Mild shortness of breath, dysphagia Last Vital Signs Temp Pulse Resp BP Pulse Ox 98.1 F 115 H 20 109/68 99 03/07/17 06:00 03/07/17 06:00 03/07/17 06:00 03/07/17 06:00 03/06/17 19:30 Cor: RSR, No murmurs, No gallops Lungs: Clear to P&A Abd: Soft, Normal bowel sounds, No organomegaly Ext:No significant edema Abnormal Lab Results 03/06/17 03/06/17 03/06/17 15:10 15:10 15:10 WBC RBC Hgb 10.4 L Hct 31.9 L RDW 16.9 H MPV Neutrophils % Lymphocytes % Monocytes % 15.5 H D Nucleated RBCs INR 1.59 H Sodium 134 L Chloride 96 L Random Glucose 219 H D Total Bilirubin 1.1 H D AST 73 H D B-Natriuretic Peptide 127.15 H Albumin 3.0 L 03/07/17 03/07/17 03/07/17 06:00 06:00 10:33 WBC 2.8 L D RBC 3.52 L Hgb 10.1 L Hct 30.4 L RDW 17.0 H MPV 7.4 L Neutrophils % 33.0 L D Lymphocytes % 47.0 H D Monocytes % 17.0 H Nucleated RBCs 7 H INR 1.54 H Sodium 135 L Chloride 96 L Random Glucose 157 H D Total Bilirubin 1.1 H AST 66 H B-Natriuretic Peptide Albumin 3.1 L Active Medications Generic Name Dose Route Start Last Admin Trade Name Freq PRN Reason Stop Dose Admin Acetaminophen 650 mg 03/06/17 18:31 Tylenol - PO Q4H PRN FEVER OR PAIN Albuterol/Ipratropium 1 amp 03/06/17 18:37 Duoneb - NEB Q4H PRN SHORTNESS OF BREATH Alprazolam 0.25 mg 03/07/17 12:15 03/07/17 13:18 Xanax - PO 0.25 mg BID PRN Administration ANXIETY Amlodipine Besylate 10 mg 03/07/17 10:00 03/07/17 11:43 Norvasc - PO Not Given DAILY [facility] Calcium Carbonate 650 mg 03/06/17 22:00 03/07/17 11:41 Calcium Carbonate - PO Not Given BID [facility] Docusate Sodium 100 mg 03/06/17 22:00 03/07/17 11:27 Colace - PO Not Given BID [facility] Dronabinol 5 mg 03/06/17 22:00 03/07/17 06:02 Marinol - PO Not Given TID [facility] Enoxaparin Sodium 40 mg 03/07/17 12:00 03/07/17 13:39 Lovenox - SQ Not Given DAILY [facility] Entecavir 0.5 mg 03/07/17 10:00 03/07/17 11:41 Baraclude - PO Not Given Q48H [facility] Ferrous Sulfate 325 mg 03/06/17 22:00 03/07/17 11:27 Feosol - PO Not Given BID [facility] Guaifenesin/Codeine Phosphate 5 ml 03/06/17 18:37 Robitussin Ac - PO Q6H PRN COUGH Insulin Aspart 1 vial 03/06/17 18:45 03/07/17 12:09 Novolog Vial Sliding Scale - SQ Not Given TIDAC [facility] Protocol Lactobacillus Acidophilus 1 tab 03/07/17 10:00 03/07/17 11:43 Bacid - PO Not Given DAILY [facility] Lidocaine HCl 20 ml 03/06/17 18:42 Xylocaine 2% Viscous Oral - MM Q6HPO PRN ORAL PAIN/MOUTH SORES Metoprolol Succinate 50 mg 03/07/17 10:00 03/07/17 11:37 Toprol Xl - PO 50 mg DAILY [facility] Administration Ondansetron HCl 4 mg 03/07/17 09:41 03/07/17 10:41 Zofran Injection IVPUSH 03/07/17 21:42 4 mg Q4H PRN Administration NAUSEA AND/OR VOMITING Pantoprazole Sodium 40 mg 03/07/17 10:00 03/07/17 11:36 Protonix - PO 40 mg DAILY [facility] Administration Potassium Chloride 40 meq 03/07/17 10:00 03/07/17 11:27 K-Dur - PO Not Given DAILY [facility] Prochlorperazine Maleate 10 mg 03/06/17 18:37 Compazine - PO Q8H PRN NAUSEA AND/OR VOMITING A/P 46 y/o patient with metastatic breast cancer, ,-/-/-, progressive diseae C1 D8 eribulin 25% dose reduction will give neupogen prophylaxis will send for thoracentesis tomorrow s/p vit. K repeat INR in am
[2017-03-07] MEDS ORDERED: ALPRAZolam 0.25 MG TABLET PO PRN (12:15)
--- NOTE | 2017-03-07 13:33 | EKG ---
Test Reason : Blood Pressure : / mmHG Vent. Rate : 115 BPM Atrial Rate : 115 BPM P-R Int : 128 ms QRS Dur : 056 ms QT Int : 318 ms P-R-T Axes : 034 028 006 degrees QTc Int : 439 ms SINUS TACHYCARDIA LOW VOLTAGE QRS CANNOT RULE OUT ANTERIOR INFARCT , AGE UNDETERMINED ABNORMAL ECG WHEN COMPARED WITH ECG OF 15-FEB-2017 16:21, NO SIGNIFICANT CHANGE WAS FOUND Confirmed by OPAL CLEVELAND MD ([id number]) on 03/07/2017 1:32:54 PM Referred By: Confirmed By:OPAL CLEVELAND MD
[2017-03-07] MEDS: ENOXAPARIN NA (PORCINE) 40 MG/0.4 ML DISP.SYRIN SQ SCH (13:39)
[2017-03-07] MEDS ORDERED: DEXAMETHASONE INJECTION 8 MG in SODIUM CHLORIDE 50 ML IVPB ONE (14:30)
[2017-03-07] MEDS ORDERED: ONDANSETRON INJECTION 8 MG in SODIUM CHLORIDE 50 ML IVPB ONE (14:30)
[2017-03-07] MEDS ORDERED: [UNRECOGNIZED DRUG - OTHER] IV ONE (15:00)
--- NOTE | 2017-03-07 15:56 | PN ---
Physical Exam: SUBJECTIVE: Patient seen and examined C/o nausea c/o shortness of breath worsening dyspnea on exertion no fever or chills no chest pain or palpitation No dizziness or confusion OBJECTIVE: Vital Signs Period Temp Pulse Resp BP Sys/Winter Pulse Ox Last 24 Hr 97.3 F-98.7 F 115-127 20-20 109-131/68-94 99 GENERAL: The patient is awake, alert, and fully oriented, in no acute distress. HEAD: Normal with no signs of trauma. NECK: Trachea midline, full range of motion, supple. LUNGS: Breath sounds diminished in right base, crackles in left base. no wheezes , no accessory muscle use. HEART: Regular rate and rhythm, S1, S2 without murmur, rub or gallop. ABDOMEN: Soft, nontender, nondistended, normoactive bowel sounds, no guarding, no rebound, no hepatosplenomegaly, no masses. EXTREMITIES: 2+ pulses, warm, well-perfused, Lower extremities edema. NEUROLOGICAL: Normal speech, gait not observed. PSYCH: Normal mood, normal affect. SKIN: Warm, dry, normal turgor, no rashes or lesions noted Laboratory Results - last 24 hr 03/06/17 03/07/17 03/07/17 21:39 06:00 06:00 WBC 2.8 L D RBC 3.52 L Hgb 10.1 L Hct 30.4 L MCV 86.3 MCHC 33.2 RDW 17.0 H Plt Count 250 MPV 7.4 L Neutrophils % 33.0 L D Lymphocytes % 47.0 H D Monocytes % 17.0 H Eosinophils % 2.0 D Nucleated RBCs 7 H INR PTT (Actin FS) Sodium 135 L Potassium 4.4 Chloride 96 L Carbon Dioxide 26 Anion Gap 13 BUN 18 Creatinine 0.8 Creat Clearance w eGFR > 60 POC Glucometer 187 Random Glucose 157 H D Calcium 8.8 Phosphorus 3.9 Magnesium 2.0 Total Bilirubin 1.1 H AST 66 H ALT 28 Alkaline Phosphatase 106 Total Protein 6.5 Albumin 3.1 L 03/07/17 03/07/17 03/07/17 06:39 10:33 11:55 WBC RBC Hgb Hct MCV MCHC RDW Plt Count MPV Neutrophils % Lymphocytes % Monocytes % Eosinophils % Nucleated RBCs INR 1.54 H PTT (Actin FS) 29.5 Sodium Potassium Chloride Carbon Dioxide Anion Gap BUN Creatinine Creat Clearance w eGFR POC Glucometer 156 149 Random Glucose Calcium Phosphorus Magnesium Total Bilirubin AST ALT Alkaline Phosphatase Total Protein Albumin Active Medications Generic Name Dose Route Start Last Admin Trade Name Arthurq PRN Reason Stop Dose Admin Acetaminophen 650 mg 03/06/17 18:31 Tylenol - PO Q4H PRN FEVER OR PAIN Albuterol/Ipratropium 1 amp 03/06/17 18:37 Duoneb - NEB Q4H PRN SHORTNESS OF BREATH Alprazolam 0.25 mg 03/07/17 12:15 03/07/17 13:18 Xanax - PO 0.25 mg BID PRN Administration ANXIETY Amlodipine Besylate 10 mg 03/07/17 10:00 03/07/17 11:43 Norvasc - PO Not Given DAILY [facility] Calcium Carbonate 650 mg 03/06/17 22:00 03/07/17 11:41 Calcium Carbonate - PO Not Given BID [facility] Docusate Sodium 100 mg 03/06/17 22:00 03/07/17 11:27 Colace - PO Not Given BID [facility] Dronabinol 5 mg 03/06/17 22:00 03/07/17 06:02 Marinol - PO Not Given TID [facility] Enoxaparin Sodium 40 mg 03/07/17 12:00 03/07/17 13:39 Lovenox - SQ Not Given DAILY [facility] Entecavir 0.5 mg 03/07/17 10:00 03/07/17 11:41 Baraclude - PO Not Given Q48H [facility] Ferrous Sulfate 325 mg 03/06/17 22:00 03/07/17 11:27 Feosol - PO Not Given BID [facility] Guaifenesin/Codeine Phosphate 5 ml 03/06/17 18:37 Robitussin Ac - PO Q6H PRN COUGH Insulin Aspart 1 vial 03/06/17 18:45 03/07/17 12:09 Novolog Vial Sliding Scale - SQ Not Given TIDAC [facility] Protocol Lactobacillus Acidophilus 1 tab 03/07/17 10:00 03/07/17 11:43 Bacid - PO Not Given DAILY [facility] Lidocaine HCl 20 ml 03/06/17 18:42 Xylocaine 2% Viscous Oral - MM Q6HPO PRN ORAL PAIN/MOUTH SORES Metoprolol Succinate 50 mg 03/07/17 10:00 03/07/17 11:37 Toprol Xl - PO 50 mg DAILY [facility] Administration Ondansetron HCl 4 mg 03/07/17 09:41 03/07/17 10:41 Zofran Injection IVPUSH 03/07/17 21:42 4 mg Q4H PRN Administration NAUSEA AND/OR VOMITING Pantoprazole Sodium 40 mg 03/07/17 10:00 03/07/17 11:36 Protonix - PO 40 mg DAILY [facility] Administration Potassium Chloride 40 meq 03/07/17 10:00 03/07/17 11:27 K-Dur - PO Not Given DAILY [facility] Prochlorperazine Maleate 10 mg 03/06/17 18:37 Compazine - PO Q8H PRN NAUSEA AND/OR VOMITING CBC, BMP 03/07/17 06:00 03/07/17 06:00 Microbiology 02/16/17 17:00 Nasopharyngeal Swab Influenza Types A,B Antigen (MUNDO) - Final 02/16/17 17:00 Nasopharyngeal Swab - Final 02/15/17 23:23 Urine - Urine Clean Catch Urine Culture - Final Citrobacter Freundii Complex 02/16/17 17:00 Nasopharyngeal Swab Respiratory Virus Panel - Preliminary 02/15/17 16:02 Blood - Peripheral Venous Blood Culture - Preliminary NO GROWTH OBTAINED AFTER 48 HOURS, INCUBATION TO CONTINUE FOR 3 DAYS. 02/15/17 16:02 Blood - Peripheral Venous Blood Culture - Preliminary NO GROWTH OBTAINED AFTER 48 HOURS, INCUBATION TO CONTINUE FOR 3 DAYS. Laboratory Tests 03/07/17 03/07/17 06:00 10:33 INR 1.54 H PTT (Actin FS) 29.5 Calcium 8.8 Phosphorus 3.9 Magnesium 2.0 Total Bilirubin 1.1 H AST 66 H ALT 28 Alkaline Phosphatase 106 Albumin 3.1 L ASSESSMENT/PLAN: 46 year old female with PMH of Left breast cancer with lung metastasis s/p lumpectomy, radiation, chemotherapy with (carboplatin, Gemzer) who just started Eribulin last , and s/p Thoracentesis for malignant pleural effusion 2 weeks came to the ED with complaint of worsening shortness of breath. Shortness of breath likely rt malignant pleural effusion, worsening of metastatic cancer vs chemotherapy effect O2 nasal cannula, keep O2 sat>90% Duoneb inh Robitussin Throacentesis with pleur-X keep INR less 1.5 Pedal edema rt chemotherapy effect Likely related to Eribulin US lower ext negative Dysphagia/odynophagia likely related to cancer progression vs chemotherapy effect bedside swallow Speech therapy consult Modified Barium Swallow Sinus tachycardia Likely rt to Dyspnea and hypoxia, anemia may a contributing factor Toprol 50mg PO Metastatic breast cancer Dr Rudd on the case Chemotherapy per hem/onc On Compazine Zofran PRN Protonix PRN On Bacid Diabetes novolog sliding scale HTN Norvac 10mg po daily Torpol XL 50mg PO daily Anorexia Marinol Nutrition consult FEN Fluid: None Electrolytes: no abnormalities Nutrition: Full liquid, advance as tolerated DVT prophylaxis: SCD, hold Lovenox pending Pleur-X placement in am Visit type - Emergency Visit Emergency Visit: Yes ED Registration Date: 03/06/17 Care time: The patient presented to the Emergency Department on the above date and was hospitalized for further evaluation of their emergent condition. - New Patient This patient is new to me today: Yes Date on this admission: 03/07/17 - Critical Care Critical Care patient: No - Discharge Referral Referred to [facility] Med P.C.: No
--- NOTE | 2017-03-07 16:56 | PN ---
Teaching Attending Note Name of Resident: Tae Caraballo ATTENDING PHYSICIAN STATEMENT I saw and evaluated the patient. I reviewed the resident's note and discussed the case with the resident. I agree with the resident's findings and plan as documented. SUBJECTIVE: OBJECTIVE: Vital Signs Period Temp Pulse Resp BP Sys/Winter Pulse Ox Last 24 Hr 97.3 F-98.7 F 105-127 20-22 108-131/68-94 98-99 ASSESSMENT AND PLAN:
[2017-03-08] MEDS: INSULIN SLIDING SCALE (NOVOLOG) 1 VIAL SQ SCH ×3 (06:49→18:01)
[2017-03-08] MEDS: DRONABINOL 5 MG CAPSULE PO SCH ×2 (06:49→13:45)
[2017-03-08 07:11] LABS: MCH 28.9 pg (25.7-33.7); MCHC 33.6 g/dl (32.0-36.0); MEAN CELL VOLUME 86.2 fl (80-96); MEAN PLT VOLUME 7.6 fl (7.5-11.1); PLATELET COUNT 244 K/MM3 (134-434); RDW 17.3 % (11.6-15.6)
[2017-03-08 07:53] LABS: ALK PHOS 106 U/L (45-117); ANION GAP 12 (8-16); BILIRUBIN,TOTAL 1.3 mg/dL (0.2-1.0); CO2 27 mmol/L (21-32); CREATININE 0.9 mg/dL (0.55-1.02); GLUCOSE,RANDOM 203 mg/dL (74-106); INR 1.51 (0.82-1.09); PROTHROMBIN TIME (PATIENT) 16.8 SEC (9.98-11.88); SGOT/AST 73 U/L (15-37); SGPT/ALT 27 U/L (12-78); TOT PROT 6.2 g/dl (6.4-8.2)
[2017-03-08 07:55] LABS: ACTIVATED PTT 29.7 SECONDS (26.9-34.4)
[2017-03-08 09:22] LABS: ANISOCYTOSIS 1+; HYPOCHROMIA 1+; METAMYELOCYTE 2 % (0-2); PLATELET ESTIMATE ADEQUATE (NORMAL); POLYCHROMASIA 1+
[2017-03-08 09:24] LABS: WHITE BLOOD COUNT 1.7 K/mm3 (4.0-10.0)
[2017-03-08] MEDS: PANTOPRAZOLE 40 MG TABLET (FP) PO SCH (11:30)
[2017-03-08] MEDS: DOCUSATE SODIUM 100 MG CAPSULE (FP) PO SCH (11:31)
[2017-03-08] MEDS: LACTOBACILLUS ACIDOPHILUS 1 EACH TAB (FP) PO SCH (11:31)
[2017-03-08] MEDS: FERROUS SO4 325 MG TABLET (FP) PO SCH (11:31)
[2017-03-08] MEDS: amLODIPine BESYLATE 10 MG TABLET (FP) PO SCH (11:33)
[2017-03-08] MEDS: METOPROLOL SUCCINATE 50 MG TAB.SR.24H (FP) PO SCH (11:33)
[2017-03-08] MEDS: ENOXAPARIN NA (PORCINE) 40 MG/0.4 ML DISP.SYRIN SQ SCH (11:34)
[2017-03-08] MEDS: POTASSIUM CHLORIDE TABS 20 MEQ TABLET.ER (FP) PO SCH (11:34)
[2017-03-08] MEDS: CALCIUM CARBONATE 650 MG TABLET PO SCH (11:35)
[2017-03-08] MEDS ORDERED: INSULIN (NOVOLOG) ASPART 100 UNITS/ML 10ML VIAL ONE (12:01)
--- NOTE | 2017-03-08 12:45 | PN ---
Progress Note (short form) - Note Progress Note: Patient seen and examined S/P thoracentsis Complains of pain where procedure performed Last Vital Signs Temp Pulse Resp BP Pulse Ox 97.9 F 116 H 20 136/92 98 03/08/17 08:22 03/08/17 08:22 03/08/17 08:22 03/08/17 08:22 03/08/17 09:00 HEENT: MICHELLE, EOM Intact Oropharynx: No thrush, mucositis Cor: RSR, No murmurs, No gallops Lungs: decreased breath sounds bilaterally Abd: Soft, Normal bowel sounds, No organomegaly Ext:No significant edema Skin: No rashes, Integument intact CBC, BMP 03/08/17 06:00 03/08/17 06:00 Current Medications Generic Name Dose Route Start Last Admin Trade Name Freq PRN Reason Stop Dose Admin Acetaminophen 650 mg 03/06/17 18:31 03/08/17 11:31 Tylenol - PO 650 mg Q4H PRN Administration FEVER OR PAIN Albuterol/Ipratropium 1 amp 03/06/17 18:37 Duoneb - NEB Q4H PRN SHORTNESS OF BREATH Alprazolam 0.25 mg 03/07/17 12:15 03/07/17 13:18 Xanax - PO 0.25 mg BID PRN Administration ANXIETY Amlodipine Besylate 10 mg 03/07/17 10:00 03/08/17 11:33 Norvasc - PO 10 mg DAILY [facility] Administration Calcium Carbonate 650 mg 03/06/17 22:00 03/08/17 11:35 Calcium Carbonate - PO 650 mg BID [facility] Administration Docusate Sodium 100 mg 03/06/17 22:00 03/08/17 11:31 Colace - PO Not Given BID [facility] Dronabinol 5 mg 03/06/17 22:00 03/08/17 06:49 Marinol - PO 5 mg TID [facility] Administration Enoxaparin Sodium 40 mg 03/07/17 12:00 03/08/17 11:34 Lovenox - SQ Not Given DAILY [facility] Entecavir 0.5 mg 03/07/17 10:00 03/07/17 11:41 Baraclude - PO Not Given Q48H [facility] Ferrous Sulfate 325 mg 03/06/17 22:00 03/08/17 11:31 Feosol - PO 325 mg BID [facility] Administration Guaifenesin/Codeine Phosphate 5 ml 03/06/17 18:37 03/07/17 17:57 Robitussin Ac - PO 5 ml Q6H PRN Administration COUGH Insulin Aspart 1 vial 03/06/17 18:45 03/08/17 11:59 Novolog Vial Sliding Scale - SQ 2 unit TIDAC [facility] Administration Protocol Lactobacillus Acidophilus 1 tab 03/07/17 10:00 03/08/17 11:31 Bacid - PO 1 tab DAILY [facility] Administration Lidocaine HCl 20 ml 03/06/17 18:42 Xylocaine 2% Viscous Oral - MM Q6HPO PRN ORAL PAIN/MOUTH SORES Metoprolol Succinate 50 mg 03/07/17 10:00 03/08/17 11:33 Toprol Xl - PO 50 mg DAILY [facility] Administration Pantoprazole Sodium 40 mg 03/07/17 10:00 03/08/17 11:30 Protonix - PO 40 mg DAILY [facility] Administration Potassium Chloride 40 meq 03/07/17 10:00 03/08/17 11:34 K-Dur - PO Not Given DAILY [facility] Prochlorperazine Maleate 10 mg 03/06/17 18:37 Compazine - PO Q8H PRN NAUSEA AND/OR VOMITING Impression: Metastatic breast Ca Malignant pleural effusion S/P eribulin Neutropenia Anemia Plan: Begin neupogen therapy. If patient is well enough, no objection to discharge with outpatient follow up.
[2017-03-08] MEDS ORDERED: ACETAMINOPHEN 325 MG TABLET (FP) PO ONE (12:46)
[2017-03-08] MEDS ORDERED: TBO-FILGRASTIM 300 MCG/0.5 ML DISP.SYRINGE SQ SCH ×2 (13:00)
--- NOTE | 2017-03-08 13:24 | PN ---
Physical Exam: SUBJECTIVE: Patient seen and examined Pt is awake, alert and oriented to time, place and person Still have some shortness of breath O2 sat ok on nasal cannula 2 liter NO fever or chills some nausea OBJECTIVE: Vital Signs Period Temp Pulse Resp BP Sys/Winter Pulse Ox Last 24 Hr 97.3 F-98.3 F 110-127 20-20 113-138/74-92 97-98 GENERAL: The patient is awake, alert, and fully oriented, in no acute distress. HEAD: Normal with no signs of trauma. NECK: Trachea midline, full range of motion, supple. LUNGS: Breath sounds diminished in right base, crackles in left base. no wheezes , no accessory muscle use. HEART: Regular rate and rhythm, S1, S2 without murmur, rub or gallop. ABDOMEN: Soft, nontender, nondistended, normoactive bowel sounds, no guarding, no rebound, no hepatosplenomegaly, no masses. EXTREMITIES: 2+ pulses, warm, well-perfused, Lower extremities edema. NEUROLOGICAL: Normal speech, gait not observed. PSYCH: Normal mood, normal affect. SKIN: Warm, dry, normal turgor, no rashes or lesions noted Laboratory Results - last 24 hr 03/07/17 03/08/17 03/08/17 16:49 06:00 06:00 WBC 1.7 L* D RBC 3.46 L Hgb 10.0 L Hct 29.8 L MCV 86.2 MCHC 33.6 RDW 17.3 H Plt Count 244 MPV 7.6 Neutrophils % 28.0 L Lymphocytes % 40.0 Monocytes % 32.0 H D Metamyelocytes 2 D Myelocytes 2 Platelet Estimate Adequate Platelet Comment No clumping noted Polychromasia 1+ Hypochromic-Microcytic 1+ Basophilic Stippling 1+ Anisocytosis 1+ INR PTT (Actin FS) Sodium 135 L Potassium 4.5 Chloride 96 L Carbon Dioxide 27 Anion Gap 12 BUN 25 H D Creatinine 0.9 Creat Clearance w eGFR > 60 POC Glucometer 219 Random Glucose 203 H D Calcium 9.0 Total Bilirubin 1.3 H AST 73 H ALT 27 Alkaline Phosphatase 106 Total Protein 6.2 L Albumin 3.0 L 03/08/17 03/08/17 03/08/17 06:00 06:37 11:57 WBC RBC Hgb Hct MCV MCHC RDW Plt Count MPV Neutrophils % Lymphocytes % Monocytes % Metamyelocytes Myelocytes Platelet Estimate Platelet Comment Polychromasia Hypochromic-Microcytic Basophilic Stippling Anisocytosis INR 1.51 H PTT (Actin FS) 29.7 Sodium Potassium Chloride Carbon Dioxide Anion Gap BUN Creatinine Creat Clearance w eGFR POC Glucometer 220 200 Random Glucose Calcium Total Bilirubin AST ALT Alkaline Phosphatase Total Protein Albumin Active Medications Generic Name Dose Route Start Last Admin Trade Name Freq PRN Reason Stop Dose Admin Acetaminophen 650 mg 03/06/17 18:31 03/08/17 11:31 Tylenol - PO 650 mg Q4H PRN Administration FEVER OR PAIN Albuterol/Ipratropium 1 amp 03/06/17 18:37 Duoneb - NEB Q4H PRN SHORTNESS OF BREATH Alprazolam 0.25 mg 03/07/17 12:15 03/07/17 13:18 Xanax - PO 0.25 mg BID PRN Administration ANXIETY Amlodipine Besylate 10 mg 03/07/17 10:00 03/08/17 11:33 Norvasc - PO 10 mg DAILY JAIR Administration Calcium Carbonate 650 mg 03/06/17 22:00 03/08/17 11:35 Calcium Carbonate - PO 650 mg BID JAIR Administration Docusate Sodium 100 mg 03/06/17 22:00 03/08/17 11:31 Colace - PO Not Given BID JAIR Dronabinol 5 mg 03/06/17 22:00 03/08/17 06:49 Marinol - PO 5 mg TID JAIR Administration Enoxaparin Sodium 40 mg 03/07/17 12:00 03/08/17 11:34 Lovenox - SQ Not Given DAILY JAIR Entecavir 0.5 mg 03/07/17 10:00 03/07/17 11:41 Baraclude - PO Not Given Q48H JAIR Ferrous Sulfate 325 mg 03/06/17 22:00 03/08/17 11:31 Feosol - PO 325 mg BID JAIR Administration Guaifenesin/Codeine Phosphate 5 ml 03/06/17 18:37 03/07/17 17:57 Robitussin Ac - PO 5 ml Q6H PRN Administration COUGH Insulin Aspart 1 vial 03/06/17 18:45 03/08/17 11:59 Novolog Vial Sliding Scale - SQ 2 unit TIDAC JAIR Administration Protocol Lactobacillus Acidophilus 1 tab 03/07/17 10:00 03/08/17 11:31 Bacid - PO 1 tab DAILY JAIR Administration Lidocaine HCl 20 ml 03/06/17 18:42 Xylocaine 2% Viscous Oral - MM Q6HPO PRN ORAL PAIN/MOUTH SORES Metoprolol Succinate 50 mg 03/07/17 10:00 03/08/17 11:33 Toprol Xl - PO 50 mg DAILY JAIR Administration Pantoprazole Sodium 40 mg 03/07/17 10:00 03/08/17 11:30 Protonix - PO 40 mg DAILY JAIR Administration Potassium Chloride 40 meq 03/07/17 10:00 03/08/17 11:34 K-Dur - PO Not Given DAILY JAIR Prochlorperazine Maleate 10 mg 03/06/17 18:37 Compazine - PO Q8H PRN NAUSEA AND/OR VOMITING Tbo-Filgrastim 300 mcg 03/08/17 13:00 Granix - SQ DAILY JAIR CBC, BMP 03/08/17 06:00 03/08/17 06:00 Laboratory Tests 03/08/17 03/08/17 06:00 06:00 INR 1.51 H Calcium 9.0 Total Bilirubin 1.3 H AST 73 H ALT 27 Alkaline Phosphatase 106 Total Protein 6.2 L Albumin 3.0 L ASSESSMENT/PLAN: 46 year old female with PMH of Left breast cancer with lung metastasis s/p lumpectomy, radiation, chemotherapy with (carboplatin, Gemzer) who just started Eribulin last , and s/p Thoracentesis for malignant pleural effusion 2 weeks came to the ED with complaint of worsening shortness of breath. Shortness of breath likely rt malignant pleural effusion, worsening of metastatic cancer vs chemotherapy effect O2 nasal cannula, keep O2 sat>90% Duoneb inh Robitussin Throacentesis with pleur-X this morning keep INR less 1.5 Pedal edema rt chemotherapy effect Likely related to Eribulin US lower ext negative Dysphagia/odynophagia likely related to cancer progression vs chemotherapy effect Speech therapy consult Modified Barium Swallow showed no issue with swallowing , possible left vocal cord dysfuntin Resume diabetic diet Leukopenia Neutropenic precaution Received chemotherapy yesterday Likely chemotherapy effect [place] styimulating factor per hem/onc (Neupogen) Expect reactive leukocytosis in future labs Sinus tachycardia Likely rt to Dyspnea and hypoxia, anemia may a contributing factor Toprol XL 50mg PO Metastatic breast cancer Dr Rudd on the case Chemotherapy per hem/onc On Compazine Zofran PRN Protonix PRN On Bacid Diabetes novolog sliding scale HTN Norvac 10mg po daily Torpol XL 50mg PO daily Anorexia Marinol Nutrition consult FEN Fluid: None Electrolytes: no abnormalities Nutrition: diabetic diet DVT prophylaxis: SCD, lovenox Visit type - Emergency Visit Emergency Visit: Yes ED Registration Date: 03/06/17 Care time: The patient presented to the Emergency Department on the above date and was hospitalized for further evaluation of their emergent condition. - New Patient This patient is new to me today: Yes - Critical Care Critical Care patient: No - Discharge Referral Referred to [facility] No
--- NOTE | 2017-03-08 14:21 | PN ---
Progress Note, [employer] OF [employer] - Note Progress Note: MBS reviewed with pt's family, staff. Poor appetite. Selected Entries 03/07/17 03/08/17 03/08/17 15:05 10:29 14:00 Breakfast 0 0 Lunch 0 25% Encouraged to eat and drink and take ssupplements. Pt treated for diaz last week, per pt's sister in law. No visible oral thrush. Consider appetite stimulant, if not medically contraindicated.
--- NOTE | 2017-03-08 16:13 | PN ---
Teaching Attending Note Name of Resident: Tae Caraballo ATTENDING PHYSICIAN STATEMENT I saw and evaluated the patient. I reviewed the resident's note and discussed the case with the resident. I agree with the resident's findings and plan as documented. SUBJECTIVE: OBJECTIVE: Vital Signs Period Temp Pulse Resp BP Sys/Winter Pulse Ox Last 24 Hr 97.5 F-98.3 F 110-125 20-20 108-138/74-92 97-98 ASSESSMENT AND PLAN:
--- NOTE | 2017-03-08 17:57 | DS ---
Physical Exam: SUBJECTIVE: Patient seen and examined OBJECTIVE: Vital Signs Period Temp Pulse Resp BP Sys/Winter Pulse Ox Last 24 Hr 97.5 F-98.3 F 110-125 20-20 108-138/74-92 97-98 PHYSICAL EXAM GENERAL: The patient is awake, alert, and fully oriented, in no acute distress. HEAD: Normal with no signs of trauma. NECK: Trachea midline, full range of motion, supple. LUNGS: Breath sounds diminished in right base, crackles in left base. no wheezes , no accessory muscle use. HEART: Regular rate and rhythm, S1, S2 without murmur, rub or gallop. ABDOMEN: Soft, nontender, nondistended, normoactive bowel sounds, no guarding, no rebound, no hepatosplenomegaly, no masses. EXTREMITIES: 2+ pulses, warm, well-perfused, Lower extremities edema. NEUROLOGICAL: Normal speech, gait not observed. PSYCH: Normal mood, normal affect. SKIN: Warm, dry, normal turgor, no rashes or lesions noted LABS Laboratory Results - last 24 hr 03/08/17 03/08/17 03/08/17 06:00 06:00 06:00 WBC 1.7 L* D RBC 3.46 L Hgb 10.0 L Hct 29.8 L MCV 86.2 MCHC 33.6 RDW 17.3 H Plt Count 244 MPV 7.6 Neutrophils % 28.0 L Lymphocytes % 40.0 Monocytes % 32.0 H D Metamyelocytes 2 D Myelocytes 2 Platelet Estimate Adequate Platelet Comment No clumping noted Polychromasia 1+ Hypochromic-Microcytic 1+ Basophilic Stippling 1+ Anisocytosis 1+ INR 1.51 H PTT (Actin FS) 29.7 Sodium 135 L Potassium 4.5 Chloride 96 L Carbon Dioxide 27 Anion Gap 12 BUN 25 H D Creatinine 0.9 Creat Clearance w eGFR > 60 POC Glucometer Random Glucose 203 H D Calcium 9.0 Total Bilirubin 1.3 H AST 73 H ALT 27 Alkaline Phosphatase 106 Total Protein 6.2 L Albumin 3.0 L 03/08/17 03/08/17 06:37 11:57 WBC RBC Hgb Hct MCV MCHC RDW Plt Count MPV Neutrophils % Lymphocytes % Monocytes % Metamyelocytes Myelocytes Platelet Estimate Platelet Comment Polychromasia Hypochromic-Microcytic Basophilic Stippling Anisocytosis INR PTT (Actin FS) Sodium Potassium Chloride Carbon Dioxide Anion Gap BUN Creatinine Creat Clearance w eGFR POC Glucometer 220 200 Random Glucose Calcium Total Bilirubin AST ALT Alkaline Phosphatase Total Protein Albumin CBC, BMP 03/08/17 06:00 03/08/17 06:00 HOSPITAL COURSE: Date of Admission:03/06/17 This is a 46 yo F with PMH of L breast CA (triple negative, dx 2 yrs ago intermediate stage s/p lumpectomy, radiation, chemo with carboplatinum/gemzar), that has since recurred and developed lung mets (dx dec 2016). She has a known R pleural effusion s/p thoracentesis last Sat and a R portocath. She has recent hx of contrast induced nephropathy that has since resolved and at baseline. She also has PMH of chemo induced HTN. HLD and DM. She recently underwent infusion of new chemotherapy agent Eribulin Mesylate last (common side effect peripheral edema, sob, cough, tachycardia, throat pain). She has developed new LE edema x 4 days, increased sob w/o hypoxia on 2L NC (on 2L at home), palpitations, dry cough, exercise intolerance and difficulty swallowing/throat pain x 1 week. She denies chest pain, calf pain, hemoptysis, h/a, incontinence. is proxy ER course was notable for:(1) labs (2)cxr ekg (3)onc consult 46 year old female with PMH of Left breast cancer with lung metastasis s/p lumpectomy, radiation, chemotherapy with (carboplatin, Gemzer) who just started Eribulin last , and s/p Thoracentesis for malignant pleural effusion 2 weeks came to the ED with complaint of worsening shortness of breath. Pt was diagnosed with Shortness of breath likely rt malignant pleural effusion, worsening of metastatic cancer. Pt was treated with O2 nasal cannula, keep O2 sat>90% Duoneb inh, Robitussin, Throacentesis. Pt had Pedal edema rt chemotherapy effect . US lower ext negative. Pt had Dysphagia/odynophagia, likely related to cancer progression vs chemotherapy effect. Speech therapy consulted, Modified Barium Swallow showed no issue with swallowing , possible left vocal cord dysfunction. Resume diabetic diet. Pt had Leukopenia due to chemotherapy effect , was placed on Neutropenic precaution. Pt received a [place] stimulating factor per hem/onc (Neupogen). Outpatient lab and follow up. Pt had Sinus tachycardia, Likely rt to Dyspnea and hypoxia, anemia may a contributing factor , Continue Toprol XL. Pt has Metastatic breast cancer. Pt is on On Compazine, Zofran PRN, Protonix PRN, Bacid. Dr Rudd on the case, Chemotherapy per hem/ onc. Pt was on sliding scale for Diabetes. Pt has HTN and is on Norvac 10mg po daily, Torpol XL 50mg PO daily. Pt is to follow up with PCP and hem/onc Dr rudd next week. Date of Discharge: 03/08/17 Minutes to complete discharge: 40 Discharge Summary Reason For Visit: DYSPNEA;CARCINOMA OF BREAST METASTASIZE MULTI SITE Current Active Problems Air hunger (Acute) Dehydration (Acute) Dysphagia (Acute) Dyspnea (Acute) Hypoxia (Acute) Pleural effusion (Acute) Breast cancer metastasized to multiple sites (Chronic) Condition: Stable - Instructions Diet, Activity, Other Instructions: Discharge Home resume home diet and home activity Follow up with PCP within 1 week Follow Up with Dr Bedolla/Dr Rudd within 1 week Resume home medication If you start having Temperature higher than 100.0, If you start having productive or worsening cough, shortness of breath, please come to the emergency department or call your physician. Your white count is very low, you are on Neutropenic precautions. Avoid sick contacts, wash hands, and everyone should wear face mask and gloves around while you until your white count increases. Take your Neupogen as prescribed by your oncologist Dr Rudd/Dr Bedolla. Referrals: Aaliyah Lowe MD [Primary Care Provider] - Blaire Diggs MD [Staff Physician] - Disposition: HOME - Home Medications Comprehensive Discharge Medication List: Ambulatory Orders Ondansetron [Zofran *Odt*] 8 mg PO Q12H PRN #60 tab.rapdis 01/05/17 Pantoprazole Sodium [Protonix] 40 mg PO DAILY #30 tablet. 01/05/17 Prochlorperazine Maleate [Compazine -] 10 mg PO Q8H PRN #60 tablet 01/05/17 Amlodipine Besylate [Norvasc -] 10 mg PO DAILY tablet 02/02/17 Entecavir [Baraclude -] 0.5 mg PO Q48H #0 tablet 02/02/17 Ferrous Sulfate [Feosol] 325 mg PO BID #60 tablet 02/02/17 Lactobacillus Acidophilus [Bacid -] 1 tab PO DAILY tab 02/02/17 Albuterol 2.5/Ipratropium 0.5 [Duoneb -] 1 amp NEB Q4H PRN #32 amp MDD 4 Docusate Sodium [Colace -] 100 mg PO BID #60 capsule 02/18/17 Guaifenesin AC [Robitussin AC -] 5 ml PO Q6H PRN #1 bottle MDD 4 02/18/17 Metoprolol Succinate [Toprol XL -] 50 mg PO DAILY #30 tab 02/18/17 Calcium Carbonate - 650 mg PO BID #28 tablet 02/19/17 Potassium Chloride [K-Dur -] 40 meq PO DAILY #28 tablet.er 02/19/17 Dronabinol [Marinol -] 5 mg PO BIDAC #60 cap MDD 2 03/08/17 This patient is new to me today: Yes Date on this admission: 03/10/17 Emergency Visit: Yes ED Registration Date: 03/06/17 Care time: The patient presented to the Emergency Department on the above date and was hospitalized for further evaluation of their emergent condition. Critical Care patient: No - Discharge Referral Referred to [facility] No
[2017-03-08 18:21] VITALS: BP 107/77; PULSE 88; TEMP 98.7
== END 2017-03-08 20:04 | disposition home or self-care (01) | DRG 598 ==
LOC: JER 14:30 → JERBED 17:10 → OBSVTOIN 18:31 → J7W 19:20
PROVIDERS: ADMIT Internal Medicine; ATTEND Internal Medicine
PROC: 3E0F7GC Introduction of Other Therapeutic Substance into Respiratory Tract, Via Natural or Artificial Opening (ICD-10-PCS; 2017-03-06)
PROC: 3E03305 Introduction of Other Antineoplastic into Peripheral Vein, Percutaneous Approach (ICD-10-PCS; principal; 2017-03-07)
PROC: 0W9930Z Drainage of Right Pleural Cavity with Drainage Device, Percutaneous Approach (ICD-10-PCS; 2017-03-08)
DX: C50.912 Malignant neoplasm of unspecified site of left female breast (principal); C78.00 Secondary malignant neoplasm of unspecified lung; J91.0 Malignant pleural effusion; C78.1 Secondary malignant neoplasm of mediastinum; Z17.1 Estrogen receptor negative status [ER-]; R13.19 Other dysphagia; R60.0 Localized edema; R00.0 Tachycardia, unspecified; I10 Essential (primary) hypertension; D70.1 Agranulocytosis secondary to cancer chemotherapy; R09.02 Hypoxemia; E86.0 Dehydration
CPT/HCPCS: 36415; 71010-TC; 74230-TC; 76942; 80053; 82550; 82553; 83735; 83880; 84100; 84484; 85025; 85027; 85610; 85730; 92611-GN; 93005; 93010; 93970-TC; 97116-GP; 97162-PG; 99283-25; G0378; J1442; J9179

== ENCOUNTER 2017-03-12 13:19 | Observation (INO) | payer BC ==
[2017-03-12 13:32] VITALS: BMI 26.5
--- NOTE | 2017-03-12 13:44 | PDOC ---
History of Present Illness - General History Source: Patient, Family, Old Records Exam Limitations: No Limitations - History of Present Illness Initial Comments: 03/12/17 15:12 The patient is a 46 year old female, with a significant past medical history of hypertension, hyperlipidemia, diabetes, metastatic breast CA (initially diagnosed 2 years ago) s/p surgery/chemotherapy/radiation now with recurrence ( recently started on new chemotherapy regimen) and known lung metastasis complicated by pleural effusion requiring recent thoracentesis by interventional radiology, who presents to the emergency department, brought in by family, with worsening shortness of breath over the past 3-4 days. This patient was most recently seen in this ED on 03/06/2017 with similar symptoms and was admitted for a right sided pleural effusion. The patient was discharged home on 03/08/2017. Since then, the patient reports worsening shortness of breath so she returns to the ED for further evaluation. The patient denies chest pain. The patient denies fever, chills, nausea, vomiting, diarrhea or dysuria. The patient denies any history of PE or DVT. Allergies: None reported. Past Surgical History: Left Lumpectomy; Port-A-Cath Placement. Social History: Non smoker. Denies alcohol or drug use. PCP: Dr. Mynor Fischer Oncologist: Dr. Blaire Diggs <Almaz Kong - Last Filed: 03/12/17 15:12> <Eli Lopez - Last Filed: 03/12/17 17:56> - General Chief Complaint: Shortness of Breath Stated Complaint: DIFFICULTY BREATHING Time Seen by Provider: 03/12/17 13:43 Past History <Almaz Kong - Last Filed: 03/12/17 15:12> - Past Medical History Anemia: No Asthma: No Cancer: Yes (LT BREAST, 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) Cardiac Disorders: No CVA: No COPD: No CHF: No Dementia: No Diabetes: Yes GI Disorders: No Disorders: No HTN: Yes Hypercholesterolemia: No Liver Disease: No Seizures: No Thyroid Disease: No - Surgical History Abdominal Surgery: No Appendectomy: No Cardiac Surgery: No Cholecystectomy: No Lung Surgery: No Neurologic Surgery: No Orthopedic Surgery: No - Psycho/Social/Smoking Cessation Hx Anxiety: No Suicidal Ideation: No Smoking History: Never smoked Have you smoked in the past 12 months: No Hx Alcohol Use: No Drug/Substance Use Hx: No Substance Use Type: None Hx Substance Use Treatment: No <Eli Lopez - Last Filed: 03/12/17 17:56> - Past Medical History Allergies/Adverse Reactions: Allergies Allergy/AdvReac Type Severity Reaction Status Date / Time No Known Drug Allergies Allergy Verified 03/12/17 13:27 Home Medications: Ambulatory Orders Ondansetron [Zofran *Odt*] 8 mg PO Q12H PRN #60 tab.rapdis 01/05/17 Pantoprazole Sodium [Protonix] 40 mg PO DAILY #30 tablet. 01/05/17 Prochlorperazine Maleate [Compazine -] 10 mg PO Q8H PRN #60 tablet 01/05/17 Amlodipine Besylate [Norvasc -] 10 mg PO DAILY tablet 02/02/17 Entecavir [Baraclude -] 0.5 mg PO Q48H #0 tablet 02/02/17 Ferrous Sulfate [Feosol] 325 mg PO BID #60 tablet 02/02/17 Lactobacillus Acidophilus [Bacid -] 1 tab PO DAILY tab 02/02/17 Albuterol 2.5/Ipratropium 0.5 [Duoneb -] 1 amp NEB Q4H PRN #32 amp MDD 4 Docusate Sodium [Colace -] 100 mg PO BID #60 capsule 02/18/17 Guaifenesin AC [Robitussin AC -] 5 ml PO Q6H PRN #1 bottle MDD 4 02/18/17 Metoprolol Succinate [Toprol XL -] 50 mg PO DAILY #30 tab 02/18/17 Calcium Carbonate - 650 mg PO BID #28 tablet 02/19/17 Potassium Chloride [K-Dur -] 40 meq PO DAILY #28 tablet.er 02/19/17 Dronabinol [Marinol -] 5 mg PO BIDAC #60 cap MDD 2 03/08/17 Review of Systems - Review of Systems Able to Perform ROS?: Yes Comments:: 03/12/17 14:42 GENERAL/CONSTITUTIONAL: No fever or chills. No weakness. HEAD, EYES, EARS, NOSE AND THROAT: No change in vision. No ear pain or discharge. No sore throat. CARDIOVASCULAR: +Shortness of breath. No chest pain. RESPIRATORY: No cough, wheezing, or hemoptysis. GASTROINTESTINAL: No nausea, vomiting, diarrhea or constipation. GENITOURINARY: No dysuria, frequency, or change in urination. MUSCULOSKELETAL: No joint or muscle swelling or pain. No neck or back pain. SKIN: No rash. NEUROLOGIC: No headache, vertigo, loss of consciousness, or change in strength/ sensation. ENDOCRINE: No increased thirst. No abnormal weight change. HEMATOLOGIC/LYMPHATIC: No anemia, easy bleeding, or history of blood clots. ALLERGIC/IMMUNOLOGIC: No hives or skin allergy. <Almaz Kong - Last Filed: 03/12/17 15:12> *Physical Exam - Vital Signs Last Vital Signs Temp Pulse Resp BP Pulse Ox 97.5 F L 126 H 18 116/85 95 03/12/17 13:28 03/12/17 13:28 03/12/17 13:28 03/12/17 13:28 03/12/17 13:28 <Almaz Kong - Last Filed: 03/12/17 15:12> - Vital Signs Last Vital Signs Temp Pulse Resp BP Pulse Ox 97.5 F L 126 H 18 116/85 95 03/12/17 13:28 03/12/17 13:28 03/12/17 13:28 03/12/17 13:28 03/12/17 13:28 - Physical Exam Comments: GENERAL: Awake, alert, and fully oriented. Appears chronically ill. HEAD: No signs of trauma EYES: PERRLA, EOMI, sclera anicteric, conjunctiva clear ENT: Auricles normal inspection, hearing grossly normal, nares patent, oropharynx clear without exudates. Moist mucosa NECK: Normal ROM, supple, no lymphadenopathy, JVD, or masses LUNGS: Tachypnea. Dec lung sounds R base. Good air entry L side. HEART: Regular rate and rhythm, normal S1 and S2, no murmurs, rubs or gallops ABDOMEN: Soft, nontender, normoactive bowel sounds. No guarding, no rebound. No masses EXTREMITIES: Normal range of motion, no edema. No clubbing or cyanosis. No cords, erythema, or tenderness NEUROLOGICAL: Cranial nerves II through XII grossly intact. Normal speech, normal gait SKIN: Warm, Dry, normal turgor, no rashes or lesions noted. <Eli Lopez - Last Filed: 03/12/17 17:56> ED Treatment Course - LABORATORY CBC & Chemistry Diagram: 03/12/17 14:00 03/12/17 13:33 - ADDITIONAL ORDERS Additional order review: 03/12/17 14:00 RBC 3.21 L MCV 87.3 MCHC 33.5 RDW 18.4 H MPV 8.0 Neutrophils % Y Lymphocytes % Y <Almaz Kong - Last Filed: 03/12/17 15:12> - LABORATORY CBC & Chemistry Diagram: 03/12/17 14:00 03/12/17 13:33 - RADIOLOGY Radiology Studies Ordered: Category Date Time Status CHEST X-RAY PORTABLE* [RAD] Stat Radiology 03/12/17 13:33 Ordered <Eli Lopez - Last Filed: 03/12/17 17:56> Medical Decision Making - Medical Decision Making 03/12/17 14:44 EXAM: RAD/CHEST X-RAY PORTABLE Reviewed By: Dr. Jordy Pichardo IMPRESSION: Improving congestion with large right pleural effusion since 2016. <Almaz Kong - Last Filed: 03/12/17 15:12> - Medical Decision Making 03/12/17 14:[address] Capellan to discuss. Awaiting callback. 03/12/17 15:42 D/w radiology. Will place PleurX catheter tomorrow. NPO after midnight. Will admit to hospitalist service. <Eli Lopez - Last Filed: 03/12/17 17:56> *DC/Admit/Observation/Transfer - Attestations Scribe Attestion: 03/12/17 14:34 Documentation prepared by Almaz Kong, acting as medical office supervisor for Eli Lopez MD. <Almaz Kong - Last Filed: 03/12/17 15:12> - Discharge Dispostion Admit: Yes <Eli Lopez - Last Filed: 03/12/17 17:56> Diagnosis at time of Disposition: Pericardial effusion Breast cancer metastasized to multiple sites Qualifiers: Laterality: unspecified laterality Qualified Code(s): C50.919 - Malignant neoplasm of unspecified site of unspecified female breast - Discharge Dispostion Condition at time of disposition: Guarded - Referrals
[2017-03-12 14:11] LABS: MCH 29.3 pg (25.7-33.7); MCHC 33.5 g/dl (32.0-36.0); MEAN CELL VOLUME 87.3 fl (80-96); RDW 18.4 % (11.6-15.6); WHITE BLOOD COUNT 4.7 K/mm3 (4.0-10.0)
[2017-03-12 14:48] LABS: INR 1.41 (0.82-1.09); PROTHROMBIN TIME (PATIENT) 15.6 SEC (9.98-11.88)
[2017-03-12 14:52] LABS: ALBUMIN 2.7 g/dl (3.4-5.0); ANION GAP 11 (8-16); BILIRUBIN,TOTAL 1.1 mg/dL (0.2-1.0); CALCIUM 8.2 mg/dL (8.5-10.1); CO2 29 mmol/L (21-32); COCKROFT - GAULT 104.2695; CREATININE 0.6 mg/dL (0.55-1.02); GLUCOSE,RANDOM 235 mg/dL (74-106); SGOT/AST 58 U/L (15-37); SGPT/ALT 19 U/L (12-78); TOT PROT 5.4 g/dl (6.4-8.2)
[2017-03-12 14:54] LABS: ALK PHOS 106 U/L (45-117); TROPONIN I 0.02 ng/ml (0.00-0.05)
[2017-03-12 15:47] LABS: METAMYELOCYTE 2 % (0-2); PLATELET ESTIMATE ADEQUATE (NORMAL)
[2017-03-12 15:48] LABS: ANISOCYTOSIS 1+; PLATELET COUNT 161 K/MM3 (134-434); POLYCHROMASIA 1+
[2017-03-12] MEDS ORDERED: POTASSIUM CHLORIDE TABS 20 MEQ TABLET.ER (FP) PO ONE ×2 (16:28→16:33)
[2017-03-12] MEDS ORDERED: ALBUTEROL SO4 2.5/IPRATROPIUM 0.5 INH SOL 3 ML VIAL.NEB. NEB PRN (16:28)
--- NOTE | 2017-03-12 16:28 | PN ---
Teaching Attending Note Name of Resident: Abraham Bethea ATTENDING PHYSICIAN STATEMENT I saw and evaluated the patient. I reviewed the resident's note and discussed the case with the resident. I agree with the resident's findings and plan as documented. SUBJECTIVE: The patient is a 46 year old female, with a significant past medical history of hypertension, hyperlipidemia, type two diabetes, metastatic breast CA ( initially diagnosed 2 years ago) s/p surgery/chemotherapy/radiation now with recurrence (recently started on new chemotherapy regimen) and known lung metastasis complicated by pleural effusion requiring recent thoracentesis by interventional radiology, who presented to the emergency department with increasing dyspnea for anticipated IR placement of pleurex catheter tomorrow. OBJECTIVE: Vitals noted She is in no acute distress CXR report noted: large right pleural effusion ASSESSMENT AND PLAN: -Large malignant right pleural effusion -Mild hyperkalemia -Chronic anemia Will place of observation for further evaluation and treatment IR for pleurex catheter tomorrow See resident note for full details
[2017-03-12] MEDS ORDERED: ENTECAVIR 0.5 MG TABLET PO SCH (16:30)
--- NOTE | 2017-03-12 16:36 | HP ---
CHIEF COMPLAINT:Shortness of breath PCP:Mynor HISTORY OF PRESENT ILLNESS: 46F with history of metastatic brest Ca to the lung s/p chemo radiation and surgery currently on chemotherapy, hypertension, hyperlipidemia, diabetes, presents to the hospital with recurrent malignant pleural effusion. Patient recently discharged with same issue was drained by IR now with recurrence. Sent in from oncologist Dr. Rudd's office for worsening shorntess of breath for the past week. The patient denies chest pain. The patient denies fever, chills , nausea, vomiting, diarrhea or dysuria. ED spoke to Dr. Bowens from IR who place a pleurx catheter tomorrow. ER course was notable for: (1)CXR Chest US (2)Labs (3) Allergies: None reported. Past Surgical History: Left Lumpectomy; Port-A-Cath Placement. Social History: Non smoker. Denies alcohol or drug use. PCP: Dr. Mynor Fischer Oncologist: Dr. Blaire Diggs Recent Travel:Denies PAST MEDICAL HISTORY:As above PAST SURGICAL HISTORY:Left breast lumpectomy Social History: Smoking:Denies Alcohol:Denies Drugs: Denies Family History: Allergies No Known Drug Allergies Allergy (Verified 03/12/17 13:27) HOME MEDICATIONS: Home Medications Medication Instructions Recorded Ondansetron [Zofran *Odt*] 8 mg PO Q12H PRN #60 tab.rapdis 01/05/17 Pantoprazole Sodium [Protonix] 40 mg PO DAILY #30 tablet. 01/05/17 Prochlorperazine Maleate 10 mg PO Q8H PRN #60 tablet 01/05/17 [Compazine -] Amlodipine Besylate [Norvasc -] 10 mg PO DAILY tablet 02/02/17 Entecavir [Baraclude -] 0.5 mg PO Q48H #0 tablet 02/02/17 Ferrous Sulfate [Feosol] 325 mg PO BID #60 tablet 02/02/17 Lactobacillus Acidophilus [Bacid -] 1 tab PO DAILY tab 02/02/17 Albuterol 2.5/Ipratropium 0.5 1 amp NEB Q4H PRN #32 amp MDD 4 02/18/17 [Duoneb -] Docusate Sodium [Colace -] 100 mg PO BID #60 capsule 02/18/17 Guaifenesin AC [Robitussin AC -] 5 ml PO Q6H PRN #1 bottle MDD 4 02/18/17 Metoprolol Succinate [Toprol XL -] 50 mg PO DAILY #30 tab 02/18/17 Calcium Carbonate - 650 mg PO BID #28 tablet 02/19/17 Potassium Chloride [K-Dur -] 40 meq PO DAILY #28 tablet.er 02/19/17 Dronabinol [Marinol -] 5 mg PO BIDAC #60 cap MDD 2 03/08/17 REVIEW OF SYSTEMS CONSTITUTIONAL: Absent: fever, chills, diaphoresis, generalized weakness, malaise, loss of appetite, weight change HEENT: Absent: rhinorrhea, nasal congestion, throat pain, throat swelling, difficulty swallowing, mouth swelling, ear pain, eye pain, visual changes CARDIOVASCULAR: Absent: chest pain, syncope, palpitations, irregular heart rate, lightheadedness , peripheral edema RESPIRATORY: Absent: cough, orthopnea, wheezing, stridor, hemoptysis Present: shortness of breath dyspnea with exertion GASTROINTESTINAL: Absent: abdominal pain, abdominal distension, nausea, vomiting, diarrhea, constipation, melena, hematochezia GENITOURINARY: Absent: dysuria, frequency, urgency, hesitancy, hematuria, flank pain, genital pain MUSCULOSKELETAL: Absent: myalgia, arthralgia, joint swelling, back pain, neck pain SKIN: Absent: rash, itching, pallor HEMATOLOGIC/IMMUNOLOGIC: Absent: easy bleeding, easy bruising, lymphadenopathy, frequent infections ENDOCRINE: Absent: unexplained weight gain, unexplained weight loss, heat intolerance, cold intolerance NEUROLOGIC: Absent: headache, focal weakness or paresthesias, dizziness, unsteady gait, seizure, mental status changes, bladder or bowel incontinence PSYCHIATRIC: Absent: anxiety, depression, suicidal or homicidal ideation, hallucinations. PHYSICAL EXAMINATION Vital Signs - 24 hr 03/12/17 15:58 Pulse Rate [ 124 H Apical] Respiratory 26 H Rate Blood Pressure 119/80 [Right Arm] O2 Sat by Pulse 98 Oximetry (%) GENERAL: Awake, alert, and fully oriented, in mild distress. HEAD: Normal with no signs of trauma. EYES: Pupils equal, round and reactive to light, extraocular movements intact EARS, NOSE, THROAT: Moist mucous membranes. NECK: Normal range of motion, supple without JVD LUNGS: Breath sounds equal, clear to auscultation bilaterally. tachypeneic HEART: Regular rate and rhythm, normal S1 and S2 without murmur ABDOMEN: Soft, nontender, not distended, normoactive bowel sounds, no guarding, no rebound, no masses MUSCULOSKELETAL: No CVA tenderness. UPPER EXTREMITIES: warm, well-perfused. . LOWER EXTREMITIES: warm, well-perfused. No calf tenderness. 1+ pitting edema NEUROLOGICAL: Cranial nerves II-XII intact. Normal speech. CXR: bilateral R>L pleural effusions Active Medications Generic Name Dose Route Start Last Admin Trade Name Freq PRN Reason Stop Dose Admin Albuterol/Ipratropium 1 amp 03/12/17 16:28 Duoneb - NEB Q4H PRN SHORTNESS OF BREATH Amlodipine Besylate 10 mg 03/13/17 10:00 Norvasc - PO DAILY JAIR Calcium Carbonate 650 mg 03/12/17 22:00 Calcium Carbonate - PO BID JAIR Docusate Sodium 100 mg 03/12/17 22:00 Colace - PO BID JAIR Dronabinol 5 mg 03/12/17 16:30 Marinol - PO BIDAC JAIR Entecavir 0.5 mg 03/12/17 16:30 Baraclude - PO Q48H JAIR Insulin Aspart 0 vial 03/12/17 16:30 Novolog Vial Sliding Scale - SQ ACHS JAIR Protocol Metoprolol Succinate 50 mg 03/13/17 10:00 Toprol Xl - PO DAILY JAIR Pantoprazole Sodium 40 mg 03/13/17 10:00 Protonix - PO DAILY JAIR Potassium Chloride 40 meq 03/13/17 10:00 K-Dur - PO DAILY [facility] ASSESSMENT/PLAN: 46F with history of metastatic breast Ca presents with shortness of breath due to recurrent pleural effusions. Recurrently malignant pleural effusion: secondary to metastatic breast Ca: Place on observation IR consult for thoracentesis and pleurx catheter placement for tomorrow NPO past midnight Nasal cannula O2 PRN Duonebs PRN heme/onc consult continue marinol continue entecavir HTN: continue metoprolol continue norvasc HLD: not on medications no issues f/u as outpatient DM: FIngersticks for BGM ACHS ISS ACHS FEN: no IVF hypokalmeia-replete and restart daily potassium supplementation diabetic diet PPx: SCDs-hold chemical ppx as she is going for procedure tomorrow Protonix no PT consult needed Case discussed with attending Dr. Dimas Visit type - Emergency Visit Emergency Visit: Yes ED Registration Date: 03/12/17 Care time: The patient presented to the Emergency Department on the above date and was hospitalized for further evaluation of their emergent condition. - New Patient This patient is new to me today: Yes Date on this admission: 03/12/17 - Critical Care Critical Care patient: No
[2017-03-12] MEDS ORDERED: INSULIN REGULAR HUMAN 100 UNITS/ML *VIAL ONE (17:22)
[2017-03-12] MEDS ORDERED: HEMOQUE TEST 1 EACH EACH ONE (17:22)
[2017-03-12] MEDS: INSULIN SLIDING SCALE (NOVOLOG) 1 VIAL SQ SCH ×2 (17:27→21:44)
[2017-03-12] MEDS: DRONABINOL 5 MG CAPSULE PO SCH (17:40)
[2017-03-12] MEDS ORDERED: SODIUM CHLORIDE 1,000 ML IV SCH (17:45)
[2017-03-12] MEDS ORDERED: guaiFENesin/CODEINE 5 ML UNIT-DOSE CUPS PO ONE ×2 (20:05→21:34)
[2017-03-12] MEDS: DOCUSATE SODIUM 100 MG CAPSULE (FP) PO SCH (21:44)
[2017-03-12] MEDS: CALCIUM CARBONATE 650 MG TABLET PO SCH (21:44)
[2017-03-12] MEDS ORDERED: FUROSEMIDE 40 MG/4 ML INJECTABLE VIAL IVPUSH ONE (22:00)
[2017-03-12] MEDS: guaiFENesin/D-METHORPHAN HB 1 EACH TAB.ER.12H PO SCH (22:12)
[2017-03-13] MEDS: DRONABINOL 5 MG CAPSULE PO SCH (06:05)
[2017-03-13] MEDS: INSULIN SLIDING SCALE (NOVOLOG) 1 VIAL SQ SCH ×2 (06:13→12:50)
[2017-03-13 07:06] LABS: MCH 29.9 pg (25.7-33.7); MCHC 34.5 g/dl (32.0-36.0); MEAN CELL VOLUME 86.7 fl (80-96); MEAN PLT VOLUME 8.5 fl (7.5-11.1); PLATELET COUNT 163 K/MM3 (134-434); WHITE BLOOD COUNT 7.9 K/mm3 (4.0-10.0)
[2017-03-13 07:25] LABS: INR 1.43 (0.82-1.09); PROTHROMBIN TIME (PATIENT) 15.8 SEC (9.98-11.88)
[2017-03-13 07:32] LABS: ALK PHOS 101 U/L (45-117); ANION GAP 12 (8-16); BILIRUBIN,TOTAL 1.3 mg/dL (0.2-1.0); CALCIUM 8.5 mg/dL (8.5-10.1); CO2 30 mmol/L (21-32); COCKROFT - GAULT 104.2695; CREATININE 0.6 mg/dL (0.55-1.02); GLUCOSE,RANDOM 150 mg/dL (74-106); SGOT/AST 68 U/L (15-37); SGPT/ALT 21 U/L (12-78); TOT PROT 5.7 g/dl (6.4-8.2)
[2017-03-13] MEDS ORDERED: ONDANSETRON 4 MG/2 ML VIAL IVPB PRN (07:55)
--- NOTE | 2017-03-13 08:35 | PN ---
Physical Exam: SUBJECTIVE: Patient seen and examined , c/o dry mouth and nausea this am. Going for pleurex catheter this am. OBJECTIVE: Vital Signs Period Temp Pulse Resp BP Sys/Winter Pulse Ox Last 24 Hr 97.6 F-98.7 F 114-126 16-26 106-130/65-92 96-100 GENERAL: The patient is awake, alert, and fully oriented, in no acute distress. NECK: Trachea midline, full range of motion, supple. LUNGS: decreased breath sounds R>L HEART: Regular rate and rhythm, S1, S2 without murmur, rub or gallop. ABDOMEN: Soft, nontender, nondistended, normoactive bowel sounds, no guarding, no rebound, no hepatosplenomegaly, no masses. EXTREMITIES: 2+ pulses, warm, well-perfused, no edema. NEUROLOGICAL: Cranial nerves II through XII grossly intact. Normal speech, gait not observed. PSYCH: Normal mood, normal affect. SKIN: Warm, dry, normal turgor, no rashes or lesions noted Laboratory Results - last 24 hr 03/12/17 03/13/17 03/13/17 21:41 06:00 06:00 WBC 7.9 D RBC 3.26 L Hgb 9.7 L Hct 28.2 L MCV 86.7 MCHC 34.5 RDW 18.0 H Plt Count 163 MPV 8.5 INR 1.43 H PTT (Actin FS) 29.0 Sodium Potassium Chloride Carbon Dioxide Anion Gap BUN Creatinine Creat Clearance w eGFR POC Glucometer 172 Random Glucose Calcium Total Bilirubin AST ALT Alkaline Phosphatase Total Protein Albumin 03/13/17 06:00 WBC RBC Hgb Hct MCV MCHC RDW Plt Count MPV INR PTT (Actin FS) Sodium 136 Potassium 3.1 L Chloride 94 L Carbon Dioxide 30 Anion Gap 12 BUN 13 Creatinine 0.6 Creat Clearance w eGFR > 60 POC Glucometer Random Glucose 150 H D Calcium 8.5 Total Bilirubin 1.3 H AST 68 H ALT 21 Alkaline Phosphatase 101 Total Protein 5.7 L Albumin 3.0 L Active Medications Generic Name Dose Route Start Last Admin Trade Name Freq PRN Reason Stop Dose Admin Albuterol/Ipratropium 1 amp 03/12/17 16:28 Duoneb - NEB Q4H PRN SHORTNESS OF BREATH Amlodipine Besylate 10 mg 03/13/17 10:00 Norvasc - PO DAILY JAIR Calcium Carbonate 650 mg 03/12/17 22:00 03/12/17 21:44 Calcium Carbonate - PO Not Given BID [facility] Docusate Sodium 100 mg 03/12/17 22:00 03/12/17 21:44 Colace - PO Not Given BID JAIR Dronabinol 5 mg 03/12/17 16:30 03/13/17 06:05 Marinol - PO Not Given BIDAC JAIR Entecavir 0.5 mg 03/12/17 16:30 03/12/17 17:27 Baraclude - PO 0.5 mg Q48H [facility] Administration Guaifenesin 1 tablet 03/12/17 22:00 03/12/17 22:12 Mucinex Dm - PO Not Given BID [facility] Insulin Aspart 0 vial 03/12/17 16:30 03/13/17 06:13 Novolog Vial Sliding Scale - SQ Not Given ACHS [facility] Protocol Metoprolol Succinate 50 mg 03/13/17 10:00 Toprol Xl - PO DAILY [facility] Ondansetron HCl 4 mg 03/13/17 07:55 Zofran Injection IVPB Q4H PRN NAUSEA AND/OR VOMITING Pantoprazole Sodium 40 mg 03/13/17 10:00 Protonix - PO DAILY [facility] Potassium Chloride 40 meq 03/13/17 10:00 K-Dur - PO DAILY [facility] ASSESSMENT/PLAN: This is a 46 year old female with a significant past medical history of diabetes mellitus type II, HTN, HLD, with metastatic breast CA with lung metastasis, here now with right sided pleural effusion. Thoracocentesis today with pleurex catheter. 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 - New Patient This patient is new to me today: Yes Date on this admission: 03/13/17 - Critical Care Critical Care patient: No
[2017-03-13] MEDS ORDERED: METOPROLOL SUCCINATE 50 MG TAB.SR.24H (FP) PO SCH (10:00)
[2017-03-13] MEDS ORDERED: amLODIPine BESYLATE 10 MG TABLET (FP) PO SCH (10:00)
[2017-03-13] MEDS ORDERED: POTASSIUM CHLORIDE TABS 20 MEQ TABLET.ER (FP) PO SCH (10:00)
[2017-03-13] MEDS ORDERED: PANTOPRAZOLE 40 MG TABLET (FP) PO SCH (10:00)
[2017-03-13] MEDS ORDERED: oxyCODONE HCL 5 MG TABLET PO PRN (12:13)
[2017-03-13] MEDS ORDERED: ACETAMINOPHEN 325 MG TABLET (FP) PO PRN (12:14)
[2017-03-13] MEDS: guaiFENesin/D-METHORPHAN HB 1 EACH TAB.ER.12H PO SCH (13:12)
[2017-03-13] MEDS: DOCUSATE SODIUM 100 MG CAPSULE (FP) PO SCH (13:12)
[2017-03-13] MEDS: CALCIUM CARBONATE 650 MG TABLET PO SCH (13:12)
--- NOTE | 2017-03-13 13:56 | EKG ---
Test Reason : Blood Pressure : / mmHG Vent. Rate : 125 BPM Atrial Rate : 125 BPM P-R Int : 124 ms QRS Dur : 052 ms QT Int : 316 ms P-R-T Axes : 039 030 -52 degrees QTc Int : 456 ms POOR DATA QUALITY, INTERPRETATION MAY BE ADVERSELY AFFECTED SINUS TACHYCARDIA LOW VOLTAGE QRS NONSPECIFIC T WAVE ABNORMALITY ABNORMAL ECG WHEN COMPARED WITH ECG OF 06-MAR-2017 15:06, NO SIGNIFICANT CHANGE WAS FOUND Confirmed by RETA KENNEDY MD ([id number]) on 03/13/2017 1:56:32 PM Referred By: Confirmed By:RETA KENNEDY MD
--- NOTE | 2017-03-13 15:30 | PN ---
Teaching Attending Note Name of Resident: Minnie Sanz ATTENDING PHYSICIAN STATEMENT I saw and evaluated the patient. I reviewed the resident's note and discussed the case with the resident. I agree with the resident's findings and plan as documented. SUBJECTIVE:states dyspnea has improved. denies Cp, SOB,fever, chills, N/V/C/D OBJECTIVE: Last Vital Signs Temp Pulse Resp BP Pulse Ox 98.3 F 126 H 32 H 130/90 97 03/13/17 08:45 03/13/17 10:52 03/13/17 10:52 03/13/17 10:52 03/13/17 10:52 General NAD CV S1 S2 tachy Lungs decreased breath sounds on R. scattered wheezing ASSESSMENT AND PLAN: 46yo F with PMH metastatic breast ca presented to the ER and was admitted for further evaluation of their emergent condition 1. recurring malignant pleural effusion- had thoracentesis on 03/08 and now has re-accumulated. pleurovac placed today without difficulty. 750cc drained. tolerated procedure well. symptoms have improved. plan to d/c home. will f/u with IR in 2 weeks. local care teaching by RN. VNS services set up. 2. hypokalemia- Kcl po 3. d/c home
[2017-03-13 15:44] VITALS: BP 108/69; PULSE 115; TEMP 97.4
--- NOTE | 2017-03-13 17:00 | DS ---
Physical Exam: SUBJECTIVE: Patient seen and examined, s/p pleurex catheter placement, no complications, vitals stable. OBJECTIVE: Vital Signs Period Temp Pulse Resp BP Sys/Winter Pulse Ox Last 24 Hr 97.4 F-98.7 F 110-128 16-35 106-130/65-90 95-100 PHYSICAL EXAM GENERAL: The patient is awake, alert, and fully oriented, in no acute distress. HEAD: Normal with no signs of trauma. EYES: PERRL, extraocular movements intact, sclera anicteric, conjunctiva clear. ENT: Ears normal, nares patent, oropharynx clear without exudates, moist mucous membranes. NECK: Trachea midline, full range of motion, supple. LUNGS: Breath sounds decreased right side, clear to auscultation bilaterally, no wheezes, no crackles, no accessory muscle use. HEART: Regular rate and rhythm, S1, S2 without murmur, rub or gallop. ABDOMEN: Soft, nontender, nondistended, normoactive bowel sounds, no guarding, no rebound, no hepatosplenomegaly, no masses. EXTREMITIES: 2+ pulses, warm, well-perfused, no edema. NEUROLOGICAL: Cranial nerves II through XII grossly intact. Normal speech, gait not observed. PSYCH: Normal mood, normal affect. SKIN: Warm, dry, normal turgor, no rashes or lesions noted. LABS Laboratory Results - last 24 hr 03/12/17 03/13/17 03/13/17 21:41 06:00 06:00 WBC 7.9 D RBC 3.26 L Hgb 9.7 L Hct 28.2 L MCV 86.7 MCHC 34.5 RDW 18.0 H Plt Count 163 MPV 8.5 INR 1.43 H PTT (Actin FS) 29.0 Sodium Potassium Chloride Carbon Dioxide Anion Gap BUN Creatinine Creat Clearance w eGFR POC Glucometer 172 Random Glucose Calcium Total Bilirubin AST ALT Alkaline Phosphatase Total Protein Albumin 03/13/17 03/13/17 03/13/17 06:00 06:12 12:48 WBC RBC Hgb Hct MCV MCHC RDW Plt Count MPV INR PTT (Actin FS) Sodium 136 Potassium 3.1 L Chloride 94 L Carbon Dioxide 30 Anion Gap 12 BUN 13 Creatinine 0.6 Creat Clearance w eGFR > 60 POC Glucometer 132 189 Random Glucose 150 H D Calcium 8.5 Total Bilirubin 1.3 H AST 68 H ALT 21 Alkaline Phosphatase 101 Total Protein 5.7 L Albumin 3.0 L HOSPITAL COURSE: Date of Admission:03/12/17 Date of Discharge: 03/13/17 Mrs. Gomez is a 46 year old female, with a significant past medical history of hypertension, hyperlipidemia, type two diabetes, metastatic breast CA ( initially diagnosed 2 years ago) s/p surgery/chemotherapy/radiation now with recurrence (recently started on new chemotherapy regimen) and known lung metastasis complicated by pleural effusion requiring recent thoracentesis by interventional radiology, who presented to the emergency department with increasing dyspnea. Pleurex catheter placed today for right malignant pleural effusion secondary to lung mahogany secondary to breast CA. Patient was taught by nurse how to drain and change dressing. She was sent home with a starter kit which included four bottle and dressings. She was instructed to drain every five days and follow up with Dr. Smith in two weeks to evaluate. Also instructed to follow up with oncology. Hypertension and blood sugars controlled during stay. Minutes to complete discharge: 35 Discharge Summary Reason For Visit: METASTATIC CARCINOMA OF BREAST Current Active Problems Air hunger (Acute) Dehydration (Acute) Dysphagia (Acute) Dyspnea (Acute) Hypoxia (Acute) Pericardial effusion (Acute) Pleural effusion (Acute) Breast cancer metastasized to multiple sites (Chronic) Condition: Fair - Instructions Diet, Activity, Other Instructions: Mrs. Gomez your procedure today was successful without complications. You have been instructed how to drain and apply dressing. We also have set up a visiting nurse to come to your house to assist you. Please use starter kit that contains four bottles, this should last you for about one month. Kit also included video and brochure to guide you. You should drain once every five days. Please make an appointment with Dr. Pimentel in two weeks to evaluate the need to adjust catheter. Please follow up with your oncologist with in 1-2 weeks as well. If you experience any worsening of symptoms including worsening shortness of breath, even after draining fluid, chest pain, confusion, please return to the emergency room. Referrals: Aaliyah Lowe MD [Primary Care Provider] - El Capellan MD [Staff Physician] - Blaire Diggs MD [Staff Physician] - Disposition: HOME - Home Medications Comprehensive Discharge Medication List: Ambulatory Orders Ondansetron [Zofran *Odt*] 8 mg PO Q12H PRN #60 tab.rapdis 01/05/17 Pantoprazole Sodium [Protonix] 40 mg PO DAILY #30 tablet. 01/05/17 Prochlorperazine Maleate [Compazine -] 10 mg PO Q8H PRN #60 tablet 01/05/17 Amlodipine Besylate [Norvasc -] 10 mg PO DAILY tablet 02/02/17 Entecavir [Baraclude -] 0.5 mg PO Q48H #0 tablet 02/02/17 Ferrous Sulfate [Feosol] 325 mg PO BID #60 tablet 02/02/17 Lactobacillus Acidophilus [Bacid -] 1 tab PO DAILY tab 02/02/17 Albuterol 2.5/Ipratropium 0.5 [Duoneb -] 1 amp NEB Q4H PRN #32 amp MDD 4 Docusate Sodium [Colace -] 100 mg PO BID #60 capsule 02/18/17 Guaifenesin AC [Robitussin AC -] 5 ml PO Q6H PRN #1 bottle MDD 4 02/18/17 Metoprolol Succinate [Toprol XL -] 50 mg PO DAILY #30 tab 02/18/17 Calcium Carbonate - 650 mg PO BID #28 tablet 02/19/17 Potassium Chloride [K-Dur -] 40 meq PO DAILY #28 tablet.er 02/19/17 Dronabinol [Marinol -] 5 mg PO BIDAC #60 cap MDD 2 03/08/17 This patient is new to me today: Yes Date on this admission: 03/13/17 Emergency Visit: Yes ED Registration Date: 03/12/17 Care time: The patient presented to the Emergency Department on the above date and was hospitalized for further evaluation of their emergent condition. Critical Care patient: No - Discharge Referral Referred to [facility] Med P.C[facility] No
[2017-03-13] MEDS ORDERED: POTASSIUM CHLORIDE TABS 20 MEQ TABLET.ER (FP) PO ONE (17:33)
--- NOTE | 2017-03-13 19:31 | PN ---
Progress Note (short form) - Note Progress Note: Patient seen and examined s/p pleurex catheter breathing improved Last Vital Signs Temp Pulse Resp BP Pulse Ox 97.4 F L 115 H 24 108/69 97 03/13/17 15:42 03/13/17 15:42 03/13/17 15:42 03/13/17 15:42 03/13/17 10:52 Cor: RSR, No murmurs, No gallops Lungs: decreased rt. base Abd: Soft, Normal bowel sounds, No organomegaly Ext:No significant edema Abnormal Lab Results 03/13/17 03/13/17 03/13/17 06:00 06:00 06:00 RBC 3.26 L Hgb 9.7 L Hct 28.2 L RDW 18.0 H INR 1.43 H Potassium 3.1 L Chloride 94 L Random Glucose 150 H D Total Bilirubin 1.3 H AST 68 H Total Protein 5.7 L Albumin 3.0 L a/P 46 y/o patient with metastatic triple negative breast cancer, with extensive disease, lung,pleural mets s/p pleurex catheter replete [facility]UR f/u in 1 week for C2 eribulin
== END 2017-03-13 18:21 | disposition home or self-care (01) ==
LOC: JER 13:19 → JERBED 15:42 → J7W 17:45
PROVIDERS: ADMIT Internal Medicine; ATTEND Internal Medicine
PROC: 3E033GC Introduction of Other Therapeutic Substance into Peripheral Vein, Percutaneous Approach (ICD-10-PCS; principal; 2017-03-12)
PROC: 0B9N3ZZ Drainage of Right Pleura, Percutaneous Approach (ICD-10-PCS; 2017-03-12)
DX: I31.3 Pericardial effusion (noninflammatory) (principal); J90 Pleural effusion, not elsewhere classified; E86.0 Dehydration; R13.10 Dysphagia, unspecified; R06.00 Dyspnea, unspecified; R09.02 Hypoxemia; C50.912 Malignant neoplasm of unspecified site of left female breast; C78.7 Secondary malignant neoplasm of liver and intrahepatic bile duct; C78.00 Secondary malignant neoplasm of unspecified lung; C79.51 Secondary malignant neoplasm of bone; Z92.21 Personal history of antineoplastic chemotherapy; I10 Essential (primary) hypertension; E78.5 Hyperlipidemia, unspecified; E11.9 Type 2 diabetes mellitus without complications; E87.6 Hypokalemia
CPT/HCPCS: 32550; 75989; 96374; C1729; 36415; 71010-TC; 76098-TC; 76604-TC; 76942-TC; 80053; 82550; 84484; 85025; 85027; 85610; 85730; 87040; 87070; 87075; 87205; 87899; 93005; 93010; 99285-25; C1769; C1894; G0378

== ENCOUNTER 2017-03-21 07:18 | Day surgery (SDC) | payer BC ==
[2017-03-21] MEDS ORDERED: SODIUM CHLORIDE 250 ML IV ONE (08:00)
[2017-03-21] MEDS ORDERED: DEXAMETHASONE INJECTION 8 MG in SODIUM CHLORIDE 50 ML IVPB ONE (08:00)
[2017-03-21] MEDS ORDERED: ONDANSETRON INJECTION 8 MG in SODIUM CHLORIDE 50 ML IVPB ONE (08:00)
[2017-03-21] MEDS ORDERED: ZOLEDRONIC ACID 4 MG in SODIUM CHLORIDE 100 ML IVPB ONE (08:30)
[2017-03-21] MEDS ORDERED: [UNRECOGNIZED DRUG - OTHER] IV ONE (08:30)
[2017-03-21 12:46] LABS: MCH 29.6 pg (25.7-33.7); MCHC 32.4 g/dl (32.0-36.0); MEAN CELL VOLUME 91.6 fl (80-96); PLATELET COUNT 162 K/MM3 (134-434); RDW 24.2 % (11.6-15.6)
[2017-03-21 13:07] LABS: ALBUMIN 2.9 g/dl (3.4-5.0); ANION GAP 9 (8-16); BILIRUBIN,TOTAL 0.7 mg/dL (0.2-1.0); CALCIUM 8.4 mg/dL (8.5-10.1); CO2 28 mmol/L (21-32); COCKROFT - GAULT 121.55; CREATININE 0.5 mg/dL (0.55-1.02); GLUCOSE,RANDOM 94 mg/dL (74-106); SGOT/AST 66 U/L (15-37); SGPT/ALT 20 U/L (12-78); TOT PROT 5.5 g/dl (6.4-8.2)
[2017-03-21 13:08] LABS: ALK PHOS 88 U/L (45-117)
[2017-03-21] MEDS ORDERED: PORTA CATH FLUSH 10 ML IVPUSH ONE (14:08)
[2017-03-21] MEDS ORDERED: FUROSEMIDE 20 MG TABLET (FP) PO ONE (16:30)
[2017-03-21] MEDS ORDERED: POTASSIUM CHLORIDE TABS 10 MEQ TABLET.ER (FP) PO ONE (16:30)
[2017-03-21 17:27] VITALS: BP 123/88; PULSE 106; TEMP 97.8
[2017-03-21 19:54] LABS: METAMYELOCYTE 1 % (0-2)
[2017-03-21 19:55] LABS: ANISOCYTOSIS 3+; MICROCYTOSIS 1+; OVALOCYTES 1+; PLATELET ESTIMATE ADEQUATE (NORMAL); POIKILOCYTOSIS 1+; POLYCHROMASIA 1+
== END 2017-03-21 19:10 | disposition home or self-care (01) ==
LOC: JONCCHEMO 07:18 → J7W 11:52 → JONCCHEMO 19:10
PROVIDERS: ATTEND Internal Medicine Hematology & Oncology
PROC: 3E043GC Introduction of Other Therapeutic Substance into Central Vein, Percutaneous Approach (ICD-10-PCS; principal; 2017-03-21)
DX: C50.011 Malignant neoplasm of nipple and areola, right female breast (principal); C78.00 Secondary malignant neoplasm of unspecified lung
CPT/HCPCS: 36415; 80053; 85025; 96360; 96361; 96365; 96367; 96375; J3489; J9179

== ENCOUNTER 2017-04-02 07:23 | Day surgery (SDC) | payer BC ==
[2017-03-28 11:54] LABS: MCH 29.9 pg (25.7-33.7); MCHC 32.8 g/dl (32.0-36.0); PLATELET COUNT 147 K/MM3 (134-434); RDW 23.5 % (11.6-15.6)
[2017-03-28 11:58] LABS: WHITE BLOOD COUNT 1.7 K/mm3 (4.0-10.0)
[2017-03-28 12:08] LABS: ALBUMIN 2.6 g/dl (3.4-5.0); ALK PHOS 77 U/L (45-117); ANION GAP 9 (8-16); BILIRUBIN,TOTAL 0.9 mg/dL (0.2-1.0); CALCIUM 8.2 mg/dL (8.5-10.1); CO2 34 mmol/L (21-32); COCKROFT - GAULT 121.55; CREATININE 0.5 mg/dL (0.55-1.02); GLUCOSE,RANDOM 122 mg/dL (74-106); SGOT/AST 58 U/L (15-37); SGPT/ALT 17 U/L (12-78); TOT PROT 5.4 g/dl (6.4-8.2)
[2017-03-28 15:51] LABS: PLATELET ESTIMATE ADEQUATE (NORMAL)
[~2017-04-02 07:23] MED LIST changes: -DEXAMETHASONE INJECTION 12 MG, ONDANSETRON INJECTION 8 MG in SODIUM CHLORIDE 100 ML IVPB ONE; +DEXAMETHASONE INJECTION 8 MG in SODIUM CHLORIDE 50 ML IVPB ONE; -GEMCITABINE HCL IV ONE; +ONDANSETRON INJECTION 8 MG in SODIUM CHLORIDE 50 ML IVPB ONE; +SODIUM CHLORIDE 250 ML IV ONE; -SODIUM CHLORIDE IV ONE; +[UNRECOGNIZED DRUG - OTHER] IV ONE
[2017-04-02 09:37] LABS: MCH 29.5 pg (25.7-33.7); MEAN PLT VOLUME 7.1 fl (7.5-11.1); PLATELET COUNT 178 K/MM3 (134-434); RDW 23.7 % (11.6-15.6); WHITE BLOOD COUNT 13.3 K/mm3 (4.0-10.0)
[2017-04-02 09:54] LABS: ALBUMIN 2.8 g/dl (3.4-5.0); ANION GAP 9 (8-16); BILIRUBIN,TOTAL 0.6 mg/dL (0.2-1.0); CALCIUM 8.2 mg/dL (8.5-10.1); CO2 31 mmol/L (21-32); COCKROFT - GAULT 152.15; CREATININE 0.4 mg/dL (0.55-1.02); GLUCOSE,RANDOM 136 mg/dL (74-106); MAGNESIUM 1.9 mg/dL (1.8-2.4); SGOT/AST 55 U/L (15-37); SGPT/ALT 20 U/L (12-78); TOT PROT 5.5 g/dl (6.4-8.2)
[2017-04-02 09:55] LABS: ALK PHOS 135 U/L (45-117)
[2017-04-02] MEDS ORDERED: ONDANSETRON INJECTION 8 MG in SODIUM CHLORIDE 50 ML IVPB ONE (10:00)
[2017-04-02] MEDS ORDERED: SODIUM CHLORIDE 250 ML IV ONE (10:00)
[2017-04-02] MEDS ORDERED: DEXAMETHASONE INJECTION 8 MG in SODIUM CHLORIDE 50 ML IVPB ONE (10:00)
[2017-04-02] MEDS ORDERED: [UNRECOGNIZED DRUG - OTHER] IV ONE (10:30)
[2017-04-02] MEDS ORDERED: PORTA CATH FLUSH 10 ML IVPUSH ONE (11:15)
[2017-04-02] MEDS ORDERED: MAGNESIUM OXIDE 400 MG TABLET (FP) PO ONE (11:15)
[2017-04-02 12:45] LABS: METAMYELOCYTE 4 % (0-2); PLATELET ESTIMATE ADEQUATE (NORMAL)
[2017-04-02 12:46] LABS: HYPOCHROMIA 1+
[2017-04-02 12:47] LABS: ANISOCYTOSIS 2+
[2017-04-02 13:02] VITALS: BP 104/75; PULSE 110; TEMP 98
== END 2017-04-02 13:17 | disposition home or self-care (01) ==
LOC: JONCCHEMO 07:23 → J7W 10:36 → JONCCHEMO 13:17
PROVIDERS: ATTEND Internal Medicine Hematology & Oncology
PROC: 3E04305 Introduction of Other Antineoplastic into Central Vein, Percutaneous Approach (ICD-10-PCS; principal; 2017-04-02)
PROC: 3E043GC Introduction of Other Therapeutic Substance into Central Vein, Percutaneous Approach (ICD-10-PCS; 2017-04-02)
DX: Z51.11 Encounter for antineoplastic chemotherapy (principal); C50.011 Malignant neoplasm of nipple and areola, right female breast; C78.00 Secondary malignant neoplasm of unspecified lung; D70.1 Agranulocytosis secondary to cancer chemotherapy
CPT/HCPCS: 96375; 96409; J9179; 36415; 80053; 83735; 85025; 96367

== ENCOUNTER 2017-04-16 07:27 | Day surgery (SDC) | payer BC ==
[2017-04-09 10:05] LABS: MCHC 32.7 g/dl (32.0-36.0); MEAN CELL VOLUME 91.8 fl (80-96); MEAN PLT VOLUME 7.1 fl (7.5-11.1); PLATELET COUNT 224 K/MM3 (134-434); RDW 22.7 % (11.6-15.6); WHITE BLOOD COUNT 7.6 K/mm3 (4.0-10.0)
[2017-04-09 10:30] LABS: ALBUMIN 3.4 g/dl (3.4-5.0); ANION GAP 9 (8-16); CALCIUM 8.4 mg/dL (8.5-10.1); CO2 30 mmol/L (21-32); COCKROFT - GAULT 0; CREATININE 0.5 mg/dL (0.55-1.02); GLUCOSE,RANDOM 149 mg/dL (74-106); MAGNESIUM 2.1 mg/dL (1.8-2.4); SGOT/AST 53 U/L (15-37); SGPT/ALT 26 U/L (12-78)
[2017-04-09 10:32] LABS: ALK PHOS 153 U/L (45-117); BILIRUBIN,TOTAL 1.1 mg/dL (0.2-1.0); TOT PROT 6.2 g/dl (6.4-8.2)
[2017-04-09 12:32] LABS: METAMYELOCYTE 2 % (0-2)
[2017-04-09 12:34] LABS: ANISOCYTOSIS 2+; MICROCYTOSIS FEW; PLATELET ESTIMATE ADEQUATE (NORMAL); POLYCHROMASIA 1+
[2017-04-16 09:31] LABS: MCH 30.2 pg (25.7-33.7); MCHC 32.7 g/dl (32.0-36.0); MEAN CELL VOLUME 92.3 fl (80-96); MEAN PLT VOLUME 6.8 fl (7.5-11.1); PLATELET COUNT 217 K/MM3 (134-434); WHITE BLOOD COUNT 6.3 K/mm3 (4.0-10.0)
[2017-04-16 09:50] LABS: ALBUMIN 3.1 g/dl (3.4-5.0); ALK PHOS 129 U/L (45-117); ANION GAP 9 (8-16); CALCIUM 8.6 mg/dL (8.5-10.1); CO2 27 mmol/L (21-32); COCKROFT - GAULT 119.85; CREATININE 0.5 mg/dL (0.55-1.02); GLUCOSE,RANDOM 135 mg/dL (74-106); MAGNESIUM 2.2 mg/dL (1.8-2.4); SGOT/AST 43 U/L (15-37); SGPT/ALT 18 U/L (12-78); TOT PROT 5.9 g/dl (6.4-8.2)
[2017-04-16] MEDS ORDERED: SODIUM CHLORIDE 250 ML IV ONE (10:00)
[2017-04-16] MEDS ORDERED: ONDANSETRON INJECTION 8 MG in SODIUM CHLORIDE 50 ML IVPB ONE (10:00)
[2017-04-16] MEDS ORDERED: DEXAMETHASONE INJECTION 8 MG in SODIUM CHLORIDE 50 ML IVPB ONE (10:00)
[2017-04-16] MEDS ORDERED: [UNRECOGNIZED DRUG - OTHER] IV ONE (10:30)
[2017-04-16] MEDS ORDERED: PORTA CATH FLUSH 10 ML IVPUSH ONE (10:44)
[2017-04-16 11:19] LABS: METAMYELOCYTE 1 % (0-2)
[2017-04-16 11:20] LABS: ANISOCYTOSIS 3+; MICROCYTOSIS 1+; PLATELET ESTIMATE ADEQUATE (NORMAL)
[2017-04-16 13:27] VITALS: BP 112/76; PULSE 102; TEMP 98.2
== END 2017-04-16 13:37 | disposition home or self-care (01) ==
LOC: JONCBLOOD 07:27 → J7W 10:31 → JONCCHEMO 13:37
PROVIDERS: ATTEND Internal Medicine Hematology & Oncology
DX: Z51.11 Encounter for antineoplastic chemotherapy (principal); C50.011 Malignant neoplasm of nipple and areola, right female breast; C78.02 Secondary malignant neoplasm of left lung; D70.1 Agranulocytosis secondary to cancer chemotherapy
CPT/HCPCS: 36415; 80053; 83735; 85025; 96360; 96361; 96367; 96375; 96409; J9179

== ENCOUNTER 2017-04-23 07:23 | Day surgery (SDC) | payer BC ==
[2017-04-23 09:20] LABS: MCH 30.6 pg (25.7-33.7); MCHC 33.3 g/dl (32.0-36.0); MEAN PLT VOLUME 6.9 fl (7.5-11.1); PLATELET COUNT 251 K/MM3 (134-434); RDW 21.5 % (11.6-15.6); WHITE BLOOD COUNT 3.3 K/mm3 (4.0-10.0)
[2017-04-23] MEDS ORDERED: DEXAMETHASONE INJECTION 8 MG in SODIUM CHLORIDE 50 ML IVPB ONE (10:00)
[2017-04-23] MEDS ORDERED: SODIUM CHLORIDE 250 ML IV ONE (10:00)
[2017-04-23] MEDS ORDERED: ZOLEDRONIC ACID 4 MG in SODIUM CHLORIDE 100 ML IVPB ONE (10:00)
[2017-04-23] MEDS ORDERED: [UNRECOGNIZED DRUG - OTHER] IV ONE (10:00)
[2017-04-23] MEDS ORDERED: ONDANSETRON INJECTION 8 MG in SODIUM CHLORIDE 50 ML IVPB ONE (10:00)
[2017-04-23 10:04] LABS: ALBUMIN 3.1 g/dl (3.4-5.0); ALK PHOS 114 U/L (45-117); ANION GAP 9 (8-16); CALCIUM 8.7 mg/dL (8.5-10.1); CO2 28 mmol/L (21-32); COCKROFT - GAULT 119.85; CREATININE 0.5 mg/dL (0.55-1.02); GLUCOSE,RANDOM 175 mg/dL (74-106); MAGNESIUM 2.1 mg/dL (1.8-2.4); SGOT/AST 33 U/L (15-37); SGPT/ALT 18 U/L (12-78); TOT PROT 5.9 g/dl (6.4-8.2)
[2017-04-23 10:25] LABS: PLATELET ESTIMATE ADEQUATE (NORMAL)
[2017-04-23 10:38] VITALS: TEMP 98.2
[2017-04-23] MEDS ORDERED: PORTA CATH FLUSH 10 ML IVPUSH ONE (10:38)
[2017-04-23 13:07] VITALS: BP 110/77; PULSE 104
== END 2017-04-23 13:07 | disposition home or self-care (01) ==
LOC: JONCCHEMO 07:23 → J7W 10:26 → JONCCHEMO 13:07
PROVIDERS: ATTEND Internal Medicine Hematology & Oncology
PROC: 3E04305 Introduction of Other Antineoplastic into Central Vein, Percutaneous Approach (ICD-10-PCS; principal; 2017-04-23)
PROC: 3E043GC Introduction of Other Therapeutic Substance into Central Vein, Percutaneous Approach (ICD-10-PCS; 2017-04-23)
DX: Z51.11 Encounter for antineoplastic chemotherapy (principal); C78.02 Secondary malignant neoplasm of left lung; D70.1 Agranulocytosis secondary to cancer chemotherapy
CPT/HCPCS: 36415; 80053; 83735; 85025; 96365; 96367; 96375; 96409; J3489; J9179

== ENCOUNTER → 2017-04-30 | Day surgery (SDC) | payer BC ==
[2017-04-30 09:12] VITALS: BP 110/80; PULSE 114; TEMP 97.9
[2017-04-30 09:19] LABS: MCH 30.2 pg (25.7-33.7); MCHC 32.7 g/dl (32.0-36.0); MEAN CELL VOLUME 92.3 fl (80-96); MEAN PLT VOLUME 6.9 fl (7.5-11.1); PLATELET COUNT 258 K/MM3 (134-434); RDW 21.6 % (11.6-15.6); WHITE BLOOD COUNT 9.1 K/mm3 (4.0-10.0)
[2017-04-30 09:49] LABS: ALBUMIN 3.3 g/dl (3.4-5.0); ALK PHOS 122 U/L (45-117); ANION GAP 9 (8-16); BILIRUBIN,TOTAL 0.9 mg/dL (0.2-1.0); CO2 30 mmol/L (21-32); CREATININE 0.5 mg/dL (0.55-1.02); GLUCOSE,RANDOM 159 mg/dL (74-106); MAGNESIUM 2.1 mg/dL (1.8-2.4); SGOT/AST 45 U/L (15-37); SGPT/ALT 18 U/L (12-78)
[2017-04-30 09:54] LABS: METAMYELOCYTE 5 % (0-2)
[2017-04-30 09:56] LABS: ANISOCYTOSIS 2+; MICROCYTOSIS 2+; POLYCHROMASIA FEW
[2017-04-30 09:57] LABS: TEAR DROP CELLS FEW
== END | disposition home or self-care (01) ==
LOC: JONCBLOOD 07:40 → JBLOOD 07:40
PROVIDERS: ATTEND Internal Medicine Hematology & Oncology
PROC: 3E043GC Introduction of Other Therapeutic Substance into Central Vein, Percutaneous Approach (ICD-10-PCS; principal; 2017-04-30)
DX: Z53.8 Procedure and treatment not carried out for other reasons (principal)
CPT/HCPCS: 36415; 80053; 83735; 85025

== ENCOUNTER 2017-05-03 14:40 | Inpatient (IN) | payer BC ==
[2017-05-03 14:50] VITALS: BMI 22.9
--- NOTE | 2017-05-03 15:11 | PDOC ---
History of Present Illness - General Chief Complaint: Shortness of Breath Stated Complaint: SOB Time Seen by Provider: 05/03/17 15:03 History Source: Patient, Family - History of Present Illness Timing/Duration: reports: other Severity: reports: severe Associated Symptoms: reports: cough, shortness of breath. denies: chest pain/ soreness, fever/chills, wheezing Past History - Past Medical History Allergies/Adverse Reactions: Allergies Allergy/AdvReac Type Severity Reaction Status Date / Time No Known Drug Allergies Allergy Verified 03/12/17 13:27 Home Medications: Ambulatory Orders Ondansetron [Zofran *Odt*] 8 mg PO Q12H PRN #60 tab.rapdis 01/05/17 Pantoprazole Sodium [Protonix] 40 mg PO DAILY #30 tablet. 01/05/17 Prochlorperazine Maleate [Compazine -] 10 mg PO Q8H PRN #60 tablet 01/05/17 Amlodipine Besylate [Norvasc -] 10 mg PO DAILY tablet 02/02/17 Entecavir [Baraclude -] 0.5 mg PO Q48H #0 tablet 02/02/17 Ferrous Sulfate [Feosol] 325 mg PO BID #60 tablet 02/02/17 Lactobacillus Acidophilus [Bacid -] 1 tab PO DAILY tab 02/02/17 Albuterol 2.5/Ipratropium 0.5 [Duoneb -] 1 amp NEB Q4H PRN #32 amp MDD 4 Docusate Sodium [Colace -] 100 mg PO BID #60 capsule 02/18/17 Guaifenesin AC [Robitussin AC -] 5 ml PO Q6H PRN #1 bottle MDD 4 02/18/17 Metoprolol Succinate [Toprol XL -] 50 mg PO DAILY #30 tab 02/18/17 Calcium Carbonate - 650 mg PO BID #28 tablet 02/19/17 Potassium Chloride [K-Dur -] 40 meq PO DAILY #28 tablet.er 02/19/17 Dronabinol [Marinol -] 5 mg PO BIDAC #60 cap MDD 2 03/08/17 Oxycodone HCl [Roxicodone] 5 mg PO Q4H #36 tablet MDD 6 03/13/17 Oxycodone HCl [Roxicodone] 5 mg PO Q6H PRN #30 tablet MDD 4 tabs 03/13/17 Anemia: No Asthma: No Cancer: Yes (LT BREAST, 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) Cardiac Disorders: No CVA: No COPD: No CHF: No Dementia: No Diabetes: Yes GI Disorders: No Disorders: No HTN: Yes Hypercholesterolemia: No Liver Disease: No Seizures: No Thyroid Disease: No - Surgical History Abdominal Surgery: No Appendectomy: No Cardiac Surgery: No Cholecystectomy: No Lung Surgery: No Neurologic Surgery: No Orthopedic Surgery: No - Psycho/Social/Smoking Cessation Hx Anxiety: No Suicidal Ideation: No Smoking History: Never smoked Have you smoked in the past 12 months: No Information on smoking cessation initiated: No Hx Alcohol Use: No Drug/Substance Use Hx: No Substance Use Type: None Hx Substance Use Treatment: No Review of Systems - Review of Systems Constitutional: No: Chills, Fever Respiratory: Yes: Shortness of Breath. No: Cough Cardiac (ROS): No: Chest Pain, Lightheadedness *Physical Exam - Vital Signs Last Vital Signs Temp Pulse Resp BP Pulse Ox 98.8 F 120 H 22 132/95 99 05/03/17 14:47 05/03/17 14:47 05/03/17 14:47 05/03/17 14:47 05/03/17 14:47 05/03/17 15:23 chronically ill appearing - Physical Exam General Appearance: Yes: Appropriately Dressed. No: Apparent Distress HEENT: positive: Normal Voice. negative: Scleral Icterus (R), Scleral Icterus ( L) Neck: positive: Supple, Other (no obvious jugular venous distension) Respiratory/Chest: positive: Lungs Clear, Normal Breath Sounds, Respiratory Distress Cardiovascular: positive: Tachycardia Gastrointestinal/Abdominal: positive: Soft. negative: Tender Extremity: positive: Normal Inspection. negative: Pedal Edema, Swelling Integumentary: positive: Dry, Warm Neurologic: positive: Fully Oriented, Alert, Normal Mood/Affect ED Treatment Course - LABORATORY CBC & Chemistry Diagram: 05/03/17 15:45 05/03/17 15:45 Medical Decision Making - Medical Decision Making 05/03/17 15:05 47 yo F, history of hyperlipidemia, hypertension, diabetes, metastatic breast CA , currently on chemotherapy, status post recent admission for pleural effusion and currently has Pleur-evac in place, had follow-up CT chest 4 days ago and told she had "fluid around her heart" as per sister in law and told to come to ED today for admission. Patient reports that she is always short of breath w/ no change in baseline. Also reports chronic cough. No CP, palpitations, leg pain or swelling. No f/c See exam Pericardial effusion in pt w/ metastatic breast ca Tachy in ED but maintaining sats and BP, + large amount of pericardial effusion on bedside US, no JVD or pericardial rub on exam -ekg -cxr -pre-op labs -CT surgery -onc -admission 05/03/17 15:30 05/03/17 16:09 Pt accepted to ICU by Dr Gregory w/ IR to place drain now w/ pericardial window to be performed by CT surg in the am. Will d/w hospitalist and admit. *DC/Admit/Observation/Transfer Diagnosis at time of Disposition: Acute pericardial effusion - Discharge Dispostion Condition at time of disposition: Guarded Admit: Yes
[2017-05-03 16:06] LABS: MCH 29.8 pg (25.7-33.7); MCHC 32.2 g/dl (32.0-36.0); MEAN CELL VOLUME 92.6 fl (80-96); MEAN PLT VOLUME 7.4 fl (7.5-11.1); PLATELET COUNT 314 K/MM3 (134-434); WHITE BLOOD COUNT 8.2 K/mm3 (4.0-10.0)
[2017-05-03 16:17] LABS: INR 1.29 (0.82-1.09); PROTHROMBIN TIME (PATIENT) 14.3 SEC (9.98-11.88)
[2017-05-03 16:26] LABS: ALBUMIN 3.2 g/dl (3.4-5.0); ANION GAP 9 (8-16); BILIRUBIN,TOTAL 1.1 mg/dL (0.2-1.0); CALCIUM 8.4 mg/dL (8.5-10.1); CO2 27 mmol/L (21-32); CREATININE 0.5 mg/dL (0.55-1.02); GLUCOSE,RANDOM 160 mg/dL (74-106); SGPT/ALT 17 U/L (12-78); TOT PROT 6.4 g/dl (6.4-8.2)
--- NOTE | 2017-05-03 16:27 | PDOC ---
*Physical Exam - Vital Signs Last Vital Signs Temp Pulse Resp BP Pulse Ox 98.8 F 120 H 22 132/95 99 05/03/17 14:47 05/03/17 14:47 05/03/17 14:47 05/03/17 14:47 05/03/17 14:47 <Hugh Han - Last Filed: 05/03/17 16:27> - Vital Signs Last Vital Signs Temp Pulse Resp BP Pulse Ox 98.8 F 120 H 22 132/95 99 05/03/17 14:47 05/03/17 14:47 05/03/17 14:47 05/03/17 14:47 05/03/17 14:47 <Yana Henriquez - Last Filed: 05/03/17 16:29> ED Treatment Course - LABORATORY CBC & Chemistry Diagram: 05/03/17 15:45 05/03/17 15:45 - ADDITIONAL ORDERS Additional order review: Laboratory Results 05/03/17 05/03/17 15:45 15:45 INR 1.29 H PTT (Actin FS) 27.5 05/03/17 15:45 RBC 3.24 L MCV 92.6 MCHC 32.2 RDW 22.0 H MPV 7.4 L Neutrophils % Y Lymphocytes % Y - RADIOLOGY Radiology Studies Ordered: Category Date Time Status INTERVENTIONAL RAD CONSULT [RADS] Stat Cons 05/03/17 15:58 Ordered <Hugh Han - Last Filed: 05/03/17 16:27> - LABORATORY CBC & Chemistry Diagram: 05/03/17 15:45 05/03/17 15:45 - ADDITIONAL ORDERS Additional order review: Laboratory Results 05/03/17 05/03/17 15:45 15:45 INR 1.29 H PTT (Actin FS) 27.5 05/03/17 15:45 RBC 3.24 L MCV 92.6 MCHC 32.2 RDW 22.0 H MPV 7.4 L Neutrophils % Y Lymphocytes % Y <Yana Henriquez - Last Filed: 05/03/17 16:29> Medical Decision Making - Medical Decision Making 05/03/17 16:28 I interviewed and examined the patient. I supervised all consultations with Dr. Rudd, Dr. Ruiz, Dr. Issa, and Dr. Gregory. Patient is stable clinically at this time. She desperately wants to stay here in our hospital and does not want to go to [facility]. The patient is going to ER to IR to have a drain placed, and admitted to ICU. <Yana Henriquez - Last Filed: 05/03/17 16:29> *DC/Admit/Observation/Transfer <Hugh Han - Last Filed: 05/03/17 16:27> - Attestations Scribe Attestion: 05/03/17 16:29 Documentation prepared by ELVIS Woo, acting as diploma medical assistant for Hugh Han DO. <Yana Henriquez - Last Filed: 05/03/17 16:29> Diagnosis at time of Disposition: Acute pericardial effusion - Discharge Dispostion Condition at time of disposition: Guarded
[2017-05-03 16:30] LABS: ALK PHOS 101 U/L (45-117); TROPONIN I < 0.02 ng/ml (0.00-0.05)
[2017-05-03 16:35] LABS: SGOT/AST 58 U/L (15-37)
[2017-05-03 17:13] LABS: URINE APPEARANCE CLEAR; URINE BILIRUBIN NEGATIVE (NEGATIVE); URINE BLOOD NEGATIVE (NEGATIVE); URINE COLOR DKYELLOW; URINE GLUCOSE (UA) NEGATIVE (NEGATIVE); URINE KETONE NEGATIVE (NEGATIVE); URINE LEUK ESTERASE NEGATIVE (NEGATIVE); URINE NITRITE NEGATIVE (NEGATIVE); URINE UROBILINOGEN NEGATIVE E.U./dl (0.2-1.0)
[2017-05-03 17:14] LABS: URINE PROTEIN 1+ (NEGATIVE)
--- NOTE | 2017-05-03 17:14 | CONSULT ---
Consult - text type - Consultation Consultation Note: PAtient seen and examiend 47 y/o well known to our service, who comes in with CT scan done on 04/30 which showed pericardial effusion.Echocardiogram showed tamponade physiology. No fever /abdominalpain/diarrhea. + chronic cough and chronic SOB. No headcache/no chest pain PMH metastatic breast cancer with lymphangitic spread, mediastinal nodes HTN DM PSH-- lt. lumpectomy Last Vital Signs Temp Pulse Resp BP Pulse Ox 98.8 F 118 H 22 119/108 99 05/03/17 14:47 05/03/17 16:40 05/03/17 14:47 05/03/17 16:40 05/03/17 16:40 Lt. breast mass several subcutaneous nodules Cor: RSR, No murmurs, No gallops Lungs: decreased at lung bases Abd: Soft, Normal bowel sounds, No organomegaly Ext:No significant edema Abnormal Lab Results 05/03/17 05/03/17 05/03/17 15:45 15:45 15:45 RBC 3.24 L Hgb 9.7 L Hct 30.0 L RDW 22.0 H MPV 7.4 L INR 1.29 H Creatinine 0.5 L Random Glucose 160 H Calcium 8.4 L Total Bilirubin 1.1 H D AST 58 H D Albumin 3.2 L Urine Protein 05/03/17 16:16 RBC Hgb Hct RDW MPV INR Creatinine Random Glucose Calcium Total Bilirubin AST Albumin Urine Protein 1+ H A/P 47 y/o well known to our service, who comes in with CT scan done on 04/30 which showed pericardial effusion Diagnosed 2yrs. ago --s/p ber,pectomy, adjuvant AC/taxol/ RT. Triple negative Recurrent in 11/27 s/p gem/carbo, and more recently eribulin Slowly progressing on eribulin now with pericardial effusion, tamponade physiology discussed with cardiology and with CT surgery team To get IR drain To be admitted to ICU To switch therapy to Xeloda next week
[2017-05-03 17:18] LABS: URINE BACTERIA RARE /hpf (NONE SEEN); URINE MUCUS RARE; URINE RBC 7 /hpf (0-3); URINE WBC 2 /hpf (3-5)
--- NOTE | 2017-05-03 17:35 | PN ---
Progress Note (short form) - Note Progress Note: Cardiology 47F with metastatic breast cancer and chronic pericardial effusion sent to ER for tamponade physiology on echo. She was referred as outpatient for an echo for dyspnea on exertion. Echo done today shows large circumferential pericardial effusion measuring 1.7- 2cm. + Diastolic inversion of RV and + >25% variation of mitral inflow peak to peak velocity (E wave). She was mildly tachycardic, with normal BP. Plan: Escorted patient on oxygen with wheelchair to ER. Case d/w ER attending Dr. Han and with Oncology, Dr. Rudd. Stat Labs and CT surgery Consult to be obtained for pericardial window planning. Family also contemplating transfer to [facility], which can be arranged if they wish. We are available for post-op follow up as needed.
[2017-05-03 17:41] LABS: ANISOCYTOSIS 2+; METAMYELOCYTE 2 % (0-2); PLATELET ESTIMATE ADEQUATE (NORMAL); POLYCHROMASIA OCC
[2017-05-03 19:20] LABS: PERICARDIAL FLUID SOURCE PERICARDIAL
[2017-05-03 19:48] LABS: PERICARDIAL FLUID LYMPHOCYTES 14 %; PERICARDIAL FLUID MACROPHAGES 30 %; PERICARDIAL FLUID MESOTHELIALS 52 %; PERICARDIAL FLUID NEUTROPHILS 4 %
--- NOTE | 2017-05-03 20:03 | HP ---
CHIEF COMPLAINT: Worsening Dyspnea PCP: HISTORY OF PRESENT ILLNESS: 47 year old female with history of metastatic breast cancer that had an outpatient echo today for evaluation of worsening SOB which revealed large pericardial effusion and impending tamponade.Patient was transferred to ED for further management. ER course was notable for: (1)pericardial drain by IR Recent Travel: NO PAST MEDICAL HISTORY: Breasy Ca /triple negative. Diagnosed 2 years ago => lumpectomy/chemo/XRT=> relapse 12/2016 with metastasis to lungs, malignant pleural effusion DM HTN PAST SURGICAL HISTORY: [place] Lumpectomy PLeurex catheter Social History: Smoking:NO Alcohol:NO Drugs: NO Family History: DM Allergies No Known Drug Allergies Allergy (Verified 03/12/17 13:27) HOME MEDICATIONS: Home Medications Medication Instructions Recorded Pantoprazole Sodium [Protonix] 40 mg PO DAILY #30 tablet. 01/05/17 Entecavir [Baraclude -] 0.5 mg PO Q48H #0 tablet 02/02/17 Albuterol 2.5/Ipratropium 0.5 1 amp NEB Q4H PRN #32 amp MDD 4 02/18/17 [Duoneb -] Guaifenesin AC [Robitussin AC -] 5 ml PO Q6H PRN #1 bottle MDD 4 02/18/17 Metoprolol Succinate [Toprol XL -] 50 mg PO DAILY #30 tab 02/18/17 Calcium Carbonate - 650 mg PO BID #28 tablet 02/19/17 Potassium Chloride [K-Dur -] 40 meq PO DAILY #28 tablet.er 02/19/17 REVIEW OF SYSTEMS CONSTITUTIONAL: generalized weakness, malaise, loss of appetite, weight loss HEENT: negative Absent: rhinorrhea, nasal congestion, throat pain, throat swelling, difficulty swallowing, mouth swelling, ear pain, eye pain, visual changes CARDIOVASCULAR: chest pain Absent: , syncope, palpitations, irregular heart rate, lightheadedness, peripheral edema RESPIRATORY: shortness of breath, dyspnea with exertion, orthopnea Absent: cough, wheezing, stridor, hemoptysis GASTROINTESTINAL: Absent: abdominal pain, abdominal distension, nausea, vomiting, diarrhea, constipation, melena, hematochezia GENITOURINARY: Absent: dysuria, frequency, urgency, hesitancy, hematuria, flank pain, genital pain MUSCULOSKELETAL: Absent: myalgia, arthralgia, joint swelling, back pain, neck pain SKIN: Absent: rash, itching, pallor HEMATOLOGIC/IMMUNOLOGIC: Absent: easy bleeding, easy bruising, lymphadenopathy, frequent infections ENDOCRINE: Absent: unexplained weight gain, unexplained weight loss, heat intolerance, cold intolerance NEUROLOGIC: Absent: headache, focal weakness or paresthesias, dizziness, unsteady gait, seizure, mental status changes, bladder or bowel incontinence PSYCHIATRIC: Absent: anxiety, depression, suicidal or homicidal ideation, hallucinations. PHYSICAL EXAMINATION Vital Signs - 24 hr 05/03/17 05/03/17 05/03/17 16:40 16:50 17:00 Pulse Rate 128 H Pulse Rate [ 118 H Apical] Pulse Rate [ 122 H 123 H Right Upper Arm ] Respiratory 30 H Rate Respiratory 45 H 46 H Rate [Right Upper Arm] Blood Pressure 128/96 Blood Pressure 119/108 [Left Arm] Blood Pressure 128/94 148/105 [Right Upper Arm] O2 Sat by Pulse 100 Oximetry (%) O2 Sat by Pulse 100 100 Oximetry (%) [ Right Upper Arm ] 05/03/17 05/03/17 17:10 18:00 Pulse Rate 122 H Pulse Rate [ 117 H Apical] Pulse Rate [ Right Upper Arm ] Respiratory 36 H Rate Respiratory Rate [Right Upper Arm] Blood Pressure 153/95 Blood Pressure 121/85 [Left Arm] Blood Pressure [Right Upper Arm] O2 Sat by Pulse 100 100 Oximetry (%) O2 Sat by Pulse Oximetry (%) [ Right Upper Arm ] GENERAL: Awake, alert, and fully oriented, in no acute distress. HEAD: Normal with no signs of trauma. EYES: Pupils equal, round and reactive to light, extraocular movements intact, sclera anicteric, conjunctiva clear. No lid lag. EARS, NOSE, THROAT: Ears normal, nares patent, oropharynx clear without exudates. Dry mucous membranes. NECK: Normal range of motion, supple without lymphadenopathy, JVD, or masses. LUNGS: Breath sounds equal, clear to auscultation bilaterally. No wheezes, and no crackles. No accessory muscle use. HEART: Regular rate and rhythm, normal S1 and S2 without murmur. Pericardial drain / hemorrhagic fluid 300cc ABDOMEN: Soft, nontender, not distended, normoactive bowel sounds, no guarding, no rebound, no masses. MUSCULOSKELETAL: Normal range of motion at all joints. No bony deformities or tenderness. No CVA tenderness. UPPER EXTREMITIES: 2+ pulses, warm, well-perfused. . LOWER EXTREMITIES: 2+ pulses, warm, well-perfused. No calf tenderness. No peripheral edema. NEUROLOGICAL: Cranial nerves II-XII intact. Normal speech.Gait is not tested . PSYCHIATRIC: Cooperative. Good eye contact. Appropriate mood and affect. SKIN: Warm, dry, normal turgor, no rashes or lesions noted, normal capillary refill. Laboratory Results - last 24 hr 05/03/17 05/03/17 16:16 17:58 Urine Color Dkyellow Urine Appearance Clear Urine pH 6.0 Ur Specific [place] 1.020 Urine Protein 1+ H Urine Glucose (UA) Negative Urine Ketones Negative Urine Blood Negative Urine Nitrite Negative Urine Bilirubin Negative Urine Urobilinogen Negative Ur Leukocyte Esterase Negative Urine RBC 7 Urine WBC 2 Ur Epithelial Cells Few Urine Bacteria Rare Urine Mucus Rare Fluid RBC 802,159 Pericard Source Pericardial Pericard Color Bloody Pericard Appearance Bloody Pericard WBC 5,208 CBC, BMP 05/03/17 15:45 05/03/17 15:45 ASSESSMENT/PLAN: 1. Pericardial Effusion - malignant. No signs of hemodynamic instability at this time .Dyspnea significantly improved . S/p pericardial drain today. * monitor drain/ fluid * would benefit from IVF , even if at risk of worsening pleural effusion ( has pleurex ) * drain care * f/u fluid cytology/micro 2. Metastatic breast cancer - was on paliative chemotherapy . C/w sympthomatic management. * plan to initiate Xeloda when more stable 3. DM - controlled * c/w current medication regimen 4. DVT PPX * SCD * if HB remains stable in am may change to pharmacological a/c Visit type - Emergency Visit Emergency Visit: Yes ED Registration Date: 05/03/17 Care time: The patient presented to the Emergency Department on the above date and was hospitalized for further evaluation of their emergent condition. - New Patient This patient is new to me today: Yes Date on this admission: 05/03/17 - Critical Care Critical Care patient: No
[2017-05-03] MEDS ORDERED: ALBUTEROL SO4 2.5/IPRATROPIUM 0.5 INH SOL 3 ML VIAL.NEB. NEB PRN (20:11)
[2017-05-03] MEDS ORDERED: guaiFENesin/CODEINE 5 ML UNIT-DOSE CUPS PO PRN (20:11)
[2017-05-03] MEDS: SODIUM CHLORIDE 1,000 ML IV SCH (20:25)
--- NOTE | 2017-05-03 20:35 | CONSULT ---
Consult Consult Specialty:: PULMONARY/CRITICAL CARE MEDICINE Referred by:: Dr Diaz Reason for Consultation:: pericardial effusion, cardiac tamponade - History of Present Illness Chief Complaint: SOB History of Present Illness: Briefly, 47 female with metastatic breast CA (mets to lung w/malignant pleural effusion) s/p lumpectomy, chemo and XRT. She has a large pericardial effusion and was evaluated by CT surgery, she went for TTE today for worsening SOB. TTE showed a large, circumferential effusion with diastolic compression of the RV suggestive of tamponade. She was referred to the ED where she was taken to IR and a CT guided pericardial drain was placed. There was >300ml of bloody output. RBCs >800k, 4k WBC with only 4% Neutrophils. She was admitted to the ICU. - History Source History Provided By: Patient, Family Member, Medical Record Limitations to Obtaining History: No Limitations - Past Medical History Pulmonary: Yes: Other (lymphangitic disease, mediastinal involvement and chest wall involvement) Hepatobiliary: Yes: Other (on entecavir for liver protection for hepatitis B) Renal/: Yes: UTI ...LMP: 01/11/17 Heme/Onc: Yes: Other (Metastatic breast CA s/p chemo, XRT, lumpectomy - mets to lung) Endocrine: Yes: Diabetes Mellitus, Other Additional Medical History: Denies TB/Hepatitis/ gout/cardiac/respiratory/liver /renal problems - Alcohol/Substance Use Hx Alcohol Use: No - Smoking History Smoking history: Never smoked Have you smoked in the past 12 months: No - Social History Usual Living Arrangement: With Spouse Home Medications - Allergies Allergies/Adverse Reactions: Allergies Allergy/AdvReac Type Severity Reaction Status Date / Time No Known Drug Allergies Allergy Verified 03/12/17 13:27 - Home Medications Home Medications: Ambulatory Orders Pantoprazole Sodium [Protonix] 40 mg PO DAILY #30 tablet. 01/05/17 Entecavir [Baraclude -] 0.5 mg PO Q48H #0 tablet 02/02/17 Albuterol 2.5/Ipratropium 0.5 [Duoneb -] 1 amp NEB Q4H PRN #32 amp MDD 4 Guaifenesin AC [Robitussin AC -] 5 ml PO Q6H PRN #1 bottle MDD 4 02/18/17 Metoprolol Succinate [Toprol XL -] 50 mg PO DAILY #30 tab 02/18/17 Calcium Carbonate - 650 mg PO BID #28 tablet 02/19/17 Potassium Chloride [K-Dur -] 40 meq PO DAILY #28 tablet.er 02/19/17 Family Disease History - Family Disease History Family Disease History: Diabetes: Father, Mother Review of Systems - Review of Systems Constitutional: reports: Malaise Eyes: reports: No Symptoms HENT: reports: No Symptoms Neck: reports: No Symptoms Cardiovascular: reports: Shortness of Breath Respiratory: reports: SOB on Exertion Gastrointestinal: reports: No Symptoms Genitourinary: reports: No Symptoms Musculoskeletal: reports: No Symptoms Integumentary: reports: No Symptoms Neurological: reports: No Symptoms Endocrine: reports: No Symptoms Hematology/Lymphatic: reports: No Symptoms Psychiatric: reports: No Symptoms Physical Exam Vital Signs: Vital Signs Temperature 99.4 F 05/03/17 20:06 Pulse Rate 120 H 05/03/17 20:06 Respiratory Rate 28 H 05/03/17 20:06 Blood Pressure 119/84 05/03/17 20:06 O2 Sat by Pulse Oximetry (%) 100 05/03/17 19:30 Constitutional: Yes: Well Nourished, No Distress, Calm Eyes: Yes: WNL HENT: Yes: WNL Neck: Yes: WNL Cardiovascular: Yes: Tachycardia, S1, S2, Other (pericardial drain) Respiratory: Yes: Regular, CTA Bilaterally Gastrointestinal: Yes: Normal Bowel Sounds, Soft. No: Tenderness Musculoskeletal: Yes: WNL Extremities: Yes: WNL Edema: No Integumentary: Yes: WNL Wound/Incision: Yes: Clean/Dry Neurological: Yes: WNL, Alert, Oriented ...Motor Strength: WNL Imaging - Results Chest X-ray: Image Reviewed Cat Scan: Image Reviewed Problem List - Problems (1) Acute pericardial effusion Code(s): I30.9 - ACUTE PERICARDITIS, UNSPECIFIED (2) Breast cancer metastasized to multiple sites Code(s): C50.919 - MALIGNANT NEOPLASM OF UNSP SITE OF UNSPECIFIED FEMALE BREAST Qualifiers: Laterality: unspecified laterality Qualified Code(s): C50.919 - Malignant neoplasm of unspecified site of unspecified female breast (3) Diabetes Code(s): E11.9 - TYPE 2 DIABETES MELLITUS WITHOUT COMPLICATIONS (4) Hypertension Code(s): I10 - ESSENTIAL (PRIMARY) HYPERTENSION Assessment/Plan Metastatic breast CA Large pericardial effusion with tamponade physiology likely malignant effusion DM HTN -Monitor drain output and frequent checks for pulsus paradoxus -Cardiology follow up -Effusion is likely malignant but follow up culture in lab - no abx for now -Fingersticks and insulin as needed -Restart home meds as indicated and advance diet -Venodynes Monitor in ICU - Can transfer to the floor tomorrow if remains stable CCT 45min Thank you for this interesting consult Damon Sood Pulm/Critical Care [facility]
[2017-05-03] MEDS ORDERED: ONDANSETRON 4 MG/2 ML VIAL ONE (21:02)
[2017-05-03] MEDS ORDERED: HEMOQUE TEST 1 EACH EACH ONE (21:43)
[2017-05-03] MEDS ORDERED: PT OWN MED DRAWER 7, Y5N ONE (21:43)
[2017-05-03] MEDS: CALCIUM CARBONATE 650 MG TABLET PO SCH (21:58)
[2017-05-04] MEDS: ONDANSETRON 4 MG/2 ML VIAL IVPUSH PRN ×2 (07:02→23:52)
[2017-05-04 08:13] LABS: MCH 30.4 pg (25.7-33.7); MCHC 32.5 g/dl (32.0-36.0); MEAN CELL VOLUME 93.4 fl (80-96); MEAN PLT VOLUME 7.3 fl (7.5-11.1); PLATELET COUNT 295 K/MM3 (134-434); RDW 21.1 % (11.6-15.6); WHITE BLOOD COUNT 5.6 K/mm3 (4.0-10.0)
[2017-05-04 08:25] LABS: ANION GAP 9 (8-16); CALCIUM 7.8 mg/dL (8.5-10.1); CO2 27 mmol/L (21-32); CREATININE 0.4 mg/dL (0.55-1.02); GLUCOSE,RANDOM 128 mg/dL (74-106)
--- NOTE | 2017-05-04 09:28 | PN ---
Progress Note (short form) - Note Progress Note: Patient seen and examined in the ICU. Awake and alert. S/P Pericardial drain by IR with about 300cc of fluid. Reports some increase in SOB today and her CXR reveals an increasing Right Pleural effusion. Intake & Output 05/01/17 05/02/17 05/03/17 05/04/17 23:59 23:59 23:59 23:59 Intake Total 100 Output Total 400 60 Balance -300 -60 Weight 110 lb Last Vital Signs Temp Pulse Resp BP Pulse Ox 98.7 F 115 H 18 108/75 100 05/04/17 06:00 05/04/17 08:00 05/04/17 08:00 05/04/17 08:00 05/03/17 22:18 Active Medications Albuterol/Ipratropium (Duoneb -) 1 amp NEB Q4H PRN PRN Reason: SHORTNESS OF BREATH Calcium Carbonate (Calcium Carbonate -) 650 mg PO BID [facility] Last Admin: 05/03/17 21:58 Dose: 650 mg Guaifenesin/Codeine Phosphate (Robitussin Ac -) 5 ml PO Q6H PRN PRN Reason: COUGH Sodium Chloride (Normal Saline -) 1,000 mls @ 42 mls/hr IV ASDIR [facility] Last Admin: 05/03/17 20:25 Dose: 42 mls/hr Metoprolol Succinate (Toprol Xl -) 50 mg PO DAILY [facility] Ondansetron HCl (Zofran Injection) 4 mg IVPUSH Q6H PRN PRN Reason: NAUSEA AND/OR VOMITING Last Admin: 05/04/17 07:02 Dose: 4 mg Pantoprazole Sodium (Protonix -) 40 mg PO DAILY [facility] Potassium Chloride (K-Dur -) 40 meq PO DAILY [facility] Constitutional: Yes: Mildly tachypneic at rest Eyes: Yes: WNL HENT: Yes: WNL Neck: Yes: WNL Cardiovascular: Yes: Tachycardia, S1, S2, Intact pericardial drain Respiratory: Yes: bibasilar rhonhci Gastrointestinal: Yes: Normal Bowel Sounds, Soft. No: Tenderness Musculoskeletal: Yes: WNL Extremities: Yes: WNL Edema: No Integumentary: Yes: WNL Wound/Incision: Yes: Clean/Dry Neurological: Yes: WNL, Alert, Oriented ...Motor Strength: WNL Laboratory Results - last 24 hr 05/03/17 05/03/17 05/03/17 15:45 15:45 15:45 WBC 8.2 RBC 3.24 L Hgb 9.7 L Hct 30.0 L MCV 92.6 MCHC 32.2 RDW 22.0 H Plt Count 314 D MPV 7.4 L Neutrophils % 52.0 Lymphocytes % 23.0 D Monocytes % 11.0 H Basophils % 1.0 Band Neutrophils 10.0 D Metamyelocytes 2 D Myelocytes 1 D Platelet Estimate Adequate Polychromasia Occ Anisocytosis 2+ Macrocytosis Occ INR 1.29 H PTT (Actin FS) Sodium 136 Potassium 4.6 D Chloride 100 Carbon Dioxide 27 Anion Gap 9 BUN 9 D Creatinine 0.5 L Creat Clearance w eGFR > 60 Random Glucose 160 H Calcium 8.4 L Total Bilirubin 1.1 H D AST 58 H D ALT 17 Alkaline Phosphatase 101 Creatine Kinase 86 Troponin I < 0.02 Total Protein 6.4 Albumin 3.2 L Urine Color Urine Appearance Urine pH Ur Specific [place] Urine Protein Urine Glucose (UA) Urine Ketones Urine Blood Urine Nitrite Urine Bilirubin Urine Urobilinogen Ur Leukocyte Esterase Urine RBC Urine WBC Ur Epithelial Cells Urine Bacteria Urine Mucus Fluid RBC Pericard Source Pericard Color Pericard Appearance Pericard WBC Pericard Neutrophils Pericard Lymphocytes Pericard Macrophages Pericard Mesothelial Blood Type Antibody Screen 05/03/17 05/03/17 05/03/17 15:45 15:45 16:16 WBC RBC Hgb Hct MCV MCHC RDW Plt Count MPV Neutrophils % Lymphocytes % Monocytes % Basophils % Band Neutrophils Metamyelocytes Myelocytes Platelet Estimate Polychromasia Anisocytosis Macrocytosis INR PTT (Actin FS) 27.5 Sodium Potassium Chloride Carbon Dioxide Anion Gap BUN Creatinine Creat Clearance w eGFR Random Glucose Calcium Total Bilirubin AST ALT Alkaline Phosphatase Creatine Kinase Troponin I Total Protein Albumin Urine Color Dkyellow Urine Appearance Clear Urine pH 6.0 Ur Specific [place] 1.020 Urine Protein 1+ H Urine Glucose (UA) Negative Urine Ketones Negative Urine Blood Negative Urine Nitrite Negative Urine Bilirubin Negative Urine Urobilinogen Negative Ur Leukocyte Esterase Negative Urine RBC 7 Urine WBC 2 Ur Epithelial Cells Few Urine Bacteria Rare Urine Mucus Rare Fluid RBC Pericard Source Pericard Color Pericard Appearance Pericard WBC Pericard Neutrophils Pericard Lymphocytes Pericard Macrophages Pericard Mesothelial Blood Type O POSITIVE Antibody Screen Negative 05/03/17 05/04/17 05/04/17 17:58 05:10 05:10 WBC 5.6 D RBC 3.44 L Hgb 10.5 L Hct 32.2 L MCV 93.4 MCHC 32.5 RDW 21.1 H Plt Count 295 MPV 7.3 L Neutrophils % Lymphocytes % Monocytes % Basophils % Band Neutrophils Metamyelocytes Myelocytes Platelet Estimate Polychromasia Anisocytosis Macrocytosis INR PTT (Actin FS) Sodium 138 Potassium 3.9 Chloride 102 Carbon Dioxide 27 Anion Gap 9 BUN 7 D Creatinine 0.4 L Creat Clearance w eGFR Random Glucose 128 H Calcium 7.8 L Total Bilirubin AST ALT Alkaline Phosphatase Creatine Kinase Troponin I Total Protein Albumin Urine Color Urine Appearance Urine pH Ur Specific [place] Urine Protein Urine Glucose (UA) Urine Ketones Urine Blood Urine Nitrite Urine Bilirubin Urine Urobilinogen Ur Leukocyte Esterase Urine RBC Urine WBC Ur Epithelial Cells Urine Bacteria Urine Mucus Fluid RBC 802,159 Pericard Source Pericardial Pericard Color Bloody Pericard Appearance Bloody Pericard WBC 5,208 Pericard Neutrophils 4 Pericard Lymphocytes 14 Pericard Macrophages 30 Pericard Mesothelial 52 Blood Type Antibody Screen Problem List - Problems (1) Acute pericardial effusion Code(s): I30.9 - ACUTE PERICARDITIS, UNSPECIFIED (2) Breast cancer metastasized to multiple sites Code(s): C50.919 - MALIGNANT NEOPLASM OF UNSP SITE OF UNSPECIFIED FEMALE BREAST Qualifiers: Laterality: unspecified laterality Qualified Code(s): C50.919 - Malignant neoplasm of unspecified site of unspecified female breast (3) Diabetes Code(s): E11.9 - TYPE 2 DIABETES MELLITUS WITHOUT COMPLICATIONS (4) Hypertension Code(s): I10 - ESSENTIAL (PRIMARY) HYPERTENSION Assessment/Plan Metastatic breast CA Large pericardial effusion with tamponade physiology likely malignant effusion DM HTN -Monitor drain output and checks for pulsus paradoxus -CTS consult ordered to assess for need for Pericardial Window -Monitor off ABX -Attach PleureX to PleuraVac -Fingersticks and insulin as needed -PO as tolerated -SCDs Dr Gregory critical care time spent in reviewing chart, evaluation patient and formulating plan 35 min
[2017-05-04] MEDS ORDERED: PT OWN MED DRAWER 7, Y5N ONE (10:06)
[2017-05-04] MEDS: METOPROLOL SUCCINATE 50 MG TAB.SR.24H (FP) PO SCH (10:09)
[2017-05-04] MEDS: POTASSIUM CHLORIDE TABS 20 MEQ TABLET.ER (FP) PO SCH (10:09)
[2017-05-04] MEDS: PANTOPRAZOLE 40 MG TABLET (FP) PO SCH (10:10)
[2017-05-04] MEDS: CALCIUM CARBONATE 650 MG TABLET PO SCH ×2 (10:10→23:52)
--- NOTE | 2017-05-04 11:28 | PN ---
Progress Note (short form) - Note Progress Note: - Note Progress Note: Seen in follow up. Experiencing dyspnea this am, now improved following drainage 300c R pleural cavity (Pleurex). NO complaints presently. Ongoing weakness Meds reviewed. Current Medications Generic Name Dose Route Start Last Admin Trade Name Freq PRN Reason Stop Dose Admin Albuterol/Ipratropium 1 amp 05/03/17 20:11 Duoneb - NEB Q4H PRN SHORTNESS OF BREATH Calcium Carbonate 650 mg 05/03/17 22:00 05/04/17 10:10 Calcium Carbonate - PO 650 mg BID JAIR Administration Guaifenesin/Codeine Phosphate 5 ml 05/03/17 20:11 Robitussin Ac - PO Q6H PRN COUGH Sodium Chloride 1,000 mls @ 42 mls/hr 05/03/17 20:15 05/03/17 20:25 Normal Saline - IV 42 mls/hr ASDIR JAIR Administration Metoprolol Succinate 50 mg 05/04/17 10:00 05/04/17 10:09 Toprol Xl - PO 50 mg DAILY JAIR Administration Ondansetron HCl 4 mg 05/03/17 21:04 05/04/17 07:02 Zofran Injection IVPUSH 4 mg Q6H PRN Administration NAUSEA AND/OR VOMITING Pantoprazole Sodium 40 mg 05/04/17 10:00 05/04/17 10:10 Protonix - PO 40 mg DAILY JAIR Administration Potassium Chloride 40 meq 05/04/17 10:00 05/04/17 10:09 K-Dur - PO 40 meq DAILY JAIR Administration On exam: Last Vital Signs Temp Pulse Resp BP Pulse Ox 98.2 F 112 H 18 130/96 100 05/04/17 10:00 05/04/17 10:00 05/04/17 10:00 05/04/17 10:00 05/03/17 22:18 General: In no acute distress. Extremities: No pallor or icterus, no pedal edema. Chest:good air entry bilaterally, some adventitious sounds R base. Pleurex catheter. Abdomen: Soft, no organomegaly, no masses. Neuro: Alert, oriented, non-focal. CVS: Normal sinus rhythm, S1, S2, no gallop or murmur. Assessment. Metastatic breast cancer - triple negative, with likely lymphangitic progression , and recent development pericardial effusion, with some degree of tamponade, now improved following drainage (IR) yesterday. Awaiting decision regarding pericardial window. Pleurex catheter in-situ R pleural cavity - drain PRN. Observation over weekend. Decision making re further lines of therapy for MBC deferred to Dr Rudd - Saturday.
--- NOTE | 2017-05-04 11:50 | PN ---
Physical Exam: SUBJECTIVE: Patient seen and examined in the ICU. OBJECTIVE: Vital Signs 3 Period Temp Pulse Resp BP Sys/Winter Pulse Ox Last 24 Hr 98.2 F-99.4 F 112-128 18-46 108-153/70-108 99-100 GENERAL: The patient is awake, alert, and fully oriented, in no acute distress. ENT: Ears normal, nares patent, oropharynx clear without exudates, moist mucous membranes. NECK: Trachea midline, full range of motion, supple. LUNGS: No wheezes, no crackles, no accessory muscle use. Diminished breath sounds to right lung. Left side clear to auscultation. HEART: Regular rate and rhythm, S1, S2 without murmur, rub or gallop. Pericardial drain in place. ABDOMEN: Soft, nontender, nondistended, normoactive bowel sounds, no guarding, no rebound, no hepatosplenomegaly, no masses. EXTREMITIES: 2+ pulses, warm, well-perfused, no edema. NEUROLOGICAL: Cranial nerves II through XII grossly intact. Normal speech, gait not observed. Laboratory Results - last 24 hr 3 05/03/17 05/03/17 05/04/17 16:16 17:58 05:10 WBC 5.6 D RBC 3.44 L Hgb 10.5 L Hct 32.2 L MCV 93.4 MCHC 32.5 RDW 21.1 H Plt Count 295 MPV 7.3 L Sodium Potassium Chloride Carbon Dioxide Anion Gap BUN Creatinine Random Glucose Calcium Urine Color Dkyellow Urine Appearance Clear Urine pH 6.0 Ur Specific [place] 1.020 Urine Protein 1+ H Urine Glucose (UA) Negative Urine Ketones Negative Urine Blood Negative Urine Nitrite Negative Urine Bilirubin Negative Urine Urobilinogen Negative Ur Leukocyte Esterase Negative Urine RBC 7 Urine WBC 2 Ur Epithelial Cells Few Urine Bacteria Rare Urine Mucus Rare Fluid RBC 802,159 [place] Source Pericardial [place] Color Bloody [place] Appearance Bloody [place] WBC 5,208 [place] Neutrophils 4 [place] Lymphocytes 14 [place] Macrophages 30 [place] Mesothelial 52 3 05/04/17 05:10 WBC RBC Hgb Hct MCV MCHC RDW Plt Count MPV Sodium 138 Potassium 3.9 Chloride 102 Carbon Dioxide 27 Anion Gap 9 BUN 7 D Creatinine 0.4 L Random Glucose 128 H Calcium 7.8 L Urine Color Urine Appearance Urine pH Ur Specific [place] Urine Protein Urine Glucose (UA) Urine Ketones Urine Blood Urine Nitrite Urine Bilirubin Urine Urobilinogen Ur Leukocyte Esterase Urine RBC Urine WBC Ur Epithelial Cells Urine Bacteria Urine Mucus Fluid RBC [place] Source [place] Color [place] Appearance [place] WBC [place] Neutrophils [place] Lymphocytes [place] Macrophages [place] Mesothelial Active Medications 3 Generic Name Dose Route Start Last Admin Trade Name Freq PRN Reason Stop Dose Admin Albuterol/Ipratropium 1 amp 05/03/17 20:11 Duoneb - NEB Q4H PRN SHORTNESS OF BREATH Calcium Carbonate 650 mg 05/03/17 22:00 05/04/17 10:10 Calcium Carbonate - PO 650 mg BID JAIR Administration Guaifenesin/Codeine Phosphate 5 ml 05/03/17 20:11 Robitussin Ac - PO Q6H PRN COUGH Sodium Chloride 1,000 mls @ 42 mls/hr 05/03/17 20:15 05/03/17 20:25 Normal Saline - IV 42 mls/hr ASDIR JAIR Administration Metoprolol Succinate 50 mg 05/04/17 10:00 05/04/17 10:09 Toprol Xl - PO 50 mg DAILY JAIR Administration Ondansetron HCl 4 mg 05/03/17 21:04 05/04/17 07:02 Zofran Injection IVPUSH 4 mg Q6H PRN Administration NAUSEA AND/OR VOMITING Pantoprazole Sodium 40 mg 05/04/17 10:00 05/04/17 10:10 Protonix - PO 40 mg DAILY JAIR Administration Potassium Chloride 40 meq 05/04/17 10:00 05/04/17 10:09 K-Dur - PO 40 meq DAILY JAIR Administration ASSESSMENT/PLAN: A: 47yo woman with PMH breast CA mets-> bone, liver, lung on palliative chemo, DM and pericardial effusion with improved SOB. P: 1. Pericardial Effusion - likely from metastatic disease - pericardial drain in place - CT surg consult pending 2. Breast CA triple negative with mets-> bone, liver, lung - appreciate heme/onc - symptomatic management - Xeloda when stable 3. Right pleural effusion - Pleurex drain attached to suction - monitor draiange - CXR in AM 4. DM - diet controlled 5. HTN - well controlled - continue Toprol 50mg 6. F/E/N - NS@42 - replete prn - diabetic diet 7. PPX - SCD Dispo- requires ICU care for acute medical conditions Code Status- FULL CODE Visit type - Emergency Visit Emergency Visit: Yes ED Registration Date: 05/03/17 Care time: The patient presented to the Emergency Department on the above date and was hospitalized for further evaluation of their emergent condition. - New Patient This patient is new to me today: Yes Date on this admission: 05/04/17 - Critical Care Critical Care patient: Yes Total Critical Care Time (in minutes): 45 Critical Care Statement: The care of this patient involved high complexity decision making to prevent further life threatening deterioration of the patient 's condition and/or to evalute & treat vital organ system(s) failure or risk of failure.
--- NOTE | 2017-05-04 13:11 | PN ---
Progress Note, Physician Chief Complaint: A&Ox3; weak; little appetite.. No chest pain, dyspnea, palpitations, or dizziness. History of Present Illness: 47 yo F, history of hyperlipidemia, hypertension, diabetes, metastatic breast CA , currently on chemotherapy, status post recent admission for pleural effusion and currently has Pleur-evac in place, had follow-up CT chest 4 days ago and told she had "fluid around her heart" as per sister in law and told to come to ED today for admission. Patient reports that she is always short of breath w/ no change in baseline. Also reports chronic cough. No CP, palpitations, leg pain or swelling. No f/c Pericardial effusion in pt w/ metastatic breast ca Tachy in ED but maintaining sats and BP, + large amount of pericardial effusion on bedside US, no JVD. - Current Medication List Current Medications: Active Medications Albuterol/Ipratropium (Duoneb -) 1 amp NEB Q4H PRN PRN Reason: SHORTNESS OF BREATH Calcium Carbonate (Calcium Carbonate -) 650 mg PO BID [facility] Last Admin: 05/04/17 10:10 Dose: 650 mg Guaifenesin/Codeine Phosphate (Robitussin Ac -) 5 ml PO Q6H PRN PRN Reason: COUGH Sodium Chloride (Normal Saline -) 1,000 mls @ 42 mls/hr IV ASDIR [facility] Last Admin: 05/03/17 20:25 Dose: 42 mls/hr Metoprolol Succinate (Toprol Xl -) 50 mg PO DAILY [facility] Last Admin: 05/04/17 10:09 Dose: 50 mg Ondansetron HCl (Zofran Injection) 4 mg IVPUSH Q6H PRN PRN Reason: NAUSEA AND/OR VOMITING Last Admin: 05/04/17 07:02 Dose: 4 mg Pantoprazole Sodium (Protonix -) 40 mg PO DAILY [facility] Last Admin: 05/04/17 10:10 Dose: 40 mg Potassium Chloride (K-Dur -) 40 meq PO DAILY [facility] Last Admin: 05/04/17 10:09 Dose: 40 meq - Objective Vital Signs: Vital Signs Temperature 98.2 F 05/04/17 10:00 Pulse Rate 119 H 05/04/17 12:00 Respiratory Rate 20 05/04/17 12:00 Blood Pressure 130/96 05/04/17 12:00 O2 Sat by Pulse Oximetry (%) 100 05/03/17 22:18 Constitutional: Yes: Calm, Cachectic Eyes: Yes: WNL HENT: Yes: WNL Neck: Yes: WNL Cardiovascular: Yes: Regular Rate and Rhythm. No: JVD Respiratory: Yes: Diminished (right base) Gastrointestinal: Yes: Soft ...Rectal Exam: Yes: Deferred Genitourinary: No: Anuria Extremities: Yes: Cool Edema: No Peripheral Pulses WNL: Yes Wound/Incision: Yes: Other (chest surgical scar, drain) Psychiatric: Yes: Alert, Oriented Labs: CBC, BMP 05/04/17 05:10 05/04/17 05:10 INR, PTT INR 1.29 (0.82-1.09) H 05/03/17 15:45 - ....Imaging Other: Image Reviewed (telemetry: NSR) Problem List - Problems (1) Air hunger Code(s): R09.89 - OTH SYMPTOMS AND SIGNS INVOLVING THE CIRC AND RESP SYSTEMS (2) Hypoxia Code(s): R09.02 - HYPOXEMIA (3) Hepatitis Code(s): K75.9 - INFLAMMATORY LIVER DISEASE, UNSPECIFIED (4) Iron deficiency anemia Code(s): D50.9 - IRON DEFICIENCY ANEMIA, UNSPECIFIED (5) Pericardial effusion Assessment/Plan: s/p pericardial drainage. Hemodynamically stable; presently asymptomatic. Code(s): I31.3 - PERICARDIAL EFFUSION (NONINFLAMMATORY) (6) Tachycardia Assessment/Plan: Telemetry: sinus tachycardia, likely primarily from metabolic process of CA with metastases, anemia. Maintain hydration (poor PO intake). S/p pericardial drainage. Afebrile. Code(s): R00.0 - TACHYCARDIA, UNSPECIFIED (7) Breast cancer metastasized to multiple sites Code(s): C50.919 - MALIGNANT NEOPLASM OF UNSP SITE OF UNSPECIFIED FEMALE BREAST Qualifiers: Laterality: unspecified laterality Qualified Code(s): C50.919 - Malignant neoplasm of unspecified site of unspecified female breast Assessment/Plan cc time spent reviewing record, examining pt, recording note: 40 minutes.
--- NOTE | 2017-05-04 16:34 | CONSULT ---
Consult Consult Specialty:: Thoracic Surgery Referred by:: Blaire Diggs Reason for Consultation:: pericardial effusion - History of Present Illness Chief Complaint: SOB History of Present Illness: 47 yo female with stage IV breast ca admitted yesterday with large pericardial effusion. Had CT scan chest 3d earlier which revealed this effusion. Has chronic dyspnea which wasnt significantly worse over this past week. Indwelling right pleural catheter for malignant pleural effusion. ECHO done Fri has some findings c/w early tamponade. IR drain placed under CT guidance with 600cc serosang fluid removed. Pt felt some improvement in her symptoms after drainage. Today had some dyspnea and 200cc pleural fluid removed via catheter with some relief. 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 No: O2 Dependent Gastrointestinal: Yes: Cancer Hepatobiliary: Yes: Other (on entecavir for liver protection for hepatitis B). No: Cirrhosis Renal/: Yes: UTI. No: Renal Failure, Renal Inusuff ...LMP: 01/11/17 Heme/Onc: Yes: Cancer, Current Chemotherapy Infectious Disease: No: AIDS Psych: No: Addictions, Anxiety Musculoskeletal: Yes: Other (weakness) Endocrine: Yes: Diabetes Mellitus, Other Additional Medical History: Denies TB/Hepatitis/ gout/cardiac/respiratory/liver /renal problems - Alcohol/Substance Use Hx Alcohol Use: No - Smoking History Smoking history: Never smoked Have you smoked in the past 12 months: No - Social History Usual Living Arrangement: With Spouse Home Medications - Allergies Allergies/Adverse Reactions: Allergies Allergy/AdvReac Type Severity Reaction Status Date / Time No Known Drug Allergies Allergy Verified 03/12/17 13:27 - Home Medications Home Medications: Ambulatory Orders Pantoprazole Sodium [Protonix] 40 mg PO DAILY #30 tablet. 01/05/17 Entecavir [Baraclude -] 0.5 mg PO Q48H #0 tablet 02/02/17 Albuterol 2.5/Ipratropium 0.5 [Duoneb -] 1 amp NEB Q4H PRN #32 amp MDD 4 Guaifenesin AC [Robitussin AC -] 5 ml PO Q6H PRN #1 bottle MDD 4 02/18/17 Metoprolol Succinate [Toprol XL -] 50 mg PO DAILY #30 tab 02/18/17 Calcium Carbonate - 650 mg PO BID #28 tablet 02/19/17 Potassium Chloride [K-Dur -] 40 meq PO DAILY #28 tablet.er 02/19/17 Family Disease History - Family Disease History Family Disease History: Diabetes: Father, Mother Review of Systems - Review of Systems Constitutional: reports: Weakness Eyes: reports: No Symptoms HENT: reports: No Symptoms Neck: reports: No Symptoms Cardiovascular: reports: Shortness of Breath Respiratory: reports: SOB. denies: Hemoptysis, Orthopnea Gastrointestinal: reports: No Symptoms Genitourinary: reports: No Symptoms Breasts: reports: See HPI Musculoskeletal: reports: Muscle Weakness Integumentary: reports: Bruising Neurological: reports: Weakness Endocrine: reports: No Symptoms Hematology/Lymphatic: reports: Easily Bruised Psychiatric: reports: No Symptoms Physical Exam Vital Signs: Vital Signs Temperature 98.0 F 05/04/17 14:00 Pulse Rate 108 H 05/04/17 14:00 Respiratory Rate 18 05/04/17 14:00 Blood Pressure 106/75 05/04/17 14:00 O2 Sat by Pulse Oximetry (%) 100 05/04/17 09:00 Constitutional: Yes: Thin, Other (appears ill/weak) Neck: Yes: Supple. No: Lymphadenopathy Cardiovascular: Yes: Tachycardia Respiratory: Yes: On Nasal O2, Other (diminshe BS right base) Gastrointestinal: Yes: Normal Bowel Sounds. No: Tenderness ...Rectal Exam: Yes: Deferred Musculoskeletal: Yes: Muscle Weakness Extremities: No: Cool Edema: No Integumentary: Yes: Bruising Neurological: Yes: Lethargy, Weakness Psychiatric: Yes: WNL Labs: CBC, BMP 05/04/17 05:10 05/04/17 05:10 Imaging - Results Chest X-ray: Report Reviewed, Image Reviewed Cat Scan: Report Reviewed, Image Reviewed Problem List - Problems (1) Acute pericardial effusion Code(s): I30.9 - ACUTE PERICARDITIS, UNSPECIFIED Assessment/Plan Reviewed CXRs and CT scan of chest. Moderate to large pericardial effusion. Mild to moderate right pleural effusion. Chest wall mass noted. Possible lymphangitic spread of tumor right lung, pulm nodules. 47 yo with stage IV breast CA on chemotherapy with pericardial effusion s/p catheter pericardial drain placement. Minimal drainage since placed. Discussed situation at length with pt and her family at bedside. Discussed options of continued catheter drainage with removal and observation versus surgical intervention with thoracoscopic creation of pericardial window. Mechanics of each along with associated risks and benefits reviewed. Given her limited physical condition, surgical intervention would be associated with significant risk of periop morbidity/mortality. I suggest repeat TTE Saturday and if limited fluid remains, would remove catheter on Saturday and then observation with close surveillance ECHO. Patient and family agree to proceed in this fashion fully understanding the issues at hand.
[2017-05-04] MEDS: SODIUM CHLORIDE 1,000 ML IV SCH (23:52)
[2017-05-05 06:59] LABS: MCH 30.3 pg (25.7-33.7); MCHC 32.8 g/dl (32.0-36.0); MEAN CELL VOLUME 92.4 fl (80-96); PLATELET COUNT 275 K/MM3 (134-434); RDW 20.8 % (11.6-15.6); WHITE BLOOD COUNT 4.6 K/mm3 (4.0-10.0)
[2017-05-05 07:24] LABS: INR 1.4 (0.82-1.09); PROTHROMBIN TIME (PATIENT) 15.5 SEC (9.98-11.88)
[2017-05-05 07:33] LABS: ALBUMIN 2.5 g/dl (3.4-5.0); ANION GAP 10 (8-16); CALCIUM 7.9 mg/dL (8.5-10.1); CO2 28 mmol/L (21-32); CREATININE 0.4 mg/dL (0.55-1.02); GLUCOSE,RANDOM 125 mg/dL (74-106); SGOT/AST 36 U/L (15-37); SGPT/ALT 10 U/L (12-78); TOT PROT 4.8 g/dl (6.4-8.2)
[2017-05-05 07:34] LABS: ALK PHOS 72 U/L (45-117)
[2017-05-05] MEDS ORDERED: PT OWN MED DRAWER 7, Y5N ONE (09:22)
[2017-05-05] MEDS: POTASSIUM CHLORIDE TABS 20 MEQ TABLET.ER (FP) PO SCH (09:35)
[2017-05-05] MEDS: CALCIUM CARBONATE 650 MG TABLET PO SCH (09:35)
[2017-05-05] MEDS: PANTOPRAZOLE 40 MG TABLET (FP) PO SCH (09:35)
[2017-05-05] MEDS: METOPROLOL SUCCINATE 50 MG TAB.SR.24H (FP) PO SCH (09:35)
[2017-05-05] MEDS: ONDANSETRON 4 MG/2 ML VIAL IVPUSH PRN ×2 (09:51→18:20)
--- NOTE | 2017-05-05 10:05 | PN ---
Progress Note (short form) - Note Progress Note: - Note Progress Note: Seen in follow up. Mild dyspnea this am, but not as bad as previously prior to drainage pleurex catheter yesterday. Otherwise no complaints presently. Meds reviewed. Current Medications Generic Name Dose Route Start Last Admin Trade Name Freq PRN Reason Stop Dose Admin Albuterol/Ipratropium 1 amp 05/03/17 20:11 Duoneb - NEB Q4H PRN SHORTNESS OF BREATH Calcium Carbonate 650 mg 05/03/17 22:00 05/05/17 09:35 Calcium Carbonate - PO 650 mg BID JAIR Administration Guaifenesin/Codeine Phosphate 5 ml 05/03/17 20:11 Robitussin Ac - PO Q6H PRN COUGH Sodium Chloride 1,000 mls @ 42 mls/hr 05/03/17 20:15 05/04/17 23:52 Normal Saline - IV 42 mls/hr ASDIR JAIR Administration Insulin Aspart 1 vial 05/05/17 11:00 Novolog Vial Sliding Scale - SQ ACHS AJIR Protocol Metoprolol Succinate 50 mg 05/04/17 10:00 05/05/17 09:35 Toprol Xl - PO 50 mg DAILY JAIR Administration Ondansetron HCl 4 mg 05/03/17 21:04 05/05/17 09:51 Zofran Injection IVPUSH 4 mg Q6H PRN Administration NAUSEA AND/OR VOMITING Pantoprazole Sodium 40 mg 05/04/17 10:00 05/05/17 09:35 Protonix - PO 40 mg DAILY JAIR Administration Potassium Chloride 40 meq 05/04/17 10:00 05/05/17 09:35 K-Dur - PO 40 meq DAILY JAIR Administration On exam: Last Vital Signs Temp Pulse Resp BP Pulse Ox 98.4 F 117 H 22 124/85 100 05/05/17 06:00 05/05/17 07:13 05/05/17 07:13 05/05/17 07:13 05/05/17 07:15 General: In no acute distress. Extremities: No pallor or icterus, no pedal edema. Chest:good air entry bilaterally, increased scattered crackles compared to yesterday. Pleurex catheter. Abdomen: Soft, no organomegaly, no masses. Neuro: Alert, oriented, non-focal. CVS: Normal sinus rhythm, S1, S2, no gallop or murmur. Assessment. Metastatic breast cancer - triple negative, with likely lymphangitic progression , and recent development pericardial effusion, with some degree of tamponade, now improved following drainage (IR) yesterday. Awaiting decision regarding pericardial window. Pleurex catheter in-situ R pleural cavity - drain PRN. Observation over weekend. Decision making re further lines of therapy for MBC deferred to Dr Rudd - Saturday.
--- NOTE | 2017-05-05 10:44 | PN ---
Progress Note (short form) - Note Progress Note: Patient seen and examined in the ICU. Awake and alert. No significant change overnight. No drainage from PleuraVac. Minimal output from pericardial drainage catheter. CXR: Some mild improvement in right effusion Intake & Output 05/02/17 05/03/17 05/04/17 05/05/17 23:59 23:59 23:59 23:59 Intake Total 100 870 504 Output Total 400 60 0 Balance -300 810 504 Weight 110 lb Last Vital Signs Temp Pulse Resp BP Pulse Ox 97.8 F 97 H 18 100/62 100 05/05/17 10:00 05/05/17 10:00 05/05/17 10:00 05/05/17 10:00 05/05/17 07:15 Active Medications Albuterol/Ipratropium (Duoneb -) 1 amp NEB Q4H PRN PRN Reason: SHORTNESS OF BREATH Calcium Carbonate (Calcium Carbonate -) 650 mg PO BID [facility] Last Admin: 05/05/17 09:35 Dose: 650 mg Guaifenesin/Codeine Phosphate (Robitussin Ac -) 5 ml PO Q6H PRN PRN Reason: COUGH Sodium Chloride (Normal Saline -) 1,000 mls @ 42 mls/hr IV ASDIR [facility] Last Admin: 05/04/17 23:52 Dose: 42 mls/hr Insulin Aspart (Novolog Vial Sliding Scale -) 1 vial SQ ACHS [facility] PRN Reason: Protocol Metoprolol Succinate (Toprol Xl -) 50 mg PO DAILY [facility] Last Admin: 05/05/17 09:35 Dose: 50 mg Ondansetron HCl (Zofran Injection) 4 mg IVPUSH Q6H PRN PRN Reason: NAUSEA AND/OR VOMITING Last Admin: 05/05/17 09:51 Dose: 4 mg Pantoprazole Sodium (Protonix -) 40 mg PO DAILY [facility] Last Admin: 05/05/17 09:35 Dose: 40 mg Potassium Chloride (K-Dur -) 40 meq PO DAILY [facility] Last Admin: 05/05/17 09:35 Dose: 40 meq Constitutional: Yes: Awake and alert, NAD Eyes: Yes: WNL HENT: Yes: WNL Neck: Yes: WNL Cardiovascular: Yes: Tachycardia, S1, S2, Intact pericardial drain Respiratory: Yes: bibasilar rhonhci Gastrointestinal: Yes: Normal Bowel Sounds, Soft. No: Tenderness Musculoskeletal: Yes: WNL Extremities: Yes: WNL Edema: No Integumentary: Yes: WNL Wound/Incision: Yes: Clean/Dry Neurological: Yes: WNL, Alert, Oriented ...Motor Strength: WNL Laboratory Results - last 24 hr 05/04/17 05/04/17 05/05/17 12:17 17:28 05:00 WBC 4.6 RBC 3.15 L Hgb 9.6 L Hct 29.1 L MCV 92.4 MCHC 32.8 RDW 20.8 H Plt Count 275 MPV 7.0 L INR Sodium Potassium Chloride Carbon Dioxide Anion Gap BUN Creatinine Creat Clearance w eGFR POC Glucometer [phone] Random Glucose Calcium Total Bilirubin AST ALT Alkaline Phosphatase Total Protein Albumin 05/05/17 05/05/17 05/05/17 05:00 05:00 05:51 WBC RBC Hgb Hct MCV MCHC RDW Plt Count MPV INR 1.40 H Sodium 140 Potassium 4.3 Chloride 102 Carbon Dioxide 28 Anion Gap 10 BUN 8 Creatinine 0.4 L Creat Clearance w eGFR > 60 POC Glucometer [phone] Random Glucose 125 H Calcium 7.9 L Total Bilirubin 1.0 AST 36 D ALT 10 L D Alkaline Phosphatase 72 D Total Protein 4.8 L D Albumin 2.5 L D Problem List - Problems (1) Acute pericardial effusion Code(s): I30.9 - ACUTE PERICARDITIS, UNSPECIFIED (2) Breast cancer metastasized to multiple sites Code(s): C50.919 - MALIGNANT NEOPLASM OF UNSP SITE OF UNSPECIFIED FEMALE BREAST Qualifiers: Laterality: unspecified laterality Qualified Code(s): C50.919 - Malignant neoplasm of unspecified site of unspecified female breast (3) Diabetes Code(s): E11.9 - TYPE 2 DIABETES MELLITUS WITHOUT COMPLICATIONS (4) Hypertension Code(s): I10 - ESSENTIAL (PRIMARY) HYPERTENSION Assessment/Plan Metastatic breast CA Large pericardial effusion with tamponade physiology likely malignant effusion DM HTN -Monitor drain output -Can cap PleureX -Monitor off ABX -Fingersticks and insulin as needed -PO as tolerated -SCDs -Noted CTS consult : no surgical intervention at this time. Dr Gregory Critical care time spent in reviewing chart, evaluation patient and formulating plan 35 min
[2017-05-05] MEDS: INSULIN SLIDING SCALE (NOVOLOG) 1 VIAL SQ SCH ×3 (11:09→23:00)
--- NOTE | 2017-05-05 12:03 | PN ---
Progress Note, Physician Chief Complaint: A&Ox3; no PND overnight (woke up x 3 to urinate); able to sit up without aid at bedside for exam. No chest pain. Daughter is at bedside. History of Present Illness: 47 yo F, history of hyperlipidemia, hypertension, diabetes, metastatic breast CA , currently on chemotherapy, status post recent admission for pleural effusion and currently has Pleur-evac in place, had follow-up CT chest 4 days ago and told she had "fluid around her heart" as per sister in law and told to come to ED today for admission. Patient reports that she is always short of breath w/ no change in baseline. Also reports chronic cough. No CP, palpitations, leg pain or swelling. No f/c Pericardial effusion in pt w/ metastatic breast ca Tachy in ED but maintaining sats and BP, + large amount of pericardial effusion on bedside US, no JVD. - Current Medication List Current Medications: Active Medications Albuterol/Ipratropium (Duoneb -) 1 amp NEB Q4H PRN PRN Reason: SHORTNESS OF BREATH Calcium Carbonate (Calcium Carbonate -) 650 mg PO BID [facility] Last Admin: 05/05/17 09:35 Dose: 650 mg Guaifenesin/Codeine Phosphate (Robitussin Ac -) 5 ml PO Q6H PRN PRN Reason: COUGH Sodium Chloride (Normal Saline -) 1,000 mls @ 42 mls/hr IV ASDIR [facility] Last Admin: 05/04/17 23:52 Dose: 42 mls/hr Insulin Aspart (Novolog Vial Sliding Scale -) 1 vial SQ ACHS [facility] PRN Reason: Protocol Last Admin: 05/05/17 11:09 Dose: Not Given Metoprolol Succinate (Toprol Xl -) 50 mg PO DAILY [facility] Last Admin: 05/05/17 09:35 Dose: 50 mg Ondansetron HCl (Zofran Injection) 4 mg IVPUSH Q6H PRN PRN Reason: NAUSEA AND/OR VOMITING Last Admin: 05/05/17 09:51 Dose: 4 mg Pantoprazole Sodium (Protonix -) 40 mg PO DAILY [facility] Last Admin: 05/05/17 09:35 Dose: 40 mg Potassium Chloride (K-Dur -) 40 meq PO DAILY [facility] Last Admin: 05/05/17 09:35 Dose: 40 meq - Objective Vital Signs: Vital Signs Temperature 97.8 F 05/05/17 10:00 Pulse Rate 97 H 05/05/17 10:00 Respiratory Rate 18 05/05/17 10:00 Blood Pressure 100/62 05/05/17 10:00 O2 Sat by Pulse Oximetry (%) 100 05/05/17 07:15 Constitutional: Yes: Calm Eyes: Yes: WNL HENT: Yes: WNL Neck: Yes: WNL Cardiovascular: Yes: Regular Rate and Rhythm Respiratory: Yes: Regular Gastrointestinal: Yes: Soft ...Rectal Exam: Yes: Deferred Genitourinary: No: Anuria Musculoskeletal: Yes: Muscle Weakness Extremities: Yes: Cool Edema: No Peripheral Pulses WNL: No Peripheral Pulses: Left Doralis Pedis: 1+, Right Dorsalis Pedis: 1+ Integumentary: Yes: Incision (chest; pericardial drain) Neurological: Yes: Alert, Oriented, Weakness Labs: CBC, BMP 05/05/17 05:00 05/05/17 05:00 INR, PTT INR 1.40 (0.82-1.09) H 05/05/17 05:00 Abnormal Lab Results 05/05/17 05/05/17 05/05/17 05:00 05:00 05:00 RBC 3.15 L Hgb 9.6 L Hct 29.1 L RDW 20.8 H MPV 7.0 L INR 1.40 H Creatinine 0.4 L Random Glucose 125 H Calcium 7.9 L ALT 10 L D Total Protein 4.8 L D Albumin 2.5 L D Abnormal Lab Results 05/05/17 05/05/17 05/05/17 05:00 05:00 05:00 RBC 3.15 L Hgb 9.6 L Hct 29.1 L RDW 20.8 H MPV 7.0 L INR 1.40 H Creatinine 0.4 L Random Glucose 125 H Calcium 7.9 L ALT 10 L D Total Protein 4.8 L D Albumin 2.5 L D - ....Imaging Chest X-ray: Image Reviewed (slight decrease in right-sided effusion.) Other: Image Reviewed (telemetry: sinus tachycardia) Problem List - Problems (1) Air hunger Code(s): R09.89 - OTH SYMPTOMS AND SIGNS INVOLVING THE CIRC AND RESP SYSTEMS (2) Hypoxia Code(s): R09.02 - HYPOXEMIA (3) Hepatitis Code(s): K75.9 - INFLAMMATORY LIVER DISEASE, UNSPECIFIED (4) Iron deficiency anemia Code(s): D50.9 - IRON DEFICIENCY ANEMIA, UNSPECIFIED (5) Pericardial effusion Assessment/Plan: s/p pericardiocentesis, with removal of 25 ml. On pericardial drainage. Hemodynamically stable; sinus tachycardia; O2 sat 100% on 3L NC; remains asymptomatic. For repeat ECHO if necessary. Code(s): I31.3 - PERICARDIAL EFFUSION (NONINFLAMMATORY) (6) Tachycardia Assessment/Plan: Telemetry: sinus tachycardia. Code(s): R00.0 - TACHYCARDIA, UNSPECIFIED (7) Breast cancer metastasized to multiple sites Assessment/Plan: f/u with oncologist. Code(s): C50.919 - MALIGNANT NEOPLASM OF UNSP SITE OF UNSPECIFIED FEMALE BREAST Qualifiers: Laterality: unspecified laterality Qualified Code(s): C50.919 - Malignant neoplasm of unspecified site of unspecified female breast Assessment/Plan cc time spent reviewing record, examining pt, recording note: 30 minutes.
--- NOTE | 2017-05-05 12:11 | PN ---
Physical Exam: SUBJECTIVE: Patient seen and examined in the ICU. States she feels better and is easier to breathe. OBJECTIVE: Vital Signs Period Temp Pulse Resp BP Sys/Winter Pulse Ox Last 24 Hr 97.7 F-98.4 F 97-117 16-24 100-125/62-88 100-100 GENERAL: The patient is awake, alert, and fully oriented, in no acute distress. ENT: Ears normal, nares patent, oropharynx clear without exudates, moist mucous membranes. NECK: Trachea midline, full range of motion, supple. LUNGS: No wheezes, no crackles, no accessory muscle use. Diminished breath sounds to right lower and middle lobes. HEART: Regular rate and rhythm, S1, S2 without murmur, rub or gallop. Pericardial drain in place. ABDOMEN: Soft, nontender, nondistended, normoactive bowel sounds, no guarding, no rebound, no hepatosplenomegaly, no masses. EXTREMITIES: 2+ pulses, warm, well-perfused, no edema. NEUROLOGICAL: Cranial nerves II through XII grossly intact. Normal speech, gait not observed. Laboratory Results - last 24 hr 3 05/04/17 05/04/17 05/05/17 12:17 17:28 05:00 WBC 4.6 RBC 3.15 L Hgb 9.6 L Hct 29.1 L MCV 92.4 MCHC 32.8 RDW 20.8 H Plt Count 275 MPV 7.0 L INR Sodium Potassium Chloride Carbon Dioxide Anion Gap BUN Creatinine Creat Clearance w eGFR POC Glucometer 169.87162 185.79512 Random Glucose Calcium Total Bilirubin AST ALT Alkaline Phosphatase Total Protein Albumin 3 05/05/17 05/05/17 05/05/17 05:00 05:00 05:51 WBC RBC Hgb Hct MCV MCHC RDW Plt Count MPV INR 1.40 H Sodium 140 Potassium 4.3 Chloride 102 Carbon Dioxide 28 Anion Gap 10 BUN 8 Creatinine 0.4 L Creat Clearance w eGFR > 60 POC Glucometer 144.36416 Random Glucose 125 H Calcium 7.9 L Total Bilirubin 1.0 AST 36 D ALT 10 L D Alkaline Phosphatase 72 D Total Protein 4.8 L D Albumin 2.5 L D Active Medications 3 Generic Name Dose Route Start Last Admin Trade Name Freq PRN Reason Stop Dose Admin Albuterol/Ipratropium 1 amp 05/03/17 20:11 Duoneb - NEB Q4H PRN SHORTNESS OF BREATH Calcium Carbonate 650 mg 05/03/17 22:00 05/05/17 09:35 Calcium Carbonate - PO 650 mg BID [facility] Administration Guaifenesin/Codeine Phosphate 5 ml 05/03/17 20:11 Robitussin Ac - PO Q6H PRN COUGH Sodium Chloride 1,000 mls @ 42 mls/hr 05/03/17 20:15 05/04/17 23:52 Normal Saline - IV 42 mls/hr ASDIR [facility] Administration Insulin Aspart 1 vial 05/05/17 11:00 05/05/17 11:09 Novolog Vial Sliding Scale - SQ Not Given ACHS [facility] Protocol Metoprolol Succinate 50 mg 05/04/17 10:00 05/05/17 09:35 Toprol Xl - PO 50 mg DAILY [facility] Administration Ondansetron HCl 4 mg 05/03/17 21:04 05/05/17 09:51 Zofran Injection IVPUSH 4 mg Q6H PRN Administration NAUSEA AND/OR VOMITING Pantoprazole Sodium 40 mg 05/04/17 10:00 05/05/17 09:35 Protonix - PO 40 mg DAILY [facility] Administration Potassium Chloride 40 meq 05/04/17 10:00 05/05/17 09:35 K-Dur - PO 40 meq DAILY [facility] Administration ASSESSMENT/PLAN: A: 47yo woman with PMH breast CA mets-> bone, liver, lung on palliative chemo, DM and pericardial effusion with improved SOB. P: 1. Pericardial Effusion - likely from metastatic disease - pericardial drain in place - CT surg recommendation to repeat TTE Saturday and if limited fluid remains, would remove catheter on Saturday and then observation with close surveillance ECHO. 2. Breast CA mets-> bone, liver, lung - appreciate heme/onc - symptomatic management - Xeloda when stable 3. Right pleural effusion - Pleurex drain capped. Drained 350cc overnight - CXR in AM 4. DM - BGM qACHS - ISS 5. HTN - well controlled - continue Toprol 50mg 6. F/E/N - NS@42 - replete prn - soft diabetic diet 7. PPX - SCD Dispo- requires ICU care for acute medical conditions Code Status- FULL CODE Visit type - Emergency Visit Emergency Visit: Yes ED Registration Date: 05/03/17 Care time: The patient presented to the Emergency Department on the above date and was hospitalized for further evaluation of their emergent condition. - New Patient This patient is new to me today: No - Critical Care Critical Care patient: Yes Total Critical Care Time (in minutes): 30 Critical Care Statement: The care of this patient involved high complexity decision making to prevent further life threatening deterioration of the patient 's condition and/or to evalute & treat vital organ system(s) failure or risk of failure.
[2017-05-05] MEDS: SODIUM CHLORIDE 1,000 ML IV SCH (20:30)
[2017-05-05] MEDS ORDERED: ONDANSETRON 4 MG/2 ML VIAL IVPUSH ONE (20:32)
--- NOTE | 2017-05-05 21:50 | EKG ---
Test Reason : Blood Pressure : / mmHG Vent. Rate : 118 BPM Atrial Rate : 118 BPM P-R Int : 128 ms QRS Dur : 056 ms QT Int : 312 ms P-R-T Axes : 040 036 041 degrees QTc Int : 437 ms SINUS TACHYCARDIA LOW VOLTAGE QRS CANNOT RULE OUT ANTERIOR INFARCT , AGE UNDETERMINED NONSPECIFIC T WAVE ABNORMALITY ABNORMAL ECG WHEN COMPARED WITH ECG OF 12-MAR-2017 14:44, NONSPECIFIC T WAVE ABNORMALITY, IMPROVED IN INFERIOR LEADS Confirmed by AMBER MANCERA, EULALIO ([id number]) on 05/05/2017 9:50:35 PM Referred By: Confirmed By:EULALIO CLARK MD
[2017-05-06] MEDS: CALCIUM CARBONATE 650 MG TABLET PO SCH ×3 (00:13→22:23)
[2017-05-06] MEDS: ONDANSETRON 4 MG/2 ML VIAL IVPUSH PRN (06:17)
[2017-05-06 06:42] LABS: BASOPHIL 0.3 % (0-2.0); MCH 30.2 pg (25.7-33.7); MEAN CELL VOLUME 91.5 fl (80-96); MEAN PLT VOLUME 7.2 fl (7.5-11.1); PLATELET COUNT 316 K/MM3 (134-434); RDW 20.4 % (11.6-15.6); WHITE BLOOD COUNT 5.6 K/mm3 (4.0-10.0)
[2017-05-06] MEDS: INSULIN SLIDING SCALE (NOVOLOG) 1 VIAL SQ SCH ×4 (07:00→22:23)
[2017-05-06 07:10] LABS: INR 1.36 (0.82-1.09)
[2017-05-06 07:12] LABS: ANION GAP 8 (8-16); CO2 29 mmol/L (21-32)
[2017-05-06 07:15] LABS: CREATININE 0.4 mg/dL (0.55-1.02); GLUCOSE,RANDOM 142 mg/dL (74-106)
--- NOTE | 2017-05-06 08:52 | PN ---
Progress Note (short form) - Note Progress Note: seen and examined. reviewed charts, films, labs, vs, and i/o's. no major event o/n. family at bedside. afeb. rrr (st). decreased breath sound in right lung field. pericard drain intact, serosang. +bs, soft, nt, nd. no c/c/e. a&o x3. CBC, BMP 05/06/17 05:20 05/06/17 05:20 Vital Signs Temp 97.6 F 05/05/17 14:00 Pulse 109 H 05/06/17 08:00 Resp 18 05/06/17 08:00 BP 126/81 05/06/17 08:00 Pulse Ox 96 05/05/17 21:00 Intake & Output 05/05/17 05/05/17 05/06/17 11:59 23:59 11:59 Intake Total 504 1426 352 Output Total 0 0 Balance 504 1426 352 Intake: IV 504 626 252 Normal Saline - 1,000 ml 504 626 252 @ 42 mls/hr IV ASDIR [facility] Rx#:[id number] IVPB 100 100 Oral 700 Output: Chest Tube Drainage 0 Right 0 Drainage 0 0 Left Chest 0 R chest 0 0 Other: Voiding Method Toilet Toilet # Unmeasured Voids Void 2 2 1 a/p 47 yo, f, breast ca, mets to bone, lung, liver. pericard eff/tamponade, s/ p pericard drain. stable clinically. 1. cont icu supp care 2. echocard 3. f/u cx, cytopath 4. oob chair, pulm toilet, chest pt, is x10/hr 5. will follow with you
--- NOTE | 2017-05-06 09:25 | PN ---
Progress Note, Physician History of Present Illness: Seen and examined today in [facility] she is feeling slightly better today. - Current Medication List Current Medications: Active Medications Albuterol/Ipratropium (Duoneb -) 1 amp NEB Q4H PRN PRN Reason: SHORTNESS OF BREATH Calcium Carbonate (Calcium Carbonate -) 650 mg PO BID [facility] Last Admin: 05/06/17 00:13 Dose: Not Given Guaifenesin/Codeine Phosphate (Robitussin Ac -) 5 ml PO Q6H PRN PRN Reason: COUGH Sodium Chloride (Normal Saline -) 1,000 mls @ 42 mls/hr IV ASDIR [facility] Last Admin: 05/05/17 20:30 Dose: 42 mls/hr Insulin Aspart (Novolog Vial Sliding Scale -) 1 vial SQ ACHS [facility] PRN Reason: Protocol Last Admin: 05/06/17 07:00 Dose: Not Given Metoprolol Succinate (Toprol Xl -) 50 mg PO DAILY [facility] Last Admin: 05/05/17 09:35 Dose: 50 mg Ondansetron HCl (Zofran Injection) 4 mg IVPUSH Q6H PRN PRN Reason: NAUSEA AND/OR VOMITING Last Admin: 05/06/17 06:17 Dose: 4 mg Pantoprazole Sodium (Protonix -) 40 mg PO DAILY [facility] Last Admin: 05/05/17 09:35 Dose: 40 mg Potassium Chloride (K-Dur -) 40 meq PO DAILY [facility] Last Admin: 05/05/17 09:35 Dose: 40 meq - Objective Vital Signs: Vital Signs Temperature 97.6 F 05/05/17 14:00 Pulse Rate 109 H 05/06/17 08:00 Respiratory Rate 18 05/06/17 08:00 Blood Pressure 126/81 05/06/17 08:00 O2 Sat by Pulse Oximetry (%) 96 05/05/17 21:00 Constitutional: Yes: No Distress, Calm Eyes: Yes: Conjunctiva Clear, EOM Intact, PERRL HENT: Yes: Atraumatic, Normocephalic Neck: Yes: Supple, Trachea Midline Cardiovascular: Yes: Tachycardia, S1, S2. No: Bradycardia, Pulse Irregular, Bruit, JVD, Gallop, Murmur, Rub, S3, S4, Varicosities Respiratory: Yes: Regular, Diminished. No: Rales, Rhonchi, Wheezes Gastrointestinal: Yes: Normal Bowel Sounds, Soft. No: Distention, Tenderness Edema: No Peripheral Pulses WNL: Yes Peripheral Pulses: Left Doralis Pedis: 2+, Right Dorsalis Pedis: 2+ Neurological: Yes: Alert, Oriented Psychiatric: Yes: Alert, Oriented Labs: CBC, BMP 05/06/17 05:20 05/06/17 05:20 INR, PTT INR 1.36 (0.82-1.09) H 05/06/17 05:20 - ....Imaging Chest X-ray: Report Reviewed, Image Reviewed EKG: Report Reviewed, Image Reviewed Other: Report Reviewed, Image Reviewed (tele-sinus tachycardia, no arrhythmia recorded) Assessment/Plan Imp: Pericardial effusion with tamponade s/p pericardiocentesis sinus tachycardia HTN No further output via pericardial drain Repeat echo this am to re-evaluate pericardial effusion If no sig effusion plan to remove drain If effusion remains may benefit from a pericardial window Pt has a history of chronic sinus tachycardia secondary to underlying disease, would not agressively medically slow her HR, can cont current Toprol dose for now agree with gentle IVF hydration
[2017-05-06] MEDS ORDERED: PT OWN MED DRAWER 7, Y5N ONE (09:28)
[2017-05-06] MEDS: PANTOPRAZOLE 40 MG TABLET (FP) PO SCH (09:34)
[2017-05-06] MEDS: METOPROLOL SUCCINATE 50 MG TAB.SR.24H (FP) PO SCH (09:35)
[2017-05-06] MEDS: POTASSIUM CHLORIDE TABS 20 MEQ TABLET.ER (FP) PO SCH (11:00)
--- NOTE | 2017-05-06 11:37 | PN ---
Physical Exam: SUBJECTIVE: Patient seen and examined at bedside. Pt. states that her breathing is better, but occasionally becomes short of breath. Reports nausea. No other complaints at this time. OBJECTIVE: Vital Signs Period Temp Pulse Resp BP Sys/Winter Pulse Ox Last 24 Hr 97.6 F-98.4 F 102-118 18-22 108-126/23-92 96-100 GENERAL: The patient is awake, alert, and fully oriented, in no acute distress. Speaks in low voice. HEAD: Normal with no signs of trauma. EYES: PERRL, extraocular movements intact, sclera anicteric, conjunctiva clear. No ptosis. ENT: Ears normal, nares patent, oropharynx clear without exudates, moist mucous membranes. NECK: Trachea midline, full range of motion, supple. LUNGS: Breath sounds equal with diminished aeration to the bases, clear to auscultation b/l, no wheezes, crackles, or accessory muscle use. HEART: Regular rate and rhythm, S1, S2 without murmur, rub or gallop. ABDOMEN: Soft, nontender, nondistended, normoactive bowel sounds, no guarding, no rebound, no hepatosplenomegaly, no masses. EXTREMITIES: 2+ pulses, warm, well-perfused, no edema. NEUROLOGICAL: Cranial nerves II through XII grossly intact. Normal speech, gait intact. SKIN: Warm, dry, normal turgor, no rashes or lesions noted Laboratory Results - last 24 hr 05/05/17 05/05/17 05/06/17 16:41 20:39 05:20 INR 1.36 H POC Glucometer 153.09501 183.10386 05/06/17 05/06/17 05:20 05:20 WBC 5.6 RBC 2.92 L Hgb 8.8 L Hct 26.7 L MCV 91.5 MCHC 33.0 RDW 20.4 H Plt Count 316 MPV 7.2 L Neutrophils % 69.0 D Lymphocytes % 19.7 Monocytes % 11.0 H Eosinophils % 0.0 D Basophils % 0.3 Sodium 140 Potassium 4.4 Chloride 103 Carbon Dioxide 29 Anion Gap 8 BUN 7 Creatinine 0.4 L Random Glucose 142 H Calcium 8.0 L Active Medications Generic Name Dose Route Start Last Admin Trade Name Freq PRN Reason Stop Dose Admin Albuterol/Ipratropium 1 amp 05/03/17 20:11 Duoneb - NEB Q4H PRN SHORTNESS OF BREATH Calcium Carbonate 650 mg 05/03/17 22:00 05/06/17 00:13 Calcium Carbonate - PO Not Given BID [facility] Guaifenesin/Codeine Phosphate 5 ml 05/03/17 20:11 Robitussin Ac - PO Q6H PRN COUGH Sodium Chloride 1,000 mls @ 42 mls/hr 05/03/17 20:15 05/05/17 20:30 Normal Saline - IV 42 mls/hr ASDIR [facility] Administration Insulin Aspart 1 vial 05/05/17 11:00 05/06/17 07:00 Novolog Vial Sliding Scale - SQ Not Given ACHS [facility] Protocol Metoprolol Succinate 50 mg 05/04/17 10:00 05/06/17 09:35 Toprol Xl - PO 50 mg DAILY [facility] Administration Ondansetron HCl 4 mg 05/03/17 21:04 05/06/17 06:17 Zofran Injection IVPUSH 4 mg Q6H PRN Administration NAUSEA AND/OR VOMITING Pantoprazole Sodium 40 mg 05/04/17 10:00 05/06/17 09:34 Protonix - PO 40 mg DAILY [facility] Administration Potassium Chloride 40 meq 05/04/17 10:00 05/05/17 09:35 K-Dur - PO 40 meq DAILY [facility] Administration ASSESSMENT/PLAN: Pt is a 47yo woman with PMH triple negative breast cancer with mets to bone, liver, lung on palliative chemo, DM and pericardial effusion with improved SOB. Pericardial Effusion - Likely from metastatic disease - Pericardial drain in place with no active drainage - Repeat TTE today. - If the effusion has resolved, will have drain removed tomorrow. Breast CA with mets to bone, liver and lung - Symptomatic management - Heme/Onc following Right pleural effusion - Pleurex drain capped. - CXR in AM DM - FSACHS - ISS HTN - well controlled - continue Toprol 50mg F/E/N - NS @42cc/hr - replete prn - soft diabetic diet PPX - SCD Dispo -may be transferred to telemetry Code Status- FULL CODE Problem List - Problems (1) Acute pericardial effusion Code(s): I30.9 - ACUTE PERICARDITIS, UNSPECIFIED (2) Pleural effusion Code(s): J90 - PLEURAL EFFUSION, NOT ELSEWHERE CLASSIFIED (3) Breast cancer metastasized to multiple sites Code(s): C50.919 - MALIGNANT NEOPLASM OF UNSP SITE OF UNSPECIFIED FEMALE BREAST Qualifiers: Laterality: unspecified laterality Qualified Code(s): C50.919 - Malignant neoplasm of unspecified site of unspecified female breast (4) Diabetes Code(s): E11.9 - TYPE 2 DIABETES MELLITUS WITHOUT COMPLICATIONS (5) Hypertension Code(s): I10 - ESSENTIAL (PRIMARY) HYPERTENSION Visit type - Emergency Visit Emergency Visit: Yes ED Registration Date: 05/03/17 Care time: The patient presented to the Emergency Department on the above date and was hospitalized for further evaluation of their emergent condition. - New Patient This patient is new to me today: Yes Date on this admission: 05/06/17 - Critical Care Critical Care patient: Yes Total Critical Care Time (in minutes): 30 Critical Care Statement: The care of this patient involved high complexity decision making to prevent further life threatening deterioration of the patient 's condition and/or to evalute & treat vital organ system(s) failure or risk of failure.
--- NOTE | 2017-05-06 11:39 | PN ---
Teaching Attending Note Name of Resident: Angie Boyd ATTENDING PHYSICIAN STATEMENT I saw and evaluated the patient. I reviewed the resident's note and discussed the case with the resident. I agree with the resident's findings and plan as documented. SUBJECTIVE: Pt seen and examined in the ICU. Some dyspnea with exertion. No pain or palpitations. No fevers or chills. OBJECTIVE: Last Vital Signs Temp Pulse Resp BP Pulse Ox 98.4 F 117 H 19 120/78 100 05/06/17 10:00 05/06/17 10:19 05/06/17 10:00 05/06/17 10:00 05/06/17 10:19 Intake & Output 05/03/17 05/04/17 05/05/17 05/06/17 23:59 23:59 23:59 23:59 Intake Total 759 360 7979 352 Output Total 400 60 0 Balance -734 645 3421 352 Weight 110 lb Gen: NAD at rest Heart: tachycardic, regular Chest: minimal drainage from pericardial drain Lung: decreased breath sounds at the bases Abd: soft, nontender Ext: no edema CBC, BMP 05/06/17 05:20 05/06/17 05:20 Active Medications Albuterol/Ipratropium (Duoneb -) 1 amp NEB Q4H PRN PRN Reason: SHORTNESS OF BREATH Calcium Carbonate (Calcium Carbonate -) 650 mg PO BID [facility] Last Admin: 05/06/17 00:13 Dose: Not Given Guaifenesin/Codeine Phosphate (Robitussin Ac -) 5 ml PO Q6H PRN PRN Reason: COUGH Sodium Chloride (Normal Saline -) 1,000 mls @ 42 mls/hr IV ASDIR [facility] Last Admin: 05/05/17 20:30 Dose: 42 mls/hr Insulin Aspart (Novolog Vial Sliding Scale -) 1 vial SQ ACHS [facility] PRN Reason: Protocol Last Admin: 05/06/17 07:00 Dose: Not Given Metoprolol Succinate (Toprol Xl -) 50 mg PO DAILY [facility] Last Admin: 05/06/17 09:35 Dose: 50 mg Ondansetron HCl (Zofran Injection) 4 mg IVPUSH Q6H PRN PRN Reason: NAUSEA AND/OR VOMITING Last Admin: 05/06/17 06:17 Dose: 4 mg Pantoprazole Sodium (Protonix -) 40 mg PO DAILY [facility] Last Admin: 05/06/17 09:34 Dose: 40 mg Potassium Chloride (K-Dur -) 40 meq PO DAILY [facility] Last Admin: 05/05/17 09:35 Dose: 40 meq ASSESSMENT AND PLAN: Metastatic Breast Cancer Pericardial Effusion s/p Pericardial Drain Pleural Effusion s/p Pleur-x catheter placement HTN DM - monitor pericardial drainage - pain control - incentive spirometry - for repeat TTE today - IVF - PO as tolerated - DVT prophylaxis - can monitor on telemtry
--- NOTE | 2017-05-06 16:32 | PN ---
Progress Note (short form) - Note Progress Note: Patient seen and examined feels ok Last Vital Signs Temp Pulse Resp BP Pulse Ox 98.0 F 117 H 19 131/89 100 05/06/17 14:00 05/06/17 14:00 05/06/17 14:00 05/06/17 14:00 05/06/17 10:19 Cor: RSR, No murmurs, No gallops Lungs: Clear to P&A Abd: Soft, Normal bowel sounds, No organomegaly Ext:No significant edema Abnormal Lab Results 05/06/17 05/06/17 05/06/17 05:20 05:20 05:20 RBC 2.92 L Hgb 8.8 L Hct 26.7 L RDW 20.4 H MPV 7.2 L Monocytes % 11.0 H INR 1.36 H Creatinine 0.4 L Random Glucose 142 H Calcium 8.0 L Active Medications Generic Name Dose Route Start Last Admin Trade Name Freq PRN Reason Stop Dose Admin Albuterol/Ipratropium 1 amp 05/03/17 20:11 Duoneb - NEB Q4H PRN SHORTNESS OF BREATH Calcium Carbonate 650 mg 05/03/17 22:00 05/06/17 00:13 Calcium Carbonate - PO Not Given BID JAIR Guaifenesin/Codeine Phosphate 5 ml 05/03/17 20:11 Robitussin Ac - PO Q6H PRN COUGH Sodium Chloride 1,000 mls @ 42 mls/hr 05/03/17 20:15 05/05/17 20:30 Normal Saline - IV 42 mls/hr ASDIR JAIR Administration Insulin Aspart 1 vial 05/05/17 11:00 05/06/17 07:00 Novolog Vial Sliding Scale - SQ Not Given ACHS [facility] Protocol Metoprolol Succinate 50 mg 05/04/17 10:00 05/06/17 09:35 Toprol Xl - PO 50 mg DAILY [facility] Administration Ondansetron HCl 4 mg 05/03/17 21:04 05/06/17 06:17 Zofran Injection IVPUSH 4 mg Q6H PRN Administration NAUSEA AND/OR VOMITING Pantoprazole Sodium 40 mg 05/04/17 10:00 05/06/17 09:34 Protonix - PO 40 mg DAILY JAIR Administration Potassium Chloride 40 meq 05/04/17 10:00 05/05/17 09:35 K-Dur - PO 40 meq DAILY JAIR Administration A/P 47 y/o patient with metastatic breast cancer, -/-/-, cardiac tamponade, s/p pericardial drain Seen by CT surgery no more drain output echo shows < 1cm effusion ? d/c drain possible switching of chemotherapy to Xeloda
--- NOTE | 2017-05-06 18:42 | PN ---
Physical Exam: SUBJECTIVE: Patient seen and examined. She says her throat hurts when she swallows, she is ambulating. No SOB or chest pain. OBJECTIVE: Vital Signs Period Temp Pulse Resp BP Sys/Winter Pulse Ox Last 24 Hr 98.0 F-98.4 F 102-118 18-22 108-131/23-92 96-100 PE Neuro: alert, awake, cn 2-12intact Pulm: R base diminished > L + NC R pleurex cdi CV: s1 s2 tachycarida, scant drainage from pericardial drain Breast: L breast scar healed Abd: s nt nd + bs Ext: warm no le edema Laboratory Results - last 24 hr 05/05/17 05/06/17 05/06/17 20:39 05:20 05:20 WBC 5.6 RBC 2.92 L Hgb 8.8 L Hct 26.7 L MCV 91.5 MCHC 33.0 RDW 20.4 H Plt Count 316 MPV 7.2 L Neutrophils % 69.0 D Lymphocytes % 19.7 Monocytes % 11.0 H Eosinophils % 0.0 D Basophils % 0.3 INR 1.36 H Sodium Potassium Chloride Carbon Dioxide Anion Gap BUN Creatinine POC Glucometer [phone] Random Glucose Calcium 05/06/17 05/06/17 05:20 12:22 WBC RBC Hgb Hct MCV MCHC RDW Plt Count MPV Neutrophils % Lymphocytes % Monocytes % Eosinophils % Basophils % INR Sodium 140 Potassium 4.4 Chloride 103 Carbon Dioxide 29 Anion Gap 8 BUN 7 Creatinine 0.4 L POC Glucometer [phone] Random Glucose 142 H Calcium 8.0 L Active Medications Generic Name Dose Route Start Last Admin Trade Name Hong PRN Reason Stop Dose Admin Albuterol/Ipratropium 1 amp 05/03/17 20:11 Duoneb - NEB Q4H PRN SHORTNESS OF BREATH Calcium Carbonate 650 mg 05/03/17 22:00 05/06/17 00:13 Calcium Carbonate - PO Not Given BID JAIR Guaifenesin/Codeine Phosphate 5 ml 05/03/17 20:11 Robitussin Ac - PO Q6H PRN COUGH Sodium Chloride 1,000 mls @ 42 mls/hr 05/03/17 20:15 05/05/17 20:30 Normal Saline - IV 42 mls/hr ASDIR JAIR Administration Insulin Aspart 1 vial 05/05/17 11:00 05/06/17 07:00 Novolog Vial Sliding Scale - SQ Not Given ACHS JAIR Protocol Metoprolol Succinate 50 mg 05/04/17 10:00 05/06/17 09:35 Toprol Xl - PO 50 mg DAILY JAIR Administration Ondansetron HCl 4 mg 05/03/17 21:04 05/06/17 06:17 Zofran Injection IVPUSH 4 mg Q6H PRN Administration NAUSEA AND/OR VOMITING Pantoprazole Sodium 40 mg 05/04/17 10:00 05/06/17 09:34 Protonix - PO 40 mg DAILY JAIR Administration Potassium Chloride 40 meq 05/04/17 10:00 05/05/17 09:35 K-Dur - PO 40 meq DAILY JAIR Administration Assessment: 47 year old female with PMH triple negative breast cancer with mets to bone, liver, lung on palliative chemo, DM and pericardial effusion with improved SOB. Plan: 1. Pericardial Effusion - Likely from metastatic disease - Pericardial drain in place however no active drainage - Repeat ECHO to assess - If the effusion has resolved, will have drain removed tomorrow, if not for pericardial window CTX 2. Breast CA (triple negative) with mets to bone, liver and lung - Symptomatic management - Heme/Onc following 3. Right pleural effusion - Pleurex drain in place, dressed, pt drains q2 days per RN - CXR in AM 4. Sinus Tachycardia - Chronic, d/t above - Per cards do no aggressively treat 5. DM II - Will stop BGM ISS BID 6. HTN - Stable - Toprol 50mg daily 7. DVT ppx - SCD Dispo: - Trasnfer to telemetry Code Status- FULL CODE Visit type - Emergency Visit Emergency Visit: Yes ED Registration Date: 05/03/17 Care time: The patient presented to the Emergency Department on the above date and was hospitalized for further evaluation of their emergent condition. - New Patient This patient is new to me today: Yes Date on this admission: 05/06/17 - Critical Care Critical Care patient: No
[2017-05-07] MEDS: INSULIN SLIDING SCALE (NOVOLOG) 1 VIAL SQ SCH (07:03)
[2017-05-07] MEDS: ONDANSETRON 4 MG/2 ML VIAL IVPUSH PRN (07:03)
[2017-05-07] MEDS: SODIUM CHLORIDE 1,000 ML IV SCH (07:03)
[2017-05-07 07:51] LABS: BASOPHIL 0.4 % (0-2.0); MCHC 32.5 g/dl (32.0-36.0); MEAN CELL VOLUME 92.2 fl (80-96); MEAN PLT VOLUME 6.4 fl (7.5-11.1); NEUTROPHILS 68.6 % (42.8-82.8); PLATELET COUNT 272 K/MM3 (134-434); WHITE BLOOD COUNT 5.9 K/mm3 (4.0-10.0)
[2017-05-07 08:15] LABS: ALBUMIN 2.5 g/dl (3.4-5.0); ANION GAP 8 (8-16); CALCIUM 8.1 mg/dL (8.5-10.1); CO2 28 mmol/L (21-32); CREATININE 0.5 mg/dL (0.55-1.02); GLUCOSE,RANDOM 143 mg/dL (74-106); SGOT/AST 54 U/L (15-37); SGPT/ALT 11 U/L (12-78); TOT PROT 5.4 g/dl (6.4-8.2)
[2017-05-07 08:16] LABS: ALK PHOS 79 U/L (45-117)
[2017-05-07] MEDS ORDERED: PT OWN MED DRAWER 7, Y5N ONE (09:05)
[2017-05-07] MEDS: PANTOPRAZOLE 40 MG TABLET (FP) PO SCH (09:06)
[2017-05-07] MEDS: POTASSIUM CHLORIDE TABS 20 MEQ TABLET.ER (FP) PO SCH (09:06)
[2017-05-07] MEDS: METOPROLOL SUCCINATE 50 MG TAB.SR.24H (FP) PO SCH (09:06)
[2017-05-07] MEDS: CALCIUM CARBONATE 650 MG TABLET PO SCH (09:07)
--- NOTE | 2017-05-07 10:58 | PN ---
Teaching Attending Note Name of Resident: Angie Boyd ATTENDING PHYSICIAN STATEMENT I saw and evaluated the patient. I reviewed the resident's note and discussed the case with the resident. I agree with the resident's findings and plan as documented. SUBJECTIVE: Pt seen and examined in the ICU. Denies shortness of breath or chest pain. No fevers or chills. No drainage from pericardial drain. OBJECTIVE: Last Vital Signs Temp Pulse Resp BP Pulse Ox 98.3 F 92 H 22 112/74 100 05/07/17 02:00 05/07/17 09:50 05/07/17 09:50 05/07/17 09:50 05/06/17 21:00 Intake & Output 05/04/17 05/05/17 05/06/17 05/07/17 23:59 23:59 23:59 23:59 Intake Total 870 1930 920 394 Output Total 60 0 Balance 810 1930 920 394 Gen: NAD at rest Heart: RRR Lung: decreased breath sounds at the bases, right base rales Abd: soft, nontender Ext: no edema CBC, BMP 05/07/17 07:00 05/07/17 07:00 Active Medications Albuterol/Ipratropium (Duoneb -) 1 amp NEB Q4H PRN PRN Reason: SHORTNESS OF BREATH Calcium Carbonate (Calcium Carbonate -) 650 mg PO BID [facility] Last Admin: 05/07/17 09:07 Dose: 650 mg Guaifenesin/Codeine Phosphate (Robitussin Ac -) 5 ml PO Q6H PRN PRN Reason: COUGH Metoprolol Succinate (Toprol Xl -) 50 mg PO DAILY [facility] Last Admin: 05/07/17 09:06 Dose: 50 mg Ondansetron HCl (Zofran Injection) 4 mg IVPUSH Q6H PRN PRN Reason: NAUSEA AND/OR VOMITING Last Admin: 05/07/17 07:03 Dose: 4 mg Pantoprazole Sodium (Protonix -) 40 mg PO DAILY [facility] Last Admin: 05/07/17 09:06 Dose: 40 mg Potassium Chloride (K-Dur -) 40 meq PO DAILY [facility] Last Admin: 05/07/17 09:06 Dose: 40 meq ASSESSMENT AND PLAN: Metastatic Breast Cancer Pericardial Effusion s/p Pericardial Drain Pleural Effusion s/p Pleur-x catheter placement HTN DM - IR f/u to d/c pericardial drain - pain control - incentive spirometry - PO as tolerated - DVT prophylaxis - can monitor on telemtry
--- NOTE | 2017-05-07 12:07 | PN ---
Physical Exam: SUBJECTIVE: ICU Progress Note: ED PA Fellow Patient seen and examined at bedside. No events overnight. Pt. c/o some SOB. Denies pain. Afebrile, Sinus tach, VSS. OBJECTIVE: Vital Signs Period Temp Pulse Resp BP Sys/Winter Pulse Ox Last 24 Hr 98.0 F-100.3 F 92-119 19-24 112-143/74-94 100 GENERAL: The patient is awake, alert, and fully oriented, in no acute distress. HEAD: Normal with no signs of trauma. EYES: PERRL, extraocular movements intact, sclera anicteric, conjunctiva clear. No ptosis. NECK: Trachea midline, full range of motion, supple. LUNGS:Diminshed lung sounds on the R, clear to auscultation bilaterally, no wheezes, no crackles, no accessory muscle use. HEART: Tachycardic. Regular rhythm, S1, S2 without murmur, rub or gallop. ABDOMEN: Soft, nontender, nondistended, normoactive bowel sounds, no guarding, no rebound, no hepatosplenomegaly, no masses. EXTREMITIES: 2+ pulses, warm, well-perfused, no edema. NEUROLOGICAL: Cranial nerves II through XII grossly intact. Normal speech, gait not observed. SKIN: Warm, dry, normal turgor, no rashes or lesions noted Laboratory Results - last 24 hr 05/06/17 05/06/17 05/07/17 12:22 16:50 07:00 WBC 5.9 RBC 2.92 L Hgb 8.8 L Hct 26.9 L MCV 92.2 MCHC 32.5 RDW 20.0 H Plt Count 272 MPV 6.4 L D Neutrophils % 68.6 Lymphocytes % 19.3 Monocytes % 11.7 H Eosinophils % 0.0 Basophils % 0.4 POC Glucometer [phone] 05/07/17 07:00 Sodium 138 Potassium 4.1 Chloride 102 Carbon Dioxide 28 Anion Gap 8 BUN 6 L Creatinine 0.5 L D Creat Clearance w eGFR > 60 Random Glucose 143 H Calcium 8.1 L Total Bilirubin 1.0 AST 54 H D ALT 11 L Alkaline Phosphatase 79 Total Protein 5.4 L Albumin 2.5 L Active Medications Generic Name Dose Route Start Last Admin Trade Name Freq PRN Reason Stop Dose Admin Albuterol/Ipratropium 1 amp 05/03/17 20:11 Duoneb - NEB Q4H PRN SHORTNESS OF BREATH Calcium Carbonate 650 mg 05/03/17 22:00 05/07/17 09:07 Calcium Carbonate - PO 650 mg BID JAIR Administration Guaifenesin/Codeine Phosphate 5 ml 05/03/17 20:11 Robitussin Ac - PO Q6H PRN COUGH Metoprolol Succinate 50 mg 05/04/17 10:00 05/07/17 09:06 Toprol Xl - PO 50 mg DAILY JAIR Administration Ondansetron HCl 4 mg 05/03/17 21:04 05/07/17 07:03 Zofran Injection IVPUSH 4 mg Q6H PRN Administration NAUSEA AND/OR VOMITING Pantoprazole Sodium 40 mg 05/04/17 10:00 05/07/17 09:06 Protonix - PO 40 mg DAILY JAIR Administration Potassium Chloride 40 meq 05/04/17 10:00 05/07/17 09:06 K-Dur - PO 40 meq DAILY JAIR Administration ASSESSMENT/PLAN: Pt is a 47yo woman with PMH triple negative breast cancer with mets to bone, liver, lung on palliative chemo, DM and pericardial effusion with improved SOB. Pericardial Effusion - Likely from metastatic disease - Pericardial drain in place with no active drainage - TTE shows <1cc of residual effusion - Per CT surgery, drain may be removed. Obtain baseline Chest CT - IR consult to d/c drain Breast CA with mets to bone, liver and lung - Symptomatic management - Heme/Onc following Right pleural effusion - Pleurex drain capped. - 350 cc drained this morning - CXR in AM DM - Hold FSACHS and ISS HTN - well controlled - continue Toprol 50mg F/E/N - PO fluids - replete prn - soft diabetic diet PPX - SCD - Protonix 40mg IVPB daily Dispo -may be transferred to telemetry Code Status- FULL CODE Problem List - Problems (1) Acute pericardial effusion Code(s): I30.9 - ACUTE PERICARDITIS, UNSPECIFIED (2) Pleural effusion Code(s): J90 - PLEURAL EFFUSION, NOT ELSEWHERE CLASSIFIED (3) Breast cancer metastasized to multiple sites Code(s): C50.919 - MALIGNANT NEOPLASM OF UNSP SITE OF UNSPECIFIED FEMALE BREAST Qualifiers: Laterality: unspecified laterality Qualified Code(s): C50.919 - Malignant neoplasm of unspecified site of unspecified female breast (4) Diabetes Code(s): E11.9 - TYPE 2 DIABETES MELLITUS WITHOUT COMPLICATIONS (5) Hypertension Code(s): I10 - ESSENTIAL (PRIMARY) HYPERTENSION Visit type - Emergency Visit Emergency Visit: Yes ED Registration Date: 05/03/17 Care time: The patient presented to the Emergency Department on the above date and was hospitalized for further evaluation of their emergent condition. - New Patient This patient is new to me today: No - Critical Care Critical Care patient: Yes Total Critical Care Time (in minutes): 35 Critical Care Statement: The care of this patient involved high complexity decision making to prevent further life threatening deterioration of the patient 's condition and/or to evalute & treat vital organ system(s) failure or risk of failure.
--- NOTE | 2017-05-07 14:19 | PN ---
Progress Note, Physician History of Present Illness: seen and examined today in [facility]. feels slightly better today. no overnight events. no new complaints. - Current Medication List Current Medications: Active Medications Albuterol/Ipratropium (Duoneb -) 1 amp NEB Q4H PRN PRN Reason: SHORTNESS OF BREATH Calcium Carbonate (Calcium Carbonate -) 650 mg PO BID [facility] Last Admin: 05/07/17 09:07 Dose: 650 mg Guaifenesin/Codeine Phosphate (Robitussin Ac -) 5 ml PO Q6H PRN PRN Reason: COUGH Metoprolol Succinate (Toprol Xl -) 50 mg PO DAILY [facility] Last Admin: 05/07/17 09:06 Dose: 50 mg Ondansetron HCl (Zofran Injection) 4 mg IVPUSH Q6H PRN PRN Reason: NAUSEA AND/OR VOMITING Last Admin: 05/07/17 07:03 Dose: 4 mg Pantoprazole Sodium (Protonix -) 40 mg PO DAILY [facility] Last Admin: 05/07/17 09:06 Dose: 40 mg Potassium Chloride (K-Dur -) 40 meq PO DAILY [facility] Last Admin: 05/07/17 09:06 Dose: 40 meq - Objective Vital Signs: Vital Signs Temperature 98.3 F 05/07/17 02:00 Pulse Rate 107 H 05/07/17 12:41 Respiratory Rate 22 05/07/17 12:41 Blood Pressure 108/73 05/07/17 12:41 O2 Sat by Pulse Oximetry (%) 100 05/06/17 21:00 Constitutional: Yes: No Distress, Calm, Thin Eyes: Yes: Conjunctiva Clear, EOM Intact, PERRL HENT: Yes: Atraumatic, Normocephalic Neck: Yes: Supple, Trachea Midline Cardiovascular: Yes: Tachycardia, S1, S2. No: Regular Rate and Rhythm, Bradycardia, Pulse Irregular, Bruit, JVD, Gallop, Murmur, Rub, S3, S4, Varicosities Respiratory: Yes: Regular, Diminished, On Nasal O2. No: Rales, Rhonchi, Wheezes Gastrointestinal: Yes: Normal Bowel Sounds, Soft. No: Distention, Tenderness Edema: No Peripheral Pulses WNL: Yes Peripheral Pulses: Left Doralis Pedis: 2+, Right Dorsalis Pedis: 2+ Neurological: Yes: Alert, Oriented Psychiatric: Yes: Alert, Oriented Labs: CBC, BMP 05/07/17 07:00 05/07/17 07:00 INR, PTT INR 1.36 (0.82-1.09) H 05/06/17 05:20 - ....Imaging Chest X-ray: Report Reviewed, Image Reviewed EKG: Report Reviewed, Image Reviewed Other: Report Reviewed, Image Reviewed Assessment/Plan Imp: Pericardial effusion with tamponade s/p pericardiocentesis sinus tachycardia HTN No further output via pericardial drain Repeat echo showed improvement in pericardial effusion, small residual effusion , no longer tamponade physiology F/up pericardial fluid analysis As pericardial effusion is likely malignant ideally a pericardial window would be performed given risk of recurrent effusion however pts preference was for pericardial drain and plan at this time is for removal of drain and if recurrence of effusion would plan for pericardial window at that time. Cont Toprol XL 50mg daily for now
--- NOTE | 2017-05-07 16:15 | PN ---
Progress Note (short form) - Note Progress Note: reviewed charts, films, labs, vs, and i/o's. no major c/o. afeb. rrr (st), pericard drain intact. CBC, BMP 05/07/17 07:00 05/07/17 07:00 Vital Signs Period Temp Pulse Resp BP Sys/Winter Pulse Ox Last 24 Hr 98.0 F-100.3 F 92-119 20-24 108-143/73-94 100 Vital Signs Temp 98.0 F 05/07/17 14:00 Pulse 114 H 05/07/17 14:00 Resp 22 05/07/17 14:00 BP 127/80 05/07/17 14:00 Pulse Ox 100 05/06/17 21:00 Intake & Output 05/06/17 05/07/17 05/07/17 23:59 11:59 23:59 Intake Total 568 394 Balance 568 394 Intake: IV 168 294 Normal Saline - 1,000 ml 168 294 @ 42 mls/hr IV ASDIR JAIR Rx#:[id number] IVPB 100 Oral 400 Other: Voiding Method Toilet Toilet # Unmeasured Voids Void 2 1 2 a/p 47 yo, f, h/o breast ca, mets to bone, liver, lung. admitted with pericard eff, s/p pericard drain. min drainage and small amount of pericard fluid on echocard with no evid of tamponade. pt and declined to have surgical intervention as she remains at high risks for intraop/postop complications. poor prognosis with current metastatic breast cancer. 1. cont supp care 2. may dc pericard drain per ir 3. f/u card and med onc consult 4. case d/w drs. dunne
[2017-05-07] MEDS ORDERED: SODIUM CHLORIDE 1,000 ML IV STA ×2 (16:51→20:07)
[2017-05-07] MEDS ORDERED: NOREPINEPHRINE BITARTRATE 4 MG/4 ML ML IV ONE ×2 (16:54→23:57)
[2017-05-07] MEDS ORDERED: ENOXAPARIN NA (PORCINE) 60 MG/0.6 ML DISP.SYRIN SQ SCH (17:00)
[2017-05-07] MEDS ORDERED: ENOXAPARIN NA (PORCINE) 40 MG/0.4 ML DISP.SYRIN SQ SCH ×2 (17:00→22:00)
[2017-05-07] MEDS ORDERED: ETOMIDATE 20 MG/10 ML AMPUL IVPUSH ONE (17:01)
[2017-05-07] MEDS ORDERED: SUCCINYLCHOLINE CHLORIDE 200 MG/10 ML VIAL ONE (17:01)
[2017-05-07] MEDS ORDERED: ENOXAPARIN NA (PORCINE) 40 MG/0.4 ML DISP.SYRIN SQ ONE (17:10)
[2017-05-07] MEDS ORDERED: ENOXAPARIN NA (PORCINE) 60 MG/0.6 ML DISP.SYRIN SQ ONE (17:10)
--- NOTE | 2017-05-07 17:18 | PN ---
Progress Note (short form) - Note Progress Note: Patient seen and examined Developed acute dysnea, hypoxemia with S-O2 at 74% and diaphoresis. HR increase to maximum of 155. Given re- breather with S-O2 increased to 100%. HR still remaining at 144-150 range apparently sinus tach despite improvement in oxygenation. Remains dyspneic with RR at 40+ Became hypotensive and required fluid bolus, pressors, with levophed and intubation. Last Vital Signs Temp Pulse Resp BP Pulse Ox 98.0 F 114 H 22 127/80 100 05/07/17 14:00 05/07/17 14:00 05/07/17 14:00 05/07/17 14:00 05/06/17 21:00 Diaphorectic, tachycardic Diminished breath sounds Sinus tach - no drainage from pericardial catheter NO LE edema CBC, BMP 05/07/17 07:00 05/07/17 07:00 Current Medications Generic Name Dose Route Start Last Admin Trade Name Freq PRN Reason Stop Dose Admin Albuterol/Ipratropium 1 amp 05/03/17 20:11 Duoneb - NEB Q4H PRN SHORTNESS OF BREATH Calcium Carbonate 650 mg 05/03/17 22:00 05/07/17 09:07 Calcium Carbonate - PO 650 mg BID JAIR Administration Enoxaparin Sodium 40 mg 05/07/17 22:00 Lovenox - SQ BID JAIR Guaifenesin/Codeine Phosphate 5 ml 05/03/17 20:11 Robitussin Ac - PO Q6H PRN COUGH Sodium Chloride 1,000 mls @ 1,000 mls/hr 05/07/17 16:51 Normal Saline - IV 05/07/17 17:50 ASDIR STA Metoprolol Succinate 50 mg 05/04/17 10:00 05/07/17 09:06 Toprol Xl - PO 50 mg DAILY JAIR Administration Ondansetron HCl 4 mg 05/03/17 21:04 05/07/17 07:03 Zofran Injection IVPUSH 4 mg Q6H PRN Administration NAUSEA AND/OR VOMITING Pantoprazole Sodium 40 mg 05/04/17 10:00 05/07/17 09:06 Protonix - PO 40 mg DAILY JAIR Administration Potassium Chloride 40 meq 05/04/17 10:00 05/07/17 09:06 K-Dur - PO 40 meq DAILY JAIR Administration Impression: Metastatic breast ca - s/p multiple lines of therapy Pericardial effusion Acute respiratory decompensation --?? P.E. Sinus tach- ?? P.E>, ??pericardial mets, ??catheter irritation Plan: full dose Lovenox PER CT surgery - can have I.R. remove catheter when feasible Respiratory/cardiac management per ICU team. Monitor lytes, CBC.
--- NOTE | 2017-05-07 17:52 | PROC ---
Intubation - Intubation Reason for Intubation: Respiratory Failure Time of Intubation: 17:00 Intubation Method: orotracheal Blade used: Mac (3) Tube Size (cm): 7.5 Tube position @ lip (cm): 22 Tube position confirmed by: Direct visualization, CO2 detector, Chest x-ray Breath Sounds after Intubation: equal Post Intubation Xray: Yes
--- NOTE | 2017-05-07 17:57 | PN ---
Progress Note (short form) - Note Progress Note: CODE 99 Pt in respiratory extremis, diaphoretic, tachycardic, decision made to intubate. Pt started to gwen down with slow atrial flutter, lost pulse to aystole, ACLS initiated. Please see code sheet for further details, pt went into unstable SVT and was shocked 120 joules with conversion into sinus rhythm. Levophed gtt started to support hypotension. Currently hemodynamically stable on levophed gtt, started on antibiotics for empiric antibiotics and anticoagulation for empiric PE. Fabricio Eduardo MD additional critical care time spent 65 min
[2017-05-07 18:01] LABS: ARTERIAL BLD GAS O2 SATURATION 85.8 % (90-98.9); ARTERIAL BLOOD GAS BASE EXCESS -17.4 meq/l (-2-2); ARTERIAL BLOOD GAS HCO3 16.8 meq/L (22-26); ARTERIAL BLOOD GAS PO2 95.3 mmHg (80-100); ARTERIAL BLOOD GAS pH 6.83 (7.35-7.45)
[2017-05-07 18:02] LABS: ALLENS TEST POSITIVE; ART PUNCT SITE RIGHT RADIAL; LPM/O2% 100%; MECH. VENT. YES; PT. ON O2? YES; VENT RATE 12; VT/PRESS 350
[2017-05-07 18:03] LABS: TYPE OF O2 MEC.VENT
[2017-05-07] MEDS ORDERED: VECURONIUM BROMIDE 10 MG VIAL ONE (18:05)
[2017-05-07] MEDS ORDERED: METOPROLOL TARTRATE 5 MG/5 ML VIAL IVPUSH ONE (18:24)
[2017-05-07] MEDS ORDERED: PIPERACILLIN/TAZOB 3.375 GM/50 ML PRE-DOCKED IVPB ONE ×2 (18:30→22:00)
[2017-05-07] MEDS ORDERED: VANCOMYCIN 1 GRAM (PRE-DOCKED) 1,000 MG/250 ML BAG IVPB ONE (18:30)
[2017-05-07] MEDS: NOREPINEPHRINE BITARTRATE 8,000 MCG in DEXTROSE 5%-WATER - 492 ML IV SCH (19:00)
--- NOTE | 2017-05-07 19:05 | PN ---
Physical Exam: SUBJECTIVE: Patient seen and examined this AM in ICU. She was standing without distress. No fever overnight OBJECTIVE: Vital Signs Period Temp Pulse Resp BP Sys/Winter Pulse Ox Last 24 Hr 98.0 F-98.3 F 92-119 20-24 108-143/73-94 100 PE Neuro: alert, awake, cn 2-12intact Pulm: R base diminished > L + NC R pleurex cdi CV: s1 s2 tachycardia, scant drainage from pericardial drain Breast: L breast scar healed Abd: s nt nd + bs Ext: warm no le edema CBCD WBC 5.9 K/mm3 (4.0-10.0) 05/07/17 07:00 RBC 2.92 M/mm3 (3.60-5.2) L 05/07/17 07:00 Hgb 8.8 GM/dL (10.7-15.3) L 05/07/17 07:00 Hct 26.9 % (32.4-45.2) L 05/07/17 07:00 MCV 92.2 fl (80-96) 05/07/17 07:00 MCHC 32.5 g/dl (32.0-36.0) 05/07/17 07:00 RDW 20.0 % (11.6-15.6) H 05/07/17 07:00 Plt Count 272 K/MM3 (134-434) 05/07/17 07:00 MPV 6.4 fl (7.5-11.1) L D 05/07/17 07:00 CMP Sodium 138 mmol/L (136-145) 05/07/17 07:00 Potassium 4.1 mmol/L (3.5-5.1) 05/07/17 07:00 Chloride 102 mmol/L (98-107) 05/07/17 07:00 Carbon Dioxide 28 mmol/L (21-32) 05/07/17 07:00 Anion Gap 8 (8-16) 05/07/17 07:00 BUN 6 mg/dL (7-18) L 05/07/17 07:00 Creatinine 0.5 mg/dL (0.55-1.02) L D 05/07/17 07:00 Creat Clearance w eGFR > 60 (>60) 05/07/17 07:00 Calcium 8.1 mg/dL (8.5-10.1) L 05/07/17 07:00 Total Bilirubin 1.0 mg/dL (0.2-1.0) 05/07/17 07:00 AST 54 U/L (15-37) H D 05/07/17 07:00 ALT 11 U/L (12-78) L 05/07/17 07:00 Alkaline Phosphatase 79 U/L (45-117) 05/07/17 07:00 Total Protein 5.4 g/dl (6.4-8.2) L 05/07/17 07:00 Albumin 2.5 g/dl (3.4-5.0) L 05/07/17 07:00 Active Medications Generic Name Dose Route Start Last Admin Trade Name Freq PRN Reason Stop Dose Admin Albuterol/Ipratropium 1 amp 05/03/17 20:11 Duoneb - NEB Q4H PRN SHORTNESS OF BREATH Calcium Carbonate 650 mg 05/03/17 22:00 05/07/17 09:07 Calcium Carbonate - PO 650 mg BID JAIR Administration Enoxaparin Sodium 40 mg 05/07/17 22:00 Lovenox - SQ BID JAIR Guaifenesin/Codeine Phosphate 5 ml 05/03/17 20:11 Robitussin Ac - PO Q6H PRN COUGH Vancomycin HCl 1,000 mg/ 250 mls @ 250 mls/hr 05/07/17 18:00 Dextrose IVPB BID JAIR Protocol Propofol 100 mls @ 1.497 mls/hr 05/07/17 17:59 Diprivan - IVPB TITR JAIR Protocol 5 MCG/KG/MIN Metoprolol Succinate 50 mg 05/04/17 10:00 05/07/17 09:06 Toprol Xl - PO 50 mg DAILY JAIR Administration Ondansetron HCl 4 mg 05/03/17 21:04 05/07/17 07:03 Zofran Injection IVPUSH 4 mg Q6H PRN Administration NAUSEA AND/OR VOMITING Pantoprazole Sodium 40 mg 05/04/17 10:00 05/07/17 09:06 Protonix - PO 40 mg DAILY JAIR Administration Piperacillin Sod/Tazobactam Sod 3.375 gm 05/07/17 18:00 Zosyn 3.375gm Ivpb (Pre-Docked) IVPB Q8H-IV JAIR Protocol Piperacillin Sod/Tazobactam Sod 3.375 gm 05/08/17 02:00 Zosyn 3.375gm Ivpb (Pre-Docked) IVPB 05/08/17 02:01 ONCE ONE Potassium Chloride 40 meq 05/04/17 10:00 05/07/17 09:06 K-Dur - PO 40 meq DAILY JAIR Administration Assessment: 47 year old female with PMH triple negative breast cancer with mets to bone, liver, lung on palliative chemo, DM and pericardial effusion with improved SOB. Plan: 1. Pericardial Effusion - Likely from metastatic disease - Pericardial drain in place however no active drainage - Repeat ECHO negative for re accumulation - For drain removal today with IR, CTX aware and agree 2. Breast CA (triple negative) with mets to bone, liver and lung - Symptomatic management - Heme/Onc following 3. Right pleural effusion - Pleurex drain ~300cc this AM 4. Sinus Tachycardia - Chronic, d/t above - Per cards do no aggressively treat 5. DM II - Will stop BGM ISS BID 6. HTN - Stable - Toprol 50mg daily 7. DVT ppx - SCD Dispo: - Transfer to telemetry Code Status- FULL CODE Visit type - Emergency Visit Emergency Visit: Yes ED Registration Date: 05/03/17 Care time: The patient presented to the Emergency Department on the above date and was hospitalized for further evaluation of their emergent condition. - New Patient This patient is new to me today: No - Critical Care Critical Care patient: No
--- NOTE | 2017-05-07 19:22 | PROC ---
Central Line Insertion Indication: CVP Monitoring, Vasopressor Risks and Benefits Explained: Yes Consent on Chart: Yes Central Line: Triple Lumen Catheter Anesthesia: 1% Lidocaine Sterile Technique: Yes Ultrasound Guided Assistance: Yes Position: Left Internal Jugular Post Insertion: Yes: Bilateral Chest Expansion, Chest X-Ray Ordered Sterile Dressing Applied: Yes
--- NOTE | 2017-05-07 19:24 | HOSP ---
Physical Examination Vital Signs: Vital Signs Temperature 98.0 F 05/07/17 14:00 Pulse Rate 114 H 05/07/17 14:00 Respiratory Rate 22 05/07/17 14:00 Blood Pressure 127/80 05/07/17 14:00 O2 Sat by Pulse Oximetry (%) 100 05/06/17 21:00 Labs: CBC, BMP 05/07/17 07:00 05/07/17 07:00 Hospitalist Encounter Assessment: Called to bedside for acute tachycardia, diaphoresis, and tachypnea, hypotension. Pt was eating and started coughing and started to de saturate and Tripod. PT was hypotensive, given fluids and intubated. Rule out aspiration pna vs PE Lovenox 50mg BID ordered first dose stat Following intubation gwen down Code 99 called Epi x3 given SVT, shocked pt returned to ST Pulse returned On 20mcg levophed L IJ placed Vanco/zosyn given for aspiration pna CXR negative for pneumothorax Bedside echo negative for re accumulation of rocky cardial effusion Rocky cardial drain remains intact Will monitor
[2017-05-07] MEDS: PROPOFOL 100 ML IVPB SCH (19:51)
[2017-05-07 20:16] LABS: ALLENS TEST POSITIVE; ART PUNCT SITE RIGHT RADIAL; ARTERIAL BLD GAS O2 SATURATION 92.5 % (90-98.9); ARTERIAL BLOOD GAS BASE EXCESS -9.9 meq/l (-2-2); ARTERIAL BLOOD GAS PO2 84.9 mmHg (80-100); LPM/O2% 60%; MECH. VENT. YES; PT. ON O2? YES; TYPE OF O2 MECH VENT; VENT RATE 16; VT/PRESS 300
[2017-05-07 20:17] LABS: ARTERIAL BLOOD GAS HCO3 18.4 meq/L (22-26); ARTERIAL BLOOD GAS pH 7.15 (7.35-7.45)
[2017-05-07] MEDS ORDERED: FENTANYL INJECTION 500 MCG in DEXTROSE 5%-WATER - 90 ML IVPB SCH (21:30)
[2017-05-07 21:48] LABS: ARTERIAL BLD GAS O2 SATURATION 96.4 % (90-98.9); ARTERIAL BLOOD GAS BASE EXCESS -10.4 meq/l (-2-2)
[2017-05-07 21:49] LABS: ALLENS TEST POSITIVE; ART PUNCT SITE RIGHT RADIAL; ARTERIAL BLOOD GAS pH 7.22 (7.35-7.45); LPM/O2% 60%; MECH. VENT. YES; PT. ON O2? YES; TYPE OF O2 MECH VENT; VENT RATE 24; VT/PRESS 300
[2017-05-07 21:50] LABS: ARTERIAL BLOOD GAS HCO3 16.4 meq/L (22-26)
[2017-05-07] MEDS ORDERED: LIDOCAINE HCL/PF 2% SDV 5ML VIAL ONE (22:19)
[2017-05-07] MEDS ORDERED: LIDOCAINE HCL 1%, 10 MG/ML (50 mL VIAL) SQ ONE (22:51)
--- NOTE | 2017-05-07 23:45 | PROC ---
Chest Tube Insertion Consent on Chart: Yes Risks and Benefits Explained: Yes (Explained high risk, CA, Ac ) Chest tube #1 Indication: Pneumothorax Chest Tube Location: Left Lateral Anesthesia: 2% Lidocaine Sterile Technique: Yes Tube Sutured to Skin: Yes Vaseline gauze dressing: Yes Chest Tube Collection System: Pleur-Evac Suction: Yes Drainage, Color/Appearance: Serosanguinous Amount (ml): 150 Remarks: Pt is 47 y/o woman with metastatic breast CA, recent pericardial drain placed, now post cardiac arrest on floor with ROSC. Found to have pneumothorax on L with hypotension and high airway pressures. Pt increasing pressor requirements. Family at bedside, consented over phone. It was explained that procedure was high risk given unstable condition and recent lovenox but that may be life saving given her deteriorating state. Under sterile conditons a L 24 Fr chest tube was placed via 4th intercostal space, mid axillary. There was a large sr of air upon entering chest cavity. Approx 100cc of serosanginous pleural fluid drained. Small airleak noted. Tidaling in chest tube. Pt continuing to deteriorate despite chest tube. Resusitation and stabilization ongoing by ICU team. Jules Vera ACNP [id number]
[2017-05-08 01:16] LABS: MCH 29.4 pg (25.7-33.7); MCHC 31.3 g/dl (32.0-36.0); MEAN CELL VOLUME 93.7 fl (80-96); MEAN PLT VOLUME 6.8 fl (7.5-11.1); PLATELET COUNT 302 K/MM3 (134-434); RDW 20.6 % (11.6-15.6); WHITE BLOOD COUNT 14.9 K/mm3 (4.0-10.0)
[2017-05-08] MEDS ORDERED: SODIUM CHLORIDE 500 ML IV STA ×2 (01:19→04:46)
[2017-05-08] MEDS ORDERED: VASOPRESSIN 20 UNITS/ML VIAL IV ONE ×5 (01:37→22:41)
[2017-05-08] MEDS ORDERED: LIDOCAINE HCL 1%, 10 MG/ML (20ML VIAL) ONE (01:50)
[2017-05-08] MEDS: VASOPRESSIN 50 UNITS in SODIUM CHLORIDE 97.5 ML IVPB SCH (02:00)
[2017-05-08 02:07] LABS: ALBUMIN 1.9 g/dl (3.4-5.0); ANION GAP 14 (8-16); BILIRUBIN,TOTAL 1.1 mg/dL (0.2-1.0); CO2 20 mmol/L (21-32); GLUCOSE,RANDOM 221 mg/dL (74-106); SGOT/AST 355 U/L (15-37); SGPT/ALT 67 U/L (12-78); TOT PROT 4.4 g/dl (6.4-8.2)
[2017-05-08 02:13] LABS: INR 1.94 (0.82-1.09); PROTHROMBIN TIME (PATIENT) 21.6 SEC (9.98-11.88)
[2017-05-08 02:16] LABS: ACTIVATED PTT 34.8 SECONDS (26.9-34.4)
[2017-05-08 02:21] LABS: ALK PHOS 108 U/L (45-117)
[2017-05-08 02:25] LABS: CALCIUM 6.6 mg/dL (8.5-10.1)
[2017-05-08] MEDS ORDERED: CALCIUM CHLORIDE 10% 1 GM/10 ML *VIAL IVPB ONE (02:31)
[2017-05-08] MEDS ORDERED: CALCIUM GLUCONATE 10% - 1,000 MG/10 ML VIAL ONE (03:31)
[2017-05-08] MEDS ORDERED: SODIUM CHLORIDE 1,000 ML IV STA ×5 (04:47→17:07)
[2017-05-08] MEDS ORDERED: CALCIUM GLUCONATE 10% - 1,000 MG/10 ML VIAL IVPB ONE (04:48)
[2017-05-08] MEDS: CALCIUM CARBONATE 650 MG TABLET PO SCH ×3 (05:05→22:39)
[2017-05-08] MEDS: HYDROCORTISONE SOD SUCCINATE 100 MG/2 ML VIAL IVPB SCH ×3 (05:06→18:00)
[2017-05-08] MEDS ORDERED: PIPERACILLIN/TAZOB 3.375 GM/50 ML PRE-DOCKED IVPB ONE (06:00)
[2017-05-08] MEDS ORDERED: ENOXAPARIN NA (PORCINE) 60 MG/0.6 ML DISP.SYRIN SQ SCH (06:00)
[2017-05-08 06:01] LABS: ALLENS TEST POSITIVE; ART PUNCT SITE RIGHT RADIAL; ARTERIAL BLD GAS O2 SATURATION 99.2 % (90-98.9); ARTERIAL BLOOD GAS BASE EXCESS -10.9 meq/l (-2-2); LPM/O2% 70%; MECH. VENT. YES; PT. ON O2? YES; TYPE OF O2 MECH VENT; VENT RATE 24; VT/PRESS 300
[2017-05-08 06:02] LABS: ARTERIAL BLOOD GAS HCO3 16.2 meq/L (22-26)
[2017-05-08] MEDS ORDERED: NOREPINEPHRINE BITARTRATE 4 MG/4 ML ML IV ONE ×4 (06:03→19:16)
[2017-05-08 06:48] LABS: BASOPHIL 0.2 % (0-2.0); MCH 29.5 pg (25.7-33.7); MCHC 31.7 g/dl (32.0-36.0); MEAN CELL VOLUME 92.9 fl (80-96); NEUTROPHILS 93.3 % (42.8-82.8); PLATELET COUNT 340 K/MM3 (134-434); RDW 19.9 % (11.6-15.6); WHITE BLOOD COUNT 18.8 K/mm3 (4.0-10.0)
[2017-05-08 07:01] LABS: INR 1.88 (0.82-1.09); PROTHROMBIN TIME (PATIENT) 20.9 SEC (9.98-11.88)
[2017-05-08 07:36] LABS: ALBUMIN 1.8 g/dl (3.4-5.0); ANION GAP 12 (8-16); CO2 19 mmol/L (21-32); CREATININE 1.1 mg/dL (0.55-1.02); GLUCOSE,RANDOM 197 mg/dL (74-106); MAGNESIUM 1.5 mg/dL (1.8-2.4); PHOSPHOROUS 3.8 mg/dL (2.5-4.9); SGOT/AST 358 U/L (15-37); SGPT/ALT 57 U/L (12-78)
[2017-05-08 07:37] LABS: ALK PHOS 113 U/L (45-117); BILIRUBIN,TOTAL 1.1 mg/dL (0.2-1.0); TOT PROT 4.3 g/dl (6.4-8.2)
[2017-05-08 07:48] LABS: ANISOCYTOSIS 2+; MICROCYTOSIS 2+
[2017-05-08 08:21] LABS: TROPONIN I 0.82 ng/ml (0.00-0.05)
--- NOTE | 2017-05-08 08:55 | PN ---
Physical Exam: SUBJECTIVE: ICU Progress Note: ED PA Fellow Patient seen and examined at bedside. Pt. s/p code yesterday. ROSC achieved. Pt. ventilated and sedated. Vent settings: Rate 24, PEEP 5, Events: Levophed at 25mcg/min and Vasopressin 9mcg/min ggt's. L IJ for central cath in place. Chest Tube in place for L sided pneumothorax over night. Over night events: Hypotensive over night requiring start of vasopressin. In: [id number] Out:50 OBJECTIVE: Vital Signs Period Temp Pulse Resp BP Sys/Winter Pulse Ox Last 24 Hr 97.8 F-98.0 F 92-180 16-26 64-179/36-135 94-100 GENERAL: Intubated; sedated EYES: PERRL sclera anicteric, conjunctiva clear. ENT: moist mucous membranes. NECK: Trachea midline, full range of motion, supple. LUNGS: L chest tube intact, R pleurex cath to suction. Breath sounds diminished b/l; inspiratory and expiratory wheezing; breathing over vent HEART: tachycardic; Regular rhythm, S1, S2 without murmur, rub or gallop. ABDOMEN: Soft, nontender, nondistended, normoactive bowel sounds, no guarding, no rebound, no hepatosplenomegaly, no masses. NEUROLOGICAL: Sedated SKIN: Warm, dry, normal turgor, no rashes or lesions noted Laboratory Results - last 24 hr 05/06/17 05/07/17 05/07/17 16:50 17:48 20:00 WBC RBC Hgb Hct MCV MCHC RDW Plt Count MPV Neutrophils % Lymphocytes % Monocytes % Eosinophils % Basophils % RBC Morphology Anisocytosis Microcytosis Macrocytosis INR PTT (Actin FS) Puncture Site Right radial Right radial ABG pH 6.83 L* 7.15 L* D ABG pCO2 at Pt Temp 108.0 H* D 55.6 H D ABG pO2 at Pt Temp 95.3 84.9 ABG HCO3 16.8 L 18.4 L ABG O2 Sat (Measured) 85.8 L 92.5 ABG O2 Content 9.5 L* 12.1 L ABG Base Excess -17.4 L* -9.9 L Taz Test Positive Positive O2 Delivery Device Mec.vent Mech vent Oxygen Flow Rate 100% 60% Vent Mode A/c A/c Vent Rate 12 16 Mechanical Rate Yes Yes PEEP 5.0 5.0 Pressure Support Vent 350 300 Sodium Potassium Chloride Carbon Dioxide Anion Gap BUN Creatinine Creat Clearance w eGFR POC Glucometer [phone] Random Glucose Lactic Acid Calcium Phosphorus Magnesium Total Bilirubin AST ALT Alkaline Phosphatase Creatine Kinase Troponin I Total Protein Albumin 05/07/17 05/08/17 05/08/17 21:46 01:00 01:00 WBC 14.9 H D RBC 2.92 L Hgb 8.6 L Hct 27.4 L MCV 93.7 MCHC 31.3 L RDW 20.6 H Plt Count 302 MPV 6.8 L Neutrophils % Lymphocytes % Monocytes % Eosinophils % Basophils % RBC Morphology Y Anisocytosis 2+ Microcytosis 2+ Macrocytosis 2+ INR 1.94 H D PTT (Actin FS) 34.8 H Puncture Site Right radial ABG pH 7.22 L* ABG pCO2 at Pt Temp 41.9 D ABG pO2 at Pt Temp 104.0 H D ABG HCO3 16.4 L ABG O2 Sat (Measured) 96.4 ABG O2 Content 15.2 ABG Base Excess -10.4 L* Taz Test Positive O2 Delivery Device Mech vent Oxygen Flow Rate 60% Vent Mode A/c Vent Rate 24 Mechanical Rate Yes PEEP 5.0 Pressure Support Vent 300 Sodium Potassium Chloride Carbon Dioxide Anion Gap BUN Creatinine Creat Clearance w eGFR POC Glucometer Random Glucose Lactic Acid Calcium Phosphorus Magnesium Total Bilirubin AST ALT Alkaline Phosphatase Creatine Kinase Troponin I Total Protein Albumin 05/08/17 05/08/17 05/08/17 01:00 01:00 05:20 WBC 18.8 H RBC 3.10 L Hgb 9.1 L Hct 28.8 L MCV 92.9 MCHC 31.7 L RDW 19.9 H Plt Count 340 MPV 7.0 L Neutrophils % 93.3 H D Lymphocytes % 4.7 L D Monocytes % 1.8 L D Eosinophils % 0.0 Basophils % 0.2 RBC Morphology Anisocytosis Microcytosis Macrocytosis INR PTT (Actin FS) Puncture Site ABG pH ABG pCO2 at Pt Temp ABG pO2 at Pt Temp ABG HCO3 ABG O2 Sat (Measured) ABG O2 Content ABG Base Excess Taz Test O2 Delivery Device Oxygen Flow Rate Vent Mode Vent Rate Mechanical Rate PEEP Pressure Support Vent Sodium 139 Potassium 4.5 Chloride 105 Carbon Dioxide 20 L D Anion Gap 14 BUN 10 D Creatinine 1.0 D Creat Clearance w eGFR 58.93 POC Glucometer Random Glucose 221 H D Lactic Acid 3.9 H* Calcium 6.6 L* Phosphorus Magnesium Total Bilirubin 1.1 H AST 355 H D ALT 67 D Alkaline Phosphatase 108 D Creatine Kinase 148 Troponin I 1.30 H* Total Protein 4.4 L Albumin 1.9 L D 05/08/17 05/08/17 05/08/17 05:20 05:20 05:20 WBC RBC Hgb Hct MCV MCHC RDW Plt Count MPV Neutrophils % Lymphocytes % Monocytes % Eosinophils % Basophils % RBC Morphology Anisocytosis Microcytosis Macrocytosis INR 1.88 H PTT (Actin FS) Puncture Site ABG pH ABG pCO2 at Pt Temp ABG pO2 at Pt Temp ABG HCO3 ABG O2 Sat (Measured) ABG O2 Content ABG Base Excess Taz Test O2 Delivery Device Oxygen Flow Rate Vent Mode Vent Rate Mechanical Rate PEEP Pressure Support Vent Sodium 136 Potassium 4.4 Chloride 105 Carbon Dioxide 19 L Anion Gap 12 BUN 11 Creatinine 1.1 H Creat Clearance w eGFR 52.79 POC Glucometer Random Glucose 197 H Lactic Acid 3.7 H* Calcium 7.0 L Phosphorus 3.8 Magnesium 1.5 L D Total Bilirubin 1.1 H AST 358 H ALT 57 Alkaline Phosphatase 113 Creatine Kinase 158 Troponin I 0.82 H* Total Protein 4.3 L Albumin 1.8 L 05/08/17 05/08/17 05:49 07:20 WBC RBC Hgb Hct MCV MCHC RDW Plt Count MPV Neutrophils % Lymphocytes % Monocytes % Eosinophils % Basophils % RBC Morphology Anisocytosis Microcytosis Macrocytosis INR PTT (Actin FS) Puncture Site Right radial ABG pH 7.20 L* ABG pCO2 at Pt Temp 43.3 ABG pO2 at Pt Temp 176.0 H* ABG HCO3 16.2 L ABG O2 Sat (Measured) 99.2 H ABG O2 Content 13.0 L ABG Base Excess -10.9 L* Taz Test Positive O2 Delivery Device Mech vent Oxygen Flow Rate 70% Vent Mode A/c Vent Rate 24 Mechanical Rate Yes PEEP 5.0 Pressure Support Vent 300 Sodium Potassium Chloride Carbon Dioxide Anion Gap BUN Creatinine Creat Clearance w eGFR POC Glucometer Random Glucose Lactic Acid Calcium Phosphorus Magnesium Total Bilirubin AST ALT Alkaline Phosphatase Creatine Kinase Cancelled Troponin I Cancelled Total Protein Albumin Active Medications Generic Name Dose Route Start Last Admin Trade Name Freq PRN Reason Stop Dose Admin Albuterol/Ipratropium 1 amp 05/03/17 20:11 05/08/17 05:30 Duoneb - NEB 1 amp Q4H PRN Administration SHORTNESS OF BREATH Calcium Carbonate 650 mg 05/03/17 22:00 05/08/17 05:05 Calcium Carbonate - PO Not Given BID JAIR Guaifenesin/Codeine Phosphate 5 ml 05/03/17 20:11 Robitussin Ac - PO Q6H PRN COUGH Hydrocortisone Sodium Succinate 100 mg 05/08/17 03:30 05/08/17 05:06 Solu-Cortef - IVPB 100 mg Q8H-IV JAIR Administration Vancomycin HCl 1,000 mg/ 250 mls @ 250 mls/hr 05/07/17 18:00 Dextrose IVPB BID JAIR Protocol Propofol 100 mls @ 1.497 mls/hr 05/07/17 17:59 05/08/17 00:10 Diprivan - IVPB 30 mcg/kg/min TITR JAIR Titration Protocol 5 MCG/KG/MIN Fentanyl 500 mcg/ Dextrose 100 mls @ 5 mls/hr 05/07/17 21:30 05/07/17 23:01 IVPB 05/08/17 21:29 10 mls/hr TITR JAIR Administration 25 MCG/HR Vasopressin 50 units/ Sodium 100 mls @ 4.8 mls/hr 05/08/17 01:00 05/08/17 02:00 Chloride IVPB 4.8 mls/hr ASDIR JAIR Administration Protocol 2.4 UNITS/HR Norepinephrine Bitartrate 8, 500 mls @ 18.75 mls/hr 05/08/17 05:15 05/07/17 21: 00 000 mcg/ Dextrose IV 25 mcg/min TITR JAIR Titration Protocol 5 MCG/MIN Metoprolol Succinate 50 mg 05/04/17 10:00 05/07/17 09:06 Toprol Xl - PO 50 mg DAILY JAIR Administration Ondansetron HCl 4 mg 05/03/17 21:04 05/07/17 07:03 Zofran Injection IVPUSH 4 mg Q6H PRN Administration NAUSEA AND/OR VOMITING Pantoprazole Sodium 40 mg 05/04/17 10:00 05/07/17 09:06 Protonix - PO 40 mg DAILY JAIR Administration Piperacillin Sod/Tazobactam Sod 3.375 gm 05/07/17 18:00 Zosyn 3.375gm Ivpb (Pre-Docked) IVPB Q8H-IV JAIR Protocol Potassium Chloride 40 meq 05/04/17 10:00 05/07/17 09:06 K-Dur - PO 40 meq DAILY JAIR Administration ASSESSMENT/PLAN: Pt is a 47yo woman with PMH triple negative breast cancer with mets to bone, liver, lung on palliative chemo, DM and pericardial effusion with improved SOB. Respiratory Failure - Sepsis via aspiration vs PE; breathing over vent - Maxed on Levophed and Vasopressor - Sedated and intubated - Vent settings: A/C, Rate 20, PEEP 5, Fi02 40, - Treat empirically for possible PE - Empiric antibiotics for possible sepsis - Duobeb Q4 - ET tube replaced for broken balloon; no events - Central line withdrawn 4cm based on x-ray - Monitor labs - Poor prognosis B/L Pneumothorax - Chest tube in left to pleuravac with air leak; 600cc drainage - R Plurex with catheter to pleravac with 350cc drainage Pericardial Effusion - Likely from metastatic disease - Pericardial drain in place with no active drainage - TTE shows <1cc of residual effusion Breast CA with mets to bone, liver and lung - Symptomatic management - Heme/Onc following F/E/N - Fluid bolus - replete prn - NPO PPX - Lovenox 50 BID, SCD - Protonix 40mg IVPB daily Dispo -may be transferred to telemetry Code Status- FULL CODE Problem List - Problems (1) Acute pericardial effusion Code(s): I30.9 - ACUTE PERICARDITIS, UNSPECIFIED (2) Pleural effusion Code(s): J90 - PLEURAL EFFUSION, NOT ELSEWHERE CLASSIFIED (3) Breast cancer metastasized to multiple sites Code(s): C50.919 - MALIGNANT NEOPLASM OF UNSP SITE OF UNSPECIFIED FEMALE BREAST Qualifiers: Laterality: unspecified laterality Qualified Code(s): C50.919 - Malignant neoplasm of unspecified site of unspecified female breast (4) Diabetes Code(s): E11.9 - TYPE 2 DIABETES MELLITUS WITHOUT COMPLICATIONS (5) Hypertension Code(s): I10 - ESSENTIAL (PRIMARY) HYPERTENSION (6) Pericardial effusion Code(s): I31.3 - PERICARDIAL EFFUSION (NONINFLAMMATORY) (7) Respiratory failure Code(s): J96.90 - RESPIRATORY FAILURE, UNSP, UNSP W HYPOXIA OR HYPERCAPNIA (8) Pneumothorax, acute Code(s): J93.83 - OTHER PNEUMOTHORAX (9) Hypotension Code(s): I95.9 - HYPOTENSION, UNSPECIFIED Visit type - Emergency Visit Emergency Visit: Yes ED Registration Date: 05/03/17 Care time: The patient presented to the Emergency Department on the above date and was hospitalized for further evaluation of their emergent condition. - New Patient This patient is new to me today: No - Critical Care Critical Care patient: Yes Total Critical Care Time (in minutes): 60 Critical Care Statement: The care of this patient involved high complexity decision making to prevent further life threatening deterioration of the patient 's condition and/or to evalute & treat vital organ system(s) failure or risk of failure.
--- NOTE | 2017-05-08 10:19 | PN ---
Progress Note, Physician History of Present Illness: seen and examined today. events of yesterday afternoon reviewed. currently intubated, mechanically ventilated, unresponsive. - Current Medication List Current Medications: Active Medications Albuterol/Ipratropium (Duoneb -) 1 amp NEB Q4H PRN PRN Reason: SHORTNESS OF BREATH Last Admin: 05/08/17 05:30 Dose: 1 amp Calcium Carbonate (Calcium Carbonate -) 650 mg PO BID JAIR Last Admin: 05/08/17 05:05 Dose: Not Given Guaifenesin/Codeine Phosphate (Robitussin Ac -) 5 ml PO Q6H PRN PRN Reason: COUGH Hydrocortisone Sodium Succinate (Solu-Cortef -) 100 mg IVPB Q8H-IV JAIR Last Admin: 05/08/17 05:06 Dose: 100 mg Vancomycin HCl (Vancomycin (Pre-Docked)) 250 mls @ 166.667 mls/hr IVPB BID@1100 ,2300 JAIR PRN Reason: Protocol Propofol (Diprivan -) 100 mls @ 1.497 mls/hr IVPB TITR JAIR; 5 MCG/KG/MIN PRN Reason: Protocol Last Titration: 05/08/17 00:10 Dose: 30 mcg/kg/min Fentanyl 500 mcg/ Dextrose 100 mls @ 5 mls/hr IVPB TITR JAIR PRN Reason: 25 MCG/HR Stop: 05/08/17 21:29 Last Admin: 05/07/17 23:01 Dose: 10 mls/hr Vasopressin 50 units/ Sodium (Chloride) 100 mls @ 4.8 mls/hr IVPB ASDIR JAIR; 2.4 UNITS/HR PRN Reason: Protocol Last Admin: 05/08/17 02:00 Dose: 4.8 mls/hr Norepinephrine Bitartrate 8, (000 mcg/ Dextrose) 500 mls @ 18.75 mls/hr IV TITR JAIR; 5 MCG/MIN PRN Reason: Protocol Last Titration: 05/07/17 21:00 Dose: 25 mcg/min Metoprolol Succinate (Toprol Xl -) 50 mg PO DAILY JAIR Last Admin: 05/07/17 09:06 Dose: 50 mg Ondansetron HCl (Zofran Injection) 4 mg IVPUSH Q6H PRN PRN Reason: NAUSEA AND/OR VOMITING Last Admin: 05/07/17 07:03 Dose: 4 mg Pantoprazole Sodium (Protonix -) 40 mg PO DAILY JAIR Last Admin: 05/07/17 09:06 Dose: 40 mg Piperacillin Sod/Tazobactam Sod (Zosyn 3.375gm Ivpb (Pre-Docked)) 3.375 gm IVPB Q8H-IV JAIR PRN Reason: Protocol Potassium Chloride (K-Dur -) 40 meq PO DAILY JAIR Last Admin: 05/07/17 09:06 Dose: 40 meq - Objective Vital Signs: Vital Signs Temperature 97.8 F 05/08/17 06:00 Pulse Rate 101 H 05/08/17 08:00 Respiratory Rate 26 H 05/08/17 10:08 Blood Pressure 100/76 05/08/17 08:00 O2 Sat by Pulse Oximetry (%) 100 05/08/17 01:52 Constitutional: Yes: No Distress HENT: Yes: Atraumatic, Normocephalic Cardiovascular: Yes: Tachycardia, S1, S2. No: Bradycardia, Pulse Irregular, Bruit, JVD, Gallop, Murmur, Rub, S3, S4, Varicosities Respiratory: Yes: Regular, Diminished, Intubated, Mechanically Ventilated. No: Rales, Rhonchi, Wheezes Gastrointestinal: Yes: Normal Bowel Sounds, Soft. No: Distention, Tenderness Edema: No Peripheral Pulses: Left Doralis Pedis: 2+, Right Dorsalis Pedis: 2+ Neurological: Yes: Unresponsive. No: Alert, Oriented Labs: CBC, BMP 05/08/17 05:20 05/08/17 05:20 INR, PTT INR 1.88 (0.82-1.09) H 05/08/17 05:20 - ....Imaging Chest X-ray: Report Reviewed, Image Reviewed EKG: Report Reviewed, Image Reviewed Other: Report Reviewed, Image Reviewed (tele-sinus tach) Assessment/Plan Imp: Pericardial effusion with tamponade s/p pericardiocentesis sinus tachycardia HTN Cardiopulmonary arrest Pt s/p cardiopulmonary arrest, resuscitated, now intubated, b/l pneumothorax Bedside echo was done by IR yesterday afternoon during code, reportedly no reaccumulation of pericardial effusion, and pericardial drain still in place Possible aspiration Cont care as per CCM Cont IVF and pressor support as needed No further output via pericardial drain Repeat echo 2 days ago showed improvement in pericardial effusion, small residual effusion, no longer tamponade physiology Will repeat echo tomorrow to re-evaluate F/up pericardial fluid analysis Pt and family have declined pericardial window and pt is too ill at this point for procedure regardless
--- NOTE | 2017-05-08 11:01 | PN ---
Teaching Attending Note Name of Resident: Angie Boyd ATTENDING PHYSICIAN STATEMENT I saw and evaluated the patient. I reviewed the resident's note and discussed the case with the resident. I agree with the resident's findings and plan as documented. SUBJECTIVE: Pt seen and examined in the ICU. Overnight events noted, left sided chest tube placed for pneumothorax. Now on levophed and vasopressin gtts. OBJECTIVE: Last Vital Signs Temp Pulse Resp BP Pulse Ox 97.3 F L 103 H 26 H 108/78 100 05/08/17 10:00 05/08/17 10:00 05/08/17 10:08 05/08/17 10:00 05/08/17 01:52 Intake & Output 05/05/17 05/06/17 05/07/17 05/08/17 23:59 23:59 23:59 23:59 Intake Total 4432 557 6501 3646.5 Output Total 0 50 350 Balance 5340 640 6191 3296.5 Weight 129 lb 3.054 oz Gen: intubated, sedated Heart: tachycardic, regular Lung: scattered rhonchi Abd: soft, nontender Ext: + edema Chest tube: serosanguinous drainage, +air leak CBC, BMP 05/08/17 05:20 05/08/17 05:20 Active Medications Albuterol/Ipratropium (Duoneb -) 1 amp NEB Q4H PRN PRN Reason: SHORTNESS OF BREATH Last Admin: 05/08/17 05:30 Dose: 1 amp Calcium Carbonate (Calcium Carbonate -) 650 mg PO BID JAIR Last Admin: 05/08/17 05:05 Dose: Not Given Guaifenesin/Codeine Phosphate (Robitussin Ac -) 5 ml PO Q6H PRN PRN Reason: COUGH Hydrocortisone Sodium Succinate (Solu-Cortef -) 100 mg IVPB Q8H-IV JAIR Last Admin: 05/08/17 05:06 Dose: 100 mg Vancomycin HCl (Vancomycin (Pre-Docked)) 250 mls @ 166.667 mls/hr IVPB BID@1100 ,2300 JAIR PRN Reason: Protocol Propofol (Diprivan -) 100 mls @ 1.497 mls/hr IVPB TITR JAIR; 5 MCG/KG/MIN PRN Reason: Protocol Last Titration: 05/08/17 00:10 Dose: 30 mcg/kg/min Fentanyl 500 mcg/ Dextrose 100 mls @ 5 mls/hr IVPB TITR JAIR PRN Reason: 25 MCG/HR Stop: 05/08/17 21:29 Last Admin: 05/07/17 23:01 Dose: 10 mls/hr Vasopressin 50 units/ Sodium (Chloride) 100 mls @ 4.8 mls/hr IVPB ASDIR JAIR; 2.4 UNITS/HR PRN Reason: Protocol Last Admin: 05/08/17 02:00 Dose: 4.8 mls/hr Norepinephrine Bitartrate 8, (000 mcg/ Dextrose) 500 mls @ 18.75 mls/hr IV TITR JAIR; 5 MCG/MIN PRN Reason: Protocol Last Titration: 05/07/17 21:00 Dose: 25 mcg/min Metoprolol Succinate (Toprol Xl -) 50 mg PO DAILY JAIR Last Admin: 05/07/17 09:06 Dose: 50 mg Ondansetron HCl (Zofran Injection) 4 mg IVPUSH Q6H PRN PRN Reason: NAUSEA AND/OR VOMITING Last Admin: 05/07/17 07:03 Dose: 4 mg Pantoprazole Sodium (Protonix -) 40 mg PO DAILY JAIR Last Admin: 05/07/17 09:06 Dose: 40 mg Piperacillin Sod/Tazobactam Sod (Zosyn 3.375gm Ivpb (Pre-Docked)) 3.375 gm IVPB Q8H-IV JAIR PRN Reason: Protocol Potassium Chloride (K-Dur -) 40 meq PO DAILY JAIR Last Admin: 05/07/17 09:06 Dose: 40 meq ASSESSMENT AND PLAN: Acute Hypoxic Respiratory Failure r/o Aspiration Pneumonia r/o Pulmonary Embolism Shock - ?Septic Acute Kidney Injury Lactic Acidosis +Troponins likely Demand Ischemia Metastatic Breast Cancer Pericardial Effusion s/p Pericardial Drain Pleural Effusion s/p Pleur-x catheter placement HTN DM - continue antibiotics - f/u cultures - echocardiogram - IVF to keep CVP 8-12 - titrate pressors to maintain MAP >65 - on stress dose steroids - trend lactate, cardiac enzymes - start inhaled bronchodilators - sedate for vent synchrony - DVT/GI prophylaxis - continue ICU monitoring critical care time spent in reviewing chart, evaluating patient and formulating plan 35 min
[2017-05-08] MEDS ORDERED: ALBUTEROL SO4 0.083% IH SOL 2.5 MG/3 ML VIAL.NEB. NEB PRN (11:33)
[2017-05-08] MEDS: ALBUTEROL SO4 2.5/IPRATROPIUM 0.5 INH SOL 3 ML VIAL.NEB. NEB SCH ×2 (12:07→18:42)
[2017-05-08] MEDS: METOPROLOL SUCCINATE 50 MG TAB.SR.24H (FP) PO SCH (12:37)
[2017-05-08] MEDS: PANTOPRAZOLE 40 MG TABLET (FP) PO SCH (12:37)
[2017-05-08] MEDS: POTASSIUM CHLORIDE TABS 20 MEQ TABLET.ER (FP) PO SCH (12:38)
[2017-05-08] MEDS: PIPERACILLIN/TAZOB 3.375 GM/50 ML PRE-DOCKED IVPB SCH ×2 (12:46→19:05)
[2017-05-08] MEDS: VANCOMYCIN 1 GRAM (PRE-DOCKED) 250 ML IVPB SCH ×2 (12:46→22:39)
--- NOTE | 2017-05-08 12:57 | PROC ---
Intubation - Intubation Reason for Intubation: Respiratory Failure, Other (endotracheal balloon rupture) Time of Intubation: 11:30 Intubation Method: orotracheal Blade used: Mac (3) Tube Size (cm): 7.5 Tube position @ lip (cm): 20 Tube position confirmed by: Direct visualization, CO2 detector, Chest x-ray, Breath sounds Breath Sounds after Intubation: equal Post Intubation Xray: Yes
--- NOTE | 2017-05-08 13:06 | PATH ---
Cytology Non-Gynecological Report Patient Name: TEJ BARRERA [facility]. Rec. #: [id number] /Age/Gender: 1970 (Age: 47) / F Account: [id number] Location: ICU FIELD ARTILLERY TARGETING TECHNICIAN Taken: 05/06/2017 Received: 05/06/2017 Reported: 05/08/2017 Physicians: Yaneth Bustos M.D. Smitha Mellacheruvu, M.D. Specimen(s) Received PERICARDIAL FLUID Clinical History Breast Ca, pericardial effusion, r/o mets Final Diagnosis PERICARDIAL FLUID: SATISFACTORY FOR EVALUATION. POSITIVE FOR MALIGNANT CELLS. INVOLVEMENT BY METASTATIC ADENOCARCINOMA (SEE COMMENT). Comment: Prior history of metastatic poorly differentiated mammary adenocarcinoma is noted. Immunohistochemical stains performed at [place], [place] ([id number]) show the following results: The tumor cells are positive for BerEP4/LUIS and MOC31 immunostains, negative for FAB-3, ER, VT, and Her2; calretinin highlights mesothelial cells. While the immunoprofile is nonspecific, the findings are compatible with involvement by metastatic poorly differentiated mammary carcinoma. Additional immunohistochemical stains are pending; results will be reported in an addendum. Results of Estrogen Receptor (ER) and Progesterone Receptor (VT) studies performed on the cell block are as follows: ER (clone [id number] mouse monoclonal antibody by [employer]): 0% nuclear staining (Negative). VT (clone16 mouse monoclonal antibody by [employer]): 0% nuclear staining (Negative). Result of Her2 (IHC) performed on the cell block is as follows: Her2 IHC (EP3 from [employer], formerly known as [id number], using [employer] Polymer Refine detection kit): 0 (Negative) Positive and negative controls (internal if applicable) show appropriate results. Cytology specimens are not ASCO/CAP and approved for ER/VT, Her2 testing; negative results should be interpreted with caution. The case was preliminary discussed with Dr. Diggs on 05/07/17. Electronically Signed Satya Weeks M.D. Gross Description Received is 10 cc of bloody fluid fresh. One cytofunnel slide and one cell block are made.
[2017-05-08] MEDS ORDERED: PROPOFOL 100 ML ONE (13:32)
--- NOTE | 2017-05-08 13:42 | PN ---
Progress Note (short form) - Note Progress Note: ID consult dictated imp/reccd 47 year old female with recurrent breast cancer, originally admitted 05/03 AFTER SHE HAD AN echo FOR sob AND WAS FOUND TO HAVE TAMPONADE PERICARDIOCENTESIS WAS DONE AND SHOWED MALIGNANT CELLS yesterday afternoon she was oob in a chair- drank coffee and became acutely tachycardic and tachypneic she was hypoxic and hypotensive she was intubated with copious amounts of fluid in her trachea suggestive of aspiration she coded and required epi she developed a left ptx and had a chest tube placed she is now sedated and intubated on pressors fio2 is 40% suspected aspiration in this 47 year old female with metastatic breast cancer- pericardium, left pleural effusion (has left pleurx catheter) R/o PE-bedside sono negative for dvt or recurrent tamponade would get cultures continue vancomycin and zosyn d/w Dr Eduardo
[2017-05-08] MEDS ORDERED: ENOXAPARIN NA (PORCINE) 80 MG/0.8 ML DISP.SYRIN SQ SCH (14:00)
[2017-05-08] MEDS ORDERED: ENOXAPARIN NA (PORCINE) 80 MG/0.8 ML DISP.SYRIN SQ ONE ×2 (14:45→18:15)
--- NOTE | 2017-05-08 14:49 | CONS ---
DATE OF CONSULTATION: 05/08/2017 INFECTIOUS DISEASE CONSULTATION REQUESTING PHYSICIAN: Hospitalist service. HISTORY OF PRESENT ILLNESS: This is a 47-year-old woman with a past medical history of breast cancer status post lumpectomy. She had a recent recurrence about 6 months ago with a left pericardial effusion. She had some left PleurX in place. As part of a workup for shortness of breath she underwent an echo on May 03 and she was found to be in tamponade and was admitted. She was seen by IR and had a pigtail catheter placed and 600 mL drained. The site cultures are negative and the cytology is positive for adenocarcinoma of breast origin. She was doing well in the ICU until yesterday when she developed acute onset of coughing, shortness of breath, hypoxia and hypotension after she drank coffee. She was intubated by the critical care physician who noted copious secretions in her trachea and mouth. She had a left-sided pneumothorax and had a left chest tube placed. She was started on pressors and sedated. She was also started on broad-spectrum antibiotics for presumed aspiration and on anticoagulation for possible PE. She is currently sedated, intubated and on vancomycin and Zosyn which were started last night. PAST MEDICAL HISTORY: Is notable for history of metastatic breast cancer with lymphangitic spread and positive nodes as well as positive pleural fluid and now pericardial fluid. She has had a history of hypertension, diabetes. PAST SURGICAL HISTORY: Notable for a lumpectomy. ALLERGIES: No known drug allergies. MEDICATIONS AT HOME: Include Protonix, entecavir, Albuterol, Robitussin, metoprolol, calcium and potassium. FAMILY HISTORY: Notable for diabetes. SOCIAL HISTORY: She lives with her spouse. There is no history of any cigarette or substance use. REVIEW OF SYSTEMS: Not obtainable. PHYSICAL EXAMINATION; General: She is sedated. Vital Signs: Temperature 97.3, T-max was 100.3, pulse is 115, blood pressure 88/57, respiratory rate 14, FiO2 is 40%. HEENT: Normocephalic. Eyes are anicteric. She has an orogastric tube and an ET tube. Chest: She has a right-sided port. She has a right-sided PleurX catheter. She has a left-sided chest tube and she has a pericardial drainage catheter. Lungs: Diminished breath sounds at the bases. Heart: Regular rate and rhythm. Abdomen: Soft, nontender. Extremities: Without edema. LABORATORY DATA: White count of 18.8, hemoglobin 9.1, platelets 340. BUN 11, creatinine 1.1. Troponins yesterday were 1.3 and today is 0.82. Urinalysis is negative. Pericardial fluid cultures were negative. Chest x-ray is notable for a left-sided chest tube, a pigtail catheter, a right pneumothorax that is unchanged, a right-sided Port-a-Cath, right-sided catheter, an ET tube as well as an NG tube. CURRENT MEDICATIONS: Include hydrocortisone which was started last night. IMPRESSION AND RECOMMENDATIONS: In summary this is an unfortunate 47-year-old woman with triple-negative breast cancer with metastasis to her pleural space as well as pericardium who is status post code and possible aspiration, respiratory failure, possible pleural edema. Apparently bedside sonogram was negative for deep vein thrombosis or recurrent tamponade and was done at the time of the code. Would get cultures. Would continue vancomycin and Zosyn and further ICU support per the critical care team. Further recommendations to follow. Yaneth [id number]
--- NOTE | 2017-05-08 16:31 | CONSULT ---
Consult - text type - Consultation Consultation Note: 47 year old woman with history of advanced breast cancer s/p pericardial drain placement for pericardial effusion. Pt with possible aspiration yesterday requiring intubation and coding. Post code, pt developed a left pneumothorax requiring a chest tube. CXR this am with inflated lungs bilaterally. CXR this afternoon with right pneumothorax. approximately 15%. Pt hypotensive refractory to 2 pressors sepsis most likely the cause. However, will connect rigth pleurx to pleurovac to try and remove pneumothorax. Given patient's poor prognosis, would not recommend any invasive procedures unless pneumothorax worsens or pt's family would like to proceed with aggressive care. Family currently contemplating DNR/DNI
[2017-05-08] MEDS ORDERED: MIDAZOLAM HCL 2 MG/2 ML SINGLE DOSE VIAL IVPUSH ONE ×2 (16:39→16:58)
--- NOTE | 2017-05-08 17:57 | PN ---
Progress Note (short form) - Note Progress Note: Patient seen and examined hypotensive, unresponsive Last Vital Signs Temp Pulse Resp BP Pulse Ox 97.4 F L 109 H 20 76/63 100 05/08/17 14:00 05/08/17 14:00 05/08/17 16:27 05/08/17 16:00 05/08/17 01:52 Cor: RRR, pericardial drain Lungs: scattered rhonchi Abd: Soft, Normal bowel sounds, Ext:No significant edema Abnormal Lab Results 05/07/17 05/07/17 05/07/17 17:48 20:00 21:46 WBC RBC Hgb Hct MCHC RDW MPV Neutrophils % Lymphocytes % Monocytes % INR PTT (Actin FS) ABG pH 6.83 L* 7.15 L* D 7.22 L* ABG pCO2 at Pt Temp 108.0 H* D 55.6 H D ABG pO2 at Pt Temp 104.0 H D ABG HCO3 16.8 L 18.4 L 16.4 L ABG O2 Sat (Measured) 85.8 L ABG O2 Content 9.5 L* 12.1 L ABG Base Excess -17.4 L* -9.9 L -10.4 L* Carbon Dioxide Creatinine Random Glucose Lactic Acid Calcium Magnesium Total Bilirubin AST CK-MB (CK-2) Troponin I Total Protein Albumin 05/08/17 05/08/17 05/08/17 01:00 01:00 01:00 WBC 14.9 H D RBC 2.92 L Hgb 8.6 L Hct 27.4 L MCHC 31.3 L RDW 20.6 H MPV 6.8 L Neutrophils % Lymphocytes % Monocytes % INR 1.94 H D PTT (Actin FS) 34.8 H ABG pH ABG pCO2 at Pt Temp ABG pO2 at Pt Temp ABG HCO3 ABG O2 Sat (Measured) ABG O2 Content ABG Base Excess Carbon Dioxide 20 L D Creatinine Random Glucose 221 H D Lactic Acid Calcium 6.6 L* Magnesium Total Bilirubin 1.1 H AST 355 H D CK-MB (CK-2) Troponin I 1.30 H* Total Protein 4.4 L Albumin 1.9 L D 05/08/17 05/08/17 05/08/17 01:00 05:20 05:20 WBC 18.8 H RBC 3.10 L Hgb 9.1 L Hct 28.8 L MCHC 31.7 L RDW 19.9 H MPV 7.0 L Neutrophils % 93.3 H D Lymphocytes % 4.7 L D Monocytes % 1.8 L D INR 1.88 H PTT (Actin FS) ABG pH ABG pCO2 at Pt Temp ABG pO2 at Pt Temp ABG HCO3 ABG O2 Sat (Measured) ABG O2 Content ABG Base Excess Carbon Dioxide Creatinine Random Glucose Lactic Acid 3.9 H* Calcium Magnesium Total Bilirubin AST CK-MB (CK-2) Troponin I Total Protein Albumin 05/08/17 05/08/17 05/08/17 05:20 05:20 05:49 WBC RBC Hgb Hct MCHC RDW MPV Neutrophils % Lymphocytes % Monocytes % INR PTT (Actin FS) ABG pH 7.20 L* ABG pCO2 at Pt Temp ABG pO2 at Pt Temp 176.0 H* ABG HCO3 16.2 L ABG O2 Sat (Measured) 99.2 H ABG O2 Content 13.0 L ABG Base Excess -10.9 L* Carbon Dioxide 19 L Creatinine 1.1 H Random Glucose 197 H Lactic Acid 3.7 H* Calcium 7.0 L Magnesium 1.5 L D Total Bilirubin 1.1 H AST 358 H CK-MB (CK-2) 6.657 H Troponin I 0.82 H* Total Protein 4.3 L Albumin 1.8 L Active Medications Generic Name Dose Route Start Last Admin Trade Name Freq PRN Reason Stop Dose Admin Albuterol Sulfate 1 amp 05/08/17 11:33 Ventolin 0.083% Nebulizer Soln - NEB Q6H PRN SHORT OF BREATH/WHEEZING Albuterol/Ipratropium 1 amp 05/08/17 12:00 05/08/17 12:07 Duoneb - NEB 1 amp QIDR JAIR Administration Calcium Carbonate 650 mg 05/03/17 22:00 05/08/17 12:38 Calcium Carbonate - PO Not Given BID JAIR Enoxaparin Sodium 75 mg 05/08/17 14:00 Lovenox - SQ DAILY JAIR Guaifenesin/Codeine Phosphate 5 ml 05/03/17 20:11 Robitussin Ac - PO Q6H PRN COUGH Hydrocortisone Sodium Succinate 100 mg 05/08/17 03:30 05/08/17 12:39 Solu-Cortef - IVPB 100 mg Q8H-IV JAIR Administration Vancomycin HCl 250 mls @ 166.667 mls/hr 05/08/17 11:00 05/08/17 12:46 Vancomycin (Pre-Docked) IVPB 166.667 mls/hr BID@1100,2300 JAIR Administration Protocol Propofol 100 mls @ 1.497 mls/hr 05/07/17 17:59 05/08/17 00:10 Diprivan - IVPB 30 mcg/kg/min TITR JAIR Titration Protocol 5 MCG/KG/MIN Fentanyl 500 mcg/ Dextrose 100 mls @ 5 mls/hr 05/07/17 21:30 05/07/17 23:01 IVPB 05/08/17 21:29 10 mls/hr TITR JAIR Administration 25 MCG/HR Vasopressin 50 units/ Sodium 100 mls @ 4.8 mls/hr 05/08/17 01:00 05/08/17 02:00 Chloride IVPB 4.8 mls/hr ASDIR JAIR Administration Protocol 2.4 UNITS/HR Norepinephrine Bitartrate 8, 500 mls @ 18.75 mls/hr 05/08/17 05:15 05/07/17 21: 00 000 mcg/ Dextrose IV 25 mcg/min TITR JAIR Titration Protocol 5 MCG/MIN Sodium Chloride 1,000 mls @ 1,000 mls/hr 05/08/17 17:07 Normal Saline - IV 05/08/17 18:06 ASDIR STA Metoprolol Succinate 50 mg 05/04/17 10:00 05/08/17 12:37 Toprol Xl - PO Not Given DAILY [facility] Ondansetron HCl 4 mg 05/03/17 21:04 05/07/17 07:03 Zofran Injection IVPUSH 4 mg Q6H PRN Administration NAUSEA AND/OR VOMITING Pantoprazole Sodium 40 mg 05/04/17 10:00 05/08/17 12:37 Protonix - PO Not Given DAILY [facility] Piperacillin Sod/Tazobactam Sod 3.375 gm 05/08/17 10:00 05/08/17 12:46 Zosyn 3.375gm Ivpb (Pre-Docked) IVPB 3.375 gm Q8H-IV JAIR Administration Protocol Potassium Chloride 40 meq 05/04/17 10:00 05/08/17 12:38 K-Dur - PO Not Given DAILY JAIR A/P 47 y/o patient with metastatic breast cancer, -/-/-, cardiac tamponade, s/p pericardial drain. became short of breath while drinking coffee, coded, intubated, also Lt. pneumothorax with chest tube placement Pericardial drain in place Had extensive discussion with family --- and [id number] recommended DNR , family indecided Discussed futility of aggressive measures given her terminal condition
--- NOTE | 2017-05-08 18:13 | PN ---
Physical Exam: SUBJECTIVE: Patient seen and examined. Sedated intubated, maxed out on vaso and levo, fent, over breathing vent, family at bedside, waiting until children arrive before making further end of life decisions. Events: - L sided pneumothroax noted following code yesterday, Chest tube placed overnight -in AM: ET tube cuff broke, ET tube replaced - Central line withdrawn 4cm - CXR with new R sideded pneumothorax - OBJECTIVE: Vital Signs Period Temp Pulse Resp BP Sys/Winter Pulse Ox Last 24 Hr 97.3 F-97.8 F 96-180 14-26 64-179/36-135 94-100 PE Neuro: sedated, vented Pulm: L chest tube, R pleurex in place, + MV bs diminished CV: s1 s2 tachycardia, scant drainage from pericardial drain Breast: L breast scar healed Abd: s nt nd + bs : [email or web address] Ext: warm no le edema Laboratory Results - last 24 hr 05/08/17 05/08/17 05/08/17 01:00 01:00 01:00 WBC 14.9 H D RBC 2.92 L Hgb 8.6 L Hct 27.4 L MCV 93.7 MCHC 31.3 L RDW 20.6 H Plt Count 302 MPV 6.8 L Neutrophils % Lymphocytes % Monocytes % Eosinophils % Basophils % RBC Morphology Y Anisocytosis 2+ Microcytosis 2+ Macrocytosis 2+ INR 1.94 H D PTT (Actin FS) 34.8 H Puncture Site ABG pH ABG pCO2 at Pt Temp ABG pO2 at Pt Temp ABG HCO3 ABG O2 Sat (Measured) ABG O2 Content ABG Base Excess Taz Test O2 Delivery Device Oxygen Flow Rate Vent Mode Vent Rate Mechanical Rate PEEP Pressure Support Vent Sodium 139 Potassium 4.5 Chloride 105 Carbon Dioxide 20 L D Anion Gap 14 BUN 10 D Creatinine 1.0 D Creat Clearance w eGFR 58.93 Random Glucose 221 H D Lactic Acid Calcium 6.6 L* Phosphorus Magnesium Total Bilirubin 1.1 H AST 355 H D ALT 67 D Alkaline Phosphatase 108 D Creatine Kinase 148 CK-MB (CK-2) Troponin I 1.30 H* Total Protein 4.4 L Albumin 1.9 L D 05/08/17 05/08/17 05/08/17 01:00 05:20 05:20 WBC 18.8 H RBC 3.10 L Hgb 9.1 L Hct 28.8 L MCV 92.9 MCHC 31.7 L RDW 19.9 H Plt Count 340 MPV 7.0 L Neutrophils % 93.3 H D Lymphocytes % 4.7 L D Monocytes % 1.8 L D Eosinophils % 0.0 Basophils % 0.2 RBC Morphology Anisocytosis Microcytosis Macrocytosis INR 1.88 H PTT (Actin FS) Puncture Site ABG pH ABG pCO2 at Pt Temp ABG pO2 at Pt Temp ABG HCO3 ABG O2 Sat (Measured) ABG O2 Content ABG Base Excess Taz Test O2 Delivery Device Oxygen Flow Rate Vent Mode Vent Rate Mechanical Rate PEEP Pressure Support Vent Sodium Potassium Chloride Carbon Dioxide Anion Gap BUN Creatinine Creat Clearance w eGFR Random Glucose Lactic Acid 3.9 H* Calcium Phosphorus Magnesium Total Bilirubin AST ALT Alkaline Phosphatase Creatine Kinase CK-MB (CK-2) Troponin I Total Protein Albumin 05/08/17 05/08/17 05/08/17 05:20 05:20 05:49 WBC RBC Hgb Hct MCV MCHC RDW Plt Count MPV Neutrophils % Lymphocytes % Monocytes % Eosinophils % Basophils % RBC Morphology Anisocytosis Microcytosis Macrocytosis INR PTT (Actin FS) Puncture Site Right radial ABG pH 7.20 L* ABG pCO2 at Pt Temp 43.3 ABG pO2 at Pt Temp 176.0 H* ABG HCO3 16.2 L ABG O2 Sat (Measured) 99.2 H ABG O2 Content 13.0 L ABG Base Excess -10.9 L* Taz Test Positive O2 Delivery Device Mech vent Oxygen Flow Rate 70% Vent Mode A/c Vent Rate 24 Mechanical Rate Yes PEEP 5.0 Pressure Support Vent 300 Sodium 136 Potassium 4.4 Chloride 105 Carbon Dioxide 19 L Anion Gap 12 BUN 11 Creatinine 1.1 H Creat Clearance w eGFR 52.79 Random Glucose 197 H Lactic Acid 3.7 H* Calcium 7.0 L Phosphorus 3.8 Magnesium 1.5 L D Total Bilirubin 1.1 H AST 358 H ALT 57 Alkaline Phosphatase 113 Creatine Kinase 158 CK-MB (CK-2) 6.657 H Troponin I 0.82 H* Total Protein 4.3 L Albumin 1.8 L Active Medications Generic Name Dose Route Start Last Admin Trade Name Freq PRN Reason Stop Dose Admin Albuterol Sulfate 1 amp 05/08/17 11:33 Ventolin 0.083% Nebulizer Soln - NEB Q6H PRN SHORT OF BREATH/WHEEZING Albuterol/Ipratropium 1 amp 05/08/17 12:00 05/08/17 12:07 Duoneb - NEB 1 amp QIDR JAIR Administration Calcium Carbonate 650 mg 05/03/17 22:00 05/08/17 12:38 Calcium Carbonate - PO Not Given BID JAIR Enoxaparin Sodium 75 mg 05/08/17 14:00 Lovenox - SQ DAILY JAIR Enoxaparin Sodium 75 mg 05/08/17 18:15 Lovenox - SQ 05/08/17 18:16 ONCE ONE Guaifenesin/Codeine Phosphate 5 ml 05/03/17 20:11 Robitussin Ac - PO Q6H PRN COUGH Hydrocortisone Sodium Succinate 100 mg 05/08/17 03:30 05/08/17 12:39 Solu-Cortef - IVPB 100 mg Q8H-IV JAIR Administration Vancomycin HCl 250 mls @ 166.667 mls/hr 05/08/17 11:00 05/08/17 12:46 Vancomycin (Pre-Docked) IVPB 166.667 mls/hr BID@1100,2300 JAIR Administration Protocol Propofol 100 mls @ 1.497 mls/hr 05/07/17 17:59 05/08/17 00:10 Diprivan - IVPB 30 mcg/kg/min TITR JAIR Titration Protocol 5 MCG/KG/MIN Fentanyl 500 mcg/ Dextrose 100 mls @ 5 mls/hr 05/07/17 21:30 05/07/17 23:01 IVPB 05/08/17 21:29 10 mls/hr TITR JAIR Administration 25 MCG/HR Vasopressin 50 units/ Sodium 100 mls @ 4.8 mls/hr 05/08/17 01:00 05/08/17 02:00 Chloride IVPB 4.8 mls/hr ASDIR JAIR Administration Protocol 2.4 UNITS/HR Norepinephrine Bitartrate 8, 500 mls @ 18.75 mls/hr 05/08/17 05:15 05/07/17 21: 00 000 mcg/ Dextrose IV 25 mcg/min TITR JAIR Titration Protocol 5 MCG/MIN Metoprolol Succinate 50 mg 05/04/17 10:00 05/08/17 12:37 Toprol Xl - PO Not Given DAILY [facility] Ondansetron HCl 4 mg 05/03/17 21:04 05/07/17 07:03 Zofran Injection IVPUSH 4 mg Q6H PRN Administration NAUSEA AND/OR VOMITING Pantoprazole Sodium 40 mg 05/04/17 10:00 05/08/17 12:37 Protonix - PO Not Given DAILY JAIR Piperacillin Sod/Tazobactam Sod 3.375 gm 05/08/17 10:00 05/08/17 12:46 Zosyn 3.375gm Ivpb (Pre-Docked) IVPB 3.375 gm Q8H-IV JAIR Administration Protocol Potassium Chloride 40 meq 05/04/17 10:00 05/08/17 12:38 K-Dur - PO Not Given DAILY JAIR Assessment: 47 year old female with PMH triple negative breast cancer with mets to bone, liver, lung on palliative chemo, DM and pericardial effusion with improved SOB. Plan: 1. Acute hypoxic respiratory failure - r/o PE vs aspiration pna - Lovenox 75mg sq daily - Intubated 2. Bilateral Pneumothorax - Chest tube reconnected to left side - CT surgery evaluated 3. Shock, ?septic vs obstructive - Maxed out on Vaso, Levo, Fent - Zosyn q8 - Vanco BID - Lovenox for empiric PE 4. Pericardial Effusion - Likely from metastatic disease - Pericardial drain in place however no active drainage - Repeat bedside ECHO negative for re accumulation 5. Breast CA (triple negative) with mets to bone, liver and lung - Symptomatic management - Heme/Onc following 6. Right pleural effusion - Pleurex drain in place, drain q2days 7. Sinus Tachycardia - Chronic, d/t above - On pressors Prognosis guarded Family sign DNR Visit type - Emergency Visit Emergency Visit: Yes ED Registration Date: 05/03/17 Care time: The patient presented to the Emergency Department on the above date and was hospitalized for further evaluation of their emergent condition. - New Patient This patient is new to me today: No - Critical Care Critical Care patient: No - Discharge Referral Referred to [facility] Med P.C.: No
[2017-05-08] MEDS ORDERED: LORAZEPAM CARPU-JECT 2 MG/ML DISP.SYRIN IVPUSH ONE ×2 (18:37→18:53)
[2017-05-08] MEDS ORDERED: MORPHINE 100 MG in SODIUM CHLORIDE 98 ML IVPB SCH (18:45)
[2017-05-08] MEDS ORDERED: PT OWN MED DRAWER 7, Y5N ONE (22:30)
[2017-05-08] MEDS: PROPOFOL 100 ML IVPB SCH (22:39)
[2017-05-08] MEDS ORDERED: LORazepam 2 MG/ML SDV VIAL ONE (22:57)
[2017-05-08] MEDS ORDERED: LORAZEPAM CARPU-JECT 2 MG/ML DISP.SYRIN IVPUSH PRN (23:00)
[2017-05-09] MEDS: PIPERACILLIN/TAZOB 3.375 GM/50 ML PRE-DOCKED IVPB SCH ×2 (02:30→09:47)
[2017-05-09] MEDS: VASOPRESSIN 50 UNITS in SODIUM CHLORIDE 97.5 ML IVPB SCH (03:19)
[2017-05-09] MEDS: HYDROCORTISONE SOD SUCCINATE 100 MG/2 ML VIAL IVPB SCH ×2 (03:21→09:47)
[2017-05-09] MEDS ORDERED: NOREPINEPHRINE BITARTRATE 4 MG/4 ML ML IV ONE ×2 (06:26→11:33)
[2017-05-09] MEDS: ALBUTEROL SO4 2.5/IPRATROPIUM 0.5 INH SOL 3 ML VIAL.NEB. NEB SCH ×2 (06:28)
[2017-05-09] MEDS: NOREPINEPHRINE BITARTRATE 8,000 MCG in DEXTROSE 5%-WATER - 492 ML IV SCH (07:00)
[2017-05-09 07:08] VITALS: TEMP 96.4
[2017-05-09] MEDS ORDERED: FENTANYL INJECTION 500 MCG in DEXTROSE 5%-WATER - 90 ML IJ SCH (09:00)
[2017-05-09 09:01] VITALS: PULSE 40
[2017-05-09 09:48] VITALS: BP 0/0
[2017-05-09] MEDS: VANCOMYCIN 1 GRAM (PRE-DOCKED) 250 ML IVPB SCH (10:26)
[2017-05-09] MEDS ORDERED: VASOPRESSIN 20 UNITS/ML VIAL IV ONE (11:32)
--- NOTE | 2017-05-09 11:36 | PN ---
Teaching Attending Note Name of Resident: Angie Boyd ATTENDING PHYSICIAN STATEMENT I saw and evaluated the patient. I reviewed the resident's note and discussed the case with the resident. I agree with the resident's findings and plan as documented. SUBJECTIVE: Pt seen and examined in the ICU. Pt remains intubated, sedated on high dose levophed, vasopressin gtts with refractory hypotension. Made DNR overnight by family. OBJECTIVE: Last Vital Signs Temp Pulse Resp BP Pulse Ox 96.4 F L 40 L 31 H 0/0 100 05/09/17 07:00 05/09/17 09:00 05/09/17 10:07 05/09/17 07:00 05/08/17 20:11 Intake & Output 05/06/17 05/07/17 05/08/17 05/09/17 23:59 23:59 23:59 23:59 Intake Total 920 3598 7480.1 1738 Output Total 50 950 350 Balance 920 3548 6530.1 1388 Weight 129 lb 3.054 oz 130 lb Gen: intubated, sedated, cyanotic Heart: RRR Lung: bilateral rhonchi Abd: softly distended Ext: + edema, mottled CBC, BMP 05/08/17 05:20 05/08/17 05:20 Active Medications Albuterol Sulfate (Ventolin 0.083% Nebulizer Soln -) 1 amp NEB Q6H PRN PRN Reason: SHORT OF BREATH/WHEEZING Albuterol/Ipratropium (Duoneb -) 1 amp NEB QIDR JAIR Last Admin: 05/09/17 06:28 Dose: Not Given Enoxaparin Sodium (Lovenox -) 75 mg SQ DAILY JAIR Last Admin: 05/09/17 08:12 Dose: Not Given Hydrocortisone Sodium Succinate (Solu-Cortef -) 100 mg IVPB Q8H-IV JAIR Last Admin: 05/09/17 09:47 Dose: 100 mg Vancomycin HCl (Vancomycin (Pre-Docked)) 250 mls @ 166.667 mls/hr IVPB BID@1100 ,2300 JAIR PRN Reason: Protocol Last Admin: 05/09/17 10:26 Dose: 166.667 mls/hr Propofol (Diprivan -) 100 mls @ 1.497 mls/hr IVPB TITR JAIR; 5 MCG/KG/MIN PRN Reason: Protocol Last Admin: 05/08/17 22:39 Dose: Not Given Vasopressin 50 units/ Sodium (Chloride) 100 mls @ 4.8 mls/hr IVPB ASDIR JAIR; 2.4 UNITS/HR PRN Reason: Protocol Last Admin: 05/09/17 03:19 Dose: 12 mls/hr Norepinephrine Bitartrate 8, (000 mcg/ Dextrose) 500 mls @ 18.75 mls/hr IV TITR JAIR; 5 MCG/MIN PRN Reason: Protocol Last Admin: 05/09/17 07:00 Dose: 112.5 mls/hr Fentanyl 500 mcg/ Dextrose 100 mls @ 5 mls/hr IJ TITR JAIR PRN Reason: 25 MCG/HR Last Admin: 05/09/17 09:00 Dose: 5 mls/hr Lorazepam (Ativan Injection -) 2 mg IVPUSH Q2H PRN PRN Reason: ANXIETY Ondansetron HCl (Zofran Injection) 4 mg IVPUSH Q6H PRN PRN Reason: NAUSEA AND/OR VOMITING Last Admin: 05/07/17 07:03 Dose: 4 mg Piperacillin Sod/Tazobactam Sod (Zosyn 3.375gm Ivpb (Pre-Docked)) 3.375 gm IVPB Q8H-IV JAIR PRN Reason: Protocol Last Admin: 05/09/17 09:47 Dose: 3.375 gm ASSESSMENT AND PLAN: Acute Hypoxic Respiratory Failure r/o Aspiration Pneumonia r/o Pulmonary Embolism Shock - ?Septic Acute Kidney Injury Lactic Acidosis +Troponins likely Demand Ischemia Metastatic Breast Cancer Pericardial Effusion s/p Pericardial Drain Pleural Effusion s/p Pleur-x catheter placement HTN DM - continue antibiotics - f/u cultures - IVF to keep CVP 8-12 - titrate pressors to maintain MAP >65 - on stress dose steroids - trend lactate, cardiac enzymes - inhaled bronchodilators - sedate for vent synchrony - DVT/GI prophylaxis - continue ICU monitoring - pt DNR, poor prognosis, family aware at bedside critical care time spent in reviewing chart, evaluating patient and formulating plan 35 min
--- NOTE | 2017-05-09 11:46 | DS ---
Physical Examination Vital Signs: Vital Signs Temperature 96.4 F L 05/09/17 07:00 Pulse Rate 40 L 05/09/17 09:00 Respiratory Rate 31 H 05/09/17 10:07 Blood Pressure 0/0 05/09/17 07:00 O2 Sat by Pulse Oximetry (%) 100 05/08/17 20:11 Findings/Remarks: I did not see or evaluate the patient prior to her . Labs: CBC, BMP 05/08/17 05:20 05/08/17 05:20 Discharge Summary Reason For Visit: PERICARDIAL EFFUSION Current Active Problems Acute pericardial effusion (Acute) Air hunger (Acute) Dehydration (Acute) Dysphagia (Acute) Dyspnea (Acute) Hypotension (Acute) Hypoxia (Acute) Pleural effusion (Acute) Pneumothorax, acute (Acute) Respiratory failure (Acute) Hospital Course: 47 year old female with PMH triple negative breast cancer with mets to bone, liver, lung on palliative chemo, DM and pericardial effusion with improved SOB. Plan: 1. Acute hypoxic respiratory failure - r/o PE vs aspiration pna - Lovenox 75mg sq daily - Intubated 2. Bilateral Pneumothorax - Chest tube reconnected to left side - CT surgery evaluated 3. Shock, ?septic vs obstructive - Maxed out on Vaso, Levo, Fent - Zosyn q8 - Vanco BID - Lovenox for empiric PE 4. Pericardial Effusion - Likely from metastatic disease - Pericardial drain in place however no active drainage - Repeat bedside ECHO negative for re accumulation 5. Breast CA (triple negative) with mets to bone, liver and lung - Symptomatic management - Heme/Onc following 6. Right pleural effusion - Pleurex drain in place, drain q2days 7. Sinus Tachycardia - Chronic, d/t above - On pressors The patient was pronounced at 11:35am by the ICU resident Condition: - Instructions Disposition: - Home Medications Comprehensive Discharge Medication List: Ambulatory Orders Pantoprazole Sodium [Protonix] 40 mg PO DAILY #30 tablet. 01/05/17 Entecavir [Baraclude -] 0.5 mg PO Q48H #0 tablet 02/02/17 Albuterol 2.5/Ipratropium 0.5 [Duoneb -] 1 amp NEB Q4H PRN #32 amp MDD 4 Guaifenesin AC [Robitussin AC -] 5 ml PO Q6H PRN #1 bottle MDD 4 02/18/17 Metoprolol Succinate [Toprol XL -] 50 mg PO DAILY #30 tab 02/18/17 Calcium Carbonate - 650 mg PO BID #28 tablet 02/19/17 Potassium Chloride [K-Dur -] 40 meq PO DAILY #28 tablet.er 02/19/17 This patient is new to me today: Yes Date on this admission: 05/19/17 Emergency Visit: Yes ED Registration Date: 05/03/17 Care time: The patient presented to the Emergency Department on the above date and was hospitalized for further evaluation of their emergent condition. Critical Care patient: No - Discharge Referral Referred to [facility] Med P.C.: No
--- NOTE | 2017-05-09 13:47 | PN ---
Physical Exam: SUBJECTIVE: ICU Progress Note: ED PA Fellow Patient seen and examined at bedside. Pt. remains intubated and sedated. Levofed 30 mcg/min, Vasopressin 12mcg/min gtts Overnight events: Pt. remains to be hypotensive despite treatment with pressors. Family decided to make pt. DNR. Family holding reyna at bedside OBJECTIVE: Vital Signs Period Temp Pulse Resp BP Sys/Winter Pulse Ox Last 24 Hr 96.4 F-97.6 F 40-130 14-31 0-89/0-66 100-100 GENERAL: Sedated and intubated HEAD: Normal with no signs of trauma. EYES: (-) PERRL LUNGS: Scattered wheezing and rhonchi b/l HEART: bradycardia, S1, S2 without murmur, rub or gallop. ABDOMEN: Soft, nontender, nondistended, normoactive bowel sounds, no guarding, no rebound, no hepatosplenomegaly, no masses. EXTREMITIES: Mottled and cold. No distal pulses NEUROLOGICAL: Sedated Active Medications Generic Name Dose Route Start Last Admin Trade Name Freq PRN Reason Stop Dose Admin Albuterol Sulfate 1 amp 05/08/17 11:33 Ventolin 0.083% Nebulizer Soln - NEB Q6H PRN SHORT OF BREATH/WHEEZING Albuterol/Ipratropium 1 amp 05/08/17 12:00 05/09/17 06:28 Duoneb - NEB Not Given QIDR JAIR Enoxaparin Sodium 75 mg 05/08/17 14:00 05/09/17 08:12 Lovenox - SQ Not Given DAILY JAIR Hydrocortisone Sodium Succinate 100 mg 05/08/17 03:30 05/09/17 09:47 Solu-Cortef - IVPB 100 mg Q8H-IV JAIR Administration Vancomycin HCl 250 mls @ 166.667 mls/hr 05/08/17 11:00 05/09/17 10:26 Vancomycin (Pre-Docked) IVPB 166.667 mls/hr BID@1100,2300 JAIR Administration Protocol Propofol 100 mls @ 1.497 mls/hr 05/07/17 17:59 05/08/17 22:39 Diprivan - IVPB Not Given TITR JAIR Protocol 5 MCG/KG/MIN Vasopressin 50 units/ Sodium 100 mls @ 4.8 mls/hr 05/08/17 01:00 05/09/17 03:19 Chloride IVPB 12 mls/hr ASDIR JAIR Administration Protocol 2.4 UNITS/HR Norepinephrine Bitartrate 8, 500 mls @ 18.75 mls/hr 05/08/17 05:15 05/09/17 07: 00 000 mcg/ Dextrose IV 112.5 mls/hr TITR JAIR Administration Protocol 5 MCG/MIN Fentanyl 500 mcg/ Dextrose 100 mls @ 5 mls/hr 05/09/17 09:00 05/09/17 09:00 IJ 5 mls/hr TITR JAIR Administration 25 MCG/HR Lorazepam 2 mg 05/08/17 23:00 Ativan Injection - IVPUSH Q2H PRN ANXIETY Ondansetron HCl 4 mg 05/03/17 21:04 05/07/17 07:03 Zofran Injection IVPUSH 4 mg Q6H PRN Administration NAUSEA AND/OR VOMITING Piperacillin Sod/Tazobactam Sod 3.375 gm 05/08/17 10:00 05/09/17 09:47 Zosyn 3.375gm Ivpb (Pre-Docked) IVPB 3.375 gm Q8H-IV JAIR Administration Protocol ASSESSMENT/PLAN: Pt is a 47yo woman with PMH triple negative breast cancer with mets to bone, liver, lung on palliative chemo, DM and pericardial effusion with improved SOB. Respiratory Failure - Sepsis via aspiration vs PE; breathing over vent - Maxed on Levophed and Vasopressor - Sedated and intubated - Vent settings: A/C, Rate 20, PEEP 5, Fi02 40, - Treat empirically for possible PE - Empiric antibiotics for possible sepsis - Duobeb Q4 - Monitor labs - Poor prognosis; family at bedside and aware B/L Pneumothorax - Chest tube in left to pleuravac with air leak; 600cc drainage - R Plurex with catheter to pleravac with 350cc drainage Pericardial Effusion - Likely from metastatic disease - Pericardial drain in place with no active drainage - TTE shows <1cc of residual effusion Breast CA with mets to bone, liver and lung - Symptomatic management - Heme/Onc following F/E/N - Fluid bolus - replete prn - NPO PPX - Lovenox 50 BID, SCD - Protonix 40mg IVPB daily Dispo - Continues to need ICU monitoring Code Status- DNR Problem List - Problems (1) Acute pericardial effusion Code(s): I30.9 - ACUTE PERICARDITIS, UNSPECIFIED (2) Pleural effusion Code(s): J90 - PLEURAL EFFUSION, NOT ELSEWHERE CLASSIFIED (3) Breast cancer metastasized to multiple sites Code(s): C50.919 - MALIGNANT NEOPLASM OF UNSP SITE OF UNSPECIFIED FEMALE BREAST Qualifiers: Laterality: unspecified laterality Qualified Code(s): C50.919 - Malignant neoplasm of unspecified site of unspecified female breast (4) Diabetes Code(s): E11.9 - TYPE 2 DIABETES MELLITUS WITHOUT COMPLICATIONS (5) Hypertension Code(s): I10 - ESSENTIAL (PRIMARY) HYPERTENSION (6) Pericardial effusion Code(s): I31.3 - PERICARDIAL EFFUSION (NONINFLAMMATORY) (7) Respiratory failure Code(s): J96.90 - RESPIRATORY FAILURE, UNSP, UNSP W HYPOXIA OR HYPERCAPNIA (8) Pneumothorax, acute Code(s): J93.83 - OTHER PNEUMOTHORAX (9) Hypotension Code(s): I95.9 - HYPOTENSION, UNSPECIFIED Visit type - Emergency Visit Emergency Visit: Yes ED Registration Date: 05/03/17 Care time: The patient presented to the Emergency Department on the above date and was hospitalized for further evaluation of their emergent condition. - New Patient This patient is new to me today: No - Critical Care Critical Care patient: Yes Total Critical Care Time (in minutes): 30 Critical Care Statement: The care of this patient involved high complexity decision making to prevent further life threatening deterioration of the patient 's condition and/or to evalute & treat vital organ system(s) failure or risk of failure.
--- NOTE | 2017-05-09 13:50 | HOSP ---
Physical Examination Vital Signs: Vital Signs Temperature 96.4 F L 05/09/17 07:00 Pulse Rate 40 L 05/09/17 09:00 Respiratory Rate 31 H 05/09/17 10:07 Blood Pressure 0/0 05/09/17 07:00 O2 Sat by Pulse Oximetry (%) 100 05/08/17 20:11 Labs: CBC, BMP 05/08/17 05:20 05/08/17 05:20 Hospitalist Encounter Assessment: Patient asystolic and apneic on monitor, family at bedside. Ventilator turned off. no spontaenous breaths, no heart sounds, no reflexes, nonresponsive to verbal or tactile stimuli. Patient pronouned at 11:35AM. Visit type - Emergency Visit Emergency Visit: No - New Patient This patient is new to me today: Yes Date on this admission: 05/09/17 - Critical Care Critical Care patient: No
--- NOTE | 2017-05-20 13:59 | EKG ---
Test Reason : Blood Pressure : / mmHG Vent. Rate : 119 BPM Atrial Rate : 119 BPM P-R Int : 112 ms QRS Dur : 058 ms QT Int : 292 ms P-R-T Axes : 082 079 063 degrees QTc Int : 410 ms SINUS TACHYCARDIA WITH PREMATURE ATRIAL COMPLEXES LOW VOLTAGE QRS BORDERLINE ECG WHEN COMPARED WITH ECG OF 03-MAY-2017 14:51, PREMATURE ATRIAL COMPLEXES ARE NOW PRESENT T WAVE VARIATION Confirmed by QUE MANCERA, THELMA ([id number]) on 05/20/2017 1:59:11 PM Referred By: TIM Confirmed By:THELMA GREY MD
== END 2017-05-09 11:35 | disposition expired | DRG 270 ==
LOC: JER 14:40 → JERBED 16:11 → JICU 19:47
PROVIDERS: ADMIT Internal Medicine; ATTEND Registered Nurse
PROC: 0WH Anatomical Regions, General, Insertion (ICD-10-PCS; principal; 2017-05-03)
PROC: 0BH17EZ Insertion of Endotracheal Airway into Trachea, Via Natural or Artificial Opening (ICD-10-PCS; 2017-05-03)
PROC: 05HN33Z Insertion of Infusion Device into Left Internal Jugular Vein, Percutaneous Approach (ICD-10-PCS; 2017-05-03)
PROC: 0W9B30Z Drainage of Left Pleural Cavity with Drainage Device, Percutaneous Approach (ICD-10-PCS; 2017-05-03)
PROC: 5A1935Z Respiratory Ventilation, Less than 24 Consecutive Hours (ICD-10-PCS; 2017-05-07)
PROC: 5A12012 Performance of Cardiac Output, Single, Manual (ICD-10-PCS; 2017-05-07)
PROC: 4A143B0 Monitoring of Venous Pressure, Central, Percutaneous Approach (ICD-10-PCS; 2017-05-08)
PROC: 0B21XEZ Change Endotracheal Airway in Trachea, External Approach (ICD-10-PCS; 2017-05-08)
PROC: 0BH17EZ Insertion of Endotracheal Airway into Trachea, Via Natural or Artificial Opening (ICD-10-PCS; 2017-05-08)
DX: I31.3 Pericardial effusion (noninflammatory) (principal); J96.90 Respiratory failure, unspecified, unspecified whether with hypoxia or hypercapnia; A41.89 Other specified sepsis; A41.9 Sepsis, unspecified organism; C78.00 Secondary malignant neoplasm of unspecified lung; C78.1 Secondary malignant neoplasm of mediastinum; C78.7 Secondary malignant neoplasm of liver and intrahepatic bile duct; C79.51 Secondary malignant neoplasm of bone; J90 Pleural effusion, not elsewhere classified; J93.83 Other pneumothorax; I48.92 Unspecified atrial flutter; E87.2 Acidosis; N17.9 Acute kidney failure, unspecified; I24.8 Other forms of acute ischemic heart disease; I31.4 Cardiac tamponade; C50.919 Malignant neoplasm of unspecified site of unspecified female breast; I10 Essential (primary) hypertension; E11.9 Type 2 diabetes mellitus without complications; R09.89 Other specified symptoms and signs involving the circulatory and respiratory systems; D50.9 Iron deficiency anemia, unspecified; R00.0 Tachycardia, unspecified; I46.9 Cardiac arrest, cause unspecified; Z66 Do not resuscitate; R57.8 Other shock
CPT/HCPCS: 31500; 36415; 36600; 71010-TC; 76930; 80048; 80053; 81003; 81015; 82550; 82553; 82803; 83605; 83735; 84100; 84484; 85025; 85027; 85610; 85730; 86850; 86900; 86901; 87040; 87070; 87075; 87205; 88108; 88305-TC; 89051; 93005; 93010; 93306-TC; 94002; 94640; 99284-25; A4358; C1729; C1769